=== PATIENT | female | born 1950 | race Caucasian/White ===

== ENCOUNTER 2020-02-23 18:15 | Inpatient (IN) | payer MEDICARE, OTHER, SELFPAY ==
[2020-02-23] VITALS (37 sets, daily range): BP systolic 139–166; BP diastolic 58–131; PULSE 84–111; RESP 14–22; TEMP 36.3–37; O2SAT 94–98
--- NOTE | 2020-02-23 18:10 | DI.RAD_ITS ---
EXAM: XR PORTABLE CHEST AP CLINICAL HISTORY: SOB, hx CHF TECHNIQUE: 2D digital imaging was performed. COMPARISON: No exams were available for comparison FINDINGS: The lung bases are not well penetrated. The heart size is within normal limits. The aorta is mildly tortuous. There are mild linear densities at the left lung base consistent with atelectasis or scar ring. No infiltrate, effusion or pulmonary edema is seen. IMPRESSION: No acute pulmonary findings. DATA REPOSITORY: RADIATION DOSE DELIVERED:
--- NOTE | 2020-02-23 18:15 | RT.EKG_ITS ---
APPROVED REPORT Exam: Resting ECG Patient Location: E HR:101 bpm ECG Measurements Heart Rate 101 AXIS OR 205 P 56 QRSd 115 QRS 42 QT 358 T 48 QTc 465 Conclusion Sinus tachycardia Incomplete right bundle branch block
--- NOTE | 2020-02-23 18:50 | W.ED.GENAD ---
Discharge Plan Disposition Patient Disposition: [facility] INPATIENT Condition: Stable Discharge Details Clinical Impression: Chest tightness Primary Care Provider: Fanny,Local ED Provider: Jarred Ramos Home Meds and New Rx's Prescriptions: No Action duloxetine [Cymbalta] 60 mg Capsule,Delayed Release(Dr/Ec) 60 mg PO DAILY RF: 0 furosemide 40 mg Tablet 40 mg PO DAILY RF: 0 oxybutynin chloride 15 mg Tablet Extended Release 24hr 15 mg PO DAILY RF: 0 trazodone 150 mg Tablet 150 mg PO DAILY RF: 0 buspirone 10 mg Tablet 10 mg PO DAILY RF: 0 Medical Decision Making <Christian Farrell MD - Last Filed: 02/23/20 19:48> 69-year-old female presents on referral from local urgent care. She recently moved from [place], has not established local primary care. States she has had approximately 1 week of intermittent episodes of shortness of breath with exertion, feeling weak, intermittent episodes of chest tightness. She states she is a recovering alcoholic who fell off the [facility] and has on a alcohol binge for 1 week. She states she has been drinking 6-7 hard liquor drinks per day with her last drink last night. She states she takes Lasix approximately every other day, when my legs swell. She states that distantly she had an episode of acute renal insufficiency. She had a sore throat 1 week ago that is now improved. States that she has been observing mask use and has no known sick contacts. She was initially seen at [facility] urgent care who reported a negative rapid Covid test at their facility. She is afebrile on arrival. Hypertensive, tachycardic, tremulous. She had some mild increased work of breathing but was not hypoxic. Differential diagnosis includes alcohol withdrawal, fluid overload, ACS, must exclude PE. Patient IV access established, EKG, screening laboratories obtained. She is given 1 mg of Ativan for anxiety and concern for the beginning of alcohol withdrawal. CXR: Mild left basilar airspace opacity, question atelectasis. No pulmonary vascular congestion noted. Labs: CBC with a white count of 10, hematocrit 40, platelets 208. MCV is 98. Remainder of labs pending at change of shift and patient to be signed out to Dr. Ramos. Please see his note regarding further impression and disposition. <Jarred Ramos MD - Last Filed: 02/23/20 21:59> pt remains mildly tachycardic in the 100's, initial troponin negative and d dimer is elevated unfortunately gfr is only 30. I spoke with pt and given exertional chest pain for a week feels more comfortable with observation. Spoke with Dr. Casillas who will assess pt in the ED. Lab Data Lab results reviewed: Yes I reviewed the patient's lab results. ECG Data Attestation: I personally reviewed and interpreted this ECG (s) as follows: Prior ECG tracings: available for review Interpretation: 2nd ekg sinus rhythm, rat eof 88, pr 175 qtc 457 HPI <Christian Farrell MD - Last Filed: 02/23/20 19:48> General Mode of arrival: ambulatory. Date/Time Provider Initiated Documentation: 02/23/20 18:17. Limitations to Documentation: no limitations. Information obtained by: patient. History of Present Illness 69 year old F presents to the emergency department with the chief complaint of Chest tightness, shortness of breath, recent alcohol binge, described as moderate, and is localized to the chest. Patient reports no radiation. Patient started experiencing this day(s) and it has been intermittent. Rest improves symptom(s), Other factors that worsen symptoms (Walking) . Patient notes shortness of breath, weakness and other (Had a sore throat that is improved. Denies significant cough. Feels tremulous. States last drink was yesterday). Patient did receive the following treatments prior to arrival, none Related Data Home Medications Medication Instructions Recorded Confirmed buspirone 10 mg PO DAILY 02/23/20 02/23/20 duloxetine [Cymbalta] 60 mg PO DAILY 02/23/20 02/23/20 furosemide 40 mg PO DAILY 02/23/20 02/23/20 oxybutynin chloride 15 mg PO DAILY 02/23/20 02/23/20 trazodone 150 mg PO DAILY 02/23/20 02/23/20 Allergies Allergy/AdvReac Type Severity Reaction Status Date / Time No Known Allergies Allergy Unverified 02/23/20 18:37 General Stated Complaint: Chest Pain IAN: 2 Review of Systems <Christian Farrell MD - Last Filed: 02/23/20 19:48> Narrative: States he takes Lasix approximately every other day. History of renal insufficiency. Recently moved from [place]. 8 systems reviewed and otherwise negative PFSH <Christian Farrell MD - Last Filed: 02/23/20 19:48> Social History Smoking/Tobacco Use Status: Current-Occasional Tobacco Type: e-cigarettes Smoking risk assessment performed?: Yes Alcohol Intake: current Alcohol Intake frequency: 3 or more drinks per day Alcohol type: hard liquor Substance use 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 Was drinking 5-6 drinks for the past week. PT now reports tremors Do you feel safe at home: Yes Do you feel safe in your relationship?: Yes Exam <Christian Farrell MD - Last Filed: 02/23/20 19:48> Narrative Exam Narrative: GEN: awake, alert, oriented 3. Pleasant, well groomed, interactive. HEAD: Normocephalic, atraumatic ENT: Mucous membranes moist, oropharynx unremarkable, External ear exam unremarkable EYES: PERRL, EOMI NECK: Full ROM, no DIANE, no menigismus CHEST/RESP: Nontender, clear to auscultation bilateral, no wheeze/rhonchi/rales CARDIOVASCULAR: Regular and tachycardic, no murmur, rub telly. 2+ Rad pulse bilateral ABDOMEN: Soft, nontender, no mass. +Bowel sounds EXT: Full ROM, trace bilateral pretibial edema, no rash Neuro: Grossly normal neurologic exam, conversant, interactive. Tremulous Psych: Speech fluent, thoughts congruent, affect normal Course <Christian Farrell MD - Last Filed: 02/23/20 19:48> Vital Signs Vital signs: Vital Signs Temperature 36.3 C L 02/23/20 18:25 Temperature 36.3 C L 02/23/20 18:25 Respiratory Effort 02/23/20 18:29 Pain Level 7 02/23/20 18:25 Sign Out <Christian Farrell MD - Last Filed: 02/23/20 19:48> Sign Out Data: Sign Out Comment: Followup labs, re-evaluate. Last updated by Christian Farrell MD at 02/23/20 19:47
[2020-02-23 19:01] LABS: Abs Immature Grans 0.05 10^3/uL (0.0-0.06); Absolute Basophil Count 0.03 10^3/uL (0.0-0.2); Absolute Eosinophil Count 0.02 10^3/uL (0.0-0.7); Absolute Lymphocyte Count 0.62 10^3/uL (1.2-3.4); Absolute Monocyte Count 0.79 10^3/uL (0.1-0.8); Absolute Neutrophil Count 9.24 10^3/uL (1.2-6.7); Basophils % 0.3; Eosinophils % 0.2; HCT 40.8 % (36.0-46.0); HGB 13.4 g/dL (11.2-15.7); Immature Grans % 0.5; Lymphocytes % 5.8; MCH 32.4 pg (27.0-33.0); MCHC 32.8 % (32.0-36.0); MCV 98.6 fL (80-95); MPV 9.2 fL (8.0-11.0); Monocytes % 7.3; Neutrophils % 85.9; Nucleated RBC 0 %; Platelet Count 208 10^3/uL (130-400); RBC 4.14 10^6/uL (3.93-5.22); RDW 16.6 % (11.7-14.6); RDW-SD 59.8 fL; WBC 10.75 10^3/uL (4.4-10.8)
[2020-02-23] MEDS: LORazepam 2 MG/ML VIAL 1 MG IVP (19:07)
[2020-02-23 19:18] LABS: PTT Activated 26.1 sec (21.0-27.5); Prothrombin Time 9.9 sec (9.3-11.0)
--- NOTE | 2020-02-23 19:19 | DI.VRAD_ITS ---
PROCEDURE INFORMATION: Exam: XR Chest, 1 View Exam date and time: 02/23/2020 7:08 PM Age: 69 years old Clinical indication: Shortness of breath TECHNIQUE: Imaging protocol: XR of the chest Views: 1 view. COMPARISON: No relevant prior studies available. FINDINGS: Lungs: There is mild left basilar airspace opacity in a configuration suggesting subsegmental atelectasis. Lungs otherwise clear. There is no pulmonary vascular congestion. Pleural space: No layering pleural effusions are identified. Heart/Mediastinum: Heart size is normal. Bones/joints: Unremarkable. IMPRESSION: Mild left basilar airspace opacity in a configuration suggesting atelectasis. Lungs otherwise clear. Dictated and Authenticated by: Nikhil Andrade MD. Ordering:HEIDI Gonzales MD
[2020-02-23 19:25] LABS: NT-proBNP 278 pg/mL (<300)
[2020-02-23 19:37] LABS: ETHANOL BLOOD < 3.0 mg/dL (<3)
[2020-02-23 19:43] LABS: ALT 40 U/L (14-59); AST 36 U/L (15-37); Albumin 3.7 g/dL (3.4-5.0); Alkaline Phosphatase 176 U/L (46-116); Anion Gap 16.6 mmol/L (3-11); BUN 25 mg/dL (7-18); Bilirubin, Total 0.6 mg/dL (0.2-1.0); CO2 22.4 mmol/L (21.0-32.0); CREATININE 1.63 mg/dL (0.55-1.02); Calcium 8.8 mg/dL (8.5-10.1); Chloride 102 mmol/L (98-107); Estimated GFR 31.28 (mL/min/1.73m2); Glucose 115 mg/dL (74-106); Magnesium 2.1 mg/dL (1.8-2.4); Potassium 3.9 mmol/L (3.5-5.1); Sodium 141 mmol/L (136-145); Total Protein 8.1 g/dL (6.4-8.2)
[2020-02-23 19:48] LABS: Troponin I < 0.05 ng/mL (<0.06)
[2020-02-23 20:06] LABS: D-Dimer 1997 ng/mlFEU (<500)
--- NOTE | 2020-02-23 21:05 | HPE_ITS ---
Date of service: 02/23/20 Time of Service: 21:05 Assessment and Plan Assessment and plan (1) SOB (shortness of breath): Status: Acute Assessment and plan: SHAH in setting of probable viral syndrome, with notable findings of wheezing. Covid a definite possibility, but may be more nonspecific. The elevated d-Dimer is likewise nonspecific, but PE possible , and higher a priori prob given LE findings. Agree with hold CTA, will give Lx until U/S available. Angina equivalent possible but I think doubtful. 1. SOB: trial updrafts, ? steroids, ? abx 2. d-Dimer: Lx, await U/S LEs 3. r/o Covid: await swab, add on ferritin, CRP and LDH. PUI 4. EtOH: CIWA 5. R/O: trend trops, consider ETT if dx not forthcoming History of Present Illness History of Present Illness Chief Complaint: SOB Narrative: 69 female former smoker here with 5 day illness beginning with sore throat and dry cough. Has since developed SHAH and diarrhea (latter past 2 days). Seen [facility], reports neg Covid, sent here for further eval. Also reports she has been drinking heavily past week (h/o alcoholism, but has been sober x 10 years). Denies CP (mentioned to ER but is adamant to me this is simply sense of SOB). Chronic LE swelling, no change, No orthopnea. In ER w/u of note for neg trop, normal EKG and CXR (save basilar atelectasis on left) and d-Dimer 1996. Due to renal insufficiency CTA not obtained. Admitted for further eval. Review of Systems All systems reviewed & are unremarkable except as noted in HPI and below PFSH Social History Smoking/Tobacco Use Status: Current-Occasional Tobacco Type: e-cigarettes Smoking risk assessment performed?: Yes Alcohol Intake: current Alcohol Intake frequency: 3 or more drinks per day Alcohol type: hard liquor Substance use 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 Was drinking 5-6 drinks for the past week. PT now reports tremors Do you feel safe at home: Yes Do you feel safe in your relationship?: Yes Meds Home Medications and Allergies Home Medications Medication Instructions Recorded Confirmed Type buspirone 10 mg PO DAILY 02/23/20 02/23/20 History duloxetine [Cymbalta] 60 mg PO DAILY 02/23/20 02/23/20 History furosemide 40 mg PO DAILY 02/23/20 02/23/20 History oxybutynin chloride 15 mg PO DAILY 02/23/20 02/23/20 History trazodone 150 mg PO DAILY 02/23/20 02/23/20 History Allergies Allergy/AdvReac Type Severity Reaction Status Date / Time No Known Allergies Allergy Unverified 02/23/20 18:37 Exam Narrative Exam Narrative: 152/677, 98, 36.3, 19, 94-98%. HEENT unremarkable; neck supple; lungs moderate wheeze; heart RRR w/o MRG; abdomen soft NT; extremities extensive chronic lymphedema, no calf tenderness, neg Argelia's; neuro Ox3 nonfocal Results Labs Result diagrams: 02/23/20 18:45 02/23/20 18:45 Labs: Laboratory Results - last 24 hr 02/23/20 02/23/20 02/23/20 18:45 18:45 18:45 WBC RBC Hgb Hct MCV MCH MCHC RDW Plt Count MPV Immature Gran % Neutrophils % Lymphocytes % Monocytes % Eosinophils % Basophils % Nucleated RBC % Absolute Neutrophils Absolute Lymphocytes Absolute Monocytes Absolute Eosinophils Absolute Basophils PT 9.9 INR 1.0 APTT 26.1 D-Dimer 1997 H Sodium 141 Potassium 3.9 Chloride 102 Carbon Dioxide 22.4 Anion Gap 16.6 H BUN 25 H Creatinine 1.63 H Estimated GFR/1.73 m2 31.28 Glucose 115 H Calcium 8.8 Magnesium 2.1 Total Bilirubin 0.6 AST 36 ALT 40 Alkaline Phosphatase 176 H Troponin I < 0.05 NT-Pro-B Natriuret Pep 278 Total Protein 8.1 Albumin 3.7 Ethyl Alcohol 02/23/20 02/23/20 18:45 18:45 WBC 10.75 RBC 4.14 Hgb 13.4 Hct 40.8 MCV 98.6 H MCH 32.4 MCHC 32.8 RDW 16.6 H Plt Count 208 MPV 9.2 Immature Gran % 0.5 Neutrophils % 85.9 Lymphocytes % 5.8 Monocytes % 7.3 Eosinophils % 0.2 Basophils % 0.3 Nucleated RBC % 0 Absolute Neutrophils 9.24 H Absolute Lymphocytes 0.62 L Absolute Monocytes 0.79 Absolute Eosinophils 0.02 Absolute Basophils 0.03 PT INR APTT D-Dimer Sodium Potassium Chloride Carbon Dioxide Anion Gap BUN Creatinine Estimated GFR/1.73 m2 Glucose Calcium Magnesium Total Bilirubin AST ALT Alkaline Phosphatase Troponin I NT-Pro-B Natriuret Pep Total Protein Albumin Ethyl Alcohol < 3.0 Last Vital Signs Temp 36.3 C L 02/23/20 18:25 Pulse 107 H 02/23/20 19:16 Resp 20 02/23/20 19:20 BP 141/96 H 02/23/20 19:16 Pulse Ox 97 02/23/20 19:20 COVID-19 Screening Have you, or household traveled for leisure in last 14 days?: No Had IN PERSON contact w/suspected or confirmed C-19 person: No
[2020-02-23 21:25] LABS: C-Reactive Protein 6.92 mg/dL (0.0-0.3); LDH 246 U/L (81-234)
[2020-02-23 21:40] LABS: Ferritin 86 ng/mL (8-252)
--- NOTE | 2020-02-23 21:45 | RT.EKG_ITS ---
APPROVED REPORT Exam: Resting ECG Patient Location: E HR:88 bpm ECG Measurements Heart Rate [address] 175 P 42 QRSd 106 QRS 8 QT 377 T 35 QTc 457 Conclusion Sinus rhythm...normal P axis, V-rate 60- 99
[2020-02-23 22:02] LABS: Procalcitonin 0.1 ng/mL
[2020-02-23 22:26] LABS: Troponin I < 0.05 ng/mL (<0.06)
[2020-02-23] MEDS: Enoxaparin 120 MG/0.8 ML SYR SC (23:31)
[2020-02-23] MEDS: Albuterol 2.5 MG/3 ML INH SOLN VIAL UPD (23:31)
[2020-02-23] MEDS: LORazepam 1 MG TAB PO/SL (23:32)
[2020-02-23] MEDS: traZODone 50 MG TAB 150 MG PO (23:32)
[2020-02-23] MEDS: chlordiazePOXIDE 25 MG CAP PO (23:44)
[2020-02-24] VITALS (10 sets, daily range): BP systolic 119–149; BP diastolic 54–77; PULSE 80–105; RESP 16–20; TEMP 35–36.7; O2SAT 94–97
--- NOTE | 2020-02-24 | DI.US_ITS ---
EXAM: US EXTREMITY VENOUS BI CLINICAL HISTORY: bilateral leg edema; elevated d-dimer; PUI. TECHNIQUE: Bilateral lower extremity venous ultrasound performed using grayscale, color-flow, and sp ectral Doppler analysis. COMPARISON: No exams were available for comparison FINDINGS: Right lower extremity: The bilateral common femoral, femoral and popliteal veins demonstrate normal c ompressibility, augmentation, and color Doppler. The posterior tibial veins are patent. Left lower extremity: Thrombus is visible in left posterior tibial vein. The popliteal and femoral v ein as well as saphenous veins appear free of thrombus. IMPRESSION: Right: Negative for DVT Left: Deep venous thrombosis in 1 of the posterior tibial veins. DATA REPOSITORY:
[2020-02-24 06:14] LABS: Troponin I < 0.05 ng/mL (<0.06)
[2020-02-24] MEDS: Albuterol/Ipratropium 3 ML UPD VIAL UPD (06:19)
[2020-02-24] MEDS: Furosemide 40 MG TAB PO (08:09)
[2020-02-24] MEDS: Oxybutynin-CR 5 MG TABCR 15 MG PO (08:09)
[2020-02-24] MEDS: DULoxetine 30 MG CAP 60 MG PO (08:09)
[2020-02-24] MEDS: chlordiazePOXIDE 25 MG CAP PO ×3 (08:09→20:30)
[2020-02-24] MEDS: Ipratropium/Albuterol 4 GM 120 PUFF INH IH ×4 (08:59→20:31)
--- NOTE | 2020-02-24 10:08 | INITIAL_ITS ---
- If Service Date Differs Date of service: 02/24/20 Time of Service: 10:08 Care Management Initial Assess REASON FOR HOSPITALIZATION:: SOB PAST MEDICAL HISTORY/PAST SURGICAL HISTORY:: Fracture of right leg. MRSA infection right leg. kidney failure PREVIOUS FUNCTIONAL STATUS/SOCIAL/FAMILY SUPPORTS:: Carine lives in [place] [facility] [place]. Her male counter molder Karel Gupta is listed as her contact lens edge buffer. Carine has recently relocated from [place] in December. 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 Carine has no children. She is independent at baseline with ADLs, driving etc but has issues with balance. CURRENT FUNCTIONAL STATUS:: Carine was sitting up in bed when CM met with her. She was open and engaged and agreeable to conversation. She shared a bit of the history of her relationship with her boyfriend and how she came to live in [place]. She wants and needs to establish care with a new PCP and CM will assist with that. She also expressed a desire to lose weight and become more active. ADVANCE DIRECTIVES:: Given 2 copies of the [facility] AD forms at her request Has patient been provided with info about the portal/API?: Yes Did the patient sign up for the portal?: No (is interested ) CODE STATUS:: Full Code INSURANCE COVERAGE / FINANCIAL ISSUES:: Medicare. [employer] CURRENT HOME/COMMUNITY SERVICES/EQUIPMENT:: walking sticks PRIMARY CARE PHYSICIAN:: none local. Katie Williamson T-doc day of admission POTENTIAL DISCHARGE NEEDS:: Establish with new PCP, follow up with discharge plan, begin a weight loss and exervise program PATIENT/FAMILY EDUCATION NEEDS:: Discharge and follow up plans, limitations, Ask Me Three TRANSPORTATION:: via private vehicle with Karel PLAN:: Carine will likely return to her home in [place]. She may need HH RN and PT for a while. She will follow up with the PCP assigned and with her plan of care. CM will continue to support Carine and assess for discharge planning needs.
[2020-02-24] MEDS: Enoxaparin 120 MG/0.8 ML SYR SC (10:26)
[2020-02-24] MEDS: Normal Saline 1,000 ML 85 ML IV ×2 (10:27→22:42)
[2020-02-24] MEDS: Normal Saline Flush 10 ML SYR IVP (10:27)
--- NOTE | 2020-02-24 12:20 | DI.VRAD_ITS ---
Addendum created by Chip Fermin MD on 02/24/2020 12:26:17 PM EST: THIS REPORT CONTAINS FINDINGS THAT MAY BE CRITICAL TO PATIENT CARE. The findings were verbally communicated via telephone conference with Murray Sanchez at 12:26 PM EST on 02/24/2020. The findings were acknowledged and understood. Initial report created on 02/24/2020 12:19:35 PM EST: PROCEDURE INFORMATION: Exam: US Duplex Lower Extremity Veins, Bilateral Exam date and time: 02/24/2020 12:06 PM Age: 69 years old Clinical indication: Other: Swelling TECHNIQUE: Imaging protocol: Real-time duplex ultrasound of the extremities with 2-D garland scale, color Doppler flow and spectral waveform analysis with image documentation. Complete exam focused on the bilateral lower extremity veins. COMPARISON: No relevant prior studies available. FINDINGS: Right deep veins: Unremarkable. The common femoral, femoral, proximal profunda femoral and popliteal veins are patent without thrombus. Normal Doppler waveforms. Normal compressibility and/or augmentation response. Right superficial veins: Saphenofemoral junction is patent without thrombus. Left deep veins: Deep venous thrombosis in 1 of the left posterior tibial veins.. Left superficial veins: Saphenofemoral junction is patent without thrombus. Soft tissues: Unremarkable. IMPRESSION: Deep venous thrombosis in 1 of the left posterior tibial veins.. Dictated and Authenticated by: Chip Fermin MD. Ordering:[facility] Laura Gao MD
--- NOTE | 2020-02-24 14:01 | W.PM.PROGNOT ---
Date of Service Date of service: 02/24/20 Time of Service: 14:01 Assessment and Plan Assessment and plan (1) Pulmonary embolism: Status: Suspected Assessment and plan: Patient has multiple risk factors for PE including morbid obesity sedentary lifestyle caused by chronic gait instability from multiple surgeries on her right leg and recent trips back and forth between [place] and [place]. There was some concern for possible COVID-19 however patient denies any contacts with people with COVID-19 although she did move from [place] which has had a high level cases of COVID-19. Nevertheless her COVID-19 swab came back negative by PCR testing. We will get an echocardiogram in the morning to evaluate for right heart strain and pulmonary hypertension. If her creatinine improves we may consider doing a CT of the chest although I do not feel that this is going to change her treatment in light of her chronic kidney disease it would probably be best not to give her the contrast load. She will remain on therapeutic Lovenox which I increased to 140 mg subcutaneously every 12 hours which more closely matches her actual weight. We will transition over to warfarin as she is not a candidate for DOAC due to her morbid obesity. If we definitively need to rule in or rule out a PE a ventilation/perfusion CAT scan could be performed now that we know that her Covid test is negative. Qualifiers: Pulmonary embolism type: unspecified Chronicity: acute Acute cor pulmonale presence: unspecified Qualified Code(s): I26.99 - Other pulmonary embolism without acute cor pulmonale (2) SOB (shortness of breath): Status: Acute Assessment and plan: As above (3) Chest tightness: Status: Acute Assessment and plan: As above (4) Left leg DVT: Status: Acute Assessment and plan: Therapeutic Lovenox at 140 mg subcutaneously every 12 hours. After spent on this for 24 hours I will start her on warfarin. Qualifiers: Affected thrombotic vein of extremity: tibial Chronicity: acute Qualified Code(s): I82.442 - Acute embolism and thrombosis of left tibial vein Subjective Subjective Interval history since last seen: 69-year-old female with morbid obesity (BMI 49.8 kg/m?), anxiety disorder, depression who moved to [place] from [facility] in December to be with her boyfriend. She presented emergency department after being seen at the urgent care center in [place] yesterday for complaints of shortness of breath. Said it started out with cold-like symptoms with nasal congestion and sore throat but no fever or rigors and no sputum production. Said just felt like she could not catch her breath. They did a nasal swab rapid antigen test for COVID-19 which was negative but because of her shortness of breath it was recommended that she be referred to the hospital in [facility] however because her boyfriend lives here in [place], [place], he drove her to [facility] emergency room. Work-up included routine labs including CBC CMP, proBNP and serial troponin levels. proBNP was within normal limits and troponin I levels were negative x3 sets. Nasal swab for COVID-19 PCR testing was performed and was pending as of this morning but has since come back negative. Portable chest x-ray taken in the emergency department showed the heart size within normal limits aorta was mildly tortuous and lung bases were not well penetrated but she has some mild linear densities at the level left lung base consistent with atelectasis or scarring. No infiltrates or effusions or pulmonary edema were seen. EKG demonstrated normal sinus rhythm with no acute ischemic changes. D-dimer came back elevated at 1996. Because the patient has bilateral leg edema on a chronic basis suspicion was raised for possible DVT and pulmonary embolus. Because the patient has some chronic kidney disease with an elevated creatinine 1.63 and a BUN of 25 she did not get a CTA of her chest but was placed on therapeutic Lovenox and 120 mg every 12 hours. She has since subsequently had a venous duplex scan of her legs and was found to have a left posterior tibial vein thrombosis. Working diagnosis is DVT with probable pulmonary embolus. An echocardiogram has been ordered for tomorrow. Her furosemide's been placed on hold and she had been given IV fluids to see if we can correct some of her azotemia. Exam Narrative Exam Narrative: Morbidly obese female in no acute distress not dyspneic and not having any chest pain. Oxygen saturation is 97% on 1 L/min per nasal cannula. 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 Left calf is edematous but less than the right calf with no visible bruising left calf is minimally tender compared to the right calf. Feet are warm dry with normal pedal pulses Objective Last Vital Signs Temp 36.1 C L 02/24/20 08:15 Pulse 96 H 02/24/20 08:15 Resp 20 02/24/20 09:01 BP 149/77 H 02/24/20 08:15 Pulse Ox 97 02/24/20 12:02 Laboratory Results - last 24 hr 02/23/20 02/23/20 02/23/20 18:15 18:15 18:45 WBC RBC Hgb Hct MCV MCH MCHC RDW Plt Count MPV Immature Gran % Neutrophils % Lymphocytes % Monocytes % Eosinophils % Basophils % Nucleated RBC % Absolute Neutrophils Absolute Lymphocytes Absolute Monocytes Absolute Eosinophils Absolute Basophils PT INR APTT D-Dimer Sodium Potassium Chloride Carbon Dioxide Anion Gap BUN Creatinine Estimated GFR/1.73 m2 Glucose Calcium Magnesium Ferritin 86 Total Bilirubin AST ALT Alkaline Phosphatase Lactate Dehydrogenase 246 H Troponin I C-Reactive Protein 6.92 H NT-Pro-B Natriuret Pep 278 Total Protein Albumin Procalcitonin 0.1 Ethyl Alcohol 02/23/20 02/23/20 02/23/20 18:45 18:45 18:45 WBC 10.75 RBC 4.14 Hgb 13.4 Hct 40.8 MCV 98.6 H MCH 32.4 MCHC 32.8 RDW 16.6 H Plt Count 208 MPV 9.2 Immature Gran % 0.5 Neutrophils % 85.9 Lymphocytes % 5.8 Monocytes % 7.3 Eosinophils % 0.2 Basophils % 0.3 Nucleated RBC % 0 Absolute Neutrophils 9.24 H Absolute Lymphocytes 0.62 L Absolute Monocytes 0.79 Absolute Eosinophils 0.02 Absolute Basophils 0.03 PT 9.9 INR 1.0 APTT 26.1 D-Dimer 1997 H Sodium 141 Potassium 3.9 Chloride 102 Carbon Dioxide 22.4 Anion Gap 16.6 H BUN 25 H Creatinine 1.63 H Estimated GFR/1.73 m2 31.28 Glucose 115 H Calcium 8.8 Magnesium 2.1 Ferritin Total Bilirubin 0.6 AST 36 ALT 40 Alkaline Phosphatase 176 H Lactate Dehydrogenase Troponin I < 0.05 C-Reactive Protein NT-Pro-B Natriuret Pep Total Protein 8.1 Albumin 3.7 Procalcitonin Ethyl Alcohol 02/23/20 02/23/20 02/24/20 18:45 21:57 05:40 WBC RBC Hgb Hct MCV MCH MCHC RDW Plt Count MPV Immature Gran % Neutrophils % Lymphocytes % Monocytes % Eosinophils % Basophils % Nucleated RBC % Absolute Neutrophils Absolute Lymphocytes Absolute Monocytes Absolute Eosinophils Absolute Basophils PT INR APTT D-Dimer Sodium Potassium Chloride Carbon Dioxide Anion Gap BUN Creatinine Estimated GFR/1.73 m2 Glucose Calcium Magnesium Ferritin Total Bilirubin AST ALT Alkaline Phosphatase Lactate Dehydrogenase Troponin I < 0.05 < 0.05 C-Reactive Protein NT-Pro-B Natriuret Pep Total Protein Albumin Procalcitonin Ethyl Alcohol < 3.0
[2020-02-24 15:13] LABS: COVID-19 RT-PCR UVMMC Result Negative (Negative)
[2020-02-24] MEDS: traZODone 50 MG TAB 150 MG PO (22:41)
[2020-02-24] MEDS: busPIRone 5 MG TAB 10 MG PO (22:41)
[2020-02-25] VITALS (7 sets, daily range): BP systolic 114–149; BP diastolic 64–81; PULSE 78–94; RESP 16–20; TEMP 36.1–37.4; O2SAT 92–95
[2020-02-25 07:22] LABS: BUN 22 mg/dL (7-18); Chloride 106 mmol/L (98-107); Estimated GFR 34.43 (mL/min/1.73m2); Glucose 93 mg/dL (74-106); Sodium 140 mmol/L (136-145)
[2020-02-25 07:44] LABS: Potassium 3.3 mmol/L (3.5-5.1)
[2020-02-25] MEDS: Ipratropium/Albuterol 4 GM 120 PUFF INH IH ×4 (07:51→20:04)
[2020-02-25] MEDS: Oxybutynin-CR 5 MG TABCR 15 MG PO (08:10)
[2020-02-25] MEDS: chlordiazePOXIDE 25 MG CAP PO ×3 (08:11→20:06)
[2020-02-25] MEDS: DULoxetine 30 MG CAP 60 MG PO (08:11)
--- NOTE | 2020-02-25 09:23 | DI.US_ITS ---
APPROVED REPORT EXAM: Comprehensive 2D, Doppler, and color-flow Echocardiogram Patient Location: In-Patient Room/Bed: [address] Maker: Mehreen Cunningham RDCS (AE) Indications: Dyspnea Other Information Technically limited study due to body habitus. Conclusion Normal left ventricular chamber size and systolic function. Estimated ejection fraction is 60%. The re are no segmental wall motion abnormalities Normal right ventricular size and systolic function Both atria are normal in size Mildly sclerotic trileaflet aortic valve with no stenosis or regurgitation Mild mitral annular calcification. Trace mitral regurgitation Structurally normal tricuspid valve with trace to mild regurgitation. Normal estimated right ventric ular systolic pressure The pulmonic valve is not well visualized Mildly dilated ascending aorta measuring 3.4 cm Wall motion Left Ventricle The left ventricle is normal size. The left ventricular systolic function is normal. The left ventric ular ejection fraction is within the normal range. There is normal left ventricular wall thickness. T here is normal LV segmental wall motion. There is no ventricular septal defect visualized. LVEF is 58 %. Right Ventricle The right ventricle is normal size. The right ventricular systolic function is normal. The RVSP is 21 .9 mmHg. Atria The left atrium size is normal. The right atrium size is normal. The interatrial septum is intact wit h no evidence for an atrial septal defect. Aortic Valve The Aortic valve is mildly sclerotic. Aortic valve is trileaflet. There is no aortic valvular stenosi s. No aortic regurgitation is present. Mitral Valve Mild mitral annular calcification. No evidence of mitral valve stenosis. Trace mitral regurgitation. Tricuspid Valve The tricuspid valve is normal in structure. There is no tricuspid valve stenosis. Trace to mild tricu spid regurgitation. Normal estimated right ventricular systolic pressure Pulmonic Valve Pulmonic valve is not well visualized. There is no pulmonic valvular stenosis. There is no pulmonic v alvular regurgitation. Great Vessels The aortic root is normal in size. The ascending aorta is mildly dilated. 3.4 cm Aortic arch is danielle l in caliber. IVC is normal in size and collapses >50% with inspiration. Pericardium There is no pericardial effusion. 2D Dimensions IVSD d PLAX 0.98 cm F: 0.6-1.0 LV Vol A2C d MOD 103.3 mL LVPW d PLAX 0.96 cm F: 0.6 - 1.0 LV Vol A4C d MOD 92.8 mL LVID d PLAX 5.18 cm F: 3.8 - 5.2 LA vol/ BSA A2C s A-L 17.5 mL/m2 LVDs 3.50 cm F: 2.2 - 3.5 LA vol/ BSA A4C s A-L 21.8 mL/m2 Ao Root d 2.66 cm F: 2.7 - 3.3 LA Vol/ BSA Biplane s A-L 20.3 mL/m2 RA Area A4C 12.80 cm2 LA Area A4C s MOD 19.10 cm2 RA Vol/ BSA A4C s A-L 12.2 mL/m2 LA Area A2C s MOD 16.45 cm2 Ao Asc Diam d 3.41 cm F: 2.3 - 3.1 LV EF A4C MOD 58.6 % LV EF Teichholz 59.6 % LV EF A2C MOD 58.9 % LVEF (Strauss's) 56.87 % F: 54 - 74 LV EF Biplane MOD 56.9 % LV Volume 69.90 mL F: 46 - 106 SV 56.92 mL LV Volume Index 27.73 mL/m2 F: 29 - 61 SV Index 22.60 mL/m2 LV Vol Biplane MOD 100.1 mL FS 31.85 % M-Mode TAPSE 2.33 cm (M/F) >1.7 LV Diastology MV E' medial 0.075 (>0.07 m/s) E/A Ratio 0.7 LV E/e MED 9.40 (<14) MV E Vmax 0.70 (0.4-1.3 m/s) MV E' lateral 0.064 (>0.1 m/s) MV A Vmax 1.00 (0.4-1.3 m/s) LV E/e LAT 11.05 (<14) MV E/A Ratio 0.70 MV E/E' medial 9.44 MV E/E' lateral 11.08 Aortic Valve LVOT Area 3.42 cm2 AoV Area Vmax 2.76 cm2 LVOT Vmax 1.22 m/s AoV Area/ BSA (Vmax) 1.10 cm2/m2 LVOT Mean Josh. 0.78 m/s KEVIN Mean Josh. 2.36 cm2 LVOT Peak Grad 6.0 mmHg KEVIN Mean Josh. Index 0.94 cm2/m2 LVOT Mean Grad 2.9 mmHg LVOT VTI 0.217 m LVOT Diam s 2.05 cm AoV Vmax 1.52 m/s Velocity Ratio 0.80 AoV Mean Josh. 1.14 m/s AoV Peak Grad 9.2 mmHg LVOT SV 74.12 mL AoV Mean Grad 5.7 mmHg AoV VTI 0.212 m AoV Area VTI 3.49 cm2 AoV Area/ BSA (VTI) 1.39 cm/m2 Mitral Valve MV DT 270 (160-240 msec) MV PHT 78 msec MV Area PHT 2.81 cm2 MV VTI 0.184 m MV VTI Annulus 0.190 m MV Area VTI 4.14 (4.0-6.0 cm2) Pulmonary Valve PV Vmax 1.28 (0.5-1.5 m/s) RVOT Peak Gr. 5.23 mmHg PV Peak Grad 6.6 mmHg RVOT Mean Gr. 2.40 mmHg PV Mean Grad 3.4 mmHg RVOT VTI 0.195 m PV VTI 0.189 m RVOT Vmax 1.14 m/s Tricuspid Valve TR Peak Grad 18.9 mmHg TR Vmax 2.18 m/s RA Pressure 3.00 mmHg RVSP (TR) 21.9 mmHg
--- NOTE | 2020-02-25 10:00 | DI.US_ITS ---
EXAM: US PELVIS TRANSVAGINAL CLINICAL HISTORY: vaginal bleeding TECHNIQUE: Transabdominal and transvaginal imaging was performed using standard protocol. COMPARISON: No exams were available for comparison FINDINGS: KIDNEYS: Kidneys are symmetric in size. No evidence of renal calculi. No evidence of hydronephrosis. No renal mass or cyst identified. A 2.7 centimeter gallstone is incidentally noted. UTERUS: Anteverted. Endometrium: Markedly thickened at 2.4 centimeters. Irregular, heterogeneous echotexture, hyperemia. Myometrium: Question 1.3 centimeter anterior myometrial fibroid. Cervix: Small nabothian cysts. OVARIES: Right not visualized. Obscured by bowel gas. Left ovary: Normal appearance. CUL-DE-SAC: Free fluid: None. IMPRESSION: 1. Markedly thickened, heterogeneous hyperemic endometrium. The findings are suspicious for endomet rial carcinoma. Biopsy is recommended. 2. Unremarkable left. Right ovary not visualized. DATA REPOSITORY:
--- NOTE | 2020-02-25 10:23 | PDOC.CMPRO ---
- If Service Date Differs Date of service: 02/25/20 Time of Service: 10:23 Care Management Progress Note S/O: Carine was sitting up in bed when CM met with her. She appeared to be in good spirits and was agreeable to conversation. Carine shared that she just really wants to know what is going on with her and what the plan is. She has shortness of breath which the provider has told her he believes may be due to a PE, but that has not been confirmed. She has been found to have a DVT and is being treated with Lovenox. She has had recent vaginal bleeding and she is 20 years post-menopause. A montessori preschool teacher consult this morning revealed thickened endometrium which will require surgical intervention and biopsy. Carine had an Echocardiogram this morning and expects to have additional testing to rule out a PE. She assured CM that she was not asking to be discharged imminently; she wants to stay until she understands her medical issues and what the plan of care is. She admitted to being a bit bored so CM provided her with a puzzle book and a couple of books from the [employer]. A: Carine is a 69 year old woman admitted on 02/23/20 with shortness of breath P:Carine will likely return to her home in [place]. She may need HH RN and PT for a while. She will follow up with the PCP assigned and with her plan of care. CM will continue to support Carine and assess for discharge planning needs.
--- NOTE | 2020-02-25 10:45 | W.NUTRFU ---
Date of service: 02/25/20 Time of Service: 10:45 Nutritional Follow up NOTE: 69 year old female admitted with pulmonary embolism and morbid obesity (BMI 50). Following regular meal plan with adequate intake. Not at nutritional risk at this time. Will continue to follow. Time Spent in Nutritional Counseling and Treatment: 0
[2020-02-25] MEDS: Potassium Chloride Liquid 20 MEQ PKT 40 MEQ PO (11:03)
--- NOTE | 2020-02-25 11:25 | PHA.REVIEW ---
Pharmacy Admission Review - Admission Clinical Review (Last Reviewed 02/23/20 @ 18:52 by Christian Farrell MD) Left leg DVT (Acute) SOB (shortness of breath) (Acute) Chest tightness (Acute) No Known Allergies Allergy (Unverified 02/23/20 18:37) Height 5 ft 8 in Weight 148.5 kg - Renal Dosing Renal Dosing: BUN 22 mg/dL (7-18) H 02/25/20 06:36 Creatinine 1.50 mg/dL (0.55-1.02) H 02/25/20 06:36 Medications needing adjustments: Reviewed (Crcl ~54.6 mL/min using adjusted body weight, current meds okay.) - Anticoagulation Anticoagulation: Hgb 13.4 g/dL (11.2-15.7) 02/23/20 18:45 Hct 40.8 % (36.0-46.0) 02/23/20 18:45 Plt Count 208 10^3/uL (130-400) 02/23/20 18:45 INR 1.0 (0.9-1.1) 02/23/20 18:45 Creatinine 1.50 mg/dL (0.55-1.02) H 02/25/20 06:36 DVT Prohphylaxis: N/A Therapeutic Anticoagulation: Reviewed Medications: Enoxaparin - Opiate Usage Evaluate Pain Scale/Pains Meds: N/A - Relevant Labs Sodium 140 mmol/L (136-145) 02/25/20 06:36 Potassium 3.3 mmol/L (3.5-5.1) L 02/25/20 06:36 Chloride 106 mmol/L (98-107) 02/25/20 06:36 Magnesium 2.1 mg/dL (1.8-2.4) 02/23/20 18:45 C-Reactive Protein 6.92 mg/dL (0.0-0.3) H 02/23/20 18:15 Electrolytes, C-Reactive P, ESR: Reviewed (po K+ replacement ordered) - DM Control DM Control: Glucose 93 mg/dL (74-106) 02/25/20 06:36 Insulin Dosing: N/A - Heart Failure/RI Heart Failure/RI: Troponin I < 0.05 ng/mL (<0.06) 02/24/20 05:40 NT-Pro-B Natriuret Pep 278 pg/mL (<300) 02/23/20 18:45 EF%, NICHELLE's, B-Blockers, Diuretics: Reviewed - BP Control BP Control: Blood Pressure 138/81 Blood Pressure 126/80 Blood Pressure 123/77 If elevated: N/A - Qtc Review If Elevated: N/A (QTc 457) - IV to PO Switch IV Medications: Reviewed - Home Meds Home Med List reviewed: Reviewed (oxybutynin and buspirone doses differ from the external med history, and no furosemide on external med history. Per pt's pharmacy no furosemide picked up in past 90+ days, oxybutynin ER now 10 mg daily and buspirone now 10 mg BID. Home med list updated.) Relevent Home Meds Not ordered & why?: All home meds ordered, watch for correction of doses to match updated home med list. - Current meds Current Medication Order Review: Reviewed - Comments Comments/Follow Ups: Watch VS, K, SCr, and for med changes.
--- NOTE | 2020-02-25 12:56 | GCONE_ITS ---
Date of service: 02/25/20 Time of Service: 12:57 Assessment and Plan Assessment and plan (1) Left leg DVT: Status: Acute Qualifiers: Affected thrombotic vein of extremity: tibial Chronicity: acute Qualified Code(s): I82.442 - Acute embolism and thrombosis of left tibial vein (2) SOB (shortness of breath): Status: Acute (3) Chest tightness: Status: Acute (4) Postmenopausal bleeding: Status: Acute Assessment and plan: Patient was admitted to the hospital for the above issues including shortness of breath, chest tightness, lower extremity DVT, suspicion for pulmonary embolism. She had been empirically fully anticoagulated. She has had episodes of postmenopausal bleeding in the past and again more recently in the past week or so. Pelvic ultrasound confirmed significantly thickened endometrium. This will need to be evaluated, however her current respiratory and cardiac status supersede need for endometrial sampling. She will need to be sampled in the relatively near future. As she will be fully anticoagulated, when her respiratory status stabilizes, we may consider transitioning her to Lovenox and bridging therapy around the time of hysteroscopy with dilation and curettage. She will be seen in our office in follow-up as an outpatient. She will have anesthesia evaluation to assess as to whether this patient is a candidate for surgical procedure here at [facility] or would need to be performed at a tertiary care facility. (5) Thickened endometrium: Status: Acute Assessment and plan: Will need endometrial sampling in the relatively near future. Risk benefits and alternatives of hysteroscopy with dilation and curettage were explained to patient. She does understand that there is a significant potential risk for polyp, endometrial hyperplasia, precancer or cancerous changes in the lining of the uterus due to its thick state. She will be seen in the office in follow-up in approximately 2 weeks once discharged and stable from a pulmonary and cardiac standpoint. History of Present Illness History of Present Illness Chief Complaint: postmenopausal bleeding, thickened endometrium Narrative: Kindly asked to see in consultation this very pleasant 69-year-old female who was admitted to [facility] with acute shortness of breath, lower extremity edema and deep venous thrombosis with a suspicion for pulmonary embolism. She has had little to no gynecologic care in a number of years. She is postmenopausal. She states that approximately 5 years ago she did have an episode of postmenopausal bleeding, and more recently in the past week has had some postmenopausal spotting. Her medical issues are significantly complex at this time including morbid obesity, deep venous thrombosis, limited mobility, and acute shortness of breath. Consults Consult date: 02/25/20 Requesting physician: Murray Sanchez Review of Systems All systems reviewed & are unremarkable except as noted in HPI and below Constitutional Constitutional: Denies fever(s), Reports lethargy and Denies weight loss Eyes Eyes: Reports system reviewed and no additional complaints, except as documented Cardiovascular Cardiovascular: Reports chest pain with activity, Reports rapid heart rate, Reports irregular heart rhythm, Reports dyspnea and Reports dyspnea on exertion Respiratory Respiratory: Reports as per HPI, Reports chest congestion, Reports cough, Reports dyspnea and Reports dyspnea on exertion Gastrointestinal Gastrointestinal: Denies abdominal pain, Denies constipation and Reports diarrhea Genitourinary Genitourinary: Reports abnormal vaginal bleeding, Denies hot flashes and Denies pelvic pain Musculoskeletal Musculoskeletal: Reports system reviewed and no additional complaints, except as documented and Reports joint swelling Neurologic Neurologic: Reports system reviewed and no additional complaints, except as documented Psychiatric Psychiatric: Reports system reviewed and no additional complaints, except as documented Hematologic/Lymphatic Hematologic/Lymphatic: Reports system reviewed and no additional complaints, except as documented PFSH Medical History (Updated 02/25/20 @ 13:02 by Randee Manning DO) Postmenopausal bleeding Thickened endometrium Social History Smoking/Tobacco Use Status: Current-Occasional Tobacco Type: e-cigarettes Smoking risk assessment performed?: Yes Alcohol Intake: current Alcohol Intake frequency: 3 or more drinks per day Alcohol type: hard liquor Substance use 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 Was drinking 5-6 drinks for the past week. PT now reports tremors Do you feel safe at home: Yes Do you feel safe in your relationship?: Yes Female Reproductive History Menstrual Menopause type: natural Date of menopause: 04/04/04 Exam Const General: cooperative, comfortable, no acute distress and well developed Nutritional Appearance: obese Orientation: alert HENMT Head: normal to inspection Eyes General: appearance normal, both eyes and all related structures Resp Effort & Inspection: normal respiratory effort, abnormal respiratory pattern and cough GI Inspection: normal to inspection, large pannus and obesity Other: Examination deferred today. Pelvic ultrasound had been performed showing markedly thickened endometrium. Skin General skin exam: no rashes or lesions noted Results Last Vital Signs Temp 97.7 F 02/25/20 11:32 Pulse 78 02/25/20 11:32 Resp 18 02/25/20 11:32 BP 118/64 02/25/20 11:32 Pulse Ox 94 02/25/20 11:32 Labs Result diagrams: 02/23/20 18:45 02/25/20 06:36 Labs: Laboratory Results - last 24 hr 02/23/20 02/25/20 19:25 06:36 Sodium 140 Potassium 3.3 L Chloride 106 Carbon Dioxide 25.0 Anion Gap 9.0 BUN 22 H Creatinine 1.50 H Estimated GFR/1.73 m2 34.43 Glucose 93 Calcium 8.0 L COVID-19 PCR Negative Nasopharyn COVID-19 PCR Not Applicable Ref Test Perform Site [facility]
--- NOTE | 2020-02-25 13:49 | PGE_ITS ---
Date of Service Date of service: 02/25/20 Time of Service: 13:49 Assessment and Plan Assessment and plan (1) Pulmonary embolism: Status: Suspected Assessment and plan: Presumptive diagnosis based on elevated d-dimer and postive venous duplex scan of her legs w/ L. post. tibial DVT. CTA not able to be done d/t CKD. Due to her morbid obesity I am not sure that a V/Q is going to be able to tell us much more and certainly will not change the management. She needs 3 to 6 months of anticoagulation. I told Dr. Randee Manning that the patient should remain on uninterrupted anticoagulation for the next 4 to 6 weeks at which time she could be bridged on enoxaparin and taken off her warfarin for the endometrial biopsy w/ hold of her enoxaparin for 12 to 18 hours before the biopsy. Even after completion of 3 to 6 months of anticoagulation, she may need ongoing perhaps lifetime anticoagulation particularly if she has a cancer that predisposes to thromboembolism. I would treat for 6 months then recheck d-dimer while off anticoagulation and if elevated I would continue anticoagulation. Qualifiers: Pulmonary embolism type: unspecified Chronicity: acute Acute cor pulmonale presence: unspecified Qualified Code(s): I26.99 - Other pulmonary embolism without acute cor pulmonale (2) SOB (shortness of breath): Status: Acute Assessment and plan: As above. patient still feels mildly dyspneic w/ activity but she is not hypoxemic. (3) Left leg DVT: Status: Acute Assessment and plan: Therapeutic Lovenox at 140 mg subcutaneously every 12 hours. Begin warfarin therapy tonight and begin lovenox teaching. I anticipate discharge home tomorrow. Qualifiers: Affected thrombotic vein of extremity: tibial Chronicity: acute Qualified Code(s): I82.442 - Acute embolism and thrombosis of left tibial vein (4) Postmenopausal bleeding: Status: Acute Assessment and plan: as above. I appreciate Dr. Manning's consultation on this patient (5) Thickened endometrium: Status: Acute Assessment and plan: r/o endometrial cancer. Dr. Manning indicated that jewel and her office staff will arrange follow up as outpatient and get the endoscopic biopsy done in 4 to 6 weeks. However, if anaesthesia feels that the patient is too high risk to be done at [facility] then she will arrange for the patient to see INTEGRATED MARKETING INTERN at [facility]. Subjective Subjective Interval history since last seen: Patient has had some vaginal bleeding; spotting, going on for a couple weeks (preceded anticoagulation). Patient is now on full dose enoxaparin for L. post. tib DVT. I requested a INTEGRATED MARKETING INTERN consult and Dr. Randee Manning saw the patient and reviewed her pelvic ultrasound. The patient has a markedly thickened heterogenous hyperemic endometrium which causes some suspicion for endometrial cancer. Dr. Manning feels that endoscopic biopsy of her endometrium can be delayed for 4 weeks until the patient is stabilized from what I believe was a pulmonary embolus given her presentation of dyspnea, hypo xemia and new L. post. tibial vein DVT. CTA was not performed d/t the patient's CKD. Despite iv fluid hydration, her creatinine only came down from 1.6 to 1.5 overnight. I am not going to risk further renal injury to perform a CTA. I think that the V/Q scan will not add any usefuly information with regard to prognosis or management. However, echocardiogram was performed today to evaluate for RV di latation/RV failure or pulmonary hypertension which would give some prognostic information. Her echo demonstrates normal LV and normal RV systolic function. She does not have any PHTN nor any atrial dilatation nor any significant TR. Based on this, I do not feel that she has evidence of large PE to cause any hemodynamic changes. At this point she should remain on lovenox at therapeutic doses of 1 mg/kg SC q12h and she should begin warfarin therapy. Exam Narrative Exam Narrative: Morbidly obese female who is a little anxious; alert and oriented x 3, no respiratory distress; able to talk in full paragraphs Lungs w/ some scattered bilateral expiratory wheezes Cor: RRR Abd: obese, soft, nontender extremities: bilateral leg edema R>>L; tender bilateral calfs Objective Last Vital Signs Temp 36.5 C 02/25/20 11:32 Pulse 78 02/25/20 11:32 Resp 18 02/25/20 11:32 BP 118/64 02/25/20 11:32 Pulse Ox 94 02/25/20 11:32 Laboratory Results - last 24 hr 02/23/20 02/25/20 19:25 06:36 Sodium 140 Potassium 3.3 L Chloride 106 Carbon Dioxide 25.0 Anion Gap 9.0 BUN 22 H Creatinine 1.50 H Estimated GFR/1.73 m2 34.43 Glucose 93 Calcium 8.0 L COVID-19 PCR Negative Nasopharyn COVID-19 PCR Not Applicable Ref Test Perform Site Uvc
--- NOTE | 2020-02-25 15:41 | CHAPLAIN ---
Carine was resting in bed when I visited. She told me about the tests she has had in trying to figure out a diagnosis for her. 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 Carine said most of her family is in [place]. She said she has received fine care and found staff to be very kind.
[2020-02-25] MEDS: Normal Saline Flush 10 ML SYR IVP (20:04)
[2020-02-25] MEDS: Potassium Chloride Liquid 20 MEQ PKT PO (20:05)
[2020-02-25] MEDS: Warfarin 5 MG TAB 10 MG PO (20:05)
[2020-02-25] MEDS: busPIRone 5 MG TAB 10 MG PO (20:06)
[2020-02-25] MEDS: traZODone 50 MG TAB 150 MG PO (22:55)
[2020-02-26 01:45] VITALS: BP 136/84; PULSE 84; RESP 18; TEMP 36.4; O2SAT 92
[2020-02-26 06:37] LABS: Platelet Count 158 10^3/uL (130-400)
[2020-02-26 06:48] LABS: Anion Gap 7.5 mmol/L (3-11); BUN 20 mg/dL (7-18); CO2 26.5 mmol/L (21.0-32.0); CREATININE 1.36 mg/dL (0.55-1.02); Calcium 8.2 mg/dL (8.5-10.1); Chloride 107 mmol/L (98-107); Estimated GFR 38.55 (mL/min/1.73m2); Glucose 95 mg/dL (74-106); Potassium 4.1 mmol/L (3.5-5.1); Sodium 141 mmol/L (136-145)
[2020-02-26 07:19] LABS: Prothrombin Time 10.2 sec (9.3-11.0)
[2020-02-26 07:28] VITALS: PULSE 87
[2020-02-26] MEDS: chlordiazePOXIDE 25 MG CAP PO ×3 (07:28→20:33)
[2020-02-26] MEDS: busPIRone 5 MG TAB 10 MG PO ×2 (07:28→20:33)
[2020-02-26] MEDS: DULoxetine 30 MG CAP 60 MG PO (07:28)
[2020-02-26] MEDS: Potassium Chloride Liquid 20 MEQ PKT PO ×2 (07:28→20:33)
[2020-02-26] MEDS: Oxybutynin-CR 5 MG TABCR 10 MG PO (07:37)
[2020-02-26] MEDS: Ipratropium/Albuterol 4 GM 120 PUFF INH IH ×4 (07:59→20:33)
[2020-02-26 08:04] VITALS: BP 129/85; PULSE 79; RESP 16; TEMP 36.6; O2SAT 94
--- NOTE | 2020-02-26 10:19 | CMDISCH_ITS ---
LACE Index Scoring Tool - Questions: Length of Stay (in days): 3 Acuity (Admit via E.D.?): Yes E.D. Visits: 1 - Answers: Total Score: 7 Risk of Readmission: Low Risk Care Management Discharge Reason for Hospitalization: SOB Discharge Plan: Carine will return home when ready per MD. She will have new orders for RN, PT (CM notified VNA: Shawn) and new prescription for Lovenox (RN education) sent to [facility] in [place]. CM determined co-pay amount of and notified Carine of cost; $141.58. [facility] reports being out of the medication which will be available tomorrow, 02/27/20 after 1400. Pharmacy will supply Carine with two doses until she is able to retrieve new medication from [facility]. Carine will follow up for an endoscopic biopsy to R/O endometrial cancer, per MD. CM scanned referral for PCP F/U to [facility] per PCP F/U protocol. XIN spoke with Lizzette who provided a follow up PCP appointment with [facility] on March 10@1000. CM notified CC: Jacy as well as Carine of the appointment. Carine will transport via private vehicle with her significant other. Patient/Family Education Needs: Review discharge instructions, PCP F/U protocol, prescription support, discuss Ask Me Three. Services Needed at Discharge: Home Health Care Services (RN/PT)
--- NOTE | 2020-02-26 14:14 | W.PM.DS.N ---
Date of service: 02/27/20 Time of Service: 11:52 DS: Diagnosis Discharge Diagnosis (1) Pulmonary embolism: Status: Suspected Asessment and Plan: While no definitive study was performed to prove a pulmonary embolus a chest x-ray showed no acute cardiopulmonary abnormalities however a venous duplex scan of her left leg showed a DVT in her left posterior tibial vein. Because the patient's chronic kidney disease a CT angiogram could not be performed and it was felt that a ventilation/perfusion scan would not add a new useful information or change her clinical management of her DVT. An echocardiogram was performed to evaluate for pulmonary hypertension or acute RV dysfunction which would have some prognostic information however no evidence for pulmonary hypertension or RV failure was seen. Patient should be treated as if she had a pulmonary embolus in addition to a DVT of her left leg. She should be maintained on Lovenox therapy at 1 mg/kg subcutaneously every 12 hours until she can achieve anticoagulation with warfarin with an INR of 2.5 or greater. There should at least be a 2-day overlap in which she has therapeutic INR levels before discontinuing her Lovenox therapy. If the patient continues to have exertional dyspnea in spite of therapeutic anticoagulation then it is my recommendation that she obtain some pulmonary function tests as well as a noncontrast CT scan of her chest. These can all be obtained as an outpatient. Her ambulatory pulse oximetry did not demonstrate exertional hypoxemia. (2) SOB (shortness of breath): Status: Acute Asessment and Plan: As above (3) Left leg DVT: Status: Acute Asessment and Plan: As above (4) Postmenopausal bleeding: Status: Acute Asessment and Plan: Patient reports that she had been having some postmenopausal bleeding with some spotting that preceded her hospitalization and therefore preceded any anticoagulation. This needs followed up with Dr. Randee Manning, plasterer stucco, as an outpatient for hysteroscopy and dilatation and curettage. Dr. Manning felt that it could be delayed for a few weeks while the patient's pulmonary status is stabilized with anticoagulation. Dr. Manning is willing to work with the patient's PCP to coordinate setting up the hysteroscopy and D&C with Lovenox bridge therapy while the patient is taken off of warfarin temporarily for the procedure. Dr. Manning did indicate that she would have the patient see anesthesia at [facility] to see if they felt she was an acceptable candidate for the procedure here at [facility]. If they deemed that she is too high risk then she will be referred by Dr. Manning to [facility]. (5) Thickened endometrium: Status: Acute Asessment and Plan: As above Discharge Plan Disposition Patient Disposition: HOME W/HOME HEALTH SERVICE Condition: Improving Discharge Details Reason For Visit: SOB Admit Date/Time: 02/23/20 21:23 Admit Provider: Js Casillas Attending Provider: Js Casillas Primary Care Provider: Fanny,Local Hospital Course Hospital Course: 69-year-old female with morbid obesity (BMI 49.8 kg/m?), anxiety disorder, depression who moved to [place] from [facility] in December to be with her boyfriend. She presented emergency department after being seen at the urgent care center in [place] yesterday for complaints of shortness of breath. Said it started out with cold-like symptoms with nasal congestion and sore throat but no fever or rigors and no sputum production. Said just felt like she could not catch her breath. They did a nasal swab rapid antigen test for COVID-19 which was negative but because of her shortness of breath it was recommended that she be referred to the hospital in [facility] however because her boyfriend lives here in [place], [place], he drove her to [facility] emergency room. Work-up included routine labs including CBC CMP, proBNP and serial troponin levels. proBNP was within normal limits and troponin I levels were negative x3 sets. Nasal swab for COVID-19 PCR testing was performed. This came back negative. Portable chest x-ray showed no acute pulmonary findings. She has some mild linear densities at the left lung base consistent with atelectasis or scarring. No infiltrates or effusion or pulmonary edema was seen. Laboratory work-up includes CBC, CMP, coagulation studies including D-dimer. CBC was unremarkable. Serial troponin I levels were within normal limits at less than 0.05. proBNP was normal at 278. Procalcitonin level is normal at 0.1. CMP demonstrated elevated BUN and creatinine at 25 and 1.63. Coagulation studies showed elevated D-dimer of 1997. Because of her chronic kidney disease CTA of the chest could not be performed to rule out a pulmonary embolus but a venous duplex scan was performed and demonstrated a left posterior tibial vein DVT. Patient was started on Lovenox therapy at 1 mg/kg subcutaneously every 12 hours. Which demonstrated normal left ventricular size and systolic function with an ejection fraction of 60% as well as normal right ventricular size and systolic function and normal right and left atrial size. She had no significant valvular heart disease. Patient developed some vaginal bleeding including spotting. Pelvic and transvaginal ultrasound was performed and consultation was obtained with Dr. Randee Manning, plasterer stucco. Transvaginal ultrasound demonstrated markedly thickened and heterogeneous hyperemic endometrium suspicious for endometrial carcinoma for which a biopsy is recommended. Left ovary was unremarkable and right ovary was not visualized. Dr. Manning saw the patient on February 25, 2020, please see her consult note for details. She recommended outpatient follow-up for hysteroscopy with dilatation and curettage. She felt this could be delayed for the next 4 weeks while the patient gets stabilized from what appears to be a pulmonary embolus. She suggested that the patient could be transitioned over to Lovenox therapy a few days prior to the hysteroscopy and D&C while stopping her warfarin a few days ahead of the procedure. This can be coordinated with her primary care provider and Dr. Manning as an outpatient. Dr. Manning also indicated that she would have the patient see anesthesia here at [facility] so they can assess whether or not she is an acceptable candidate for the procedure here at [facility] given her morbid obesity and presumptive pulmonary embolus. Patient did not have a CT angiogram because of her chronic kidney disease and also because a CTA of her chest would not change medical management of her DVT. If the patient continues to exhibit dyspnea symptoms that I think a noncontrast CT of the chest could be performed to assess for any other lung parenchymal abnormalities that could contribute to her symptoms. Furthermore because the patient's morbid obesity she should be evaluated for obstructive sleep apnea as an outpatient with a polysomnogram. The fact that her echocardiogram showed normal LV and RV size and function and no evidence for pulmonary hypertension is reassuring and that any pulmonary embolism is not contributing to any hemodynamic derangement. Patient was educated on how to self perform Lovenox injections and she was given a prescription for Lovenox 150 mg subcutaneously every 12 hours in addition to warfarin. She will need to have daily INRs monitored until her INR is between 2 and 3 on 2 consecutive days at which point the Lovenox can be discontinued. Of note the patient was supposed to be discharged on February 26, 2020 but because of some technical glitches in the discharge paperwork patient was actually discharged late in the evening but the patient had complained of some dyspnea with physical activity. Dr. Sanchez the night hospitalist ordered a stat chest x-ray which showed no changes from her admission chest x-ray. An ambulatory pulse oximetry was ordered and performed on the morning of February 27, 2020. Her ambulatory pulse oximetry showed a resting oxygen saturation 97% and a respiratory rate of 18 and a pulse of 108 bpm. She ambulated 500 feet over 3 minutes and did not require any rest stops. Her lowest oxygen saturation was 93% and her maximal heart rate was 118 bpm with a respiratory rate of 20 breaths/min. Within 1 minute her pulse oximetry came up to 97% and her heart rate came down to 110 bpm. Patient does not require any supplemental oxygen to return home. Patient is advised that she does not need to limit her activities and is encouraged to ambulate daily and to remain out of bed. Home Meds and New Rx's Prescriptions: New enoxaparin 150 mg/mL syringe 150 mg subcut Q12H Qty: 10 RF: 1 warfarin 5 mg tablet 10 mg PO QPM Qty: 60 RF: 0 albuterol sulfate [Ventolin HFA] 90 mcg/actuation Hfa Aerosol Inhaler 2 puff inhalation Q4H PRN PRNQty: 1 RF: 0 Continued duloxetine [Cymbalta] 60 mg Capsule,Delayed Release(Dr/Ec) 60 mg PO DAILY RF: 0 furosemide 40 mg Tablet 40 mg PO DAILY RF: 0 trazodone 150 mg Tablet 150 mg PO HS RF: 0 oxybutynin chloride 10 mg tablet extended release 24hr 10 mg PO DAILY RF: 0 buspirone 10 mg tablet 10 mg PO BID RF: 0 Discharge Instructions Instructions: Deep Vein Thrombosis (GEN), Postmenopausal Bleeding (GEN) Stand Alone Forms: Nursing Discharge Form Referrals: Stuart Tena [ NON-[facility] STAFF PHYSICIAN] - 03/10/20 10:00 am Randee Manning DO [OSTEOPATHIC DOCTOR] - (Please call Tuesday for appointment.) Activity:: Activity as Tolerated Equipment/Supplies:: Walker Diet:: Normal Diet Discharge Orders Discharge Orders: Discharge Order (Routine); Ordered 02/27/20 Ordered By: Murray Sanchez Other Ambulatory Orders: Prothrombin Time (Routine) Timeframe: 2 Days Facility: [facility] - Location: Laboratory Outpatient Ordered By: Murray Sanchez Prothrombin Time (Routine) Timeframe: 3 Days Facility: [facility] - Location: Laboratory Outpatient Ordered By: Murray Sanchez DS: Summary Status at Discharge Functional status at discharge: uses cane/walker Overall status at discharge: patient is progressing back to baseline Mental Status: mental status grossly normal Speech and Movement: speech and movement normal Mood: congruent mood Affect: normal affect Exam Psych Mental Status: mental status grossly normal Speech and Movement: speech and movement normal Mood: congruent mood Affect: normal affect DS: Data Vitals/I&O Vitals and I&O: Vital Signs Temperature 36.6 C 02/26/20 08:04 Temperature Source Tympanic 02/26/20 08:04 Pulse 79 02/26/20 08:04 Pulse Rhythm Regular 02/26/20 07:20 Pulse 89 02/23/20 22:10 Respiratory Rate 16 02/26/20 08:04 Respiratory Effort Non-Labored 02/26/20 07:20 Respiratory Depth Normal 02/26/20 07:20 Respiratory Pattern Normal 02/26/20 07:20 Blood Pressure 129/85 02/26/20 08:04 Blood Pressure Mean 89 02/23/20 22:02 Blood Pressure Position Sitting 02/23/20 18:25 Pulse Oximetry 94 02/26/20 08:04 Oxygen Delivery Method Room Air 02/26/20 08:04 Oxygen Flow Rate 0 02/26/20 08:04 Pain Level 0 02/26/20 08:04 Comment 02/25/20 15:15 Intake & Output 02/25/20 02/26/20 02/26/20 23:59 11:59 23:59 Intake Total 840 / 840 Output Total 300 / 300 Balance 540 / 540 Intake: IV Oral 840 / 840 Output: Urine 300 / 300 Other: Urine Color Pale Yellow Urine Appearance Clear Clear Urine Odor Normal Normal Comment inc. in bed while sleeping; unable to visualize Stool Size Smear Stool Characteristics Soft Liquid Voiding Methods Toilet Toilet Data Completed and Pending Labs on day of discharge: Labs from last 24 hours 02/26/20 02/26/20 02/26/20 06:20 06:20 06:20 Plt Count 158 PT 10.2 INR 1.0 Sodium 141 Potassium 4.1 D Chloride 107 Carbon Dioxide 26.5 Anion Gap 7.5 BUN 20 H Creatinine 1.36 H Estimated GFR/1.73 m2 38.55 Glucose 95 Calcium 8.2 L PFSH Medical History (Updated 02/26/20 @ 11:11 by Murray Sanchez) Postmenopausal bleeding Thickened endometrium Social History Smoking/Tobacco Use Status: Current-Occasional Tobacco Type: e-cigarettes Smoking risk assessment performed?: Yes Alcohol Intake: current Alcohol Intake frequency: 3 or more drinks per day Alcohol type: hard liquor Substance use 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 Was drinking 5-6 drinks for the past week. PT now reports tremors Do you feel safe at home: Yes Do you feel safe in your relationship?: Yes Female Reproductive History Menstrual Menopause type: natural Date of menopause: 04/04/04
--- NOTE | 2020-02-26 14:15 | PDOC.HHF2F_ITS ---
Home Health Certification Home Health Certification: 1. Encounter Date and Reason I certify that MARY ANNE CRUZ was seen by Murray Sanchez on 02/26/20 and that I had a [id number] encounter with this patient that meets the physician face to face encounter requirements. 2. Clinical Findings Supporting Skilled Need and Homebound Status I certify that home health services are medically necessary, include either intermittent nursing home and/or physical/speech therapy, and that this patie nt is homebound in that absences from the home require considerable and taxing effort and are infrequent or of short duration, or are attributable to the need to receive medical care. [X] (a) Attached documentation from encounter provides clinical findings supporting skilled need and homebound status (including what assistance patient requires to leave the home). The encounter with the patient was in whole, or in part, for the following medical condition, which is the primary reason for home health care: SOB Residential: Nursing to draw labs including prothrombin time with INR on schedule as recommended by patient's PCP initial pro time to be drawn within 2 to 3 days of discharge from the hospital. Nursing to educate the patient on warfarin therapy and Lovenox therapy including continued education regarding self injection of Lovenox. Nursing to coordinate with patient's PCP regarding patient's medications including when to discontinue Lovenox therapy once patient is at therapeutic INR levels of 2.5 or greater. Nursing to monitor cardiopulmonary status including blood pressure and pulse and pulse oximetry as well as physical examination for signs of any respiratory or hemodynamic decompensation. Physical Therapy: Physical therapy to work with the patient regarding gait balance and strength. Patient has become debilitated due to DVT in her left lower leg and has chronic generalized weakness due to previous trauma to her right leg requiring multiple surgeries. Patient is also debilitated due to her morbid obesity. Please prescribe appropriate exercise to improve her gait and balance and strength and transition her to an outpatient physical therapy when it is deemed appropriate. Speech Therapy: Homebound: Patient is homebound secondary to recent DVT in her left leg causing gait instability and generalized weakness and dyspnea. 3. Certification and Authentication I certify that I composed the above information based on my clinical judgement relating to this patient's medical condition and, if applicable, clinical findings communicated to me by the NPP or inpatient physician who performed the Home Health Referral. All further orders will be obtained through _Stuart Tena (Community Based Physician - PCP)
[2020-02-26 18:50] VITALS: BP 143/106; PULSE 93; RESP 24; O2SAT 93
[2020-02-26] MEDS: Warfarin 5 MG TAB 10 MG PO (20:33)
--- NOTE | 2020-02-26 20:56 | DI.RAD_ITS ---
EXAM: XR PORTABLE CHEST AP CLINICAL HISTORY: worsening shortness of breath, suspected PE TECHNIQUE: COMPARISON: CR,XR XR PORTABLE CHEST AP from 02/23/2020 FINDINGS: The heart is at the upper limits of normal in size to mildly enlarged. There is minimal linear incre ased radiodensity at left lung base consistent with atelectasis or scarring, unchanged from February 22 examination. Otherwise lungs are clear. IMPRESSION: No evidence of acute change. RADIATION DOSE DELIVERED: Total DLP
[2020-02-26] MEDS: Albuterol 2.5 MG/3 ML INH SOLN VIAL UPD (21:03)
--- NOTE | 2020-02-26 21:06 | DI.VRAD_ITS ---
PROCEDURE INFORMATION: Exam: XR Chest, 1 View Exam date and time: 02/26/2020 7:01 PM Age: 69 years old Clinical indication: Shortness of breath; Patient HX: Worsening SOB, suspected pe TECHNIQUE: Imaging protocol: XR of the chest Views: 1 view. COMPARISON: CR XR PORTABLE CHEST AP 02/23/2020 6:55 PM FINDINGS: Lungs: Small linear opacity of atelectasis and/or fibrosis at the left lung base. No infiltrates. Pleural space: Unremarkable. No pleural effusion. No pneumothorax. Heart/Mediastinum: Unremarkable. No cardiomegaly. Bones/joints: Unremarkable. IMPRESSION: No infiltrates or effusions. Dictated and Authenticated by: Emile Jacobson MD. Ordering:BARBARA Corbett MD
[2020-02-26] MEDS: traZODone 50 MG TAB 150 MG PO (21:31)
[2020-02-26 21:33] VITALS: RESP 8
[2020-02-26 23:15] VITALS: PULSE 93
[2020-02-27 03:05] VITALS: BP 141/82; PULSE 90; RESP 19; TEMP 36.4; O2SAT 92
[2020-02-27 07:24] VITALS: PULSE 86
[2020-02-27 07:43] VITALS: BP 142/82; PULSE 88; RESP 19; TEMP 37.1; O2SAT 93
[2020-02-27] MEDS: Ipratropium/Albuterol 4 GM 120 PUFF INH IH (08:20)
[2020-02-27] MEDS: chlordiazePOXIDE 25 MG CAP PO (08:49)
[2020-02-27] MEDS: Oxybutynin-CR 5 MG TABCR 10 MG PO (08:49)
[2020-02-27] MEDS: DULoxetine 30 MG CAP 60 MG PO (08:49)
[2020-02-27] MEDS: busPIRone 5 MG TAB 10 MG PO (08:50)
[2020-02-27] MEDS: Potassium Chloride Liquid 20 MEQ PKT PO (08:50)
[2020-02-27 10:28] LABS: INR 1.1 (0.9-1.1); Prothrombin Time 11.3 sec (9.3-11.0)
[2020-02-27 10:29] VITALS: PULSE 108; PULSE 110; PULSE 118; RESP 18; RESP 20; O2SAT 93; O2SAT 97
[2020-02-27 11:27] VITALS: BP 115/75; PULSE 74; RESP 18; TEMP 36.8; O2SAT 91
--- NOTE | 2020-02-27 12:00 | PGE_ITS ---
Date of Service Date of service: 02/26/20 Time of Service: 14:00 Assessment and Plan Assessment and plan (1) Pulmonary embolism: Status: Suspected Assessment and plan: Presumptive diagnosis based on elevated d-dimer and postive venous duplex scan of her legs w/ L. post. tibial DVT. CTA not able to be done d/t CKD. Due to her morbid obesity I am not sure that a V/Q is going to be able to tell us much more and certainly will not change the management. She needs 3 to 6 months of anticoagulation. I told Dr. Randee Manning that the patient should remain on uninterrupted anticoagulation for the next 4 to 6 weeks at which time she could be bridged on enoxaparin and taken off her warfarin for the endometrial biopsy w/ hold of her enoxaparin for 12 to 18 hours before the biopsy. Even after completion of 3 to 6 months of anticoagulation, she may need ongoing perhaps lifetime anticoagulation particularly if she has a cancer that predisposes to thromboembolism. I would treat for 6 months then recheck d-dimer while off anticoagulation and if elevated I would continue anticoagulation. Qualifiers: Pulmonary embolism type: unspecified Chronicity: acute Acute cor pulmonale presence: unspecified Qualified Code(s): I26.99 - Other pulmonary embolism without acute cor pulmonale (2) SOB (shortness of breath): Status: Acute Assessment and plan: As above. patient still feels mildly dyspneic w/ activity but she is not hypoxemic. If patient continues experiencing exertional dyspnea in spite of full anticoagulation I would recommend a follow-up noncontrast CT scan of the chest as well as pulmonary function tests looking for asthma. (3) Left leg DVT: Status: Acute Assessment and plan: Therapeutic Lovenox at 140 mg subcutaneously every 12 hours until adequately anticoagulated with warfarin achieving an INR greater than 2 for 2 consecutive days. Optimal INR would be 2.5 or higher. Qualifiers: Affected thrombotic vein of extremity: tibial Chronicity: acute Qualified Code(s): I82.442 - Acute embolism and thrombosis of left tibial vein (4) Postmenopausal bleeding: Status: Acute Assessment and plan: as above. I appreciate Dr. Manning's consultation on this patient (5) Thickened endometrium: Status: Acute Assessment and plan: r/o endometrial cancer. Dr. Manning indicated that she and her office staff will arrange follow up as outpatient and get the endoscopic biopsy done in 4 to 6 weeks. However, if anaesthesia feels that the patient is too high risk to be done at [facility] then she will arrange for the patient to see PROCUREMENT COORDINATOR at [facility]. Subjective Subjective Interval history since last seen: Patient is doing well. She still gets some mild dyspnea with activity but no chest tightness or pain or pressure. Still has some calf tenderness. I discussed the results of her echocardiogram with her as well as her pelvic ultrasound. Patient was seen in conjunction with Dr. Randee Manning was explained to the patient what follow-up the patient needs regarding her postmenopausal endometrial bleeding. Her pelvic ultrasound showed endometrial thickening suspicious for an endometrial carcinoma and this will need follow-up hysteroscopy and dilatation and curettage for biopsy. Dr. Manning feels that the patient's acute pulmonary problems which is presumably due to a pulmonary embolus needs attention first and that the hysteroscopy and biopsy can be delayed for a few weeks and done as an outpatient. I reviewed her echocardiogram results with the patient and explained to her that it shows normal left ventricular and normal right ventricular size and function and that there is no evidence for pulmonary hypertension. Based on this I feel that whenever pulmonary emboli she has it is not causing any hemodynamic compromise. I feel that the patient can be discharged home once nursing has given her adequate training on self injection of Lovenox. I explained to the patient that she needs to be on Lovenox therapy twice a day until her prothrombin time indicates that her warfarin has achieved adequate anticoagulation levels. I told her that her INR needs to be between 2 and 3 preferably 2.5 or greater. Case management has found her primary care provider which will be RUBA Vines. Exam Narrative Exam Narrative: Morbidly obese female sitting up in her bed not requiring any oxygen. She is alert and oriented person place time circumstance. Lungs with a few end expiratory wheezes no rhonchi or rales. Heart is regular to slightly tachycardic Lower legs with bilateral edema right greater than the left. She has some bruising underneath the right calf which is tender to touch. Left calf is also tender to palpation Objective Last Vital Signs Temp 36.8 C 02/27/20 11:27 Pulse 74 02/27/20 11:27 Resp 18 02/27/20 11:27 BP 115/75 02/27/20 11:27 Pulse Ox 91 L 02/27/20 11:27 Laboratory Results - last 24 hr 02/27/20 10:02 PT 11.3 H INR 1.1
[2020-02-27 13:05] VITALS: PULSE 86
--- NOTE | 2020-02-27 15:40 | PDOC.CMDIS ---
- If Service Date Differs Date of service: 02/27/20 Time of Service: 15:40 LACE Index Scoring Tool - Questions: Length of Stay (in days): 4 - 6 Acuity (Admit via E.D.?): Yes E.D. Visits: 1 - Answers: Total Score: 8 Risk of Readmission: Low Risk Care Management Discharge Reason for Hospitalization: SOB Discharge Plan: Carine will be discharged home with new home health orders for RN and PT. She will have bloodwork done for monitoring her anticoagulation and it is anticipated that Stuart Tena will follow her for that. She has her first appointment with him on 03/10/20. Carine will transport with her boyfriend Karel and follow up with her new PCP. Patient/Family Education Needs: Discharge plan, coumadin education, limitations, follow up plan, Ask Me Three
== END 2020-02-27 14:11 | disposition home health service (06) | DRG 176 ==
LOC: ER 21:32 → MS 22:34
PROVIDERS: Emergency Medicine; Internal Medicine; Admitting Provider General Practice; Emergency Provider Emergency Medicine; Visit Provider General Practice
DX: I26.99 Other pulmonary embolism without acute cor pulmonale (principal); I82.442 Acute embolism and thrombosis of left tibial vein; Z68.42 Body mass index [BMI] 45.0-49.9, adult; N95.0 Postmenopausal bleeding; R93.89 Abnormal findings on diagnostic imaging of other specified body structures; F41.9 Anxiety disorder, unspecified; F32.9 Major depressive disorder, single episode, unspecified; E66.01 Morbid (severe) obesity due to excess calories; N18.9 Chronic kidney disease, unspecified; Z87.891 Personal history of nicotine dependence; F10.20 Alcohol dependence, uncomplicated
CPT/HCPCS: 36415; 80048; 80053; 84145; 93005; 93306; 94618; 94640; 96374; 99222; 99232; 99233; 99239; 99252; 99285; U0003; 71045; 76830; 76856; 80320; 82728; 83615; 83735; 83880; 84484; 85025; 85049; 85379; 85610; 85730; 86140; 93010; 93970; 99238; J1650; J2060; J3490; J7613; J7620

== ENCOUNTER 2020-02-28 17:28 | Inpatient (IN) | payer MEDICARE, OTHER, SELFPAY ==
[2020-02-28] VITALS (22 sets, daily range): BP systolic 99–121; BP diastolic 48–88; PULSE 83–92; RESP 20–22; TEMP 36–36.8; O2SAT 87–99
--- NOTE | 2020-02-28 17:45 | DI.RAD_ITS ---
EXAM: XR TIB/FIB RT CLINICAL HISTORY: pain, swelling TECHNIQUE: COMPARISON: No exams were available for comparison FINDINGS: Four views were obtained. There is a total knee joint prosthesis in position. The components appear well seated as visualized. There is no evidence of acute fracture. An old healed proximal tibial fracture is noted. There is s oft tissue swelling of the lower extremity. IMPRESSION: No evidence of acute fracture. No gross erosive or destructive process. If there is a clinical suspicion of osteomyelitis additional evaluation with MRI may be considered. RADIATION DOSE DELIVERED: Total DLP
--- NOTE | 2020-02-28 18:33 | ED.GENADUL_ITS ---
Discharge Plan Disposition Patient Disposition: [facility] Condition: Serious Discharge Details Clinical Impression: Acute kidney injury, Back pain, Pain and swelling of right lower extremity Admit Date/Time: 02/28/20 19:49 Admit Provider: Elliot Morton Attending Provider: Elliot Morton Primary Care Provider: Fanny,Local ED Provider: Christian Farrell Discharge Data Discharge Date/Time-TO BE ENTERED AT DEPARTURE: 02/28/20 21:01 Medical Decision Making <Artis Latham MD - Last Filed: 03/16/20 12:10> 69-year-old female recently diagnosed with left lower extremity DVT, discharged from the hospital yesterday on Lovenox and Coumadin, returns today with now right lower extremity pain and swelling as well as increased fatigue and back pain. Patient was found to have thickened endometrium and there is plan for endometrial biopsy. Patient does have a remote prior history of right tibial infection. No recent trauma. No inflammatory changes. I will obtain x-ray of the right tibia. Concern for potential new DVT despite anticoagulation. 19:40 --labs reviewed and INR subtherapeutic. Patient having severe pain. I will give Dilaudid 0.5 mg IV. 19:55 --I spoke with the hospitalist on-call, Dr. Morton, discussed ED presentation and course, he will admit the patient. CT of the chest and thoracic spine as well as radiologic interpretation of tib-fib pending at time of admission. <Christian Farrell MD - Last Filed: 02/28/20 21:24> Received signout from Dr. Latham. Please see his note regarding details of the initial presentation, exam, plan of care. CT reveals patchy and confluent groundglass densities in bilateral lungs. Hepatic steatosis. Small hiatal hernia. CT thoracic spine shows no acute fracture or subluxation. Findings discussed with Dr Morton. HPI <Artis Latham MD - Last Filed: 03/16/20 12:10> General Mode of arrival: EMS . Date/Time Provider Initiated Documentation: 02/28/20 17:40 . Limitations to Documentation: no limitations . Information obtained by: patient and EMS . HPI Narrative: 69-year-old female with history of recently diagnosed left lower extremity DVT, currently on Lovenox and bridging to Coumadin, discharged from the hospital yesterday, returns for evaluation for new onset right leg pain as well as increased fatigue. Right leg pain is moderate to severe. She describes it as feeling tight. Worse on palpation of posterior lower leg. Denies recent trauma. She has associated swelling. No associated rash. No fevers. Patient does note remote history of leg ulcer and tibial infection. Related Data Home Medications Medication Instructions Recorded Confirmed duloxetine [Cymbalta] 60 mg PO DAILY 02/23/20 02/28/20 furosemide 40 mg PO DAILY 02/23/20 02/28/20 trazodone 150 mg PO HS 02/23/20 02/28/20 buspirone 10 mg PO BID 02/25/20 02/28/20 oxybutynin chloride 10 mg PO DAILY 02/25/20 02/28/20 enoxaparin 150 mg SUBCUT Q12H #10 ml 02/26/20 02/28/20 warfarin 10 mg PO QPM #60 tab 02/26/20 02/28/20 albuterol sulfate [Ventolin HFA] 2 puff INHALATION Q4H PRN PRN #1 g 02/27/20 02/28/20 Previous Rx's Medication Instructions Recorded enoxaparin 150 mg SUBCUT Q12H #10 ml 02/26/20 warfarin 10 mg PO QPM #60 tab 02/26/20 albuterol sulfate [Ventolin HFA] 2 puff INHALATION Q4H PRN PRN #1 g 02/27/20 Allergies Allergy/AdvReac Type Severity Reaction Status Date / Time No Known Allergies Allergy Unverified 02/28/20 18:29 General Stated Complaint: GenMedical IAN: 3 Review of Systems <Artis Latham MD - Last Filed: 03/16/20 12:10> All systems reviewed & are unremarkable except as noted in HPI and below Constitutional Constitutional: Reports fatigue and Denies fever(s) Cardiovascular Cardiovascular: Denies chest pain and Reports dyspnea Respiratory Respiratory: Reports dyspnea Musculoskeletal Musculoskeletal: Reports back pain (Mid) Endocrine Endocrine: Reports fatigue PFSH <Artis Latham MD - Last Filed: 03/16/20 12:10> Medical History Left leg DVT Postmenopausal bleeding Thickened endometrium Social History Smoking/Tobacco Use Status: Former Tobacco Use Smoking risk assessment performed?: Yes Alcohol Intake: current Alcohol Intake frequency: 3 or more drinks per day Alcohol type: hard liquor Substance use 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 Was drinking 5-6 drinks for the past week. PT now reports tremors Do you feel safe at home: Yes Do you feel safe in your relationship?: Yes Female Reproductive History Menstrual Menopause type: natural Date of menopause: 04/04/04 Exam <Artis Latham MD - Last Filed: 03/16/20 12:10> Const General: cooperative HENCA Mouth: moist mucous membranes Eyes Conjunctivae: normal conjunctivae Sclera: normal sclerae Neck Neck: trachea midline and supple Resp Auscultation: clear to auscultation bilaterally, no rales, no rhonchi and no wheezes Cardio Jugular venous pressure: no JVD Rate: regular rate and not tachycardic Rhythm: regular rhythm Pulses: dorsalis pedis present on the right 1+ GI Palpation: soft, not firm, no guarding, no masses, not rigid and nontender Skin General skin exam: no rashes or lesions noted Neuro General: patient alert, patient awake, patient oriented x3 and tone normal Extrem General: calf tenderness bilaterally and edema Laterality: bilateral Psych Appearance: grossly normal Mental Status: mental status grossly normal Speech and Movement: speech and movement normal Course <Artis Latham MD - Last Filed: 03/16/20 12:10> Vital Signs Vital signs: Vital Signs Temperature 36.0 C L 02/28/20 17:41 Pulse 92 H 02/28/20 17:41 Respiratory Rate 22 02/28/20 17:41 Blood Pressure 102/56 L 02/28/20 17:41 Pulse Oximetry 97 02/28/20 17:41 Temperature 36.0 C L 02/28/20 17:41 Temperature Source Temporal Artery Scan 02/28/20 17:41 Pulse 92 H 02/28/20 17:41 Respiratory Rate 22 02/28/20 17:41 Respiratory Effort Non-Labored 02/28/20 17:53 Blood Pressure 102/56 L 02/28/20 17:41 Blood Pressure Position Supine 02/28/20 17:41 Pulse Oximetry 97 02/28/20 17:41 Oxygen Delivery Method Room Air 11/26/20 17:41 Oxygen Flow Rate 0 02/28/20 17:41 Pain Level 8 02/28/20 17:41 Sign Out <Artis Latham MD - Last Filed: 03/16/20 12:10> Sign Out Data: Sign Out Comment: Follow-up CT chest, CT thoracic spine, discussed any concerning findings with admitting provider Dr. Morton. Last updated by Artis Latham MD at 02/28/20 20:03
[2020-02-28 18:41] LABS: Abs Immature Grans 0.07 10^3/uL (0.0-0.06); Absolute Basophil Count 0.02 10^3/uL (0.0-0.2); Absolute Monocyte Count 0.68 10^3/uL (0.1-0.8); Absolute Neutrophil Count 9.81 10^3/uL (1.2-6.7); Basophils % 0.2; Eosinophils % 1.1; HCT 36.1 % (36.0-46.0); HGB 11.5 g/dL (11.2-15.7); Immature Grans % 0.6; Lymphocytes % 5.6; MCH 32.9 pg (27.0-33.0); MCHC 31.9 % (32.0-36.0); MCV 103.1 fL (80-95); MPV 9.4 fL (8.0-11.0); Neutrophils % 86.5; Nucleated RBC 0 %; Platelet Count 180 10^3/uL (130-400); RDW 16.6 % (11.7-14.6); RDW-SD 63.7 fL; WBC 11.34 10^3/uL (4.4-10.8)
[2020-02-28 18:43] LABS: Absolute Eosinophil Count 0.12 10^3/uL (0.0-0.7); Absolute Lymphocyte Count 0.64 10^3/uL (1.2-3.4)
--- NOTE | 2020-02-28 18:46 | NUR.NOTE ---
Nursing Note:Unable to obtain IV access at this time. Discussed with Dr. Latham. Will have lab draw then re evaluate IV if needed.
[2020-02-28 18:52] LABS: INR 1.8 (0.9-1.1); Prothrombin Time 18.2 sec (9.3-11.0)
--- NOTE | 2020-02-28 19:02 | DI.VRAD_ITS ---
PROCEDURE INFORMATION: Exam: XR Right Tibia and Fibula Exam date and time: 02/28/2020 6:54 PM Age: 69 years old Clinical indication: Lower leg; Prior surgery; Surgery date: 6+ months; Surgery type: Knee replacement years ago. ; Patient HX: Pain in right leg since today, patient sts was discharged from med surg unit this morning, patient was admitted for dvt in left leg. TECHNIQUE: Imaging protocol: XR Right tibia and fibula. Views: 2 views. COMPARISON: No relevant prior studies available. FINDINGS: Bones/joints: There is no acute fracture or dislocation. There is total knee arthroplasty with the stem in the intramedullary tibia. There is a chronic healed fracture in the proximal diaphysis of tibia. There is cortical thickening and sclerosis on the anterior aspect of the tibia which could be due to chronic healed trauma. There is a chronic healed fracture of the proximal fibula . There is plantar spur. Soft tissues: There is mild soft tissue swelling throughout the calf and ankle. IMPRESSION: 1. No acute fracture or dislocation. 2. Total knee arthroplasty. 3. Chronic healed fractures of proximal tibia and fibula. 4. Diffuse soft tissue swelling the calf and ankle. Dictated and Authenticated by: Tevin Johnson MD. Ordering:JUSTO Wisdom MD
[2020-02-28 19:04] LABS: ALT 63 U/L (14-59); AST 44 U/L (15-37); Alkaline Phosphatase 136 U/L (46-116); BUN 29 mg/dL (7-18); Bilirubin, Total 0.4 mg/dL (0.2-1.0); CREATININE 2.22 mg/dL (0.55-1.02); Calcium 8.2 mg/dL (8.5-10.1); Glucose 113 mg/dL (74-106); NT-proBNP 83 pg/mL (<300); Total Protein 6.9 g/dL (6.4-8.2); Troponin I < 0.05 ng/mL (<0.06)
[2020-02-28 19:10] LABS: Anion Gap 6.6 mmol/L (3-11); CO2 24.4 mmol/L (21.0-32.0); Chloride 104 mmol/L (98-107); Potassium 4.9 mmol/L (3.5-5.1); Sodium 135 mmol/L (136-145)
[2020-02-28] MEDS: HYDROmorphone 2 MG/ML VIAL 0.5 MG IVP ×2 (19:45→23:35)
--- NOTE | 2020-02-28 20:10 | DI.CT_ITS ---
EXAM: CT CHEST WO CLINICAL HISTORY: pain in back, shortness of breath TECHNIQUE: COMPARISON: CT CT THORACIC SPINE RECONS from 02/28/2020 FINDINGS: Noncontrast chest CT and additional CT reconstructions of the thoracic spine are interpreted in conju nction. There is reportedly history of back pain. No IV contrast material was utilized secondary to impaired renal function. Images obtained through the upper abdomen show hepatic steatosis and hepatomegaly. Spleen is grossly unremarkable by noncontrast criteria as is the pancreas. Visualized portions of adrenals and kidney s appear intact. There is no cardiomegaly. There is no mediastinal hematoma. Thoracic vasculature is of normal calib er. No mediastinal or hilar adenopathy. There are predominantly linear radiodensities in dependent portions of lungs which may represent atel ectasis and/or scarring. Slight ground-glass opacities in the lung bases may be acute or chronic. N o focal consolidation seen. Mild bronchiectasis noted bilaterally in the lung bases. No thoracic spine fracture seen. No erosive or destructive process. IMPRESSION: Essentially negative CT examination of the chest with additional reconstructions of thoracic spine. Likely chronic interstitial changes in the lung bases. RADIATION DOSE DELIVERED: Total DLP
[2020-02-28 20:20] LABS: ETHANOL BLOOD < 3.0 mg/dL (<3)
--- NOTE | 2020-02-28 20:34 | DI.VRAD_ITS ---
PROCEDURE INFORMATION: Exam: CT Chest Without Contrast; Diagnostic Exam date and time: 02/28/2020 7:40 PM Age: 69 years old Clinical indication: Other: Back pain, SOB; Patient HX: Back pain, and SOB. TECHNIQUE: Imaging protocol: Diagnostic computed tomography of the chest without contrast. Radiation optimization: All CT scans at this facility use at least one of these dose optimization techniques: automated exposure control; mA and/or kV adjustment per patient size (includes targeted exams where dose is matched to clinical indication); or iterative reconstruction. COMPARISON: CR XR PORTABLE CHEST AP 02/26/2020 8:41 PM FINDINGS: Lungs: There are bilateral patchy and confluent ground-glass densities, predominantly in peripheral distribution. This is more pronounced in the mid to lower lungs bilaterally. There is mild chronic interstitial lung disease with reticular interstitial thickening and peripheral reticulation. There is no pleural effusion. Pleural space: See Lungs finding. Heart: There is prominence of pericardial and epicardial fat. Mediastinal space: There is a small hiatal hernia. Aorta: Unremarkable. No aortic aneurysm. Lymph nodes: Unremarkable. No enlarged lymph nodes. Kidneys and ureters: Right kidney mildly atrophic. Bones/joints: Unremarkable. No acute fracture. Soft tissues: Unremarkable. Other findings: There is diffuse hepatic steatosis. IMPRESSION: 1. Patchy and confluent ground-glass densities in the bilateral lungs, mostly in peripheral distribution. The findings might be a sequela of Covid 19 pneumonia or other infectious or inflammatory process versus organizing pneumonia. 2. Diffuse hepatic steatosis. 3. Small hiatal hernia. Dictated and Authenticated by: Tevin Johnson MD. Ordering:JUSTO Wisdom MD
--- NOTE | 2020-02-28 20:38 | DI.VRAD_ITS ---
PROCEDURE INFORMATION: Exam: CT Thoracic Spine Without Contrast Exam date and time: 02/28/2020 7:42 PM Age: 69 years old Clinical indication: Pain in thoracic spine; Other: Unknown TECHNIQUE: Imaging protocol: Computed tomography images of the thoracic spine without contrast. Radiation optimization: All CT scans at this facility use at least one of these dose optimization techniques: automated exposure control; mA and/or kV adjustment per patient size (includes targeted exams where dose is matched to clinical indication); or iterative reconstruction. COMPARISON: No relevant prior studies available. FINDINGS: Vertebrae: There is no acute fracture or subluxation. There is normal alignment. Vertebral body heights are maintained. There are mild multilevel degenerative changes with scattered spondylosis and mild discogenic disease, most pronounced in the midthoracic spine. Facets are normally located. Discs/Spinal canal/Neural foramina: No significant disc protrusion. No severe spinal canal stenosis. No significant neural foraminal narrowing. Other bones/joints: Posterior elements are intact. Soft tissues: Unremarkable. Lungs: Visualized lungs demonstrate patchy ground-glass densities with peripheral distribution and could be infectious or inflammatory. IMPRESSION: 1. No acute fracture or subluxation. 2. Mild mild multilevel degenerative changes in thoracic spine with spondylosis and discogenic disease, most pronounced in the mid thoracic spine. Dictated and Authenticated by: Tevin Johnson MD. Ordering:JUSTO Wisdom MD
[2020-02-28] MEDS: Acetaminophen 325 MG TAB 650 MG PO (22:02)
[2020-02-28 22:03] LABS: Procalcitonin 0.3 ng/mL
[2020-02-28] MEDS: Warfarin 5 MG TAB 10 MG PO (22:03)
[2020-02-28] MEDS: HYDROmorphone 2 MG TAB PO (22:03)
[2020-02-28] MEDS: busPIRone 5 MG TAB 10 MG PO (22:21)
[2020-02-28] MEDS: Normal Saline Flush 10 ML SYR IVP (22:25)
[2020-02-28] MEDS: Normal Saline 1,000 ML 75 ML IV (22:25)
[2020-02-28] MEDS: traZODone 50 MG TAB 150 MG PO (22:33)
[2020-02-28] MEDS: Baclofen 10 MG TAB PO (23:34)
[2020-02-28] MEDS: PIPERACILLIN/TAZO 3.375 GM in Normal Saline 50 ML IVPB (23:35)
[2020-02-29] MEDS: HYDROmorphone 2 MG/ML VIAL 0.5 MG IVP (03:38)
[2020-02-29 03:47] VITALS: BP 103/65; PULSE 91; RESP 18; TEMP 36.3; O2SAT 93
[2020-02-29 04:20] VITALS: O2SAT 94
--- NOTE | 2020-02-29 05:13 | W.PM.HP.N ---
Date of service: 02/29/20 Time of Service: 05:13 Assessment and Plan Assessment and plan (1) Acute kidney injury: Status: Acute Assessment and plan: Creatinine of 2.22. Previously 1.36 on 02/26/2020. IV NS at 75ml hour. Encourage po intake. Monitor (2) Left leg DVT: Status: Acute Assessment and plan: On coumadin with Lovenox bridge. Lovenox adjusted to current renal function. Goal of INR: 2.5 - 3.0. Possible has a pulmonary embolism but no CTA chest performed d/t acute on chronic kidney disease. Echocardiogram showed no evidence of R heart strain. Qualifiers: Affected thrombotic vein of extremity: tibial Chronicity: acute Qualified Code(s): I82.442 - Acute embolism and thrombosis of left tibial vein (3) Pain and swelling of right lower extremity: Status: Acute Assessment and plan: No DVT noted in RLE with previous BLE venous US. Ecchymoses present; no known trauma since being placed on anticoagulation. If DVT did develop, is on proper treatment. (4) Pneumonia: Status: Acute Assessment and plan: CT chest showes patchy and confluent ground-glass densities in bilateral lungs. Covid-19 results pending. Previously negative. Initiated Zosyn. Monitor CBC. Not requiring suppelemtal O2. Qualifiers: Pneumonia type: due to unspecified organism (5) Hepatic steatosis: Status: Acute Assessment and plan: Noted on CT. LFTs mildly elevated; normal on 02/23/2020. Weight loss would be prudent. History of Present Illness History of Present Illness Chief Complaint: R leg pain Narrative: This is a 69 yo female with a PMH of recent dx of LLE DVT and thickened endometrium, obesity. She was admitted to [facility] on 02/23/2020 for SOA and found to have a LLE DVT. Likely pulmonary embolism present but d/t her CKD a CTA chest could not be safely performed. She was initiated on coumadin and bridging with Lovenox. She presented on this occasion with c/o RLE calf pain described as a tightness. She denies any injury to the RLE other than what may have occurred with a fall one week ago prior to starting anticoagulation. She now also describes fatigue. No Fever/chills. She did c/o generalized low back pain that she feels is muscular and d/t her gait being disturbed by her R calf pain. Has had chest congestion for over one week. CXR at time of last admission showed a minimal linear increased radiodensity at left lung base consistent with atelectasis or scarring, unchanged from February 22 examination. Otherwise lungs are clear. Her WBC count is elevated mildly at 11.34. INR 1.8. AST 44, ALT 63, Bili 0.4, BNP 83, Procalcitonin 0.3. 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 Was drinking 5-6 drinks for the past week. PT now reports tremors Do you feel safe at home: Yes Do you feel safe in your relationship?: Yes Female Reproductive History Menstrual Menopause type: natural Date of menopause: 04/04/04 Meds Home Medications and Allergies Home Medications Medication Instructions Recorded Confirmed Type duloxetine [Cymbalta] 60 mg PO DAILY 02/23/20 02/28/20 History furosemide 40 mg PO DAILY 02/23/20 02/28/20 History trazodone 150 mg PO HS 02/23/20 02/28/20 History buspirone 10 mg PO BID 02/25/20 02/28/20 History oxybutynin chloride 10 mg PO DAILY 02/25/20 02/28/20 History enoxaparin 150 mg SUBCUT Q12H #10 ml 02/26/20 02/28/20 Rx warfarin 10 mg PO QPM #60 tab 02/26/20 02/28/20 Rx albuterol sulfate [Ventolin HFA] 2 puff INHALATION Q4H PRN PRN #1 g 02/27/20 02/28/20 Rx Allergies Allergy/AdvReac Type Severity Reaction Status Date / Time No Known Allergies Allergy Unverified 02/28/20 18:29 Exam Const General: cooperative and no acute distress Nutritional Appearance: obese Orientation: alert and oriented x3 HENMT Head: normocephalic and atraumatic Neck Neck: full ROM and no JVD Resp Effort & Inspection: normal respiratory effort Auscultation: clear to auscultation bilaterally Cardio Rate: regular rate Rhythm: regular rhythm Heart Sounds: S1 normal and S2 normal GI Inspection: obesity Palpation: soft and nontender Auscultation: normal bowel sounds Skin General skin exam: ecchymosis (RLE / calf) Extrem General: calf tenderness bilaterally and edema Psych Appearance: grossly normal Mental Status: mental status grossly normal Speech and Movement: speech and movement normal Results Labs Result diagrams: 02/28/20 18:35 02/28/20 18:35 Labs: Laboratory Results - last 24 hr 02/28/20 02/28/20 02/28/20 18:35 18:35 18:35 WBC 11.34 H RBC 3.50 L Hgb 11.5 Hct 36.1 MCV 103.1 H MCH 32.9 MCHC 31.9 L RDW 16.6 H Plt Count 180 MPV 9.4 Immature Gran % 0.6 Neutrophils % 86.5 Lymphocytes % 5.6 Monocytes % 6.0 Eosinophils % 1.1 Basophils % 0.2 Nucleated RBC % 0 Absolute Neutrophils 9.81 H Absolute Lymphocytes 0.64 L Absolute Monocytes 0.68 Absolute Eosinophils 0.12 Absolute Basophils 0.02 PT 18.2 H D INR 1.8 H D Sodium 135 L Potassium 4.9 Chloride 104 Carbon Dioxide 24.4 Anion Gap 6.6 BUN 29 H D Creatinine 2.22 H D Estimated GFR/1.73 m2 21.90 Glucose 113 H Calcium 8.2 L Total Bilirubin 0.4 AST 44 H ALT 63 H Alkaline Phosphatase 136 H Troponin I < 0.05 NT-Pro-B Natriuret Pep 83 Total Protein 6.9 Albumin 3.0 L Procalcitonin Ethyl Alcohol 02/28/20 02/28/20 18:35 18:35 WBC RBC Hgb Hct MCV MCH MCHC RDW Plt Count MPV Immature Gran % Neutrophils % Lymphocytes % Monocytes % Eosinophils % Basophils % Nucleated RBC % Absolute Neutrophils Absolute Lymphocytes Absolute Monocytes Absolute Eosinophils Absolute Basophils PT INR Sodium Potassium Chloride Carbon Dioxide Anion Gap BUN Creatinine Estimated GFR/1.73 m2 Glucose Calcium Total Bilirubin AST ALT Alkaline Phosphatase Troponin I NT-Pro-B Natriuret Pep Total Protein Albumin Procalcitonin 0.3 Ethyl Alcohol < 3.0 Last Vital Signs Temp 36.3 C L 02/29/20 03:47 Pulse 91 H 02/29/20 03:47 Resp 18 02/29/20 03:47 BP 103/65 02/29/20 03:47 Pulse Ox 93 02/29/20 03:47 COVID-19 Screening Have you, or household traveled for leisure in last 14 days?: No Had IN PERSON contact w/suspected or confirmed C-19 person: No
[2020-02-29] MEDS: HYDROmorphone 2 MG TAB PO (06:45)
[2020-02-29] MEDS: PIPERACILLIN/TAZO 3.375 GM in Normal Saline 50 ML IVPB ×3 (06:46→22:04)
[2020-02-29 07:16] LABS: Abs Immature Grans 0.09 10^3/uL (0.0-0.06); Absolute Lymphocyte Count 1.38 10^3/uL (1.2-3.4); Absolute Monocyte Count 1.19 10^3/uL (0.1-0.8); Absolute Neutrophil Count 9.76 10^3/uL (1.2-6.7); Basophils % 0.2; Eosinophils % 1.6; HCT 28.7 % (36.0-46.0); HGB 9.1 g/dL (11.2-15.7); Immature Grans % 0.7; Lymphocytes % 10.9; MCH 32.9 pg (27.0-33.0); MCHC 31.7 % (32.0-36.0); MCV 103.6 fL (80-95); MPV 10.1 fL (8.0-11.0); Monocytes % 9.4; Neutrophils % 77.2; Nucleated RBC 0 %; Platelet Count 186 10^3/uL (130-400); RBC 2.77 10^6/uL (3.93-5.22); RDW 16.5 % (11.7-14.6); RDW-SD 63.2 fL; WBC 12.64 10^3/uL (4.4-10.8)
[2020-02-29 07:21] LABS: Absolute Basophil Count 0.03 10^3/uL (0.0-0.2)
[2020-02-29 07:25] LABS: INR 2.5 (0.9-1.1); Prothrombin Time 24.6 sec (9.3-11.0)
[2020-02-29 07:29] LABS: ALT 69 U/L (14-59); AST 60 U/L (15-37); Albumin 2.6 g/dL (3.4-5.0); Alkaline Phosphatase 114 U/L (46-116); Anion Gap 6.8 mmol/L (3-11); BUN 33 mg/dL (7-18); Bilirubin, Total 0.4 mg/dL (0.2-1.0); CO2 23.2 mmol/L (21.0-32.0); CREATININE 2.52 mg/dL (0.55-1.02); Calcium 7.5 mg/dL (8.5-10.1); Chloride 105 mmol/L (98-107); Estimated GFR 18.92 (mL/min/1.73m2); Glucose 101 mg/dL (74-106); Potassium 4.7 mmol/L (3.5-5.1); Sodium 135 mmol/L (136-145); Total Protein 5.8 g/dL (6.4-8.2)
[2020-02-29] MEDS: Oxybutynin-CR 5 MG TABCR 10 MG PO (08:28)
[2020-02-29] MEDS: DULoxetine 30 MG CAP 60 MG PO (08:28)
[2020-02-29] MEDS: busPIRone 5 MG TAB 10 MG PO ×2 (08:28→20:04)
[2020-02-29 08:29] VITALS: BP 102/58; PULSE 90; RESP 19; TEMP 36.2; O2SAT 94
--- NOTE | 2020-02-29 09:37 | PDOC.CMIN ---
- If Service Date Differs Date of service: 02/29/20 Time of Service: 09:37 Care Management Initial Assess REASON FOR HOSPITALIZATION:: ALLEY PAST MEDICAL HISTORY/PAST SURGICAL HISTORY:: Medical History . Left leg DVT. Postmenopausal bleeding. Thickened endometrium PREVIOUS FUNCTIONAL STATUS/SOCIAL/FAMILY SUPPORTS:: Carine lives in [facility]. Her male drum sander setter Karel Gupta is listed as her printed circuit boards contact printer. Carine has recently relocated from [place] in December. 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 Carine has no children. She is independent at baseline with ADLs, driving etc but has issues with balance. CURRENT FUNCTIONAL STATUS:: JAKY (Carine) was sitting up in bed when CM met with her. She appeared fatigued and stated that she has been sleeping a lot. She was taking Dilaudid for pain at home and feels that contributed to her somnolence. CM spoke to her boyfriend Karel who stated that when he went to visit JAKY at home yesterday to bring her dinner, she was hard to arouse and her oxygen saturation was at 70%. It was at that point that he felt she needed to go to the hopsital. JAKY is being closely monitored for pneumonia and severe right leg pain. She is afebrile but has evidence of pneumonia on CT scan with ground glass opacities. Her Covid test by PCR was again negatie. JAKY's WBC is slightly elevated at 12.6 and her blood pressures are consistently in the 90's, systolic. She is curreently on IV antibiotics and the Dialudid has been discontinued. ADVANCE DIRECTIVES:: provided with forms last admission but has not had the opportunity to complete them Has patient been provided with info about the portal/API?: Yes Did the patient sign up for the portal?: No CODE STATUS:: Full Code INSURANCE COVERAGE / FINANCIAL ISSUES:: Medicare. [employer] Insurance CURRENT HOME/COMMUNITY SERVICES/EQUIPMENT:: Home health RN,PT PRIMARY CARE PHYSICIAN:: Stuart Tena POTENTIAL DISCHARGE NEEDS:: Follow up with new PCP and discharge plan of care PATIENT/FAMILY EDUCATION NEEDS:: Discharge plan, coumadin education, limitations, follow up plan, Ask Me Three TRANSPORTATION:: via private vehicle with [place]fri[place] PLAN:: JAKY will likely be discharged home with a resumption of home health services for RN and PT. She whitney meet with her new PCP (Stuart Tena) on 03/10/20 and follow up with her discharge plan of care. She will discharge home with Karel in a private vehicle. CM will continue to support patient, family and discharge planning needs. Readmission - Within the Past 30 Days Yes or No: Y - Date of First Admission Date of 1st Admission: 02/23/20 - Date of this Admission Date of Admission: 02/28/20 - Office Visit Since 1st Admission Have you seen your PCP in the office since discharge?: No Had an appointment Been Scheduled?: Yes Date of Scheduled Appointment: 03/10/20 Describe barriers for scheduling or getting an appointment: new to area and did not have a PCP - Speicalist Appointments Have you seen any other specialist since your 1st Admission?: No - I. Interview patient and/or Family Difficulty reaching your doctor or getting an office appt?: No Have you had trouble purchasing/ or taking medication?: No Have you had trouble with getting meals at home?: No Did you feel ready for discharge when you left the last time: Yes Were services received that you thought were set up on disch: Yes What services were received?: Home health called to come for a visit yeaterday but JAKY declined because she was not feeling well Did you call your physician beore you came to the ED?: No - If the patient had a VNA ordered Did the patient have a VNA order?: Yes Did you call the VNA before you came?: No Did the VNA tell you to come to the hospital?: No - If the patient had home care service Call them to discuss the patient's admission: JAKY had not been seen yet; she had only been home about 24 hours - ED visits How many ED visits in the past 12 months: 2 (just moved to [place] in Dec[place] - Assessment for Readmission Summary of readmission circumstances, based upon interviews: JAKY was readmitted with new RLE pain, severe, and a new pneumonia. She had been taking narcotics (Dilaudid) for pain at home and became somnolent.
[2020-02-29 09:52] VITALS: BP 90/54; BP 94/56; O2SAT 93
--- NOTE | 2020-02-29 10:24 | W.PM.PROGNOT ---
Date of Service Date of service: 02/29/20 Time of Service: 10:25 Assessment and Plan Assessment and plan (1) Acute kidney injury: Status: Acute Assessment and plan: Creatinine up from 2.22 to 2.52. Previously 1.36 on 02/26/2020. continue IV NS at 75ml hour. Encourage po intake. Monitor (2) Left leg DVT: Status: Acute Assessment and plan: On coumadin with Lovenox bridge which we can dc today as INR is 2.5, lower dose to 5 mg Goal of INR: 2.5 - 3.0. Possible has a pulmonary embolism but no CTA chest performed d/t acute on chronic kidney disease. Echocardiogram showed no evidence of R heart strain. Qualifiers: Affected thrombotic vein of extremity: tibial Chronicity: acute Qualified Code(s): I82.442 - Acute embolism and thrombosis of left tibial vein (3) Pain and swelling of right lower extremity: Status: Acute Assessment and plan: No DVT noted in RLE with previous BLE venous US. Ecchymoses present; no known trauma since being placed on anticoagulation. If DVT did develop, is on proper treatment. (4) Pneumonia: Status: Acute Assessment and plan: CT chest showes patchy and confluent ground-glass densities in bilateral lungs. Covid-19 results pending. Previously negative. continue Zosyn day 2. Monitor CBC. Not requiring suppelemtal O2. Qualifiers: Pneumonia type: due to unspecified organism (5) Hepatic steatosis: Status: Acute Assessment and plan: Noted on CT. LFTs mildly elevated; normal on 02/23/2020. Weight loss would be prudent. (6) Discharge planning issues: Status: Acute Assessment and plan: case management following, anticipate discharge to home when medically stable. Exam Const General: cooperative and no acute distress Nutritional Appearance: obese Orientation: alert and oriented x3 HENMT Head: normocephalic and atraumatic Neck Neck: full ROM and no JVD Resp Effort & Inspection: normal respiratory effort Auscultation: clear to auscultation bilaterally Cardio Rate: regular rate Rhythm: regular rhythm Heart Sounds: S1 normal and S2 normal GI Inspection: obesity Palpation: soft and nontender Auscultation: normal bowel sounds Skin General skin exam: ecchymosis (RLE / calf) Extrem General: calf tenderness bilaterally and edema Psych Appearance: grossly normal Mental Status: mental status grossly normal Speech and Movement: speech and movement normal Objective Last Vital Signs Temp 36.2 C L 02/29/20 08:29 Pulse 90 02/29/20 08:29 Resp 19 02/29/20 08:29 BP 94/56 L 02/29/20 09:52 Pulse Ox 93 02/29/20 09:52 Laboratory Results - last 24 hr 02/28/20 02/28/20 02/28/20 18:35 18:35 18:35 WBC 11.34 H RBC 3.50 L Hgb 11.5 Hct 36.1 MCV 103.1 H MCH 32.9 MCHC 31.9 L RDW 16.6 H Plt Count 180 MPV 9.4 Immature Gran % 0.6 Neutrophils % 86.5 Lymphocytes % 5.6 Monocytes % 6.0 Eosinophils % 1.1 Basophils % 0.2 Nucleated RBC % 0 Absolute Neutrophils 9.81 H Absolute Lymphocytes 0.64 L Absolute Monocytes 0.68 Absolute Eosinophils 0.12 Absolute Basophils 0.02 PT 18.2 H D INR 1.8 H D Sodium 135 L Potassium 4.9 Chloride 104 Carbon Dioxide 24.4 Anion Gap 6.6 BUN 29 H D Creatinine 2.22 H D Estimated GFR/1.73 m2 21.90 Glucose 113 H Calcium 8.2 L Total Bilirubin 0.4 AST 44 H ALT 63 H Alkaline Phosphatase 136 H Troponin I < 0.05 NT-Pro-B Natriuret Pep 83 Total Protein 6.9 Albumin 3.0 L Procalcitonin Ethyl Alcohol 02/28/20 02/28/20 02/29/20 18:35 18:35 06:45 WBC RBC Hgb Hct MCV MCH MCHC RDW Plt Count MPV Immature Gran % Neutrophils % Lymphocytes % Monocytes % Eosinophils % Basophils % Nucleated RBC % Absolute Neutrophils Absolute Lymphocytes Absolute Monocytes Absolute Eosinophils Absolute Basophils PT 24.6 H D INR 2.5 H D Sodium Potassium Chloride Carbon Dioxide Anion Gap BUN Creatinine Estimated GFR/1.73 m2 Glucose Calcium Total Bilirubin AST ALT Alkaline Phosphatase Troponin I NT-Pro-B Natriuret Pep Total Protein Albumin Procalcitonin 0.3 Ethyl Alcohol < 3.0 02/29/20 02/29/20 06:45 06:45 WBC 12.64 H RBC 2.77 L Hgb 9.1 L D Hct 28.7 L D MCV 103.6 H MCH 32.9 MCHC 31.7 L RDW 16.5 H Plt Count 186 MPV 10.1 Immature Gran % 0.7 Neutrophils % 77.2 Lymphocytes % 10.9 Monocytes % 9.4 Eosinophils % 1.6 Basophils % 0.2 Nucleated RBC % 0 Absolute Neutrophils 9.76 H Absolute Lymphocytes 1.38 Absolute Monocytes 1.19 H Absolute Eosinophils 0.20 Absolute Basophils 0.03 PT INR Sodium 135 L Potassium 4.7 Chloride 105 Carbon Dioxide 23.2 Anion Gap 6.8 BUN 33 H Creatinine 2.52 H Estimated GFR/1.73 m2 18.92 Glucose 101 Calcium 7.5 L Total Bilirubin 0.4 AST 60 H ALT 69 H Alkaline Phosphatase 114 Troponin I NT-Pro-B Natriuret Pep Total Protein 5.8 L Albumin 2.6 L Procalcitonin Ethyl Alcohol
[2020-02-29] MEDS: Acetaminophen 325 MG TAB 650 MG PO ×3 (11:44→22:02)
[2020-02-29] MEDS: Normal Saline 1,000 ML 75 ML IV (11:46)
[2020-02-29 11:47] VITALS: BP 97/53; PULSE 84; RESP 16; TEMP 36.9; O2SAT 94
[2020-02-29 12:12] LABS: COVID-19 RT-PCR UVMMC Result Negative (Negative)
[2020-02-29] MEDS: Normal Saline 500 ML 1000 ML IV (14:30)
[2020-02-29] MEDS: traMADol 50 MG TAB PO ×2 (14:41→20:04)
[2020-02-29 16:11] VITALS: BP 92/48; PULSE 86; RESP 21; TEMP 37; O2SAT 95
--- NOTE | 2020-02-29 16:29 | PGE_ITS ---
Date of Service Date of service: 02/29/20 Time of Service: 16:30 Assessment and Plan Assessment and plan (1) Pain and swelling of right lower extremity: Status: Acute Assessment and plan: hematoma within markings but H&H dropped, will repeat, hold coumadin for now, INR in am ice pack, elevate consider vit K Subjective Subjective Patient reports: still having pain (pain to right lower extremity) Exam Cardio Rate: regular rate Rhythm: regular rhythm (pedal pulse present right) Skin General skin exam: ecchymosis (within skin markings tender to touch firm good pulses and sensation distall) Lesions: no lesions Rashes: no rashes Extrem General: normal to inspection (generalized edema to bilateral LE, old scars right ) Objective Last Vital Signs Temp 37.0 C 02/29/20 16:11 Pulse 86 02/29/20 16:11 Resp 21 02/29/20 16:11 BP 92/48 L 02/29/20 16:11 Pulse Ox 95 02/29/20 16:11 Laboratory Results - last 24 hr 02/28/20 02/28/20 02/28/20 18:35 18:35 18:35 WBC 11.34 H RBC 3.50 L Hgb 11.5 Hct 36.1 MCV 103.1 H MCH 32.9 MCHC 31.9 L RDW 16.6 H Plt Count 180 MPV 9.4 Immature Gran % 0.6 Neutrophils % 86.5 Lymphocytes % 5.6 Monocytes % 6.0 Eosinophils % 1.1 Basophils % 0.2 Nucleated RBC % 0 Absolute Neutrophils 9.81 H Absolute Lymphocytes 0.64 L Absolute Monocytes 0.68 Absolute Eosinophils 0.12 Absolute Basophils 0.02 PT 18.2 H D INR 1.8 H D Sodium 135 L Potassium 4.9 Chloride 104 Carbon Dioxide 24.4 Anion Gap 6.6 BUN 29 H D Creatinine 2.22 H D Estimated GFR/1.73 m2 21.90 Glucose 113 H Calcium 8.2 L Total Bilirubin 0.4 AST 44 H ALT 63 H Alkaline Phosphatase 136 H Troponin I < 0.05 NT-Pro-B Natriuret Pep 83 Total Protein 6.9 Albumin 3.0 L Procalcitonin Ethyl Alcohol COVID-19 PCR Nasopharyn COVID-19 PCR Ref Test Perform Site 02/28/20 02/28/20 02/28/20 18:35 18:35 20:35 WBC RBC Hgb Hct MCV MCH MCHC RDW Plt Count MPV Immature Gran % Neutrophils % Lymphocytes % Monocytes % Eosinophils % Basophils % Nucleated RBC % Absolute Neutrophils Absolute Lymphocytes Absolute Monocytes Absolute Eosinophils Absolute Basophils PT INR Sodium Potassium Chloride Carbon Dioxide Anion Gap BUN Creatinine Estimated GFR/1.73 m2 Glucose Calcium Total Bilirubin AST ALT Alkaline Phosphatase Troponin I NT-Pro-B Natriuret Pep Total Protein Albumin Procalcitonin 0.3 Ethyl Alcohol < 3.0 COVID-19 PCR Negative Nasopharyn COVID-19 PCR Not Applicable [facility] 02/29/20 02/29/20 06:45 06:45 06:45 WBC 12.64 H RBC 2.77 L Hgb 9.1 L D Hct 28.7 L D MCV 103.6 H MCH 32.9 MCHC 31.7 L RDW 16.5 H Plt Count 186 MPV 10.1 Immature Gran % 0.7 Neutrophils % 77.2 Lymphocytes % 10.9 Monocytes % 9.4 Eosinophils % 1.6 Basophils % 0.2 Nucleated RBC % 0 Absolute Neutrophils 9.76 H Absolute Lymphocytes 1.38 Absolute Monocytes 1.19 H Absolute Eosinophils 0.20 Absolute Basophils 0.03 PT 24.6 H D INR 2.5 H D Sodium 135 L Potassium 4.7 Chloride 105 Carbon Dioxide 23.2 Anion Gap 6.8 BUN 33 H Creatinine 2.52 H Estimated GFR/1.73 m2 18.92 Glucose 101 Calcium 7.5 L Total Bilirubin 0.4 AST 60 H ALT 69 H Alkaline Phosphatase 114 Troponin I NT-Pro-B Natriuret Pep Total Protein 5.8 L Albumin 2.6 L Procalcitonin Ethyl Alcohol COVID-19 PCR Nasopharyn COVID-19 PCR Ref Test Perform Site
[2020-02-29 16:59] LABS: HGB 8.2 g/dL (11.2-15.7)
[2020-02-29] MEDS: oxyCODONE 5 MG TAB PO (18:22)
--- NOTE | 2020-02-29 18:42 | NUR.NOTE ---
asked by peer nurse to look at patients posterior right leg.. Noted on observation that there was some blood and sheared skin on the bedding. Closer observation of the leg, showed the sheared area ,plus a large dark purple area, possibly a hematoma . Area is very painful to the patient , and was still oozing blood. concern that the purple area was growing, was expressed by the peer nurse. Spoke to ccc, and expressed my concern about the condition of the leg. Telfa secured by leif was applied for protection. Asked the CCC to notify hospitalist, to assess, over growing concern a surgical consult will be needed to address the areas. awaiting orders. Nursing Note:
[2020-02-29] MEDS: traZODone 50 MG TAB 150 MG PO (22:03)
[2020-03-01 00:03] VITALS: BP 98/65; PULSE 87; RESP 16; TEMP 36.6; O2SAT 93
[2020-03-01] MEDS: oxyCODONE 5 MG TAB PO ×3 (00:06→16:57)
[2020-03-01] MEDS: Normal Saline 1,000 ML 75 ML IV ×2 (01:39→14:49)
[2020-03-01] MEDS: PIPERACILLIN/TAZO 3.375 GM in Normal Saline 50 ML IVPB ×2 (05:56→13:24)
[2020-03-01 07:05] LABS: Abs Immature Grans 0.08 10^3/uL (0.0-0.06); Absolute Basophil Count 0.01 10^3/uL (0.0-0.2); Absolute Eosinophil Count 0.21 10^3/uL (0.0-0.7); Absolute Lymphocyte Count 0.93 10^3/uL (1.2-3.4); Absolute Monocyte Count 1.18 10^3/uL (0.1-0.8); Absolute Neutrophil Count 7.71 10^3/uL (1.2-6.7); Basophils % 0.1; Eosinophils % 2.1; HCT 23.1 % (36.0-46.0); HGB 7.3 g/dL (11.2-15.7); Immature Grans % 0.8; Lymphocytes % 9.2; MCH 32.4 pg (27.0-33.0); MCHC 31.6 % (32.0-36.0); MCV 102.7 fL (80-95); MPV 10.5 fL (8.0-11.0); Monocytes % 11.7; Neutrophils % 76.1; Nucleated RBC 0 %; RBC 2.25 10^6/uL (3.93-5.22); RDW 16.5 % (11.7-14.6); RDW-SD 62.4 fL; WBC 10.12 10^3/uL (4.4-10.8)
[2020-03-01 07:12] LABS: Anion Gap 5.8 mmol/L (3-11); BUN 29 mg/dL (7-18); CO2 24.2 mmol/L (21.0-32.0); CREATININE 1.95 mg/dL (0.55-1.02); Calcium 7.4 mg/dL (8.5-10.1); Chloride 107 mmol/L (98-107); Estimated GFR 25.44 (mL/min/1.73m2); Glucose 109 mg/dL (74-106); Potassium 4.4 mmol/L (3.5-5.1); Sodium 137 mmol/L (136-145)
[2020-03-01 07:13] LABS: INR 2.6 (0.9-1.1); Prothrombin Time 25.2 sec (9.3-11.0)
[2020-03-01 07:31] LABS: Platelet Count 186 10^3/uL (130-400)
[2020-03-01 07:32] LABS: Basophilic Stippling Present; Diff Comment Diff Reviewed; Hypochromasia 2+; Polychromasia Present
[2020-03-01] MEDS: Oxybutynin-CR 5 MG TABCR 10 MG PO (07:32)
[2020-03-01] MEDS: busPIRone 5 MG TAB 10 MG PO (07:32)
[2020-03-01] MEDS: DULoxetine 30 MG CAP 60 MG PO (07:32)
[2020-03-01 07:33] LABS: Poikilocytes 2+
[2020-03-01] MEDS: Furosemide 40 MG TAB PO (07:33)
[2020-03-01 07:37] VITALS: BP 135/74; PULSE 90; RESP 14; TEMP 37.6; O2SAT 93
[2020-03-01 09:30] VITALS: O2SAT 97
[2020-03-01 09:40] VITALS: O2SAT 93
[2020-03-01] MEDS: Acetaminophen 325 MG TAB 650 MG PO (09:55)
--- NOTE | 2020-03-01 10:20 | PHACLINREV_ITS ---
Pharmacy Admission Review - Admission Clinical Review (Last Reviewed 02/29/20 @ 05:23 by Elliot Morton MD) Hepatic steatosis (Acute) Pneumonia (Acute) Acute kidney injury (Acute) Back pain (Acute) Pain and swelling of right lower extremity (Acute) Left leg DVT (Acute) No Known Allergies Allergy (Unverified 02/28/20 18:29) Height 5 ft 8 in Weight 149 kg Right leg pain-recent diagonosis of Left leg DVT being treated - Comments Comments/Follow Ups: Recent diagnosis of Left leg DVT being bridged with Lovenox/Warfarin (was discharged 02/27/20) Now being readmitted for RIGHT leg pain. Pain 01/11-using occasional Tramadol/OxyIR, AFebrile, CT of spine due to history of back pain-mild degenerative changes, CT of chest showed bilateral possible Pneumonia treating with Zosyn. Skin tear/shear on right leg - Renal Dosing Renal Dosing: BUN 29 mg/dL (7-18) H 03/01/20 06:14 Creatinine 1.95 mg/dL (0.55-1.02) H 03/01/20 06:14 Medications needing adjustments: Reviewed (CrCl~27.4ml/min) List of meds needing interventions: Need to watch renal function for Zosyn dosing-it's okay right now since it is being administered as extended infusion over 4 hours, SCr has improved - Anticoagulation Anticoagulation: Hgb 7.3 g/dL (11.2-15.7) L 03/01/20 06:14 Hct 23.1 % (36.0-46.0) L 03/01/20 06:14 Plt Count 186 10^3/uL (130-400) 03/01/20 06:14 INR 2.6 (0.9-1.1) H 03/01/20 06:14 Creatinine 1.95 mg/dL (0.55-1.02) H 03/01/20 06:14 DVT Prohphylaxis: Reviewed (Warfarin held at this time for elevated INR=2.6) - Opiate Usage Evaluate Pain Scale/Pains Meds: Reviewed (OxyIR, Tramadol) Scheduled Bowel Reg ordered if on Opiates?: No (Pt has Miralax as needed) - Relevant Labs Sodium 137 mmol/L (136-145) 03/01/20 06:14 Potassium 4.4 mmol/L (3.5-5.1) 03/01/20 06:14 Chloride 107 mmol/L (98-107) 03/01/20 06:14 Electrolytes, C-Reactive P, ESR: Reviewed (H/H dropped to 7.3/23.1 today-MD aware, WBC down 10.12, Procalcitonin 0.3, Most recent COVID test was negative 02/28/20) - DM Control DM Control: Glucose 109 mg/dL (74-106) H 03/01/20 06:14 Insulin Dosing: N/A - Heart Failure/NJ Heart Failure/NJ: Troponin I < 0.05 ng/mL (<0.06) 02/28/20 18:35 NT-Pro-B Natriuret Pep 83 pg/mL (<300) 02/28/20 18:35 EF%, NICHELLE's, B-Blockers, Diuretics: Reviewed (Lasix 40mg po daily) - BP Control BP Control: Blood Pressure 135/74 Blood Pressure 98/65 If elevated: N/A - Qtc Review If Elevated: N/A - Home Meds Home Med List reviewed: Reviewed (all ordered with the exception of Lovenox/Warfarin-both held at this time) - Comments Comments/Follow Ups: Surgical consult ordered Antibiotic Activity - Pharmacy Antibiotic Review Pharmacy Antibiotic Activity: Reviewed, no change (Zosyn extended infusion for P neumonia) - Antibiotic Information Antibiotic Review Info: Zosyn extended infusion for Pneumonia
[2020-03-01 11:20] VITALS: O2SAT 93
[2020-03-01] MEDS: Nystatin POWDER 60 GM JAR TP (13:24)
[2020-03-01] MEDS: traMADol 50 MG TAB PO (14:41)
--- NOTE | 2020-03-01 15:33 | W.PM.DS.N ---
Date of service: 03/01/20 Time of Service: 15:34 DS: Diagnosis Discharge Diagnosis (1) Pain and swelling of right lower extremity: Start date: 03/01/20 Start time: 15:34 Status: Acute Asessment and Plan: Recently started on coumadin on last admission for LLE DVT, possible PE, unable to obtain imaging due to renal functions. Hematoma has grown to 22x18 cm with circumfrential slothing of skin, layers continue to become cracked, coumadin on hold, though wound is becoming worse, concern for coumadin induced necrosis/compartment syndrome, therefore she is requiring a hospital to hospital transfer. Hemoglobin 7.5 down from 9.2 yesterday. She is febrile with a soft bp [place] [facility] [place]. Coombs (2) Acute kidney injury: Start date: 03/01/20 Start time: 16:27 Status: Acute Asessment and Plan: Continues to be above baseline. Hold nephrotoxic medication, will continue IVF above case discussed with Dr. Morton who is in agreement Discharge Plan Disposition Patient Disposition: [facility] Condition: Serious Discharge Details Reason For Visit: RIGHT LEG PAIN Admit Date/Time: 02/28/20 19:49 Admit Provider: Elliot Morton Attending Provider: Elliot Morton Primary Care Provider: Fanny,Local Home Meds and New Rx's Prescriptions: No Action duloxetine [Cymbalta] 60 mg Capsule,Delayed Release(Dr/Ec) 60 mg PO DAILY RF: 0 furosemide 40 mg Tablet 40 mg PO DAILY RF: 0 trazodone 150 mg Tablet 150 mg PO HS RF: 0 oxybutynin chloride 10 mg tablet extended release 24hr 10 mg PO DAILY RF: 0 buspirone 10 mg tablet 10 mg PO BID RF: 0 enoxaparin 150 mg/mL syringe 150 mg subcut Q12H Qty: 10 RF: 1 warfarin 5 mg tablet 10 mg PO QPM Qty: 60 RF: 0 albuterol sulfate [Ventolin HFA] 90 mcg/actuation Hfa Aerosol Inhaler 2 puff inhalation Q4H PRN PRNQty: 1 RF: 0 Discharge Instructions Additional Instructions: [place] [facility] [place] Activity:: Activity as Tolerated Diet:: NPO Discharge Orders Discharge Orders: Discharge Order (Routine); Ordered 03/01/20 Ordered By: Carlita Bowman DS: Summary Status at Discharge Functional status at discharge: bed bound Overall status at discharge: patient is not back to baseline Mental Status: mental status grossly normal Speech and Movement: speech and movement normal Mood: congruent mood Affect: normal affect Exam Const General: cooperative Nutritional Appearance: obese Orientation: alert, awake and oriented x3 Resp Effort & Inspection: normal respiratory effort and able to speak in complete sentences Auscultation: diminished lung sounds Cardio Rate: regular rate Rhythm: regular rhythm (pedal pulse present right) GI Inspection: normal to inspection Auscultation: normal bowel sounds Skin General skin exam: ecchymosis (within skin markings tender to touch firm good pulses and sensation distall) Lesions: no lesions Rashes: no rashes Wounds: wounds noted (wound to hematoma with measurements 18 cm by 22 cm) Extrem General: abnormal to inspection (generalized edema to bilateral LE, old scars right ) Other: open hematoma with scant bloody drainage Psych Mental Status: mental status grossly normal Speech and Movement: speech and movement normal Mood: congruent mood Affect: normal affect DS: Data Vitals/I&O Vitals and I&O: Vital Signs Temperature 37.6 C H 03/01/20 07:37 Temperature Source Tympanic 03/01/20 07:37 Pulse 90 03/01/20 07:37 Pulse Rhythm Regular 03/01/20 09:35 Respiratory Rate 14 03/01/20 07:37 Respiratory Effort 03/01/20 09:35 Respiratory Depth Normal 03/01/20 09:35 Respiratory Pattern Normal 03/01/20 09:35 Blood Pressure 135/74 03/01/20 07:37 Blood Pressure Mean 68 02/28/20 19:16 Blood Pressure Position Supine 02/28/20 17:41 Pulse Oximetry 93 03/01/20 11:20 Oxygen Delivery Method Room Air 03/01/20 11:20 Oxygen Flow Rate 0 03/01/20 11:20 Pain Level 10 03/01/20 09:55 Comment 02/29/20 16:11 Intake & Output 02/29/20 03/01/20 03/01/20 23:59 11:59 23:59 Intake Total 400 / 1740 1340 / 2977.5 1637.5 / 2977.5 Output Total 2750 / 4050 1300 / 4050 Balance 400 / 1315 -1410 / -1072.5 337.5 / -1072.5 Intake: IV 50 / 1150 1100 / 2087.5 987.5 / 2087.5 Oral 350 / 590 240 / 890 650 / 890 Output: Urine 2750 / 4050 1300 / 4050 Other: Urine Color Straw Straw Yellow Urine Appearance Clear Clear Clear Data Completed and Pending Completed studies during hospitalization [Text1]: Exam(s) a CT:CT thoracic spine recons EXAM: CT CHEST WO CLINICAL HISTORY: pain in back, shortness of breath TECHNIQUE: COMPARISON: CT CT THORACIC SPINE RECONS from 02/28/2020 FINDINGS: Noncontrast chest CT and additional CT reconstructions of the thoracic spine are interpreted in conjunction. There is reportedly history of back pain. No IV contrast material was utilized secondary to impaired renal function. Images obtained through the upper abdomen show hepatic steatosis and hepatomegaly. Spleen is grossly unremarkable by noncontrast criteria as is the pancreas. Visualized portions of adrenals and kidneys appear intact. There is no cardiomegaly. There is no mediastinal hematoma. Thoracic vasculature is of normal caliber. No mediastinal or hilar adenopathy. There are predominantly linear radiodensities in dependent portions of lungs which may represent atelectasis and/or scarring. Slight ground-glass opacities in the lung bases may be acute or chronic. No focal consolidation seen. Mild bronchiectasis noted bilaterally in the lung bases. No thoracic spine fracture seen. No erosive or destructive process. IMPRESSION: Essentially negative CT examination of the chest with additional reconstructions of thoracic spine. Likely chronic interstitial changes in the lung bases. Exam(s) a CT:CT chest wo EXAM: CT CHEST WO CLINICAL HISTORY: pain in back, shortness of breath TECHNIQUE: COMPARISON: CT CT THORACIC SPINE RECONS from 02/28/2020 FINDINGS: Noncontrast chest CT and additional CT reconstructions of the thoracic spine are interpreted in conjunction. There is reportedly history of back pain. No IV contrast material was utilized secondary to impaired renal function. Images obtained through the upper abdomen show hepatic steatosis and hepatomegaly. Spleen is grossly unremarkable by noncontrast criteria as is the pancreas. Visualized portions of adrenals and kidneys appear intact. There is no cardiomegaly. There is no mediastinal hematoma. Thoracic vasculature is of normal caliber. No mediastinal or hilar adenopathy. There are predominantly linear radiodensities in dependent portions of lungs which may represent atelectasis and/or scarring. Slight ground-glass opacities in the lung bases may be acute or chronic. No focal consolidation seen. Mild bronchiectasis noted bilaterally in the lung bases. No thoracic spine fracture seen. No erosive or destructive process. IMPRESSION: Essentially negative CT examination of the chest with additional reconstructions of thoracic spine. Likely chronic interstitial changes in the lung bases. Labs on day of discharge: Labs from last 24 hours 03/01/20 03/01/20 03/01/20 Unknown 06:14 06:14 WBC 10.12 RBC 2.25 L Hgb Pending 7.3 L Hct Pending 23.1 L MCV 102.7 H MCH 32.4 MCHC 31.6 L RDW 16.5 H Plt Count 186 MPV 10.5 Immature Gran % 0.8 Neutrophils % 76.1 Lymphocytes % 9.2 Monocytes % 11.7 Eosinophils % 2.1 Basophils % 0.1 Nucleated RBC % 0 Absolute Neutrophils 7.71 H Absolute Lymphocytes 0.93 L Absolute Monocytes 1.18 H Absolute Eosinophils 0.21 Absolute Basophils 0.01 RBC Morphology See below Polychromasia Present Hypochromasia 2+ Poikilocytosis 2+ Basophilic Stippling Present PT INR Sodium 137 Potassium 4.4 Chloride 107 Carbon Dioxide 24.2 Anion Gap 5.8 BUN 29 H Creatinine 1.95 H Estimated GFR/1.73 m2 25.44 Glucose 109 H Calcium 7.4 L 03/01/20 02/29/20 06:14 16:51 WBC RBC Hgb 8.2 L Hct 26.0 L MCV MCH MCHC RDW Plt Count MPV Immature Gran % Neutrophils % Lymphocytes % Monocytes % Eosinophils % Basophils % Nucleated RBC % Absolute Neutrophils Absolute Lymphocytes Absolute Monocytes Absolute Eosinophils Absolute Basophils RBC Morphology Polychromasia Hypochromasia Poikilocytosis Basophilic Stippling PT 25.2 H INR 2.6 H Sodium Potassium Chloride Carbon Dioxide Anion Gap BUN Creatinine Estimated GFR/1.73 m2 Glucose Calcium PFSH Medical History Left leg DVT Postmenopausal bleeding Thickened endometrium Social History Smoking/Tobacco Use Status: Former Tobacco Use Smoking risk assessment performed?: Yes Alcohol Intake: current Alcohol Intake frequency: 3 or more drinks per day Alcohol type: hard liquor Substance use 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 Was drinking 5-6 drinks for the past week. PT now reports tremors Do you feel safe at home: Yes Do you feel safe in your relationship?: Yes Female Reproductive History Menstrual Menopause type: natural Date of menopause: 04/04/04
[2020-03-01 15:36] VITALS: BP 92/61; PULSE 88; RESP 17; TEMP 38; O2SAT 93
[2020-03-01 15:37] LABS: HGB 7.5 g/dL (11.2-15.7)
[2020-03-01 16:57] LABS: Lactate 1.3 mmol/L (0.6-1.4)
--- NOTE | 2020-03-01 17:41 | CMPROGNOTE_ITS ---
- If Service Date Differs Date of service: 03/01/20 Time of Service: 17:41 Care Management Progress Note S/O: Per report, Carine's H&H continues to decrease today, and she is still complaining of pain in her leg. Her hematoma has also grown, and she is febrile today. Due to her worsening condition, transfer to a tertiary facility was indicated. She [place] [facility] [place] and transport was arranged by RN Nurse Charge Rn, as a hospital to hospital transport. CM will continue to support discharge planning considerations. A: Carine is a 69 year old female admitted to [facility] on 02/28/20 with right leg pain. P: Carine will transfer [place] [facility] [place] as a [place] becomes available. She has been accepted, and transport has been arranged via ambulance. CM will continue to follow and support discharge planning considerations.
[2020-03-01] MEDS: MORPHine 2 MG/ML SYR IVP (18:01)
== END 2020-03-01 18:15 | disposition short-term general hospital (02) | DRG 922 ==
LOC: ER 20:16 → MS 21:04
PROVIDERS: Nurse Practitioner Acute Care; Nurse Practitioner Family; Student in an Organized Health Care Education/Training Program; Admitting Provider Family Medicine; Emergency Provider Emergency Medicine; Visit Provider Family Medicine
DX: T79.A21A Traumatic compartment syndrome of right lower extremity, initial encounter (principal); J18.9 Pneumonia, unspecified organism; I26.99 Other pulmonary embolism without acute cor pulmonale; N17.9 Acute kidney failure, unspecified; I82.442 Acute embolism and thrombosis of left tibial vein; Z68.42 Body mass index [BMI] 45.0-49.9, adult; T45.515A Adverse effect of anticoagulants, initial encounter; N18.9 Chronic kidney disease, unspecified; K76.0 Fatty (change of) liver, not elsewhere classified; E66.9 Obesity, unspecified; N95.0 Postmenopausal bleeding; R93.89 Abnormal findings on diagnostic imaging of other specified body structures; S80.11XA Contusion of right lower leg, initial encounter; W19.XXXA Unspecified fall, initial encounter
CPT/HCPCS: 36410; 36415; 71250; 80048; 80053; 84145; 96374; 99222; 99232; 99239; 99285; U0003; 73590; 80320; 83605; 83880; 84484; 85014; 85018; 85025; 85610; J1650; J2270; J2543; J3430

== ENCOUNTER 2020-03-22 16:41 | Inpatient (IN) | payer MEDICARE, OTHER, SELFPAY ==
[2020-03-22 16:48] VITALS: BP 131/79; PULSE 128; RESP 22; TEMP 36.5; O2SAT 99
--- NOTE | 2020-03-22 17:00 | W.ED.GENAD ---
Discharge Plan Disposition Patient Disposition: [facility] Condition: Stable Discharge Details Clinical Impression: Visit for wound check, Wound infection Admit Date/Time: 03/22/20 17:59 Admit Provider: Murray Sanchez Attending Provider: Murray Sanchez Primary Care Provider: Stuart Tena ED Provider: Rachel Castillo Medical Decision Making Patient in for wound check. Has had no symptoms, wound VAC is functioning as expected. Physical exam is unremarkable.. We will check basic labs CBC basic metabolic panel. She will be evaluated here by our wound care nurse for wound VAC dressing change. wound bed with good granulation tissues, some purulent drainage to distal border, some mild erythema to wound edges. see wound care notes for measurement and full description. in setting of mrsa history, elevated white count, drainage, mild erythema and hardware in that leg, will request observation stay for IV antibiotics. will give 2 gm vancomycin IV, case discussed with DR Sanchez who accepts patient. added procalcitonin, blood cultures, wound culture ED stay is extended d/t difficulty obtaining IV access and labs. Line placed by Dr Kinsey. Medical Records Medical records reviewed: Yes I reviewed the patient's medical records. Lab Data Lab results reviewed: Yes I reviewed the patient's lab results. HPI General Date/Time Provider Initiated Documentation: 03/22/20 16:45. Limitations to Documentation: no limitations. Information obtained by: patient. HPI Narrative: Patient presents for evaluation of right lower extremity reported erythema by home health nursing. She is chronically anticoagulated and had a large hematoma in her posterior calf that required transfer to [facility] [place] for surgical management. She was discharged to home with a wound VAC and the nurse today, who had not previously change the dressing there was an area of erythema concerning for infection. The patient has had no increase pain chills fevers or new complaints. She states she has been feeling in her usual state of health. Related Data Home Medications Medication Instructions Recorded Confirmed duloxetine [Cymbalta] 60 mg PO DAILY 02/23/20 03/22/20 furosemide 40 mg PO DAILY 02/23/20 03/22/20 trazodone 150 mg PO HS 02/23/20 03/22/20 buspirone 10 mg PO BID 02/25/20 03/22/20 oxybutynin chloride 10 mg PO DAILY 02/25/20 03/22/20 albuterol sulfate [Ventolin HFA] 2 puff INHALATION Q4H PRN PRN #1 g 02/27/20 03/22/20 apixaban [Eliquis] 2.5 mg PO BID 03/22/20 03/22/20 hydromorphone 4 mg PO Q4H PRN PRN 03/22/20 03/22/20 megestrol 80 mg PO BID 03/22/20 03/22/20 Previous Rx's Medication Instructions Recorded albuterol sulfate [Ventolin HFA] 2 puff INHALATION Q4H PRN PRN #1 g 02/27/20 Allergies Allergy/AdvReac Type Severity Reaction Status Date / Time No Known Allergies Allergy Unverified 03/22/20 16:50 General Stated Complaint: GenMedical IAN: 3 Review of Systems Narrative: Patient has no complaints. All systems reviewed & are unremarkable except as noted in HPI and below Constitutional Constitutional: Denies body ache(s), Denies chills, Denies fatigue and Denies fever(s) Integumentary/Breasts Skin/Breast: Reports lesions (wound vac intact, no increase pain or swelling at the site) Endocrine Endocrine: Denies fatigue PFSH Medical History Left leg DVT Postmenopausal bleeding Thickened endometrium Social History Smoking/Tobacco Use Status: Former Tobacco Use Smoking risk assessment performed?: Yes Alcohol Intake: former Substance use type: former substance user Do you feel safe at home: Yes Do you feel safe in your relationship?: Yes Female Reproductive History Menstrual Menopause type: natural Date of menopause: 04/04/04 Exam Const General: cooperative, comfortable and no acute distress Nutritional Appearance: obese Orientation: alert, awake and oriented x3 Chest Chest: normal inspection of the chest Resp Effort & Inspection: normal respiratory effort Auscultation: clear to auscultation bilaterally Cardio Rate: regular rate Rhythm: regular rhythm GI Inspection: normal to inspection Palpation: soft Skin Lesions: lesion noted (Wound VAC to posterior right lower extremity) Rashes: no rashes Extrem General: edema Course Vital Signs Vital signs: Vital Signs Temperature 36.5 C 03/22/20 16:48 Pulse 128 H 03/22/20 16:48 Respiratory Rate 22 03/22/20 16:48 Blood Pressure 131/79 03/22/20 16:48 Pulse Oximetry 99 03/22/20 16:48 Temperature 36.5 C 03/22/20 16:48 Temperature Source Skin 03/22/20 16:48 Pulse 128 H 03/22/20 16:48 Respiratory Rate 22 03/22/20 16:48 Respiratory Effort 03/22/20 16:51 Blood Pressure 131/79 03/22/20 16:48 Blood Pressure Position Sitting 03/22/20 16:48 Pulse Oximetry 99 03/22/20 16:48 Oxygen Delivery Method Room Air 03/22/20 16:48 Oxygen Flow Rate 0 03/22/20 16:48 Pain Level 7 03/22/20 16:48
[2020-03-22 17:21] LABS: Abs Immature Grans 0.08 10^3/uL (0.0-0.06); Absolute Basophil Count 0.03 10^3/uL (0.0-0.2); Absolute Lymphocyte Count 1.05 10^3/uL (1.2-3.4); Absolute Monocyte Count 0.59 10^3/uL (0.1-0.8); Basophils % 0.2; Eosinophils % 1.8; HCT 28.5 % (36.0-46.0); HGB 8.8 g/dL (11.2-15.7); Immature Grans % 0.6; MCH 30.3 pg (27.0-33.0); MCHC 30.9 % (32.0-36.0); MCV 98.3 fL (80-95); MPV 8.6 fL (8.0-11.0); Monocytes % 4.5; Neutrophils % 84.9; Nucleated RBC 0 %; Platelet Count 323 10^3/uL (130-400); RDW 16.5 % (11.7-14.6); WBC 13.08 10^3/uL (4.4-10.8)
[2020-03-22 17:32] LABS: Absolute Eosinophil Count 0.24 10^3/uL (0.0-0.7)
[2020-03-22 17:49] VITALS: PULSE 83; O2SAT 99
[2020-03-22 18:09] LABS: Anion Gap 11.9 mmol/L (3-11); BUN 19 mg/dL (7-18); CO2 24.1 mmol/L (21.0-32.0); CREATININE 1.94 mg/dL (0.55-1.02); Calcium 8.6 mg/dL (8.5-10.1); Chloride 105 mmol/L (98-107); Estimated GFR 25.59 (mL/min/1.73m2); Glucose 69 mg/dL (74-106); Potassium 3.6 mmol/L (3.5-5.1); Sodium 141 mmol/L (136-145)
--- NOTE | 2020-03-22 18:41 | WOUNDCON1 ---
- If Service Date Differs Date of service: 03/22/20 Time of Service: 18:41 Wound Initial Evaluation Narrative: Called to patient room to change wound vac in place behind right knee. Rachel Castillo [employer] SE[employer] in room for wound evaluation. Pt has [employer] Activac wound vac from home in place and holding 125 continuous suction. Vac stopped and dressing removed to reveal wound 8.3 cm x 12 cm x 2.2 cm with a wound bed that is approx 85 % red granulation tissue with approx 15 % slough. Edges of wound appear pink, slight increase in temperature and pruluent drainage on wound vac sponge. There is undermining present from 1 o'clock to 2 o'clock of 3.3 cm. Pt expresses pain with dressing change. Positive pedal pulse on right leg. Anterior to the wound is an area that is 12.5 cm x 0.5 cm x 0.1 cm that appears to be skin loss from tape adhesion. Wound cleansed with normal saline and wound vac dressing applied. One piece of white foam used in undermining and one piece of black foam used for rest of wound bed. Skin prep and heriberto wound drape used to protect periwound skin and area of skin loss anterior to original wound site. - Wound Right Posterior Knee Wound Type: Full Thickness Wound General Appearance: Draining, Bleeding, Unapproximated Wound Bed Greatest Portion: Red (Granulation) Wound Bed Lesser Portion: Yellow (Slough) Wound Surrounding Tissue Appearance: [place] Percent of Wound Bed Granulated/Red: 85 Percent of Wound Bed Slough/Yellow: 15 Wound Drainage Amount: Moderate Wound Drainage Description: Purulent, Sero Sanguineous - Circulation, Sensation, Motion Sensation Description: Pain Skin Temperature: Warm Skin Color: [place] - Pain Pain Scale Used: Adult Pain Description: Acute Pain Duration/Frequency: Intermittent - Recomendation Recomendation:: Right posterior knee: Follow wound vac orders from [facility] [place], follow up with nutrition consult. Physcian/Nurse Practioner Notified: Yes (Rachel Castillo NP) Treatment Time - Patient Will be Seen Weekly Treatment: 3x/wk
--- NOTE | 2020-03-22 18:56 | WOUNDCON1 ---
- If Service Date Differs Date of service: 03/22/20 Time of Service: 18:00 Wound Initial Evaluation Narrative: CAlled to ED to change a wound vac on this patient on posterior right knee. Rachel Castillo WEBSITE PROJECT MANAGER in to evaluate wound. Patient had on a [employer] Activac which was holding suction at 125 mmHg. Wound measures 8.3 cm x 12 cm x 2.2 cm with undermining from 1 o'clock to 2 o'clock which is 3.3 cm. There is an area anterior to original wound which appears to be a possible tape abrasion measuring 12.5 cm x 0.5 cm. Wound cleansed with normal saline. New wound vac dressing applied with one piece of white foam in undermining and one piece of black foam to wound base. Periwound protected with skin prep and drape. Edges and periphery of wound pink with a slight increase of warmth in comparison with rest of leg. - Wound Right Posterior Knee Wound Type: Full Thickness Wound General Appearance: Draining, Unapproximated Wound Bed Greatest Portion: Red (Granulation) Wound Bed Lesser Portion: Yellow (Slough) Wound Surrounding Tissue Appearance: [place] Percent of Wound Bed Granulated/Red: 85 Percent of Wound Bed Slough/Yellow: 15 Wound Length: 8.3 cm Wound Width: 12 cm Wound Depth: 2.2 cm Wound Drainage Amount: Minimal Wound Drainage Description: Sero Sanguineous - Pain Pain Level: 8 Pain Description: Acute Pain Duration/Frequency: Intermittent - Treatment/Dressing Change Cleanse With: Saline - Recomendation Recomendation:: Follow wound care orders from [facility] [place]. Follow up with nutrition consult for wound healing. Physcian/Nurse Practioner Notified: Yes (Rachel Castillo NP)
[2020-03-22] MEDS: HYDROmorphone 4 MG TAB PO ×2 (20:28→23:16)
[2020-03-22] MEDS: Acetaminophen 325 MG TAB 650 MG PO (20:28)
--- NOTE | 2020-03-22 20:29 | HPE_ITS ---
Date of service: 03/22/20 Time of Service: 20:29 Assessment and Plan Assessment and plan (1) Cellulitis of right lower leg: Status: Acute Assessment and plan: Patient is some increased warmth and redness of the right tibia and calf. She had a complicated hematoma the right posterior tibia that required multiple debridements and clot evacuation. Per wound care nurse the wound measures 8.3 cm x 12 cm x 2.2 cm with some evidence of undermining from 1:00 to 2:00 measuring 3.3 cm. Patient also has an additional tape abrasion over the anterior tibia measuring 12.5 cm by 0.5 cm. Blood and wound cultures have been obtained. Patient has been started on vancomycin with adjustment for her renal dysfunction. Depending on the results of her blood culture and wound culture she may require some prolonged IV antibiotics given her prior history of MRSA. Daptomycin may be an acceptable alternative to vancomycin. For now we will continue with vancomycin pending the results of her cultures. If she needs prolonged antibiotic she will require a PICC line given her poor peripheral IV access. (2) Hematoma of right lower extremity: Status: Acute Assessment and plan: Continue wound vacuum and IV antibiotics. Patient has a scheduled follow-up visit with plastic surgery on April 08, [address] Nikhil Guerrero at [facility] Qualifiers: Encounter type: subsequent encounter Qualified Code(s): S80.11XD - Contusion of right lower leg, subsequent encounter (3) Chronic anticoagulation: Status: Acute Assessment and plan: continue Apixaban 2.5 mg bid for DVT prophylaxis as long as she is not having acute bleeding. Hb today is 8.8 gm (stable compared to her discharge level of 8.0 gm on 03/18). She has a follow up w/ hematology, Dr. Jessenia Forrest on 03/24 which she may or may not be able to keep depending on her blood and wound cultures and disposition of her antibiotic treatments. (4) Acute blood loss anemia: Status: Acute Assessment and plan: stable. consider iron supplementation (5) Chronic kidney disease: Status: Chronic Assessment and plan: Her creatinine is up today to 1.94 from her baseline of 1.5 to 1.6 and up from her discharge level of 1.36 when discharged from [facility] on 03/18. avoid nephrotoxins, NSAIDs; consider switching vancomycin to daptomycin if she has MRSA infection. I would also consider consulting w/ I.D. for their recommendations. I am going to hold her lasix for today. Qualifiers: Chronic kidney disease stage: stage 4 (severe) Qualified Code(s): N18.4 - Chronic kidney disease, stage 4 (severe) (6) Adenocarcinoma of endometrium, stage 1: Status: Acute Assessment and plan: continue megace as prescribed by [facility]ics engineer oncology. Patient has follow up with them in June 2019 to determine whether or not to proceed w/ surgery versus continued monitoring and megace treatment. History of Present Illness History of Present Illness Chief Complaint: Cellulitis right calf Narrative: 69-year-old female with past medical history of chronic kidney disease (baseline creatinine 1.3-1.5), chronic depression anxiety disorder, former alcoholism now in remission, alleged history of PAF, and hx of multiple surgeries on her right leg d/t trauma that was complicated by MRSA infections in the right leg. She was hospitalized at [facility] from February 23, 2020 through February 27, 2020 due to acute dyspnea and was found to have a left lower leg posterior tibial vein DVT and was started on Lovenox and warfarin and subsequently developed postmenopausal bleeding and work-up demonstrated endometrial thickening suspicious for endometrial cancer. Dypnea and cough was presumed d/t PE although this was never proven d/t inability to undergo CTA d/t CKD. She was discharged home only to return on February 28, 2020 with increased pain and swelling in the right calf and was noted to have a significant hematoma. Concern was raised for possible warfarin-induced necrosis and compartment syndrome and the patient was transferred to [facility] emergency department where she was evaluated by surgery and orthopedic surgery and plastic surgery as well as hospitalist service. She was hospitalized from 03/01/2020 through 03/18/2020 and treated for complicated hematoma of RLE complicated by acute blood loss anemia, undergoing multiple debridements and sub sequent wound vaccuum placed. Today she was sent into the ER by her visiting nurse d/t concern over increased warmth and swelling of her RLE and possible infection. Patient denies any fever, rigors but has pain in the right leg. Wound care nurse was consulted by the ER this evening, see her note for details. Patient had blood and wound cultures obtained and has been started on vancomycin. During her stay at [facility] she underwent multiple debridements of the right calf hematoma. CT angiogram of her right leg failed to demonstrate any extravasation of blood into the hematoma site from the vessels of her right leg. Patient had a large loculated hematoma in the tissues posterior to the right knee but no hematoma within the muscular compartments. She underwent multiple debridements of the hematoma and had a wound VAC placement. Initial surgery was March 04 for hematoma evacuation and debridement and then additional debridements on March 05, March 07, March 10, March 12, and finally March 14 due to a necrotic skin surrounding the wound. She was treated with cefazolin beginning March 10 because of some cellulitic skin changes noted along with a worsening leukocytosis those antibiotics were continued through March 16, 2020. She was treated for community-acquired pneumonia with ceftriaxone and azithromycin from admission through March 05, 2020. She was treated for acute blood loss anemia with a transfusion of 2 units of packed red cells for hemoglobin level t hat dropped to as low as 6.4 however the time of discharge on March 18, 2020 her hemoglobin was up to 8 g. Gynecology service was consulted and patient underwent endometrial biopsy on March 10. Which demonstrated grade 1 endometrial adenocarcinoma. Gynecologic oncology service was consulted because of her multiple comorbidities including right lower extremity wound along with chronic kidney disease and a BMI over 50 she was not felt to be a surgical candidate at present time but was recommended that she be started on Megace 80 mg twice daily and outpatient follow-up was arranged with [facility] in June 2019 for consideration of surgery. Workup during her stay at [facility] included a CTA of her chest that did not show any PE and repeat US of her lower extremities which failed to demonstrate any DVT. Per hematology service it was recommended that the patient be placed on prophylactic doses of Apixaban 2.5 mg bid for 3 months given her recent DVT. Patient was discharged home on March 18, 2020 with a wound vacuum over the lower right posterior leg. Today visiting nurse saw the patient was concerned that she had some increased redness and increased warmth over the right calf and sent the patient to the emergency room. Review of Systems Constitutional Constitutional: Denies chills and Denies fever(s) Cardiovascular Cardiovascular: Denies chest pain at rest, Denies chest pain with activity, Reports leg edema and Reports dyspnea on exertion Respiratory Respiratory: Denies chest congestion, Denies cough, Denies pain on inspiration and Reports dyspnea on exertion Gastrointestinal Gastrointestinal: Reports system reviewed and no additional complaints, except as documented Genitourinary Genitourinary: Denies dysuria and Denies urinary urgency Musculoskeletal Musculoskeletal: Reports as per HPI Neurologic Neurologic: Reports system reviewed and no additional complaints, except as documented Psychiatric Psychiatric: Reports system reviewed and no additional complaints, except as documented Endocrine Endocrine: Reports system reviewed and no additional complaints, except as doc umented Hematologic/Lymphatic Hematologic/Lymphatic: Reports system reviewed and no additional complaints, except as documented Allergic/Immunologic Allergic/Immunologic: Reports system reviewed and no additional complaints, except as documented [facility] Medical History (Updated 03/22/20 @ 22:52 by Murray Sanchez) Acute blood loss anemia Adenocarcinoma of endometrium, stage 1 (~02/2020) endometrial biopsy done and positive per [facility] 03/10/2020 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 superintendent in [place], [place] ([facility] Depression Hematoma of right lower extremity (~02/28/20) Left leg DVT (02/24/20) per [facility] repeat US LLE 03/04/2020 failed to demonstrated DVT MRSA infection (methicillin-resistant Staphylococcus aureus) (~01/2014) Postmenopausal bleeding Thickened endometrium Surgical History (Updated 03/22/20 @ 22:26 by Murray Sanchez) History of total right hip arthroplasty Status post closed fracture of right tibia (~12/2014) total of 9 surgeries from 2013 through 2014; had initial ORIF done at [place], [place] but subsequent surgeries were done to treat complications of MRSA infections in right leg Status post total bilateral knee replacement Family History (Updated 03/22/20 @ 22:29 by Murray Sanchez) Father , age 86 d/t stroke Stroke Mother , age 85 Heart disease congestive heart failure Sister Sepsis in 2014 d/t sepsis from lymphedema legs Social History (Updated 03/22/20 @ 22:30 by Murray Sanchez) Smoking/Tobacco Use Status: Former Tobacco Use Quit Date: 04/04/16 Tobacco: How many years used: 15 Smoking risk assessment performed?: Yes Alcohol Intake: former Substance use type: former substance user Do you feel safe at home: Yes Do you feel safe in your relationship?: Yes Female Reproductive History Menstrual Menopause type: natural Date of menopause: 04/04/04 Meds Home Medications and Allergies Home Medications Medication Instructions Recorded Confirmed Type duloxetine [Cymbalta] 60 mg PO DAILY 02/23/20 03/22/20 History furosemide 40 mg PO DAILY 02/23/20 03/22/20 History trazodone 150 mg PO HS 02/23/20 03/22/20 History buspirone 10 mg PO BID 02/25/20 03/22/20 History oxybutynin chloride 10 mg PO DAILY 02/25/20 03/22/20 History albuterol sulfate [Ventolin HFA] 2 puff INHALATION Q4H PRN PRN #1 g 02/27/20 03/22/20 Rx apixaban [Eliquis] 2.5 mg PO BID 03/22/20 03/22/20 History hydromorphone 4 mg PO Q4H PRN PRN 03/22/20 03/22/20 History megestrol 80 mg PO BID 03/22/20 03/22/20 History Allergies Allergy/AdvReac Type Severity Reaction Status Date / Time No Known Allergies Allergy Unverified 03/22/20 16:50 Exam Narrative Exam Narrative: Pleasant cooperative obese female who is alert and oriented person place time circumstance. She is sitting up in bed in semifowler position. She is in no distress. HEENT is unremarkable. Neck is supple nontender no JVD normal carotid pulses no bruits Lungs are clear to auscultation Heart regular rate and rhythm Abdomen is obese soft and nontender Right leg has multiple scars from previous operations involving the anterolateral right thigh right knee and right tibia. Patient has a wound vacuum intact over the right popliteal space. There is increased warmth and redness of the right calf and right anterior tibial surface. Left leg is cool and without erythema. Pedal pulses are intact in both feet but diminished to palpation Results Labs Result diagrams: 03/23/20 06:08 03/23/20 06:08 Labs: Laboratory Results - last 24 hr 03/22/20 03/22/20 17:15 17:15 WBC 13.08 H RBC 2.90 L Hgb 8.8 L Hct 28.5 L MCV 98.3 H MCH 30.3 MCHC 30.9 L RDW 16.5 H Plt Count 323 D MPV 8.6 Immature Gran % 0.6 Neutrophils % 84.9 Lymphocytes % 8.0 Monocytes % 4.5 Eosinophils % 1.8 Basophils % 0.2 Nucleated RBC % 0 Absolute Neutrophils 11.10 H Absolute Lymphocytes 1.05 L Absolute Monocytes 0.59 Absolute Eosinophils 0.24 Absolute Basophils 0.03 Sodium 141 Potassium 3.6 Chloride 105 Carbon Dioxide 24.1 Anion Gap 11.9 H BUN 19 H Creatinine 1.94 H Estimated GFR/1.73 m2 25.59 Glucose 69 L Calcium 8.6 Last Vital Signs Temp 36.5 C 03/22/20 16:48 Pulse 83 03/22/20 17:49 Resp 22 03/22/20 16:48 BP 131/79 03/22/20 16:48 Pulse Ox 99 03/22/20 17:49 COVID-19 Screening Have you, or household traveled for leisure in last 14 days?: No Had IN PERSON contact w/suspected or confirmed C-19 person: No
--- NOTE | 2020-03-22 20:44 | NUR.NOTE ---
this note copied from Lorena's wound note in the er. CAlled to ED to change a wound vac on this patient on posterior right knee. Rachel Castillo [employer] in to evaluate wound. Patient had on a [employer] Activac which was holding suction at 125 mmHg. Wound measures 8.3 cm x 12 cm x 2.2 cm with undermining from 1 o'clock to 2 o'clock which is 3.3 cm. There is an area anterior to original wound which appears to be a possible tape abrasion measuring 12.5 cm x 0.5 cm. Wound cleansed with normal saline. New wound vac dressing applied with one piece of white foam in undermining and one piece of black foam to wound base. Periwound protected with skin prep and drape. Edges and periphery of wound pink with a slight increase of warmth in comparison with rest of
[2020-03-22 20:48] VITALS: BP 151/69; PULSE 72; RESP 17; TEMP 37.1; O2SAT 98
[2020-03-22 21:22] LABS: Procalcitonin 0.1 ng/mL
[2020-03-22] MEDS: Apixaban 2.5 MG TAB PO (22:13)
[2020-03-22] MEDS: traZODone 50 MG TAB 150 MG PO (22:13)
[2020-03-22] MEDS: busPIRone 5 MG TAB 10 MG PO (22:13)
[2020-03-22] MEDS: VANCOMYCIN 2,000 MG in Normal Saline 500 ML 250 MG IV (22:14)
[2020-03-22] MEDS: Normal Saline 1,000 ML 100 ML IV (22:15)
[2020-03-22] MEDS: Hyaluronidase 150 UNITS VIAL IJ (23:56)
[2020-03-23] MEDS: VANCOMYCIN 2,000 MG in Normal Saline 500 ML 150 MG IV (00:26)
[2020-03-23] MEDS: Normal Saline Flush 10 ML SYR IVP ×3 (00:37→22:09)
--- NOTE | 2020-03-23 01:10 | NUR.NOTE ---
Nursing Note: Pt's left forearm IV infiltrated at 22:25 after starting her vancomycin infusion. There was 15mL of vancomycin infused at this point. The IV was removed. Dr. Sanchez attempted to locate a new IV site through ultrasound on the right arm without success. Anesthesiology was called to place a new IV. Markings were made around the infiltration in order to administer Hyaluronidase. Anesthesia placed a new IV directly above the infiltrated area on the left arm, covering some of the markings for the hyaluronidase. The hyaluronidase was administered around the infiltration. The new IV flushed appropriately with a 10mL syringe of NS. The vancomycin was then restarted at 150mL/hr to reduce irritation.
[2020-03-23] MEDS: Acetaminophen 325 MG TAB 650 MG PO ×4 (02:24→19:58)
[2020-03-23] MEDS: HYDROmorphone 4 MG TAB PO ×4 (04:31→19:58)
[2020-03-23 05:15] VITALS: BP 102/58; PULSE 70; RESP 14; TEMP 36.8; O2SAT 95
[2020-03-23 06:36] LABS: Abs Immature Grans 0.02 10^3/uL (0.0-0.06); Absolute Basophil Count 0.02 10^3/uL (0.0-0.2); Absolute Eosinophil Count 0.53 10^3/uL (0.0-0.7); Absolute Lymphocyte Count 1.27 10^3/uL (1.2-3.4); Absolute Monocyte Count 0.67 10^3/uL (0.1-0.8); Absolute Neutrophil Count 6.46 10^3/uL (1.2-6.7); Basophils % 0.2; Eosinophils % 5.9; HCT 25.2 % (36.0-46.0); HGB 7.7 g/dL (11.2-15.7); Immature Grans % 0.2; Lymphocytes % 14.2; MCH 30.6 pg (27.0-33.0); MCHC 30.6 % (32.0-36.0); MPV 9.1 fL (8.0-11.0); Monocytes % 7.5; Nucleated RBC 0 %; Platelet Count 301 10^3/uL (130-400); RBC 2.52 10^6/uL (3.93-5.22); RDW 16.6 % (11.7-14.6); RDW-SD 61.4 fL; WBC 8.97 10^3/uL (4.4-10.8)
[2020-03-23 06:49] LABS: ALT 10 U/L (14-59); AST 11 U/L (15-37); Albumin 2.5 g/dL (3.4-5.0); Alkaline Phosphatase 85 U/L (46-116); Anion Gap 9.8 mmol/L (3-11); BUN 18 mg/dL (7-18); Bilirubin, Total 0.2 mg/dL (0.2-1.0); CO2 24.2 mmol/L (21.0-32.0); CREATININE 1.82 mg/dL (0.55-1.02); Chloride 108 mmol/L (98-107); Estimated GFR 27.54 (mL/min/1.73m2); Glucose 103 mg/dL (74-106); Potassium 3.1 mmol/L (3.5-5.1); Sodium 142 mmol/L (136-145); Total Protein 6.2 g/dL (6.4-8.2)
[2020-03-23 07:21] VITALS: BP 109/69; PULSE 77; RESP 16; TEMP 36.7; O2SAT 95
[2020-03-23 08:04] LABS: C-Reactive Protein 6.21 mg/dL (0.0-0.3)
[2020-03-23] MEDS: Apixaban 2.5 MG TAB PO ×2 (08:33→19:36)
[2020-03-23] MEDS: Oxybutynin-CR 5 MG TABCR 10 MG PO (08:33)
[2020-03-23] MEDS: Docusate Sodium 100 MG CAP PO ×2 (08:33→19:36)
[2020-03-23] MEDS: busPIRone 5 MG TAB 10 MG PO ×3 (08:34→19:36)
[2020-03-23] MEDS: DULoxetine 30 MG CAP 60 MG PO (08:34)
[2020-03-23] MEDS: Potassium Chloride 20 MEQ TABCR 40 MEQ PO ×2 (08:35→13:45)
--- NOTE | 2020-03-23 09:52 | W.PM.PROGNOT ---
Date of Service Date of service: 03/23/20 Time of Service: 09:53 Assessment and Plan Assessment and plan (1) Cellulitis of right lower leg: Start date: 03/23/20 Start time: 10:21 Status: Acute Assessment and plan: Wound vac in place. Several debridements at [facility] recently discharged from there are presents here with erythema and warmth, per nursing, does not need debridement at this time. Will have surgery look at pictures and get opinion. Will not consult at this time, if patient does require debridement she will need to go back to [facility]. Wound vac to be changed tomorrow. Leukocytosis, normalized, CRP elevated at 6 and procal will trend monitor CBC (2) Hematoma of right lower extremity: Start date: 03/23/20 Start time: 10:24 Status: Acute Assessment and plan: Continue wound vacuum and IV antibiotics. Patient has a scheduled follow-up visit with plastic surgery on April 08, [address] Nikhil Guerrero at [facility] Qualifiers: Encounter type: subsequent encounter Qualified Code(s): S80.11XD - Contusion of right lower leg, subsequent encounter (3) Chronic anticoagulation: Start date: 03/23/20 Start time: 10:24 Status: Acute Assessment and plan: continue Apixaban 2.5 mg bid for DVT prophylaxis as long as she is not having acute bleeding. H/H is 7.7 and 25.2 which is baseline compared to last visit and likely dilutional after 1 liter yesterday continue to monitor h/h, does not appear to be having acute blood loss (4) Acute blood loss anemia: Start date: 03/23/20 Start time: 10:25 Status: Acute Assessment and plan: stable. consider iron supplementation likely due to CKD (5) Chronic kidney disease: Start date: 03/23/20 Start time: 10:25 Status: Chronic Assessment and plan: Baseline Creatinine 1.5, improved today to 1.82, continue to hold lasix Qualifiers: Chronic kidney disease stage: stage 4 (severe) Qualified Code(s): N18.4 - Chronic kidney disease, stage 4 (severe) (6) Adenocarcinoma of endometrium, stage 1: Start date: 03/23/20 Start time: 10:26 Status: Acute Assessment and plan: continue megace as prescribed by [facility] pharmacy ancillary oncology. Patient has follow up with them in June 2019 to determine whether or not to proceed w/ surgery versus continued monitoring and megace treatment. above case discussed with Dr. Sanchez who is in agreement. Subjective Subjective Patient reports: no new complaints and feels better Interval history since last seen: She is feeling better. WBC normalized, afebrile overnight. Initiated on vanco. One set blood culture pending. Wound vac on at this time. She appears in good spirits. Will wait blood culture results and sensitivity hopeful to send home by if blood cultures negative. Exam Const General: cooperative, comfortable and no acute distress Nutritional Appearance: obese Orientation: alert, awake and oriented x3 Chest Chest: normal inspection of the chest Resp Effort & Inspection: normal respiratory effort Auscultation: clear to auscultation bilaterally Cardio Rate: regular rate Rhythm: regular rhythm GI Inspection: normal to inspection Palpation: soft Skin Lesions: lesion noted (Wound VAC to posterior right lower extremity) Rashes: no rashes Extrem General: edema Objective Last Vital Signs Temp 36.7 C 03/23/20 07:21 Pulse 77 03/23/20 07:21 Resp 16 03/23/20 07:21 BP 109/69 03/23/20 07:21 Pulse Ox 95 03/23/20 07:21 Laboratory Results - last 24 hr 03/22/20 03/22/20 03/22/20 17:15 17:15 20:27 WBC 13.08 H RBC 2.90 L Hgb 8.8 L Hct 28.5 L MCV 98.3 H MCH 30.3 MCHC 30.9 L RDW 16.5 H Plt Count 323 D MPV 8.6 Immature Gran % 0.6 Neutrophils % 84.9 Lymphocytes % 8.0 Monocytes % 4.5 Eosinophils % 1.8 Basophils % 0.2 Nucleated RBC % 0 Absolute Neutrophils 11.10 H Absolute Lymphocytes 1.05 L Absolute Monocytes 0.59 Absolute Eosinophils 0.24 Absolute Basophils 0.03 Sodium 141 Potassium 3.6 Chloride 105 Carbon Dioxide 24.1 Anion Gap 11.9 H BUN 19 H Creatinine 1.94 H Estimated GFR/1.73 m2 25.59 Glucose 69 L Calcium 8.6 Total Bilirubin AST ALT Alkaline Phosphatase C-Reactive Protein Total Protein Albumin Procalcitonin 0.1 03/23/20 03/23/20 06:08 06:08 WBC 8.97 D RBC 2.52 L Hgb 7.7 L Hct 25.2 L MCV 100.0 H MCH 30.6 MCHC 30.6 L RDW 16.6 H Plt Count 301 MPV 9.1 Immature Gran % 0.2 Neutrophils % 72.0 Lymphocytes % 14.2 Monocytes % 7.5 Eosinophils % 5.9 Basophils % 0.2 Nucleated RBC % 0 Absolute Neutrophils 6.46 Absolute Lymphocytes 1.27 Absolute Monocytes 0.67 Absolute Eosinophils 0.53 Absolute Basophils 0.02 Sodium 142 Potassium 3.1 L Chloride 108 H Carbon Dioxide 24.2 Anion Gap 9.8 BUN 18 Creatinine 1.82 H Estimated GFR/1.73 m2 27.54 Glucose 103 Calcium 8.0 L Total Bilirubin 0.2 AST 11 L ALT 10 L Alkaline Phosphatase 85 C-Reactive Protein 6.21 H Total Protein 6.2 L Albumin 2.5 L Procalcitonin
[2020-03-23 10:18] VITALS: PULSE 84; RESP 18; RESP 4; RESP 8; O2SAT 95
[2020-03-23] MEDS: Albuterol 2.5 MG/3 ML INH SOLN VIAL UPD (10:18)
--- NOTE | 2020-03-23 10:26 | PDOC.CMIN ---
- If Service Date Differs Date of service: 03/23/20 Time of Service: 13:20 Care Management Initial Assess REASON FOR HOSPITALIZATION:: Wound infection PAST MEDICAL HISTORY/PAST SURGICAL HISTORY:: Acute blood loss anemia, adenocarcinoma of endometrium, stage 1, alcoholism, chronic kidney disease, depression, hematoma of right lower extremity, left leg DVT, MRSA infection, postmenopausal bleeding, thickened endometrium, total right hip arthroplasty, closed fracture of right tibia, bilateral knee replacements. PREVIOUS FUNCTIONAL STATUS/SOCIAL/FAMILY SUPPORTS:: Carine resides in [facility]. Her male prescription benefit specialist, Karel Gupta is listed as her car salesperson. Carine has recently relocated from [place] in December. 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 Carine has no children. She is independent at baseline with ADLs, driving etc but has issues with balance. ADVANCE DIRECTIVES:: None on file, forms provided to Carine on previous admissions. Has patient been provided with info about the portal/API?: Yes Did the patient sign up for the portal?: No CODE STATUS:: Full Code INSURANCE COVERAGE / FINANCIAL ISSUES:: Medicare. [employer] CURRENT HOME/COMMUNITY SERVICES/EQUIPMENT:: Home health RN, PT. Scheduled follow-up visit with plastic surgery on April 08, [address] Nikhil Guerrero at [facility]. June 2019 f/u scheduled with [facility] relocation commissioner oncology. PRIMARY CARE PHYSICIAN:: Stuart Tena POTENTIAL DISCHARGE NEEDS:: Follow up with new PCP and discharge plan of care, resume VNA supports, wound vac, nutrition consult. PATIENT/FAMILY EDUCATION NEEDS:: Review discharge instructions, discuss Ask Me Three. ANTICIPATED BARRIERS TO DISCHARGE:: None identified. TRANSPORTATION:: Private vehicle with ADAMARIS Vinson. PLAN:: Awaiting blood and wound cultures for recommendations on ABX course. Returning home will require a resumption of home health services for RN and PT, wound vac placed. She will follow up with her PCP, outpatient [facility] providers and discharge plan of care as prescribed. She will transport home with Karel in a private vehicle. CM will continue to support patient, family and discharge planning needs. Readmission - Within the Past 30 Days Yes or No: Y - Date of First Admission Date of 1st Admission: 02/28/20 - Date of this Admission Date of Admission: 03/23/20 This admission was: Through ED - ED visits How many ED visits in the past 12 months: 3 (From 02/23/20) - Assessment for Readmission Summary of readmission circumstances, based upon interviews: Carine was transferred to [facility] on her second admission to [facility]. She returns after being discharge home from [facility] due to wound infection. From [place] 69-year-old female with past medical history of chronic kidney disease (baseline creatinine 1.3-1.5), chronic depression anxiety disorder, former alcoholism now in remission, alleged history of PAF, and hx of multiple surgeries on her right leg d/t trauma that was complicated by MRSA infections in the right leg. She was hospitalized at [facility] from February 23, 2020 through February 27, 2020 due to acute dyspnea and was found to have a left lower leg posterior tibial vein DVT and was started on Lovenox and warfarin and subsequently developed postmenopausal bleeding and work-up demonstrated endometrial thickening suspicious for endometrial cancer. Dypnea and cough was presumed d/t PE although this was never proven d/t inability to undergo CTA d/t CKD. She was discharged home only to return on February 28, 2020 with increased pain and swelling in the right calf and was noted to have a significant hematoma. Concern was raised for possible warfarin-induced necrosis and compartment syndrome and the patient was transferred to [facility] emergency department where she was evaluated by surgery and orthopedic surgery and plastic surgery as well as hospitalist service. She was hospitalized from 03/01/2020 through 03/18/2020 and treated for complicated hematoma of RLE complicated by acute blood loss anemia, undergoing multiple debridements and subsequent wound vaccuum placed. Today she was sent into the ER by her visiting nurse d/t concern over increased warmth and swelling of her RLE and possible infection. Patient denies any fever, rigors but has pain in the right leg. Wound care nurse was consulted by the ER this evening, see her note for details. Patient had blood and wound cultures obtained and has been started on vancomycin. During her stay at [facility] she underwent multiple debridements of the right calf hematoma. CT angiogram of her right leg failed to demonstrate any extravasation of blood into the hematoma site from the vessels of her right leg. Patient had a large loculated hematoma in the tissues posterior to the right knee but no hematoma within the muscular compartments. She underwent multiple debridements of the hematoma and had a wound VAC placement. Initial surgery was March 04 for hematoma evacuation and debridement and then additional debridements on March 05, March 07, March 10, March 12, and finally March 14 due to a necrotic skin surrounding the wound. She was treated with cefazolin beginning March 10 because of some cellulitic skin changes noted along with a worsening leukocytosis those antibiotics were continued through March 16, 2020. She was treated for community-acquired pneumonia with ceftriaxone and azithromycin from admission through March 05, 2020. She was treated for acute blood loss anemia with a transfusion of 2 units of packed red cells for hemoglobin level that dropped to as low as 6.4 however the time of discharge on March 18, 2020 her hemoglobin was up to 8 g. Gynecology service was consulted and patient underwent endometrial biopsy on March 10. Which demonstrated grade 1 endometrial adenocarcinoma. Gynecologic oncology service was consulted because of her multiple comorbidities including right lower extremity wound along with chronic kidney disease and a BMI over 50 she was not felt to be a surgical candidate at present time but was recommended that she be started on Megace 80 mg twice daily and outpatient follow-up was arranged with [facility] in June 2019 for consideration of surgery. Workup during her stay at [facility] included a CTA of her chest that did not show any PE and repeat US of her lower extremities which failed to demonstrate any DVT. Per hematology service it was recommended that the patient be placed on prophylactic doses of Apixaban 2.5 mg bid for 3 months given her recent DVT. Patient was discharged home on March 18, 2020 with a wound vacuum over the lower right posterior leg. Today visiting nurse saw the patient was concerned that she had some increased redness and increased warmth over the right calf and sent the patient to the emergency room.
--- NOTE | 2020-03-23 10:52 | PHACLINREV_ITS ---
Pharmacy Admission Review - Admission Clinical Review (Last Updated 03/22/20 @ 22:27 by Murray Sanchez) Cellulitis of right lower leg (Acute) Hematoma of right lower extremity (Acute ~02/28/20) Acute blood loss anemia (Acute) Adenocarcinoma of endometrium, stage 1 (Acute ~02/2020) Visit for wound check (Acute) Wound infection (Acute) Chronic anticoagulation (Acute) No Known Allergies Allergy (Unverified 03/22/20 16:50) Height 5 ft 8 in Weight 143.199 kg - Renal Dosing Renal Dosing: BUN 18 mg/dL (7-18) 03/23/20 06:08 Creatinine 1.82 mg/dL (0.55-1.02) H 03/23/20 06:08 Medications needing adjustments: Reviewed (CRCL ~44ML using [facility])) - Anticoagulation Anticoagulation: Hgb 7.7 g/dL (11.2-15.7) L 03/23/20 06:08 Hct 25.2 % (36.0-46.0) L 03/23/20 06:08 Plt Count 301 10^3/uL (130-400) 03/23/20 06:08 Creatinine 1.82 mg/dL (0.55-1.02) H 03/23/20 06:08 DVT Prohphylaxis: Reviewed Medications: Apixaban Therapeutic Anticoagulation: Reviewed Medications: Apixaban - Relevant Labs Sodium 142 mmol/L (136-145) 03/23/20 06:08 Potassium 3.1 mmol/L (3.5-5.1) L 03/23/20 06:08 Chloride 108 mmol/L (98-107) H 03/23/20 06:08 C-Reactive Protein 6.21 mg/dL (0.0-0.3) H 03/23/20 06:08 Electrolytes, C-Reactive P, ESR: Reviewed (KCL dose ordered) - DM Control DM Control: Glucose 103 mg/dL (74-106) 03/23/20 06:08 Insulin Dosing: N/A - BP Control BP Control: Blood Pressure 109/69 Blood Pressure 102/58 - Qtc Review If Elevated: N/A - IV to PO Switch IV Medications: Reviewed - Home Meds Home Med List reviewed: Reviewed Relevent Home Meds Not ordered & why?: sent provider teams message buspirone dose most recently filled 10mg TID - Current meds Current Medication Order Review: Reviewed - Comments Comments/Follow Ups: pt has wound vac. BC and wound culture pending Antibiotic Activity - Pharmacy Antibiotic Review Pharmacy Antibiotic Activity: Renal function adjustment (using [employer] program adjusted dose)
--- NOTE | 2020-03-23 11:12 | WOUNDCONS ---
- If Service Date Differs Date of service: 03/22/20 Time of Service: 18:56 (photos added 03/23/20, taken during initial consult) Wound Initial Evaluation Narrative: Photos taken by Lorena Davenport RN, [facility] during her wound consult of Pt in Emergency Department on 03/22/20 at 1856. There was a technical difficulty adding photos to chart which has now been resolved, and why this scribe is adding photos to chart now.
[2020-03-23 15:00] VITALS: BP 116/72; PULSE 84; RESP 17; TEMP 37.1; O2SAT 95
[2020-03-23 19:15] VITALS: BP 126/72; PULSE 80; RESP 18; TEMP 37.4; O2SAT 96
[2020-03-23] MEDS: Nystatin POWDER 15 GM JAR TP (20:00)
[2020-03-23] MEDS: VANCOMYCIN/WATER (PEG) 1.25 GM/250 ML BAG IV (22:06)
[2020-03-23] MEDS: traZODone 50 MG TAB 150 MG PO (22:06)
[2020-03-23 22:38] LABS: COVID-19 RT-PCR UVMMC Result Negative (Negative)
[2020-03-23 23:30] VITALS: BP 112/70; PULSE 89; RESP 18; TEMP 36.5; O2SAT 95
[2020-03-24] MEDS: Acetaminophen 325 MG TAB 650 MG PO ×4 (01:20→23:17)
[2020-03-24] MEDS: HYDROmorphone 4 MG TAB PO ×5 (01:20→23:56)
[2020-03-24 06:46] LABS: Abs Immature Grans 0.05 10^3/uL (0.0-0.06); Absolute Basophil Count 0.01 10^3/uL (0.0-0.2); Absolute Eosinophil Count 0.57 10^3/uL (0.0-0.7); Absolute Lymphocyte Count 1.35 10^3/uL (1.2-3.4); Absolute Monocyte Count 0.55 10^3/uL (0.1-0.8); Basophils % 0.1; Eosinophils % 5.4; HCT 26.1 % (36.0-46.0); Immature Grans % 0.5; Lymphocytes % 12.8; MCH 30.4 pg (27.0-33.0); MCHC 30.7 % (32.0-36.0); MCV 99.2 fL (80-95); MPV 8.6 fL (8.0-11.0); Monocytes % 5.2; Nucleated RBC 0 %; Platelet Count 287 10^3/uL (130-400); RBC 2.63 10^6/uL (3.93-5.22); RDW 16.6 % (11.7-14.6); WBC 10.53 10^3/uL (4.4-10.8)
[2020-03-24 06:55] LABS: Hypochromasia 2+
[2020-03-24 06:57] LABS: BUN 19 mg/dL (7-18); CREATININE 1.66 mg/dL (0.55-1.02); Calcium 8.1 mg/dL (8.5-10.1); Chloride 110 mmol/L (98-107); Estimated GFR 30.63 (mL/min/1.73m2); Glucose 96 mg/dL (74-106); Magnesium 2.1 mg/dL (1.8-2.4); Potassium 3.9 mmol/L (3.5-5.1); Sodium 141 mmol/L (136-145)
[2020-03-24 07:13] VITALS: BP 109/67; PULSE 82; RESP 18; TEMP 36.7; O2SAT 95
--- NOTE | 2020-03-24 08:05 | SCONE_ITS ---
Date of service: 03/24/20 Time of Service: 08:05 Assessment and Plan Assessment and plan (1) Hematoma of right lower extremity: Status: Acute Qualifiers: Encounter type: subsequent encounter Qualified Code(s): S80.11XD - Contusion of right lower leg, subsequent encounter (2) Wound infection: Status: Acute Assessment and plan: A// Patient is currently receiving IV Vancomyocin treating potential wound infection. Blood cultures are pending. Wound Vac in place, so unable to evaluate wound at this time. Reviewed the images taken by the wound care team. The wound appears to be red and beefy with great granulation tissue. Minimal slough and no nectroctic tissue or remaining clot noted in the images. The wound appears healthy and is healing, it does not appear to require any debridement at this time. P// Recommend continuing with the Wound Vac dressings. Will sign off at this time, however if anything changes please contact the general surgery group. History of Present Illness History of Present Illness Chief Complaint: Right Upper Calf Wound Narrative: 69 y/o female with a posterior, right upper calf wound following a hematoma which has under gone multiple debridements and clot evacuation. She was assessed by the wound care nurses on 03/22 and 03/23. A wound vac was reapplied to the wound. Patient is currently admitted to the med/surg unit for IV antibiotics due to concern for potential wound infection. Review of Systems Constitutional Constitutional: Denies chills, Denies fever(s) and Denies night sweats [facility] Medical History (Updated 03/22/20 @ 22:52 by Murray Sanchez) Acute blood loss anemia Adenocarcinoma of endometrium, stage 1 (~02/2020) endometrial biopsy done and positive per [facility] [place]/10[place]2020 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 Sarah Cid, acid retort operator in [place], [place] ([facility] Depression Hematoma of right lower extremity (~02/28/20) Left leg DVT (02/24/20) per [facility] repeat US LLE 03/04/2020 failed to demonstrated DVT MRSA infection (methicillin-resistant Staphylococcus aureus) (~01/2014) Postmenopausal bleeding Thickened endometrium Surgical History (Updated 03/22/20 @ 22:26 by Murray Sanchez) History of total right hip arthroplasty Status post closed fracture of right tibia (~12/2014) total of 9 surgeries from 2013 through 2014; had initial ORIF done at [place], [place] but subsequent surgeries were done to treat complications of MRSA infections in right leg Status post total bilateral knee replacement Family History (Updated 03/22/20 @ 22:29 by Murray Sanchez) Father , age 86 d/t stroke Stroke Mother , age 85 Heart disease congestive heart failure Sister Sepsis in 2014 d/t sepsis from lymphedema legs Social History (Updated 03/22/20 @ 22:30 by Murray Sanchez) Smoking/Tobacco Use Status: Former Tobacco Use Quit Date: 04/04/16 Tobacco: How many years used: 15 Smoking risk assessment performed?: Yes Alcohol Intake: former Substance use type: former substance user Do you feel safe at home: Yes Do you feel safe in your relationship?: Yes Female Reproductive History Menstrual Menopause type: natural Date of menopause: 04/04/04 Exam Const General: cooperative, healthy appearing and comfortable Orientation: alert and oriented x3 Resp Effort & Inspection: normal respiratory effort, no audible wheezes and no cough Skin Other: Unable to evaluate wound at this time, given Wound Vac is in place. Results Last Vital Signs Temp 36.7 C 03/24/20 07:13 Pulse 82 03/24/20 07:13 Resp 18 03/24/20 07:13 BP 109/67 03/24/20 07:13 Pulse Ox 95 03/24/20 07:13 Labs Result diagrams: 03/24/20 06:35 03/24/20 06:35 Labs: Laboratory Results - last 24 hr 03/22/20 03/23/20 03/24/20 19:12 06:08 06:35 WBC RBC Hgb Hct MCV MCH MCHC RDW Plt Count MPV Immature Gran % Neutrophils % Lymphocytes % Monocytes % Eosinophils % Basophils % Nucleated RBC % Absolute Neutrophils Absolute Lymphocytes Absolute Monocytes Absolute Eosinophils Absolute Basophils Hypochromasia Sodium 142 141 Potassium 3.1 L 3.9 D Chloride 108 H 110 H Carbon Dioxide 24.2 22.0 Anion Gap 9.8 9.0 BUN 18 19 H Creatinine 1.82 H 1.66 H Estimated GFR/1.73 m2 27.54 30.63 Glucose 103 96 Calcium 8.0 L 8.1 L Magnesium 2.1 Total Bilirubin 0.2 AST 11 L ALT 10 L Alkaline Phosphatase 85 C-Reactive Protein 6.21 H Total Protein 6.2 L Albumin 2.5 L SARS-CoV-2 (PCR) Negative Nasopharyn COVID-19 PCR Not Applicable Ref Test Perform Site [facility] 03/24/20 06:35 WBC 10.53 RBC 2.63 L Hgb 8.0 L Hct 26.1 L MCV 99.2 H MCH 30.4 MCHC 30.7 L RDW 16.6 H Plt Count 287 MPV 8.6 Immature Gran % 0.5 Neutrophils % 76.0 Lymphocytes % 12.8 Monocytes % 5.2 Eosinophils % 5.4 Basophils % 0.1 Nucleated RBC % 0 Absolute Neutrophils 8.00 H Absolute Lymphocytes 1.35 Absolute Monocytes 0.55 Absolute Eosinophils 0.57 Absolute Basophils 0.01 Hypochromasia 2+ Sodium Potassium Chloride Carbon Dioxide Anion Gap BUN Creatinine Estimated GFR/1.73 m2 Glucose Calcium Magnesium Total Bilirubin AST ALT Alkaline Phosphatase C-Reactive Protein Total Protein Albumin SARS-CoV-2 (PCR) Nasopharyn COVID-19 PCR Ref Test Perform Site
--- NOTE | 2020-03-24 08:40 | PDOC.CMPRO ---
Care Management Progress Note S/O: Carine was pleasant in interaction. She shared struggles around being in the hospital and not being able to see her significant other, and reported he does not currently have virtual capability, but the two are keeping in close contact over the phone. She reported being diagnosed with uterine cancer and being motivated to heal so that she is stable for surgery to remove her uterus. She asked this promotion writer to cancel her upcoming appointments at [facility] Hematology and with her PCP Stuart Tena at [facility], which was completed. CM continues to follow. A: 69 year old female admitted to [facility] 03/22/20 for wound infection P: Awaiting blood and wound cultures for recommendations on ABX course. Returning home will require a resumption of home health services for RN and PT, wound vac placed. She will follow up with her PCP (new appointment will need to be coordinated), outpatient [facility] providers and discharge plan of care as prescribed. She will transport home with Karel in a private vehicle. CM will continue to support patient, family and discharge planning needs.
[2020-03-24] MEDS: Oxybutynin-CR 5 MG TABCR 10 MG PO (08:56)
[2020-03-24] MEDS: DULoxetine 30 MG CAP 60 MG PO (08:56)
[2020-03-24] MEDS: Docusate Sodium 100 MG CAP PO ×2 (08:57→19:27)
[2020-03-24] MEDS: busPIRone 5 MG TAB 10 MG PO ×3 (08:57→19:28)
[2020-03-24] MEDS: Apixaban 2.5 MG TAB PO ×2 (08:57→19:28)
[2020-03-24] MEDS: Nystatin POWDER 15 GM JAR TP ×2 (08:58→19:30)
--- NOTE | 2020-03-24 10:13 | NS.NUTBLAN_ITS ---
Date of service: 03/24/20 Time of Service: 10:13 Nutritional Consult ASSESSMENT: 69 year old female admitted after discharge from [facility] [place] weeks ago for cellulitis/debridement of left lower leg ( 8 cm. 12 cm. 2 cm). Received nutrition consult for wound healing. PMH: morbid obesity (BMI 48), stage 1 adenocarcinoma of endometrium, CKD. Labs indicate low albumin (2.5 mg/dl), elevated BUN/Cre. Met with Carine today who is agreeable to start liquid protein supplements and added vitamins and minerals to support optimal healing. Does not want to increase protein intake via food sources at this time. Estimated needs (based on adjusted body weight of 83 kg): 5553-9754 kcal, 110- 124 g protein, 3000 ml fluid. Following regular meal plan which provides 1800 kcal, 60-70 g protein. Recommend supplementing diet with 1 oz liquid protein TID ( provides additional 45 g protein, 240 kcal), MVI, 500 mg Vit C and 220 mg zinc sulfate. NUTRITIONAL DIAGNOSIS: Increased nutrient needs to support optimal healing INTERVENTION: continue regular meal plan lquid protein 1 oz TID MVI 500 mg Vit D qd 220 mg Zinc Sulfate QD Educated Carine on importance of following a well balanced diet and meet nutrient needs for optimal healing. MONITORING AND EVALUATION: wound healing parameters, po intake, labs Time Spent in Nutritional Counseling and Treatment: 10 min
[2020-03-24] MEDS: Albuterol 2.5 MG/3 ML INH SOLN VIAL UPD (10:36)
[2020-03-24 10:37] VITALS: PULSE 88; RESP 18; RESP 4; RESP 8; O2SAT 99
--- NOTE | 2020-03-24 11:58 | PGE_ITS ---
Date of Service Date of service: 03/24/20 Time of Service: 11:58 Assessment and Plan Assessment and plan (1) Cellulitis of right lower leg: Start date: 03/24/20 Start time: 12:04 Status: Acute Assessment and plan: Wound vac in place. Several debridements at [facility] recently discharged from there are presents here with erythema and warmth, per nursing, does not need debridement at this time. Wound pictures were taken on admission. Reviewing images the tissue looks healthy with granulation. Surgery was consulted regarding wound. Dilaudid IVP prn prior to wound change Leukocytosis, normalized, continue to trend CRP elevated at 6 and procal will trend monitor CBC 1st blood culture NGTD, second pending. Wound with scant growth gram negative jennifer (2) Hematoma of right lower extremity: Start date: 03/24/20 Start time: 12:18 Status: Acute Assessment and plan: Continue wound vacuum and IV antibiotics. Patient has a scheduled follow-up visit with plastic surgery on April 08, [address] Nikhil Guerrero at [facility] Qualifiers: Encounter type: subsequent encounter Qualified Code(s): S80.11XD - Contusion of right lower leg, subsequent encounter (3) Chronic anticoagulation: Start date: 03/24/20 Start time: 12:19 Status: Acute Assessment and plan: continue Apixaban 2.5 mg bid for DVT prophylaxis as long as she is not having acute bleeding. This dose is recommended by hematology at [facility] for prophylaxis, she will need to follow up with them for duration of medication use continue to monitor h/h, does not appear to be having acute blood loss, stable at this time above baseline (4) Acute blood loss anemia: Start date: 03/24/20 Start time: 12:20 Status: Acute Assessment and plan: stable. consider iron supplementation likely due to CKD (5) Chronic kidney disease: Start date: 03/24/20 Start time: 12:20 Status: Chronic Assessment and plan: Baseline Creatinine 1.5, improved today to 1.66, continue to hold lasix Qualifiers: Chronic kidney disease stage: stage 4 (severe) Qualified Code(s): N18.4 - Chronic kidney disease, stage 4 (severe) (6) Adenocarcinoma of endometrium, stage 1: Start date: 03/24/20 Start time: 12:21 Status: Acute Assessment and plan: continue megace as prescribed by [facility] room service food service attendant oncology. Patient has follow up with them in June 2019 to determine whether or not to proceed w/ surgery versus continued monitoring and megace treatment. above case discussed with Dr. Sanchez who is in agreement. Subjective Subjective Patient reports: feels better Interval history since last seen: Carine is doing well, she is good spirits. She did say she didn't sleep much last night due to having issues with her wound vac requiring her to have to have it changed causing her pain and keeping her awake. She otherwise felt good and felt it went well. She did state alot of pain with dressing changes therefore we will offer prn IVP doses of dilaudid for dressing changes only patient is agreeable. She denies CP, SOB, n/v/d. Exam Const General: cooperative, comfortable and no acute distress Nutritional Appearance: obese Orientation: alert, awake and oriented x3 Chest Chest: normal inspection of the chest Resp Effort & Inspection: normal respiratory effort Auscultation: clear to auscultation bilaterally Cardio Rate: regular rate Rhythm: regular rhythm GI Inspection: normal to inspection and obesity Palpation: soft Skin Lesions: lesion noted (Wound VAC to posterior right lower extremity) Rashes: no rashes Extrem General: edema Objective Last Vital Signs Temp 36.7 C 03/24/20 07:13 Pulse 88 03/24/20 10:37 Resp 18 03/24/20 10:37 BP 109/67 03/24/20 07:13 Pulse Ox 99 03/24/20 10:37 Laboratory Results - last 24 hr 03/22/20 03/24/20 03/24/20 19:12 06:35 06:35 WBC 10.53 RBC 2.63 L Hgb 8.0 L Hct 26.1 L MCV 99.2 H MCH 30.4 MCHC 30.7 L RDW 16.6 H Plt Count 287 MPV 8.6 Immature Gran % 0.5 Neutrophils % 76.0 Lymphocytes % 12.8 Monocytes % 5.2 Eosinophils % 5.4 Basophils % 0.1 Nucleated RBC % 0 Absolute Neutrophils 8.00 H Absolute Lymphocytes 1.35 Absolute Monocytes 0.55 Absolute Eosinophils 0.57 Absolute Basophils 0.01 Hypochromasia 2+ Sodium 141 Potassium 3.9 D Chloride 110 H Carbon Dioxide 22.0 Anion Gap 9.0 BUN 19 H Creatinine 1.66 H Estimated GFR/1.73 m2 30.63 Glucose 96 Calcium 8.1 L Magnesium 2.1 SARS-CoV-2 (PCR) Negative Nasopharyn COVID-19 PCR Not Applicable Ref Test Perform Site [facility] lab
--- NOTE | 2020-03-24 13:58 | CHAPLAIN ---
Carine was sitting up in bed when I visited. We remembered meeting at her last admission. Carine moved to [place] in the fall to be closer to a friend she reconnected with. Along with dealing with blood clots and a would on her right calf that requires a wound vac, Carine was recently diagnosed with uterine cancer. She said she is in fighting mode and ready to take this on. She expects to have a hysterectomy in the spring. She was told that the cancer in contained. Carine believes that everything happens for a reason, and she said she trusts God and where God is leading her. She sometimes attends the [employer] in [facility] with her friend, but said her robert in God is more firm than is acknowledged by some people. I will continue to visit Carine.
[2020-03-24 15:57] VITALS: BP 115/68; PULSE 86; RESP 17; TEMP 37.4; O2SAT 97
[2020-03-24] MEDS: Normal Saline Flush 10 ML SYR IVP ×2 (17:43→23:56)
[2020-03-24] MEDS: Ascorbic Acid 500 MG TAB PO (19:27)
[2020-03-24] MEDS: Normal Saline Flush 10 ML SYR 20 ML IVP (19:28)
[2020-03-24] MEDS: VANCOMYCIN/WATER (PEG) 1.25 GM/250 ML BAG IV (21:57)
[2020-03-24] MEDS: traZODone 50 MG TAB 150 MG PO (21:57)
[2020-03-24 23:35] VITALS: BP 123/68; PULSE 86; RESP 20; TEMP 36.8; O2SAT 98
[2020-03-25] MEDS: HYDROmorphone 4 MG TAB PO ×3 (05:07→14:28)
[2020-03-25 07:35] LABS: Abs Immature Grans 0.02 10^3/uL (0.0-0.06); Absolute Basophil Count 0.01 10^3/uL (0.0-0.2); Absolute Eosinophil Count 0.58 10^3/uL (0.0-0.7); Absolute Lymphocyte Count 1.27 10^3/uL (1.2-3.4); Absolute Neutrophil Count 7.23 10^3/uL (1.2-6.7); Basophils % 0.1; HCT 26.7 % (36.0-46.0); Immature Grans % 0.2; Lymphocytes % 13.1; MCH 29.5 pg (27.0-33.0); MCV 98.5 fL (80-95); MPV 8.8 fL (8.0-11.0); Monocytes % 6.2; Neutrophils % 74.4; Nucleated RBC 0 %; Platelet Count 304 10^3/uL (130-400); RBC 2.71 10^6/uL (3.93-5.22); RDW 16.7 % (11.7-14.6); RDW-SD 60.5 fL; WBC 9.71 10^3/uL (4.4-10.8)
[2020-03-25 07:45] VITALS: BP 127/75; PULSE 81; RESP 21; TEMP 36.7; O2SAT 94
[2020-03-25 07:45] LABS: C-Reactive Protein 3.74 mg/dL (0.0-0.3)
[2020-03-25 08:19] LABS: Anion Gap 12.4 mmol/L (3-11); BUN 23 mg/dL (7-18); CO2 18.6 mmol/L (21.0-32.0); CREATININE 1.43 mg/dL (0.55-1.02); Calcium 8.3 mg/dL (8.5-10.1); Chloride 110 mmol/L (98-107); Estimated GFR 36.38 (mL/min/1.73m2); Glucose 101 mg/dL (74-106); Potassium 4.4 mmol/L (3.5-5.1); Sodium 141 mmol/L (136-145)
[2020-03-25] MEDS: DULoxetine 30 MG CAP 60 MG PO (08:34)
[2020-03-25] MEDS: Ascorbic Acid 500 MG TAB PO (08:35)
[2020-03-25] MEDS: Normal Saline Flush 10 ML SYR 20 ML IVP (08:35)
[2020-03-25] MEDS: Multivitamin TAB 1 TAB PO (08:35)
[2020-03-25] MEDS: Acetaminophen 325 MG TAB 650 MG PO (08:35)
[2020-03-25] MEDS: busPIRone 5 MG TAB 10 MG PO ×2 (08:35→14:28)
[2020-03-25] MEDS: Oxybutynin-CR 5 MG TABCR 10 MG PO (08:35)
[2020-03-25] MEDS: Apixaban 2.5 MG TAB PO (08:35)
[2020-03-25] MEDS: Zinc Sulfate 220 MG TAB PO (08:35)
[2020-03-25] MEDS: Nystatin POWDER 15 GM JAR TP (08:35)
[2020-03-25] MEDS: Docusate Sodium 100 MG CAP PO (08:35)
--- NOTE | 2020-03-25 10:05 | PDOC.CMPRO ---
- If Service Date Differs Date of service: 03/25/20 Time of Service: 10:05 Care Management Progress Note S/O: Carine was sitting up in bed when XIN met with her. She was open and engaged readily with XIN. Carine shared that she has been under a great deal of stress with all of the hospitalizations and surgeries she has had in the past couple of months. It has put a strain on her relationship with her boyfriend and she shared that she feels she could benefit from counseling. Carine has recently moved to the area and has no connections. XIN was able to coordinate an appointment for her with Cynthiagerman Fry through her PCPs office practice for April 09 at 11 am. A: 69 year old female admitted to [facility] 03/22/20 for wound infection P: Carine will be discharged home with a resumption o0f home health nursing later today. She will follow up with her new PCP and counselor at [facility] and discharge plan of care as prescribed. She will transport home with Karel in a private vehicle.
--- NOTE | 2020-03-25 11:45 | RT.EKG_ITS ---
APPROVED REPORT Exam: Resting ECG Patient Location: I HR:80 bpm ECG Measurements Heart Rate 80 AXIS NM 193 P 62 QRSd 88 QRS 48 QT 364 T 57 QTc 421 Conclusion Sinus rhythm...normal P axis, V-rate 60- 99 Low voltage, precordial leads...precordial leads <1.0mV
--- NOTE | 2020-03-25 11:56 | W.PM.DS.N ---
Date of service: 03/25/20 Time of Service: 11:56 DS: Diagnosis Discharge Diagnosis (1) Cellulitis of right lower leg: Status: Acute (2) Hematoma of right lower extremity: Status: Acute (3) Chronic anticoagulation: Status: Acute (4) Acute blood loss anemia: Status: Acute (5) Chronic kidney disease: Status: Chronic (6) Adenocarcinoma of endometrium, stage 1: Status: Acute Discharge Plan Disposition Patient Disposition: HOME W/HOME HEALTH SERVICE Condition: Stable Discharge Details Reason For Visit: WOUND INFECTION Admit Date/Time: 03/23/20 08:32 Admit Provider: Murray Sanchez Attending Provider: Murray Sanchez Primary Care Provider: Stuart Tena Hospital Course Hospital Course: Patient with recent complicated course of a significant hematoma 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 referred to ED by home health for concern of increased erythema with suspected infection. She was evaluated by wound care in the ED, routine labs drawn and WBC elevated but otherwise, unremarkable labs and vitals. She was given vancomycin, wound and blood cultures obtained and she was admitted to hospitialist services. She was seen by surgery here who does not feel she needs debridement. wound vac was maintained. blood cultures remained negative, she remained hemodynamically stable, afebrile with normalized white count. wound culture grew pseudomonas, sensitive to fluroquinolones, she will be discharged on Levaquin 750 mg daily for 7 days and continue wound care per [facility], with wound vac on tuesday and tuesday home health changes. further outpatient management per pcp and [facility] wound care. discharged to home with resumption of home health services. discharge discussed with DR Sanchez [facility] Meds and New Rx's Prescriptions: New levofloxacin 750 mg Tablet 750 mg PO QAM Qty: 6 RF: 0 Lactobacillus acidophilus Capsule 1,000 mmu cells PO DAILY Qty: 30 RF: 0 Ensure High Protein Liquid 240 ml PO TID Qty: 5688 RF: 0 Continued duloxetine [Cymbalta] 60 mg Capsule,Delayed Release(Dr/Ec) 60 mg PO DAILY RF: 0 furosemide 40 mg Tablet 40 mg PO DAILY RF: 0 trazodone 150 mg Tablet 150 mg PO HS RF: 0 oxybutynin chloride 10 mg tablet extended release 24hr 10 mg PO DAILY RF: 0 buspirone 10 mg tablet 10 mg PO TID RF: 0 albuterol sulfate [Ventolin HFA] 90 mcg/actuation Hfa Aerosol Inhaler 2 puff inhalation Q4H PRN PRNQty: 1 RF: 0 megestrol 40 mg tablet 80 mg PO BID RF: 0 hydromorphone 4 mg tablet 4 mg PO Q4H PRN PRNRF: 0 Eliquis 2.5 mg tablet 2.5 mg PO BID RF: 0 Discharge Instructions Instructions: Wound Infection (ED) Additional Instructions: Continue wound VAC as instructed Take all your medications as prescribed. You will be started on an oral antibiotic that you will complete course unless directed otherwise by your provider Return sooner for new or worsening symptoms Stand Alone Forms: Nursing Discharge Form Referrals: Stuart Tena [Primary Care Provider] - 03/26/20 9:00 am (2-3 days for wound check. Please show up a few minutes early) Activity:: Activity as Tolerated Equipment/Supplies:: No Equipment Needed Diet:: As Tolerated Discharge Orders Discharge Orders: Discharge Order (Routine); Ordered 03/25/20 Ordered By: Rachel Castillo DS: Summary Status at Discharge Functional status at discharge: independent ambulation Overall status at discharge: patient is progressing back to baseline Mental Status: mental status grossly normal Speech and Movement: speech and movement normal Mood: congruent mood Affect: normal affect Exam Const General: cooperative, comfortable and no acute distress Nutritional Appearance: obese Orientation: alert, awake and oriented x3 Chest Chest: normal inspection of the chest Resp Effort & Inspection: normal respiratory effort Auscultation: clear to auscultation bilaterally Cardio Rate: regular rate Rhythm: regular rhythm GI Inspection: normal to inspection Palpation: soft Skin Lesions: lesion noted (Wound VAC to posterior right lower extremity) Rashes: no rashes Extrem General: edema Psych Mental Status: mental status grossly normal Speech and Movement: speech and movement normal Mood: congruent mood Affect: normal affect DS: Data Vitals/I&O Vitals and I&O: Vital Signs Temperature 36.7 C 03/25/20 07:45 Temperature Source Temporal Artery Scan 03/25/20 07:45 Pulse 81 03/25/20 07:45 Pulse Rhythm Regular 03/25/20 00:00 Respiratory Rate 21 03/25/20 07:45 Respiratory Effort Non-Labored 03/25/20 00:00 Respiratory Depth Normal 03/25/20 00:00 Respiratory Pattern Normal 03/25/20 00:00 Blood Pressure 127/75 03/25/20 07:45 Blood Pressure Position Sitting 03/22/20 16:48 Pulse Oximetry 94 03/25/20 07:45 Oxygen Delivery Method Room Air 03/25/20 07:45 Oxygen Flow Rate 0 03/25/20 07:45 Pain Level 8 03/25/20 09:21 Comment 03/23/20 05:15 Intake & Output 03/24/20 03/24/20 03/25/20 11:59 23:59 11:59 Intake Total 490 / 1490 1000 / 1490 540 / 540 Output Total 350 / 350 Balance 140 / 1140 1000 / 1140 540 / 540 Intake: IV 250 / 280 30 / 280 Oral 240 / 1210 970 / 1210 540 / 540 Output: Urine 350 / 350 Other: Urine Color Yellow Yellow Yellow Urine Appearance Clear Clear Clear Urine Odor Normal Normal Normal Comment unknown amount of urine. Stool Size Moderate Stool Characteristics Soft Brown Voiding Methods Toilet Toilet Toilet Data Completed and Pending Labs on day of discharge: Labs from last 24 hours 03/25/20 03/25/20 03/25/20 16:00 07:23 07:23 WBC 9.71 RBC 2.71 L Hgb 8.0 L Hct 26.7 L MCV 98.5 H MCH 29.5 MCHC 30.0 L RDW 16.7 H Plt Count 304 MPV 8.8 Immature Gran % 0.2 Neutrophils % 74.4 Lymphocytes % 13.1 Monocytes % 6.2 Eosinophils % 6.0 Basophils % 0.1 Nucleated RBC % 0 Absolute Neutrophils 7.23 H Absolute Lymphocytes 1.27 Absolute Monocytes 0.60 Absolute Eosinophils 0.58 Absolute Basophils 0.01 Sodium 141 Potassium 4.4 Chloride 110 H Carbon Dioxide 18.6 L Anion Gap 12.4 H BUN 23 H Creatinine 1.43 H Estimated GFR/1.73 m2 36.38 Glucose 101 Calcium 8.3 L C-Reactive Protein Vancomycin Trough Pending 03/25/20 07:23 WBC RBC Hgb Hct MCV MCH MCHC RDW Plt Count MPV Immature Gran % Neutrophils % Lymphocytes % Monocytes % Eosinophils % Basophils % Nucleated RBC % Absolute Neutrophils Absolute Lymphocytes Absolute Monocytes Absolute Eosinophils Absolute Basophils Sodium Potassium Chloride Carbon Dioxide Anion Gap BUN Creatinine Estimated GFR/1.73 m2 Glucose Calcium C-Reactive Protein 3.74 H Vancomycin Trough Preliminary micro results at discharge 03/22/20 20:27 Blood Culture - Preliminary Blood NO GROWTH 48 HOURS 03/23/20 14:30 Blood Culture - Preliminary Blood NO GROWTH 24 HOURS [facility] Medical History (Updated 03/22/20 @ 22:52 by Murray Sanchez) Acute blood loss anemia Adenocarcinoma of endometrium, stage 1 (~02/2020) endometrial biopsy done and positive per [facility] 03/10/2020 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 Sarah Cid, director of admissions in [place], [place] ([facility] Depression Hematoma of right lower extremity (~02/28/20) Left leg DVT (02/24/20) per [facility] repeat US LLE 03/04/2020 failed to demonstrated DVT MRSA infection (methicillin-resistant Staphylococcus aureus) (~01/2014) Postmenopausal bleeding Thickened endometrium Surgical History (Updated 03/22/20 @ 22:26 by Murray Sanchez) History of total right hip arthroplasty Status post closed fracture of right tibia (~12/2014) total of 9 surgeries from 2013 through 2014; had initial ORIF done at [place], [place] but subsequent surgeries were done to treat complications of MRSA infections in right leg Status post total bilateral knee replacement Family History (Updated 03/22/20 @ 22:29 by Murray Sanchez) Father , age 86 d/t stroke Stroke Mother , age 85 Heart disease congestive heart failure Sister Sepsis in 2014 d/t sepsis from lymphedema legs Social History (Updated 03/22/20 @ 22:30 by Murray Sanchez) Smoking/Tobacco Use Status: Former Tobacco Use Quit Date: 04/04/16 Tobacco: How many years used: 15 Smoking risk assessment performed?: Yes Alcohol Intake: former Substance use type: former substance user Do you feel safe at home: Yes Do you feel safe in your relationship?: Yes Female Reproductive History Menstrual Menopause type: natural Date of menopause: 04/04/04
[2020-03-25] MEDS: Albuterol 2.5 MG/3 ML INH SOLN VIAL UPD (13:02)
[2020-03-25] MEDS: levoFLOXacin 500 MG, levoFLOXacin 250 MG 750 MG PO (14:28)
[2020-03-25 15:53] VITALS: BP 122/66; RESP 21; TEMP 37.2; O2SAT 97
[2020-03-25] MEDS: Bacitracin 1 PACKET (17:57)
== END 2020-03-25 17:10 | disposition home health service (06) | DRG 863 ==
LOC: ER 18:25 → MS 20:22
PROVIDERS: Nurse Practitioner Family; Admitting Provider Internal Medicine; Emergency Provider Nurse Practitioner Acute Care; PCP Physician Assistant; Visit Provider Internal Medicine
DX: T81.49XA Infection following a procedure, other surgical site, initial encounter (principal); L03.115 Cellulitis of right lower limb; D62 Acute posthemorrhagic anemia; N18.4 Chronic kidney disease, stage 4 (severe); Z68.42 Body mass index [BMI] 45.0-49.9, adult; S80.11XS Contusion of right lower leg, sequela; Z79.01 Long term (current) use of anticoagulants; C54.1 Malignant neoplasm of endometrium; F41.8 Other specified anxiety disorders; F10.21 Alcohol dependence, in remission; I48.0 Paroxysmal atrial fibrillation; Z86.718 Personal history of other venous thrombosis and embolism; Z87.891 Personal history of nicotine dependence; B96.5 Pseudomonas (aeruginosa) (mallei) (pseudomallei) as the cause of diseases classified elsewhere; E66.9 Obesity, unspecified
CPT/HCPCS: 36410; 36415; 80048; 80053; 84145; 87040; 87077; 99220; 99221; 99233; 99239; 99252; 99285; U0003; 80202; 83735; 85025; 86140; 87070; 87186; 87205; 93005; 93010; 94640; 94667; 99284; G0378; J3470; J7613

== ENCOUNTER 2021-04-22 14:47 | Outpatient (REF) | payer MEDICARE, OTHER, SELFPAY ==
[2021-04-22 16:15] LABS: Anion Gap 8.2 mmol/L (3-11); BUN 35 mg/dL (7-18); CO2 27.8 mmol/L (21.0-32.0); CREATININE 1.6 mg/dL (0.55-1.02); Calcium 8.9 mg/dL (8.5-10.1); Calculated LDL 169 mg/dL (<100); Chloride 104 mmol/L (98-107); Cholesterol 238 mg/dL (<200); Estimated GFR 31.87 (mL/min/1.73m2); Glucose 112 mg/dL (74-106); HDL Cholesterol 48 mg/dL (40-60); Potassium 3.9 mmol/L (3.5-5.1); Sodium 140 mmol/L (136-145); Triglyceride 107 mg/dL (<150)
== END 2021-04-22 14:48 | disposition home or self-care (01) ==
LOC: NCHCN 14:47
PROVIDERS: PCP Physician Assistant; Visit Provider Physician Assistant
DX: N18.9 Chronic kidney disease, unspecified (principal); Z13.220 Encounter for screening for lipoid disorders
CPT/HCPCS: 80048; 80061

== ENCOUNTER 2021-06-10 00:54 | Outpatient (CLI) | payer MEDICARE, OTHER, SELFPAY ==
--- NOTE | 2021-06-10 12:16 | DI.MAMMO_ITS ---
Exam(s) MAMMO SCREENING EXAM: MAMMO SCREENING CLINICAL HISTORY: SCREENING, Z12.39 TECHNIQUE: Mammograms were interpreted according to the usual protocol including computer analysis w [employer] CAD system, tomosynthesis and C-view imaging. COMPARISON: FINDINGS: The breasts are of moderate density with fairly symmetrical distribution of fibroglandular tissue. N o dominant mass or clumped microcalcification is identified in either breast. Current examination co mpared with previous examination of March 2016 and allowing for differences in technique there is a question of new 7 millimeter lobulated mass projected inferiorly in the central portion of the righ t breast, seen on MLO view. Additional mammographic views are requested to include MLO spot compress ion view of the right breast. Breast ultrasound should probably be obtained as well. No other significant change seen. IMPRESSION: Additional mammographic views of the right breast and right breast ultrasound requested as described above. BI-RADS Category 0 - Assessment Incomplete: Need additional imaging evaluation Density
== END 2021-06-10 01:14 ==
PROVIDERS: PCP Physician Assistant; Visit Provider Physician Assistant
DX: Z12.31 Encounter for screening mammogram for malignant neoplasm of breast (principal); R92.8 Other abnormal and inconclusive findings on diagnostic imaging of breast
CPT/HCPCS: 77063; 77067

== ENCOUNTER 2021-06-23 00:45 | Outpatient (CLI) | payer MEDICARE, OTHER, SELFPAY ==
--- NOTE | 2021-06-23 17:00 | DI.DEXA_ITS ---
Exam(s) XR DEXA BONE DENSITY W/WO DINA EXAM: XR DEXA BONE DENSITY W/WO DINA CLINICAL HISTORY: OTHER SPECIFIED DISORDERS OF BONE DENSITY STRUCTURE, OTHER SITE, M85.88 TECHNIQUE: Routine DEXA evaluation of the lumbar spine, hip, or forearm. COMPARISON: No exams were available for comparison FINDINGS: Performed on a Hologic unit. Lateral image: No compression fracture evident. Lumbar Spine total T-score: -0.5. Hip total T-score:Not done Independent reading at the level of the femoral neck yields at T-score of . Forearm total T-score: -1.6 IMPRESSION: Bone mineral density measures in the osteopenia range. Fracture risk is moderate. Note: Any spine fracture indicates 5x risk for subsequent spine fracture and 2x risk for subsequent h ip fracture. World Health Organization criteria for BMD interpretation classify patients: Normal...... T- Score at or above -1.0 Osteopenic... T- Score between -1.0 and -2.5 Osteoporosis... T-Score at or below -2.5
== END 2021-06-23 01:05 ==
PROVIDERS: PCP Physician Assistant; Visit Provider Physician Assistant
DX: M85.88 Other specified disorders of bone density and structure, other site (principal); Z13.820 Encounter for screening for osteoporosis
CPT/HCPCS: 77080

== ENCOUNTER 2021-06-26 01:31 | Outpatient (CLI) | payer MEDICARE, OTHER, SELFPAY ==
--- NOTE | 2021-06-26 10:10 | DI.MAMMO_ITS ---
Exam(s) MG MAMMO SCREEN CALL BACK UNI US BREAST RT LIMITED EXAM: MG MAMMO SCREEN CALL BACK UNI and U/S breast RT limited CLINICAL HISTORY: F/U ABNL MAMMO, 7 MM LOBULATED MASS INFERIORLY CENTRAL PORTION OF RT BREAST. TECHNIQUE: Craniocaudal and mediolateral oblique Full Field Digital Mammography views of the right b reast with Computer Aided Diagnosis followed by Tomosynthesis and right breast ultrasound. COMPARISON: Comparison with prior examinations. FINDINGS: Mammography/Tomosynthesis: Masses/Architectural Distortion: The asymmetric density in the inferior right breast is less prominen t on the current examination. It does appear to been present on prior examinations specifically 03/05. Microcalcifictions: No suspicious pleomorphic-type are seen. Skin Thickening/Nipple Retraction: None. Limited right breast US: Echotexture: Normal appearance of the glandular tissue. Shadowing: No suspicious foci. Cyst: None. Solid lesions: There is a sonographically benign-appearing lymph node at the 9 o'clock position of th e right breast 8 cm from the nipple. Ductal dilation: None. IMPRESSION: 1. No evidence of malignancy is noted. 2. A six-month follow-up right mammogram is recommended for re-evaluation. 3. The findings were discussed with the patient on the date of the examination. BI-RADS Category 3 - 6 month - Probably Benign Finding: Recommend follow-up imaging in 6 months Breast Density - Category B - Scattered areas of fibroglandular density Breast density Category C or D implies that the patient has dense breast tissue. Dense breast tissue can make it harder to find cancer on a mammogram. Dense breast tissue is also associated with an incr eased risk of breast cancer. This information about the result of the mammogram report was provided to the patient to raise their awareness. Use this report when you speak with the patient about their risks for breast cancer, which includes their family history. At that time, you may recommend additional screening tests (Ultrasoun d or MRI) as these tests may add significant information. A negative radiographic report should not delay biopsy if a dominant or clinically suspicious mass is present. Up to ten percent of cancers are not identified on mammography. A negative report may reinforce clinical impression. Adenosis and dense breasts may obscure an underlying neoplasm. False positive reports average 6 to 10%. Patient will receive a letter notifying them of these results.
== END 2021-06-26 01:51 ==
PROVIDERS: PCP Physician Assistant; Visit Provider Physician Assistant
DX: Z12.31 Encounter for screening mammogram for malignant neoplasm of breast (principal); R92.8 Other abnormal and inconclusive findings on diagnostic imaging of breast; N60.81 Other benign mammary dysplasias of right breast
CPT/HCPCS: 76642; 77063; 77067

== ENCOUNTER 2021-08-28 10:20 | Emergency (ER) | payer MEDICARE, OTHER, SELFPAY ==
--- NOTE | 2021-08-28 10:21 | ED.GENADUL_ITS ---
Discharge Plan Disposition Patient Disposition: HOME Condition: Stable Discharge Details Clinical Impression: Contusion of right knee Primary Care Provider: Stuart Tena ED Provider: Marcy Kaye Home Meds and New Rx's Prescriptions: Continued duloxetine [Cymbalta] 60 mg Capsule,Delayed Release(Dr/Ec) 60 mg PO DAILY furosemide 40 mg Tablet 40 mg PO DAILY PRN trazodone 150 mg Tablet 150 mg PO HS oxybutynin chloride 10 mg tablet extended release 24hr 10 mg PO DAILY Label Comments: TAKE 1 TABLET BY MOUTH ONCE DAILY buspirone 10 mg tablet 10 mg PO TID Label Comments: TAKE 1 TABLET BY MOUTH BID albuterol sulfate [Ventolin HFA] 90 mcg/actuation Hfa Aerosol Inhaler 2 puff inhalation Q4H PRN PRNQty: 1 0RF megestrol 40 mg tablet 80 mg PO BID Label Comments: TAKE 2 TABLETS BY MOUTH TWICE DAILY Lactobacillus acidophilus Capsule 1,000 mmu cells PO DAILY Qty: 30 0RF Rx Instructions: administer with a meal Ensure High Protein Liquid 240 ml PO TID Qty: 5688 0RF atorvastatin 20 mg tablet 1 tab PO DAILY Discharge Instructions Instructions: Contusion in Adults (ED) Additional Instructions: Your x-ray today is reassuring and shows that your knee hardware is stable with no evidence of acute fracture. Rest, ice, and elevate the affected area as much as possible. Take Tylenol as needed and directed for pain. Take the tramadol you were given as needed and directed for pain not relieved with Tylenol. Follow-up with your primary care doctor for reevaluation and for referral to orthopedics if your symptoms do not improve or worsen. Return immediately to the emergency department if you develop any worsening or new concerning symptoms. Referrals: Yaw Hernandez MD [ [facility] STAFF PHYSICIAN] - Discharge Data Discharge Physician: Marcy Kaye Medical Decision Making 71-year-old female with a history of bilateral knee replacements, obesity, chronic kidney disease, endometrial cancer who presents with right knee pain after slip and fall directly onto her right knee yesterday. Right anterior knee appears normal to inspection with well-healed previous surgical scars. Pain with valgus stress. No obvious ligamentous laxity. No obvious evidence of trauma or deformity. No evidence of cellulitis. Patient given a dose of Tylenol and referred for x-rays which were unremarkable. She was given 2 tabs of tramadol to take as needed for pain. Jose Maria wrap placed. Advised to follow-up with orthopedics as needed. Usual and customary return precautions given prior to discharge. Medical Records Medical records reviewed: Yes I reviewed the patient's medical records. Imaging Data Radiologic Study: Radiologist's impression: XR KNEE RT 3V AP,LAT,KAY CLINICAL HISTORY: ? fall onto Right knee, r/o acute fracture.? TECHNIQUE:? 2D digital imaging was performed.? Three views. COMPARISON:? CR,XR XR TIB/FIB RT from 02/28/2020 FINDINGS: BONES: There has been no change in the knee prosthesis.? An old proximal tibial fracture and old proximal fibular fracture again noted.? No acute fracture is present. No bony destructive lesion is seen. SOFT TISSUE: Multiple vascular clips.? Soft tissue calcifications. IMPRESSION: Stable appearance of right knee hardware.? No acute fracture. HPI General Mode of arrival: ambulatory . Date/Time Provider Initiated Documentation: 08/28/21 10:20 . Limitations to Documentation: no limitations . Information obtained by: patient . HPI Narrative: Patient is a 71-year-old female with a history of right hip replacement and bilateral knee replacements, depression, chronic kidney disease, h/o left leg dvt on eliquis, endometrial cancer presents for left leg pain after a fall yesterday. Patient states she was walking outside when she tripped on a rock and hit her right knee on dirt or grass. She states she is mostly having pain in her medial knee upon standing and sitting. She took aspirin earlier with some relief. She denies any other injuries. Related Data Home Medications Medication Instructions Recorded Confirmed duloxetine 60 mg capsule,delayed 60 mg PO DAILY 02/23/20 08/28/21 release (Cymbalta) furosemide 40 mg tablet 40 mg PO DAILY PRN 02/23/20 08/28/21 trazodone 150 mg tablet 150 mg PO HS 02/23/20 08/28/21 buspirone 10 mg tablet 10 mg PO TID 02/25/20 08/28/21 oxybutynin chloride 10 mg 10 mg PO DAILY 02/25/20 08/28/21 tablet,extended release 24 hr albuterol sulfate 90 mcg/actuation 2 puff inhalation Q4H PRN PRN #1 g 02/27/20 08/28/21 aerosol inhaler (Ventolin HFA) megestrol 40 mg tablet 80 mg PO BID 03/22/20 08/28/21 Lactobacillus acidophilus 1,000 mmu cells PO DAILY #30 caps 03/25/20 08/28/21 food supplemt, lactose-reduced 240 ml PO TID #5,688 mL 03/25/20 (Ensure High Protein oral liquid) atorvastatin 20 mg tablet 1 tab PO DAILY 08/28/21 08/28/21 Previous Rx's Medication Instructions Recorded albuterol sulfate 90 mcg/actuation 2 puff inhalation Q4H PRN PRN #1 g 02/27/20 aerosol inhaler (Ventolin HFA) Lactobacillus acidophilus 1,000 mmu cells PO DAILY #30 caps 03/25/20 food supplemt, lactose-reduced 240 ml PO TID #5,688 mL 03/25/20 (Ensure High Protein oral liquid) Allergies Allergy/AdvReac Type Severity Reaction Status Date / Time No Known Allergies Allergy Unverified 08/28/21 10:31 General Stated Complaint: Orthopedic IAN: 3 Review of Systems All systems reviewed & are unremarkable except as noted in HPI and below Constitutional Constitutional: Reports as per HPI, Denies chills and Denies fever(s) Eyes Eyes: Denies blurry vision ENT Ears, Nose, Mouth, and Throat: Denies dizziness, Denies sore throat and Denies throat swelling Cardiovascular Cardiovascular: Denies chest pain and Denies dyspnea Respiratory Respiratory: Denies cough and Denies dyspnea Gastrointestinal Gastrointestinal: Denies abdominal pain, Denies diarrhea and Denies vomiting Genitourinary Genitourinary: Denies hematuria and Denies dysuria Musculoskeletal Musculoskeletal: Denies back pain and Denies numbness Comments: R knee pain Integumentary/Breasts Skin/Breast: Denies lesions and Denies rash Neurologic Neurologic: Denies dizziness, Denies localized weakness and Denies numbness Allergic/Immunologic Allergic/Immunologic: Denies throat swelling PFSH All Active Problems (Updated 08/28/21 @ 11:38 by Marcy Kaye DO) Contusion of right knee (Acute) Cellulitis of right lower leg (Acute) Chronic kidney disease (Chronic ~08/2017) initially attributed to acute dehydration/heat stroke in August 2017 but probably had some CKD secondary to her MRSA infections and chronic antibiotics; followed by Dr. Sarah Cid, bridge mechanic in [place], [place] ([facility] Hematoma of right lower extremity (Acute ~02/28/20) Acute blood loss anemia (Acute) Depression (Chronic) Adenocarcinoma of endometrium, stage 1 (Acute ~02/2020) [place] [facility] [place] Visit for wound check (Acute) Wound infection (Acute) Hepatic steatosis (Chronic) Acute kidney injury (Acute) Back pain (Acute) Chronic anticoagulation (Acute) Thickened endometrium (Acute) Postmenopausal bleeding (Acute) Medical History (Updated 08/28/21 @ 11:38 by Marcy Kaye DO) 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 MRSA infection (methicillin-resistant Staphylococcus aureus) (~01/2014) Surgical History (Updated 03/22/20 @ 22:26 by Murray Sanchez) History of total right hip arthroplasty Status post closed fracture of right tibia (~12/2014) total of 9 surgeries from 2013 through 2014; had initial ORIF done at [place], [place] but subsequent surgeries were done to treat complications of MRSA infections in right leg Status post total bilateral knee replacement Family History (Updated 03/22/20 @ 22:29 by Murray Sanchez) Father , age 86 d/t stroke Stroke Mother , age 85 Heart disease congestive heart failure Sister Sepsis in 2014 d/t sepsis from lymphedema legs Social History (Updated 03/22/20 @ 22:30 by Murray Sanchez) Smoking/Tobacco Use Status: Former Tobacco Use tobacco type: cigarettes Quit Date: 04/04/16 Tobacco: How many years used: 15 Smoking risk assessment performed?: Yes Alcohol Intake: former Drug use: Never Substance use type: former substance user Do you feel safe at home: Yes Do you feel safe in your relationship?: Yes Female Reproductive History Menstrual Menopause type: natural Date of menopause: 04/04/04 Exam Const General: cooperative, healthy appearing and no acute distress Orientation: alert, awake and oriented x3 HENMT Head: normal to inspection Mouth: oral mucosae normal Eyes General: appearance normal, both eyes and all related structures Neck Neck: normal visual inspection Resp Effort & Inspection: normal respiratory effort and able to speak in complete sentences Cardio Rate: regular rate Skin General skin exam: no rashes or lesions noted Neuro General: patient alert, patient awake and patient oriented x3 Motor: muscle tone normal throughout Extrem Other: Well-healed vertical scars noted to right anterior knee. There is no tenderness to palpation to right anterior knee or proximal lower leg. Pain in medial knee with valgus stress. No pain with varus stress. Negative anterior and posterior drawer test. Limited ability to perform Gisela's test due to pain and body habitus. Psych Appearance: grossly normal Affect: normal affect
[2021-08-28 10:25] VITALS: BP 161/80; PULSE 84; RESP 18; TEMP 36.6; O2SAT 97
--- NOTE | 2021-08-28 10:30 | DI.RAD_ITS ---
Exam(s) XR KNEE RT 3V AP,LAT,KAY EXAM: XR KNEE RT 3V AP,LAT,KAY CLINICAL HISTORY: fall onto Right knee, r/o acute fracture. TECHNIQUE: 2D digital imaging was performed. Three views. COMPARISON: CR,XR XR TIB/FIB RT from 02/28/2020 FINDINGS: BONES: There has been no change in the knee prosthesis. An old proximal tibial fracture and old prox imal fibular fracture again noted. No acute fracture is present. No bony destructive lesion is seen. SOFT TISSUE: Multiple vascular clips. Soft tissue calcifications. IMPRESSION: Stable appearance of right knee hardware. No acute fracture. DATA REPOSITORY: RADIATION DOSE DELIVERED:
[2021-08-28] MEDS: Acetaminophen 500 MG TAB 1000 MG PO (10:47)
== END 2021-08-28 11:49 | disposition home or self-care (01) ==
PROVIDERS: Emergency Provider Physician Assistant; PCP Physician Assistant
DX: S80.01XA Contusion of right knee, initial encounter (principal); W01.0XXA Fall on same level from slipping, tripping and stumbling without subsequent striking against object, initial encounter
CPT/HCPCS: 73562; 99283

== ENCOUNTER 2021-12-04 11:29 | Emergency (ER) | payer MEDICARE, OTHER, SELFPAY ==
[2021-12-04 11:48] VITALS: BP 123/66; PULSE 83; TEMP 36.6; O2SAT 96
--- NOTE | 2021-12-04 12:30 | DI.RAD_ITS ---
Exam(s) XR ANKLE LT COMPLETE EXAM: XR ANKLE LT COMPLETE CLINICAL HISTORY: fall lateral pain TECHNIQUE: COMPARISON: No exams were available for comparison FINDINGS: Three views were obtained. There is widening of the ankle mortise. There are fractures of the dista l fibula and the medial malleolus of the tibia. Possible minimal deformity of the posterior malleolu s of the tibia may also be present and this could represent a nondisplaced posterior malleolar fractu re. There appears to be a flatfoot deformity. No other fracture seen. IMPRESSION: RADIATION DOSE DELIVERED: Total DLP
--- NOTE | 2021-12-04 12:43 | DI.RAD_ITS ---
Exam(s) XR TIB/FIB LT EXAM: XR TIB/FIB LT CLINICAL HISTORY: fall TECHNIQUE: COMPARISON: CR,XR XR TIB/FIB RT from 02/28/2020 FINDINGS: Two views were obtained. Previously described bimalleolar fracture again noted. There is a total kn ee joint replacement in position. No additional fracture seen. IMPRESSION: RADIATION DOSE DELIVERED: Total DLP
[2021-12-04] MEDS: Acetaminophen 325 MG TAB 650 MG PO (13:01)
--- NOTE | 2021-12-04 14:00 | W.ED.GENAD ---
Discharge Plan Disposition Patient Disposition: HOME Condition: Stable Discharge Details Clinical Impression: Bimalleolar ankle fracture Primary Care Provider: Stuart Tena ED Provider: Carlos Mccall Home Meds and New Rx's Prescriptions: New aspirin 81 mg capsule 81 mg PO DAILY Qty: 7 0RF Continued duloxetine [Cymbalta] 60 mg Capsule,Delayed Release(Dr/Ec) 60 mg PO DAILY furosemide 40 mg Tablet 40 mg PO DAILY PRN trazodone 150 mg Tablet 150 mg PO HS oxybutynin chloride 10 mg tablet extended release 24hr 10 mg PO DAILY Label Comments: TAKE 1 TABLET BY MOUTH ONCE DAILY buspirone 10 mg tablet 10 mg PO TID Label Comments: TAKE 1 TABLET BY MOUTH BID albuterol sulfate [Ventolin HFA] 90 mcg/actuation Hfa Aerosol Inhaler 2 puff inhalation Q4H PRN PRNQty: 1 0RF Ensure High Protein Liquid 240 ml PO TID Qty: 5688 0RF atorvastatin 20 mg tablet 20 mg PO DAILY Discharge Instructions Instructions: Leg Fracture (ED) Additional Instructions: Please take a baby aspirin daily until you follow-up with orthopedist. Please keep splint in place and remain nonweightbearing until you are seen by an orthopedist. As discussed you may call our local orthopedist or [facility] [place] for follow-up. If you develop any new or worsening symptoms return immediately to the emergency department. Referrals: [facility] [Provider Group] - 12/08/21 (Call the office Tuesday if you would like to follow-up locally) Discharge Data Discharge Date/Time-TO BE ENTERED AT DEPARTURE: 12/04/21 16:30 Medical Decision Making Patient presenting to the emergency department for chief complaint of left ankle injury. She states Tuesday night she was walking to her garden and had a mechanical fall. Since then it has been difficulty to bear any weight on left ankle. Patient denies any other injury or trauma. Patient does have significant history of multiple fractures and joint replacements. Physical exam shows diffuse tenderness to the bilateral distal tibia and fibula with some lateral swelling noted to the left ankle. Exam is otherwise unremarkable. We will plan on performing radiological imaging for concern of fracture Reviewed imaging and radiologist interpretation and it does appear that there is a bimalleolar fracture of the left ankle. Due to patient's obesity along with age I do not feel that patient is safe to utilize crutches. She does state that she has a walker. Will place patient in a long walking boot and touch base with orthopedist to further discuss case. Spoke with [facility] orthopedics and stated that patient absolutely needs to be splinted and nonweightbearing due to unstable ankle fracture which will need surgical repair next week. They requested post splinting imaging with gentle manipulation into better placement pending reassessment next week. Also spoke with medical orthopedics Dr. Bhakta who stated that patient will be able to follow-up with him in the office if she desires. Will give patient the option of where she would like to follow-up. Patient states that she thinks she will follow-up locally so we will discharge her with limited supply of narcotics for severe pain and patient states clear understanding to take baby aspirin for DVT prophylaxis and to call orthopedic office on Tuesday. Imaging Data Radiologic Study: Attestation: I personally reviewed and interpreted this imaging study as follows: Imaging: X-Ray Radiologist's impression: FINDINGS: Two views were obtained. Previously described bimalleolar fracture again noted. There is a total knee joint replacement in position. No additional fracture seen. IMPRESSION: Radiologic Study #2: Radiologist's impression: FINDINGS: Three views were obtained. There is widening of the ankle mortise. There are fractures of the distal fibula and the medial malleolus of the tibia. Possible minimal deformity of the posterior malleolus of the tibia may also be present and this could represent a nondisplaced posterior malleolar fracture. There appears to be a flatfoot deformity. No other fracture seen. IMPRESSION: HPI General Mode of arrival: wheelchair. Date/Time Provider Initiated Documentation: 12/04/21 12:34. Limitations to Documentation: no limitations. Information obtained by: patient and RN notes reviewed. History of Present Illness 71 year old F presents to the emergency department with the chief complaint of fall with left ankle injury, described as moderate and severe, with intensity rated at 8. Quality is described as aching and sharp, and is localized to the left and lower extremity. Patient reports no radiation. Patient started experiencing this day(s) (5) and it has been constant. Immobilization improves symptom(s), Movement worsens symptoms . Patient notes no other symptoms.. Patient did receive the following treatments prior to arrival, NSAID Related Data Home Medications Medication Instructions Recorded Confirmed duloxetine 60 mg capsule,delayed 60 mg PO DAILY 02/23/20 12/04/21 release (Cymbalta) furosemide 40 mg tablet 40 mg PO DAILY PRN 02/23/20 12/04/21 trazodone 150 mg tablet 150 mg PO HS 02/23/20 12/04/21 buspirone 10 mg tablet 10 mg PO TID 02/25/20 12/04/21 oxybutynin chloride 10 mg 10 mg PO DAILY 02/25/20 12/04/21 tablet,extended release 24 hr albuterol sulfate 90 mcg/actuation 2 puff inhalation Q4H PRN PRN #1 g 02/27/20 12/04/21 aerosol inhaler (Ventolin HFA) food supplemt, lactose-reduced 240 ml PO TID #5,688 mL 03/25/20 12/04/21 (Ensure High Protein oral liquid) atorvastatin 20 mg tablet 20 mg PO DAILY 08/28/21 12/04/21 aspirin 81 mg capsule 81 mg PO DAILY #7 caps 12/04/21 Previous Rx's Medication Instructions Recorded albuterol sulfate 90 mcg/actuation 2 puff inhalation Q4H PRN PRN #1 g 02/27/20 aerosol inhaler (Ventolin HFA) food supplemt, lactose-reduced 240 ml PO TID #5,688 mL 03/25/20 (Ensure High Protein oral liquid) aspirin 81 mg capsule 81 mg PO DAILY #7 caps 12/04/21 Allergies Allergy/AdvReac Type Severity Reaction Status Date / Time No Known Allergies Allergy Unverified 12/04/21 11:53 General Stated Complaint: Orthopedic IAN: 4 Review of Systems Constitutional Constitutional: Reports system reviewed and no additional complaints, except as documented ENT Ears, Nose, Mouth, and Throat: Denies dizziness Cardiovascular Cardiovascular: Reports system reviewed and no additional complaints, except as documented and Denies syncope Respiratory Respiratory: Reports system reviewed and no additional complaints, except as documented Musculoskeletal Musculoskeletal: Reports as per HPI Integumentary/Breasts Skin/Breast: Reports system reviewed and no additional complaints, except as documented, Reports unusual bruising and Denies wounds Neurologic Neurologic: Denies dizziness, Denies syncope and Denies sensory deficit PFSH All Active Problems (Updated 12/06/21 @ 09:43 by Carlos Mccall NP) Bimalleolar ankle fracture (Acute) Cellulitis of right lower leg (Acute) Chronic kidney disease (Chronic ~08/2017) initially attributed to acute dehydration/heat stroke in August 2017 but probably had some CKD secondary to her MRSA infections and chronic antibiotics; followed by Dr. Sarah Cid, account resolution specialist in [place], [place] ([facility] Hematoma of right lower extremity (Acute ~02/28/20) Acute blood loss anemia (Acute) Depression (Chronic) Adenocarcinoma of endometrium, stage 1 (Acute ~02/2020) endometrial biopsy done and positive per [facility] [place]/10/2020 Visit for wound check (Acute) Wound infection (Acute) Hepatic steatosis (Chronic) Acute kidney injury (Acute) Back pain (Acute) Chronic anticoagulation (Acute) Thickened endometrium (Acute) Postmenopausal bleeding (Acute) Medical History (Updated 12/06/21 @ 09:43 by Carlos Mccall NP) 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 MRSA infection (methicillin-resistant Staphylococcus aureus) (~01/2014) Surgical History History of total right hip arthroplasty Status post closed fracture of right tibia (~12/2014) total of 9 surgeries from 2013 through 2014; had initial ORIF done at [place], [place] but subsequent surgeries were done to treat complications of MRSA infections in right leg Status post total bilateral knee replacement Family History Father , age 86 d/t stroke Stroke Mother , age 85 Heart disease congestive heart failure Sister Sepsis in 2014 d/t sepsis from lymphedema legs Social History Smoking/Tobacco Use Status: Former Tobacco Use tobacco type: cigarettes Quit Date: 04/04/16 Tobacco: How many years used: 15 Smoking risk assessment performed?: Yes Alcohol Intake: former Drug use: Never Substance use type: former substance user Do you feel safe at home: Yes Do you feel safe in your relationship?: Yes Female Reproductive History Menstrual Menopause type: natural Date of menopause: 04/04/04 Exam Const General: cooperative, no acute distress and not ill appearing Nutritional Appearance: obese Orientation: alert, awake and oriented x3 Resp Effort & Inspection: normal respiratory effort, able to speak in complete sentences and no respiratory distress Cardio Rate: regular rate Rhythm: regular rhythm Pulses: normal peripheral pulses Skin General skin exam: no rashes or lesions noted Neuro General: patient alert, patient awake, patient oriented x3, moves all extremities and no focal motor deficits Sensory Exam: no sensory deficits noted Extrem Left lower extremity: ankle Details: tenderness Location: of the lateral malleolus, of the medial malleolus and anteriorly, swelling Details: diffusely, abnormal ROM Details: pain with active ROM and ecchymosis; no abrasions Course Vital Signs Vital signs: Vital Signs Temperature 36.6 C 12/04/21 11:48 Pulse 83 12/04/21 11:48 Blood Pressure 123/66 12/04/21 11:48 Pulse Oximetry 96 12/04/21 11:48 Temperature 36.6 C 12/04/21 11:48 Temperature Source Temporal Artery Scan 12/04/21 11:48 Pulse 83 12/04/21 11:48 Blood Pressure 123/66 12/04/21 11:48 Blood Pressure Position Sitting 12/04/21 11:48 Pulse Oximetry 96 12/04/21 11:48 Oxygen Delivery Method Room Air 12/04/21 11:48 Oxygen Flow Rate 0 12/04/21 11:48 Pain Level 9 12/04/21 11:50
--- NOTE | 2021-12-04 16:00 | DI.RAD_ITS ---
Exam(s) XR ANKLE LT COMPLETE EXAM: XR ANKLE LT COMPLETE CLINICAL HISTORY: Post splinting TECHNIQUE: COMPARISON: CR XR ANKLE LT COMPLETE from 12/04/2021 FINDINGS: Three views were obtained and again show tibiofibular fracture, the ankle has been placed in a splint . There is moderate persistent displacement of the fracture fragments and widening of the ankle mort ise. IMPRESSION: RADIATION DOSE DELIVERED: Total DLP
[2021-12-04] MEDS: oxyCODONE 5 MG TAB PO (16:20)
== END 2021-12-04 16:30 | disposition home or self-care (01) ==
PROVIDERS: Emergency Provider Nurse Practitioner Family; PCP Physician Assistant
DX: S82.842A Displaced bimalleolar fracture of left lower leg, initial encounter for closed fracture (principal); E66.9 Obesity, unspecified; Z87.891 Personal history of nicotine dependence; W19.XXXA Unspecified fall, initial encounter; Y93.01 Activity, walking, marching and hiking; Y92.89 Other specified places as the place of occurrence of the external cause
CPT/HCPCS: 99284; 73590; 73610

== ENCOUNTER 2021-12-08 11:44 | Outpatient (CLI) | payer MEDICARE, OTHER, SELFPAY ==
--- NOTE | 2021-12-08 11:30 | DI.RAD_ITS ---
Exam(s) XR ANKLE LT COMPLETE EXAM: XR ANKLE LT COMPLETE CLINICAL HISTORY: ANKLE FX F/U TECHNIQUE: 2D digital imaging was performed of the left ankle. Two images were obtained. AP and la teral views were obtained. COMPARISON: CR XR ANKLE LT COMPLETE from 12/04/2021 FINDINGS: BONES: No acute fracture is present. No bony destructive lesion is seen. The medial malleolus is disp laced laterally and is comminuted. The comminuted distal fibular fracture is now angulated laterally and displaced 1 shaft's with laterally. There also appears to be a fracture now involving the later al aspect of the distal tibia. This fracture is impacted and displaced laterally and posteriorly. JOINTS:The tibia is now anterior and medial the dislocated relative to the talus. SOFT TISSUE: Diffuse soft tissue swelling of the ankle. The patient's ankle is in a cast. IMPRESSION: 1. Interval tibial talar dislocation with lateral and posterior displacement of the talus relative to the tibia. 2. Increased displacement of the comminuted medial and lateral malleolar fractures. 3. Comminuted displaced fracture involving the posterior lateral aspect of the distal tibia. 4. Marked diffuse soft tissue swelling about the ankle. DATA REPOSITORY: RADIATION DOSE DELIVERED:
== END 2021-12-08 11:45 | disposition home or self-care (01) ==
LOC: DIORS 11:44
PROVIDERS: PCP Physician Assistant; Visit Provider Student in an Organized Health Care Education/Training Program
DX: S82.842A Displaced bimalleolar fracture of left lower leg, initial encounter for closed fracture (principal); S93.05XA Dislocation of left ankle joint, initial encounter; W19.XXXA Unspecified fall, initial encounter
CPT/HCPCS: 99215; 73610

== ENCOUNTER 2021-12-08 12:11 | Outpatient (CLI) | payer MEDICARE, OTHER, SELFPAY ==
[2021-12-08 12:32] LABS: Source Nasal/Nares
[2021-12-08 13:25] LABS: COVID-19 PCR Negative (Negative)
== END 2021-12-08 12:12 | disposition home or self-care (01) ==
LOC: LBO 12:11
PROVIDERS: PCP Physician Assistant; Visit Provider Student in an Organized Health Care Education/Training Program
DX: Z20.822 Contact with and (suspected) exposure to COVID-19 (principal)
CPT/HCPCS: 87635; 99215; 73610

== ENCOUNTER 2021-12-08 12:47 | Inpatient (IN) | payer MEDICARE, OTHER, SELFPAY ==
[2021-12-08] VITALS (14 sets, daily range): BP systolic 90–131; BP diastolic 33–78; PULSE 59–83; RESP 13–20; TEMP 35–36.8; O2SAT 95–99; BMI 44.2
[2021-12-08] MEDS: Lactated Ringers 1,000 ML 80 ML IV (13:50)
--- NOTE | 2021-12-08 13:57 | ANES.PREOP_ITS ---
General Info Date of Service Date Performed: 12/08/21 Height: 5 ft 8 in Weight: 131.995 kg Body Mass Index (BMI): 44.2 Surgical Procedure: Operation Date: 12/08/21 16:10 Proposed Procedure Side Surgeon p Closed Reduction Ankle Left Yaw Hernandez MD Meds Allergies and Home Medications Allergies Allergy/AdvReac Type Severity Reaction Status Date / Time No Known Allergies Allergy Unverified 12/08/21 11:30 Home Medication Medication Instructions Recorded duloxetine 60 mg capsule,delayed 60 mg PO DAILY 02/23/20 release (Cymbalta) furosemide 40 mg tablet 40 mg PO DAILY PRN 02/23/20 trazodone 150 mg tablet 150 mg PO HS 02/23/20 oxybutynin chloride 10 mg 10 mg PO DAILY 02/25/20 tablet,extended release 24 hr albuterol sulfate 90 mcg/actuation 2 puff inhalation Q4H PRN PRN #1 g 02/27/20 aerosol inhaler (Ventolin HFA) food supplemt, lactose-reduced 240 ml PO TID #5,688 mL 03/25/20 (Ensure High Protein oral liquid) atorvastatin 20 mg tablet 20 mg PO DAILY 08/28/21 aspirin 81 mg capsule 81 mg PO DAILY #7 caps 12/04/21 acetaminophen 500 mg oral powder 500 mg PO Q6H PRN 12/08/21 packet (Tylenol Extra Strength) buspirone 10 mg tablet 10 mg PO BID 12/08/21 calcium carbonate 600 mg-vitamin 1 cap PO DAILY 12/08/21 D3 12.5 mcg (500 unit) capsule (Calcium 600 with Vitamin D3) ibuprofen 200 mg tablet 200 mg PO Q6H PRN 12/08/21 multivit with 1 tab PO DAILY 12/08/21 dnmjwhln-kejb-MB-lutein 8 mg iron-400 mcg-300 mcg tablet (Centrum Silver Women) oxycodone 5 mg tablet 5 mg PO BID PRN 12/08/21 sennosides 8.6 mg-docusate sodium 1 tab-cap PO QHS 12/08/21 50 mg tablet (Senna-S) vit C 250 mg-vit E 200 unit-zinc 1 cap PO DAILY 12/08/21 ox 12.5 tc-ibchop-wjbwkw-zeax capsule (ICaps AREDS2) Current Visit Medications: Current Medications Generic Name Dose Route Start Last Admin Trade Name Freq PRN Reason Stop Dose Admin Acetaminophen 1,000 mg 12/08/21 12:53 Acetaminophen 500 Mg Tab PO Q6H PRN PRN Cholecalciferol 1,000 units 12/08/21 08:30 Cholecalciferol (Vitamin D3) 1,000 Unit Tab PO DAILY BREEZY Diphenhydramine HCl 25 mg 12/08/21 12:53 Diphenhydramine 25 Mg Cap PO Q6H PRN PRN Docusate Sodium 100 mg 12/08/21 12:51 Docusate Sodium 100 Mg Cap PO BID PRN PRN Ondansetron HCl 4 mg/ Sodium 52 mls @ 200 mls/hr 12/08/21 12:51 Chloride IVPB Q6H PRN PRN Lactobacillus Acidophilus/Casei 1 cap 12/09/21 08:30 L. Acidophilus, Casei, Rhamnosus Cap PO DAILY BREEZY Morphine Sulfate 2 - 4 mg 12/08/21 12:51 Morphine 10 Mg/Ml Vial IVP Q2H PRN PRN Naproxen 250 - 500 mg 12/08/21 12:53 Naproxen 500 Mg Tab PO BID PRN PRN Oxycodone HCl 5 - 10 mg 12/08/21 12:53 Oxycodone 5 Mg Tab PO Q4H PRN PRN PFSH Active Problems Active Problems: Problem Status Onset Code Dislocation of ankle, left, closed S93.05XA Bimalleolar ankle fracture 11/30/21 S82.843A Cellulitis of right lower leg L03.115 Chronic kidney disease ~08/2017 N18.9 Hematoma of right lower extremity ~02/28/20 S80.11XA Acute blood loss anemia D62 Depression F32.9 Adenocarcinoma of endometrium, stage 1 ~02/2020 C54.1 Visit for wound check Z51.89 Wound infection T14.8XXA, L08.9 Hepatic steatosis K76.0 Acute kidney injury N17.9 Back pain M54.9 Left leg DVT 02/24/20 I82.402 Chronic anticoagulation Z79.01 Thickened endometrium R93.89 Postmenopausal bleeding N95.0 Medical History Medical History 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 MRSA infection (methicillin-resistant Staphylococcus aureus) (~01/2014) Medical History Comments:: Leann 2x week Surgical History Surgical History History of total right hip arthroplasty Status post closed fracture of right tibia (~12/2014) total of 9 surgeries from 2013 through 2014; had initial ORIF done at [place], [place] but subsequent surgeries were done to treat complications of MRSA infections in right leg Status post total bilateral knee replacement Tobacco Smoking/Tobacco Use Status: Current-Occasional Tobacco Type: e-cigarettes Alcohol Alcohol Intake: former Substance Use Substance use: Occasionally Substance use type: former substance user and marijuana Vital Signs and Lab Results Vital Signs Most Recent Vital Signs in EMR: Most Recent Vital Signs Temp Pulse Resp BP Pulse Ox 36.5 C 83 15 131/78 96 12/08/21 13:43 12/08/21 13:43 12/08/21 13:43 12/08/21 13:43 12/08/21 13:43 Lab Results Blood Type / Crossmatch: No Data to Display Complete Blood Count: No Data to Display Complete Metabolic Panel: No Data to Display Liver Function Panel: No Data to Display Coagulation Panel: No Data to Display Cardiac Panel: No Data to Display Arterial Blood Gas: No Data to Display Venous Blood Gas: No Data to Display Pancreas Panel: No Data to Display Thyroid Panel: No Data to Display Infectious Disease: Coronavirus (COVID-19)(PCR) Negative (Negative) 12/08/21 12:18 Coronavirus 2019 Source Nasal/Nares 12/08/21 12:18 Blood Cultures: No Data to Display Toxicology Panel: No Data to Display Imaging and Studies Imaging and Studies Study information below may be from another EMR and interpreted by another provider. Please see original notes in EMR for more complete details. EKG Summary: 03/25/2020 Conclusion Sinus rhythm...normal P axis, V-rate 60- 99 Low voltage, precordial leads...precordial leads <1.0mV Echocardiogram Summary: 02/25/20: Conclusion Normal left ventricular chamber size and systolic function. Estimated ejection fraction is 60%. There are no segmental wall motion abnormalities Normal right ventricular size and systolic function Both atria are normal in size Mildly sclerotic trileaflet aortic valve with no stenosis or regurgitation Mild mitral annular calcification. Trace mitral regurgitation Structurally normal tricuspid valve with trace to mild regurgitation. Normal estimated right ventricular systolic pressure The pulmonic valve is not well visualized Mildly dilated ascending aorta measuring 3.4 cm Anesthesia Assessment and Plan Anesthesia History Personal History: No History of Anesthesia Complications Family History: No Family History of Anesthesia Complications Exercise Tolerance Exercise Tolerance: Metabolic Equivalents>4 Pertinent Negatives Pertinent Negatives: No Symptoms of GERD and No Major Cardiovascular Symptoms or Complaints Cardiac & Pulmonary Exam Cardiac Exam: Normal S1/S2 Heart Sounds Pulmonary Exam: Clear Bilateral Breath Sounds Implantable Cardiac Device Does patient have a Pacemaker or an ICD?: No Airway Exam Known Difficult Airway: No Mallampati Class: 1 Mouth Opening: Normal (> 3cm) Thyromental Distance: Greater than 3 cm Neck Range of Motion: Full ROM Neck Circumference: Normal Teeth Condition: Normal Dentition ASA Classification ASA Score: ASA 3 Emergency Case?: No NPO Status NPO Status: NPO Clears >2 hours, Solids >8 hours Anesthesia Plan Resuscitation Status: Full Code Anesthesia Technique: General Anesthesia Airway Planned: Natural Airway Pain Management: Surgeon and patient request nerve block Monitors Used: Standard Monitors
--- NOTE | 2021-12-08 14:45 | DI.RAD_ITS ---
Exam(s) XR ANKLE LT COMPLETE EXAM: XR ANKLE LT COMPLETE CLINICAL HISTORY: left ankle closed reduction TECHNIQUE: 2D and realtime digital imaging was performed. CONTRAST MATERIAL: Refer to procedure report. COMPARISON: CR XR ANKLE LT COMPLETE from 12/08/2021 FINDINGS: Fluoroscopy was provided for Dr. Bhakta during the performance of a reduction of the left ankle fract ure dislocation. Please refer to the procedure report for complete details. Ka,r=2.0 mGy IMPRESSION: RADIATION DOSE DELIVERED:
--- NOTE | 2021-12-08 16:30 | W.ANESNERVE ---
Nerve Block Single Injection Procedure Date and Time Date Performed: 12/08/21 Procedure Start: 14:50 Location Where Procedure Performed Procedure Location: Day Surgery Unit Reason Performed: Postoperative Analgesia Requesting Provider: Yaw Hernandez Timeout Performed Timeout Performed: Yes Monitoring Used ECG, Blood Pressure and SpO2 Sterility Sterility: Hand Hygiene, Surgical Cap, Surgical Mask, Sterile Gloves and Chlorhexidine Sedation Given During Procedure Sedation Given (Indicate Dose Given): Versed IV Dose:: 2 mg Patient Mental Status Patient Mental Status: Sedate with meaningful communication Nerve Block 1st Nerve Block: Laterality: Left Block Type: Adductor Canal Needle / Catheter Used: 120mm SonoPlex II Local Anesthetic Bolus (Indicate Dose Given): Lidocaine used for local infiltration of skin, Injected in 3-5ml increments after negative blood aspiration and Bupivacaine 0.375% Dose:: 10 mL Additives (Indicate Dose Given): Precedex Dose:: 40 mcg Ultrasound: Sterile probe cover and gel used Ultrasound Image Saved?: Yes Nerve Stimulator: Not Used Paresthesia: None Procedure Tolerated: No Complications Procedure Outcome: Successful Performed By: Tae Cardona 2nd Nerve Block: Laterality: Left Block Type: Popliteal Sciatic Needle / Catheter Used: 120mm SonoPlex II Local Anesthetic Bolus (Indicate Dose Given): Lidocaine used for local infiltration of skin, Injected in 3-5ml increments after negative blood aspiration and Bupivacaine 0.375% Dose:: 30 mL Additives (Indicate Dose Given): Precedex Dose:: 60 mcg Ultrasound: Sterile probe cover and gel used Ultrasound Image Saved?: Yes Nerve Stimulator: Not Used Paresthesia: None Procedure Tolerated: No Complications Procedure Outcome: Successful Performed By: Tae Cardona
--- NOTE | 2021-12-08 16:34 | W.ANESPOSTOP ---
Postoperative Evaluation Date, Time and Location Date Performed: 12/08/21 Time Performed: 16:34 Patient Location: PACU Vital Signs Most Recent Imported Vital Signs: Most Recent Vital Signs Temp Pulse Resp BP Pulse Ox 36.2 C L 67 14 101/53 L 97 12/08/21 14:34 12/08/21 14:34 12/08/21 14:34 12/08/21 14:34 12/08/21 14:34 Pain Score Most Recent Pain Score: Most Recent Pain Score Pain Level 6 12/08/21 14:34 Assessment Mental Status: Awake (Alert & Oriented to Patient Baseline) Airway and Respiratory Function: Patent airway with normal (patient baseline) respiratory exam Cardiovascular Function: Hemodynamically Stable Hydration Status: Adequately Hydrated Nausea & Vomiting: No Nausea or Vomiting Pain: Pain is tolerable per patient Peripheral Nerve Block: Regional nerve block not resolved at time of post operative discharge
[2021-12-08] MEDS: Normal Saline Flush 10 ML SYR IV ×2 (17:51→23:01)
--- NOTE | 2021-12-08 17:59 | W.PM.OP ---
Date of service: 12/08/21 Time of Service: 16:00 Operative Note Operative Note DATE OF PROCEDURE: 12/08/21 PRE-OP DIAGNOSIS: Left Ankle Fracture Dislocation POST-OP DIAGNOSIS: same PROCEDURE: Closed Reduction and Casting of Left Ankle Fracture-Dislocation SURGEON: Yaw Hernandez ANESTHESIA TYPE: General LMA/ETT Refer to Anesthesia Record ESTIMATED BLOOD LOSS: 0 TOURNIQUET TIME: 0 Patient was transported to: PACU Patient's condition: stable Indications: JAKY is a 71-year-old who was diagnosed with a nondisplaced bimalleolar ankle fracture in the emergency department after a fall. She was discharged home from Findings: There is a grossly unstable fracture about the left ankle. Require complete relaxation in order to maintain reduction. Once reduction was obtained it was casted and confirmed to be in appropriate position. Procedure Description: JAKY is a 71-year-old who was greeted in the preoperative holding area. Her identity was confirmed the correct size identified and marked. The consent was reviewed the patient signed. History and physical was performed earlier. A peripheral nerve block was administered by anesthesia. She was then taken back to the operating room where a timeout is performed for safe procedure. Initial reduction attempt was performed on the stretcher. However, it was grossly unstable and unable to be fully reduced and maintained. Therefore, she was transition to the operating room table for better imaging capabilities as well as full relaxation. Once this was on board the reduction was able to be improved. She was then placed into finger traps on the toes to help hold the reduction and the foot and once again x-ray was utilized to confirm appropriate positioning. With reduction held a well-padded cast was then applied. The cast was allowed to set fully and final x-rays were obtained and show maintained reduction of the ankle fracture. The cast was bivalved and taped closed. She was transferred back to the PACU in stable condition.
[2021-12-08] MEDS: oxyCODONE 5 MG TAB PO (20:11)
[2021-12-08] MEDS: Nystatin POWDER 60 GM JAR TP (20:20)
[2021-12-08] MEDS: MORPHine 10 MG/ML VIAL IVP (23:01)
--- NOTE | 2021-12-09 | DI.CT_ITS ---
Exam(s) CT LOWER EXTREMITY LT WO EXAM: CT LOWER EXTREMITY LT WO CLINICAL HISTORY: Complex ankle fx. TECHNIQUE: Imaging Protocol: Axial computed tomography images with coronal and sagittal reformatted images were created and reviewed. COMPARISON: XA XR ANKLE LT COMPLETE from 12/08/2021 CR XR ANKLE LT COMPLETE from 12/08/2021 FINDINGS: The patient's ankle is in a cast. Bones: There is a comminuted fracture at the distal metaphyseal region of the fibula. The distal fr acture is displaced laterally and posteriorly 1/2 shaft's with. The fracture line lies above the lev el of the ankle mortise. There is a comminuted mildly displaced fracture of the posterior malleolus. There is a comminuted fracture of the medial malleolus. The major fracture fragment is displaced 1 shaft's with medially. There is mild posterior subluxation of the talus relative to the distal tibi a. No cellulitic or osteomyelitic changes are identified. There is no evidence of joint space narro wing or cystic degeneration seen. No lytic or sclerotic lesions are identified. Soft Tissues: There is diffuse soft tissue swelling of the foot and ankle. IMPRESSION: 1. Trimalleolar fracture as described above. 2. Persistent mild posterior subluxation of the talus relative to the distal tibia. 3. Associated diffuse soft tissue swelling. RADIATION DOSE DELIVERED: 253.66mGy.cm Total DLP 253.66mGy.cm Total DLP DATA REPOSITORY: All CT scans at this facility are submitted to the National Radiology Data Registry (NRDR) Dose Index Registry (DIR) with the [employer] (ACR). RADIATION OPTIMIZATION: All CT scans at this facility use at least one of these dose optimization te chniques: automated exposure control; mA and/or kV adjustment per patient size (includes targeted exa ms where dose is matched to clinical indication); or iterative reconstruction.
[2021-12-09] MEDS: diphenhydrAMINE 25 MG CAP PO (01:34)
[2021-12-09 06:03] LABS: HCT 36.3 % (36.0-46.0); HGB 11.6 g/dL (11.2-15.7); MCH 30.9 pg (27.0-33.0); MCV 97 fL (80-95); MPV 9.5 fL (8.0-11.0); Platelet Count 226 10^3/uL (130-400); RBC 3.75 10^6/uL (3.93-5.22); RDW 13.6 % (11.7-14.6); RDW-SD 48.7 fL; WBC 12.59 10^3/uL (4.4-10.8)
[2021-12-09 06:22] LABS: Hemoglobin A1C 5.5 % (<5.7)
[2021-12-09 06:24] LABS: ALT 20 U/L (14-59); AST 15 U/L (15-37); Albumin 2.9 g/dL (3.4-5.0); Alkaline Phosphatase 88 U/L (46-116); Anion Gap 10.8 mmol/L (3-11); BUN 29 mg/dL (7-18); Bilirubin, Total 0.3 mg/dL (0.2-1.0); CO2 19.2 mmol/L (21.0-32.0); CREATININE 1.4 mg/dL (0.55-1.02); Calcium 8.7 mg/dL (8.5-10.1); Chloride 110 mmol/L (98-107); Estimated GFR 40.22 (mL/min/1.73m2); Glucose 138 mg/dL (74-106); Potassium 4.7 mmol/L (3.5-5.1); Sodium 140 mmol/L (136-145); Total Protein 6.8 g/dL (6.4-8.2)
[2021-12-09 07:35] VITALS: BP 122/66; PULSE 58; RESP 18; TEMP 36.5; O2SAT 95
[2021-12-09] MEDS: Cholecalciferol (Vitamin D3) 1,000 UNIT TAB 1000 UNITS PO (08:09)
[2021-12-09] MEDS: Calcium 600mg/Vit D 200U TAB 1 TAB PO (08:09)
[2021-12-09] MEDS: busPIRone 5 MG TAB 10 MG PO ×2 (08:09→19:43)
[2021-12-09] MEDS: Enoxaparin 40 MG/0.4 ML SYR SC (08:10)
--- NOTE | 2021-12-09 09:46 | PT.INIE ---
Date of service: 12/09/21 Time of Service: 09:46 PT Notes Physical Therapy Inpatient Initial Evaluation Date: 12/09/2021 Referring Doctor: Yaw Hernandez MD PT Orders: PT CONSULT: S/p Ortho surgery. NWBridget MCGHEE d/t ankle frx. Likely upcoming ORIF. Precautions: Fall. Standard. NWB Lula MCGHEE with AD. Patient Profile/Admitting Diagnosis: Carine is a 71-year-old female with diagnoses of left ankle dislocation and left bimalleolar fracture sustained from a fall at home a week ago. She is status post closed reduction and casting on postoperative day 1 with likely upcoming ORIF this week. PMHX: All Active Problems?(Updated 12/08/21 @ 12:43 by Simone Bhakta MD) Dislocation of ankle, left, closed (Acute) Bimalleolar ankle fracture (Acute 11/30/21) Cellulitis of right lower leg (Acute) Chronic kidney disease (Chronic ~08/2017) initially attributed to acute dehydration/heat stroke in August 2017 but probably had some CKD secondary to her MRSA infections and chronic antibiotics; followed by Dr. Sarah Cid, inspector [employer] in [place], [place] ([facility] Hematoma of right lower extremity (Acute ~02/28/20) Acute blood loss anemia (Acute) Depression (Chronic) Adenocarcinoma of endometrium, stage 1 (Acute ~02/2020) endometrial biopsy done and positive per [facility] 03/10/2020 Visit for wound check (Acute) Wound infection (Acute) Hepatic steatosis (Chronic) Acute kidney injury (Acute) Back pain (Acute) Chronic anticoagulation (Acute) Thickened endometrium (Acute) Postmenopausal bleeding (Acute) Medical History?(Updated 12/08/21 @ 12:43 by Simone Bhakta MD) 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 History of total right hip arthroplasty Status post closed fracture of right tibia (~12/2014) total of 9 surgeries from 2013 through 2014; had initial ORIF done at [place], [place] but subsequent surgeries were done to treat complications of MRSA infections in right leg Status post total bilateral knee replacement Social History/Home Situation: Lives alone in a private home with 3 steep steps to enter with rails on both sides. She has somebody who lives close by and can help as needed. 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 Equipment Owned/DME: [employer], Subjective: Agreeable to PT consult. States that she was putting weight on her L foot for about three days after the fall as she thought that she may have just sprained her ankle. She reports not being able to sleep well last night and is fatigued however is willing to work with this PT to assess mobility level. She asks if she can stay here after a surgery (that she may likely have this Tuesday) before she goes home as she does not feel that it will be safe to go home after that. Complains of headache that may have resulted from not being able to sleep well last night. Nurse Nicolas is aware and gave her Tylenol for pain relief. Denies pain in L leg and foot as she states that she had a nerve block yesterday. Objective: General Observation: Supine in bed with L LE elevated on a pillow. Bivalved cast on L leg and foot. Mental Status: Alert and oriented as to person, place, time, and purpose. Able to pay attention, focus, and respond appropriately. Pain: Headache at 4-5/10 Vital Signs: WNL as closely monitored by nursing staff ROM: Right Lower Extremity: Hip flexion WFL. Hip abduction WFL. Knee flexion WFL. Ankle dorsiflexion WFL. Ankle plantarflexion WFL. Left Lower Extremity: Hip flexion WFL. Hip abduction WFL. Knee flexion WFL. Ankle dorsiflexion NT. Ankle plantarflexion NT. Strength: Right Lower Extremity: Hip flexors 4/5. Hip abductors 4/5. Knee flexors 4/5. Knee extensors 4/5. Ankle dorsiflexors 4/5. Ankle plantarflexors 4/5. Left Lower Extremity: Hip flexors 4-/5. Hip abductors 4-/5. Knee flexors NT. Knee extensors NT. Ankle dorsiflexors NT. Ankle plantarflexors NT. Sensation: Feels a numb in L leg from nerve block Bed Mobility/Transfers: Supine to sit minimal assist to L LE Sit to supine minimal assist to L LE Sit to stand contact guard assist using bariatric FWW Stand to sit contact guard assist using bariatric FWW Bed to reclining chair contact guard assist using bariatric FWW Reclining chair to bed contact guard assist using bariatric FWW Gait: Instructed patient with level surface ambulation of 5 feet requiring contcat guard assist. NWB on L LE, toes mildly touching ground but no weight bearing. No report of increased pain. Denies dizziness. No shortness of breath. Balance: Static Sitting: Normal Dynamic Sitting: Normal Static Standing: Fair Dynamic Standing: Fair Special Tests: Mobility Limitations Standardized Measure [facility] AM-PAC 6 clicks Basic Mobility Inpatient Short Form: Raw Score: 19 CMS Score: 42% deficit Informed Consent/Education: Patient was instructed in purpose of PT consult and plan of care. Agreeable to proceed with established PT POC to achieve personal goals. Assessment: Good UE strength allows for consistent compliance with weight bearing precautions. PT plan of care to mainly focus on transfer training and short distance ambulation as well as bed level and seated range of motion exercises to reduce postoperative complications while minimizing mobility decline. Will progress transfer and ambulation level as ordered by orthopod after potential ORIF of L leg/ankle/foot later this week. Patient presents with clinical signs and symptoms consistent with current/admitting diagnoses that have resulted to mobility limitations, gait instability, generalized weakness, and overall ADL decline as demonstrated by the following impairment level findings: 1. Decreased strength to L LE major muscle groups 2. Impaired sitting/standing balance 3. Impaired activity tolerance 4. Limitation of joint range of motion in L ankle Impairments are contributing to the following functional limitations: 1. Decline in bed mobility skills 2. Decline in transfer skills 3. Difficulty with ambulation without assistive device and physical assistance 4. Increased completion time for mobility ADL performance 5. Increased risk for falls 6. Difficulty with managing steps alone safely Patient is assessed as a 93996 moderate complexity based on the following: History: 71-year-old female with past medical history as indicated above Examination: Demonstrable impairment in strength, balance, and mobility level with underlying impairments and functional limitations as exhibited above as well as deficit score of 42% utilizing the [facility] Mobility Inpatient Short Form Presentation: Evolving Decision Makin moderate complexity Goals: Goals X1 week 1. Supine-Sit independent 2. Sit-Supine independent 3. Sit-Stand independent 4. Stand-Sit independent with FWW 5. Bed-Chair independent with FWW 6. Chair-Bed independent with FWW 7. Independent gait on level surface with use of FWW for at least 300 feet (after likely ORIF) without report of pain nor dyspnea 8. Independent stair negotiation while holding onto B rails for at least 3 steps without report of pain nor dyspnea 9. Independent with home exercise program 10. Good static and dynamic standing balance/tolerance Plan of Care/Treatment Plan: 1-2x/day, 7 days/week x 1 week. Plan of care has been reviewed with the [employer]AM MEMBER providing the service under Physical Therapy direction. Initiate Physical Therapy intervention for pain management as needed, strengthening, bed mobility, transfers, gait, stairs, balance training, and use of assistive device. DISCHARGE RECOMMENDATIONS: [] Home with no services [] [] Home with services [specify] [] Home with outpatient PT [] [] SNF for continued rehabilitation [] [] [facility] [] [] SNF versus LTC based on ability to participate and progress [] [X] SNF vs PT depending on progress towards goals after likely ORIF later this week TREATMENT CODE/TIME: 24507 x 20 minutes, 48476 x 12 minutes beginning at 9:46 PM. Thank you for the opportunity to participate in the care of this patient. Cristel Barroso PT, DPT, CLT [facility] [place], [place]
[2021-12-09] MEDS: Acetaminophen 500 MG TAB 1000 MG PO ×2 (10:04→16:19)
[2021-12-09 15:21] VITALS: BP 137/67; PULSE 71; RESP 18; TEMP 37.5; O2SAT 94
--- NOTE | 2021-12-09 16:51 | PT.INTREAT ---
Date of service: 12/09/21 Time of Service: 16:51 PT Notes Physical Therapy Inpatient Treatment Note Date: 12/09/2021 Precautions: Fall. Standard. NWB L LE with AD. Subjective: Really has had too much from all the events of the past week. Her lack of sleep, her headache, and frequent use of bedside commode have really wiped her out. Still agreeable to doing bed level exercises. Politely refused getting out of bed for supper due to fatigue. Hopeful about being able to do more tomorrow. Objective: General Observation: Supine in bed with L LE elevated on a pillow.? Bivalved cast on L leg and foot. TEDS on R leg Mental Status: Alert and oriented as to person, place, time, and purpose. Able to pay attention, focus, and respond appropriately. Pain: Headache at 4-5/10 Vital Signs: WNL as closely monitored by nursing staff THERA EX: Diaphragmmatic breathing x 5 Gluteal sets x 5 Quadriceps sets x 5 L ankle DF/PF x 10 Toe flexion and extesion on B sides x 10 Supine hip abduction x 10 Diaphragmmatic breathing x 5 Assessment: Fatigue, lack of sleep, and frequent bed<>bedside commode trips really got a lot out of patient today. Focused on training with bed level exercises that she can do on her own for this session. Readjusted TEDS on R leg to maximize compression and avoid too much pressure on the proximal R leg. DISCHARGE RECOMMENDATIONS: [] ? Home with no services [] [] ? Home with services [specify] [] ? Home with outpatient PT [] [] ? SNF for continued rehabilitation [] [] ? [facility] [] [] ? SNF versus LTC based on ability to participate and progress [] [X]? SNF vs HH PT depending on progress towards goals after likely ORIF later this week TREATMENT CODE/TIME: 72649 x 29 minutes beginning at 16:51 PM.
--- NOTE | 2021-12-09 17:02 | INITIAL_ITS ---
- If Service Date Differs Date of service: 12/09/21 Time of Service: 17:04 Care Management Initial Assess REASON FOR HOSPITALIZATION:: Left Ankle Fracture Dislocation PAST MEDICAL HISTORY/PAST SURGICAL HISTORY:: Medical History (Updated 03/22/20 @ 22:52 by Murray Sanchez). Acute blood loss anemia. Adenocarcinoma of endometrium, stage 1 (~02/2020). endometrial biopsy done and positive per [facility] 03/10/2020. Alcoholism. in remission for past 10 years. Chronic kidney disease (~08/2017). initially attributed to acute dehydration/heat stroke in August 2017 but probably had some CKD secondary to her MRSA infections and chronic antibiotics; followed by Dr. Sarah Cid, traffic monitor specialist in [place], [place] ([facility] Depression. Hematoma of right lower extremity (~02/28/20). Left leg DVT (02/24/20). per [facility] repeat US LLE 03/04/2020 failed to demonstrated DVT. MRSA infection (methicillin-resistant Staphylococcus aureus) (~01/2014). Postmenopausal bleeding. Thickened endometrium. Surgical History (Updated 03/22/20 @ 22:26 by Murray Sanchez). History of total right hip arthroplasty. Status post closed fracture of right tibia (~12/2014). total of 9 surgeries from 2013 through 2014 ; had initial ORIF done at [place], [place] but subsequent surgeries were done to treat complications of MRSA infections in right leg. Status post total bilateral knee replacement PREVIOUS FUNCTIONAL STATUS/SOCIAL/FAMILY SUPPORTS:: Carine resides in [facility]. Her male cigarette making machine catcher, Karel Gupta is listed as her manager contact. Carine relocated from [place] in December 2019. 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 Carine has no children. She is independent at baseline with ADLs, driving etc but has issues with balance, and has spent the last year trying to recover from her last fall. CURRENT FUNCTIONAL STATUS:: Chelita is lying in bed, animated in interaction. ADVANCE DIRECTIVES:: None on file. Has patient been provided with info about the portal/API?: Yes Did the patient sign up for the portal?: Yes CODE STATUS:: Full Code INSURANCE COVERAGE / FINANCIAL ISSUES:: Medicare. [facility] PRIMARY CARE PHYSICIAN:: Stuart Tena POTENTIAL DISCHARGE NEEDS:: Surgical intervention. Possible SWB1, further evaluation of discharge considerations post surgically. ANTICIPATED BARRIERS TO DISCHARGE:: Patient ability to self manage care needs prior to surgery. PLAN:: Per Dr. Hernandez, anticipate extended stay for patient stabilization prior to surgery. BJ may require short SWB1 stay if medically stable prior to surgery. CM continues to follow.
--- NOTE | 2021-12-09 21:30 | W.PM.PROGNOT ---
Date of Service Date of service: 12/09/21 Time of Service: 16:05 Assessment and Plan Assessment and plan (1) Fracture dislocation of left ankle joint: Status: Acute Assessment and plan: JAKY is a 71yo female s/p closed reduction of a left ankle fracture dislocation. She is doing well. She has no pain. The CT scan was performed today and does show significant complexity of the fracture. The medial malleolus is notably displaced and rotated. The fibula is shortened and displaced. The posterolateral tibia has a small posterior fragment with significant comminution of the articular surface. I reviewed this iwth BJ. This will require surgery and the surgery will be technically challenging. I discussed some options but still recommend proceeding with ORIF of the ankle. This will likely be performed by Dr. Bhakta on Tuesday i monet to give the skin of the ankle a chance to recover. Subjective Subjective Interval history since last seen: JAKY reports to be doing very well. She has minimal pain. She has been able to mobilize with some difficulty. No other acute issues. She has been keeping the leg elevated. Exam Narrative Exam Narrative: Comfortably in the bed. AAOx3. LLE exam shows cast in good position. Toes with cap refill of 3 seconds. Able to flex and extend toes and slight dysthesias throughout. No pain with passive toe flexion/extension. Objective Last Vital Signs Temp 37.5 C 12/09/21 15:21 Pulse 71 12/09/21 15:21 Resp 18 12/09/21 15:21 BP 137/67 12/09/21 15:21 Pulse Ox 94 12/09/21 15:21 Laboratory Results - last 24 hr 12/09/21 12/09/21 12/09/21 05:32 05:32 05:32 WBC 12.59 H RBC 3.75 L Hgb 11.6 Hct 36.3 MCV 97 H MCH 30.9 MCHC 32.0 RDW 13.6 Plt Count 226 MPV 9.5 Sodium 140 Potassium 4.7 Chloride 110 H Carbon Dioxide 19.2 L Anion Gap 10.8 BUN 29 H Creatinine 1.4 H Est GFR (CKD-EPI 2020) 40.22 Glucose 138 H Hemoglobin A1c 5.5 Calcium 8.7 Total Bilirubin 0.3 AST 15 ALT 20 Alkaline Phosphatase 88 Total Protein 6.8 Albumin 2.9 L
[2021-12-09 22:28] VITALS: BP 135/79; PULSE 71; RESP 20; TEMP 37.3; O2SAT 95
[2021-12-09] MEDS: Atorvastatin 20 MG TAB PO (22:32)
[2021-12-09] MEDS: traZODone 50 MG TAB 150 MG PO (22:32)
[2021-12-09] MEDS: Oxybutynin-CR 5 MG TABCR 15 MG PO (22:32)
[2021-12-09] MEDS: DULoxetine 30 MG CAP 60 MG PO (22:32)
[2021-12-09] MEDS: Sennosides/Docusate Sodium TAB 1 TAB PO (22:32)
[2021-12-10] MEDS: oxyCODONE 5 MG TAB PO ×5 (00:25→19:36)
[2021-12-10 06:29] LABS: Platelet Count 209 10^3/uL (130-400)
[2021-12-10 07:50] VITALS: BP 126/78; PULSE 69; RESP 20; TEMP 36.3; O2SAT 96
[2021-12-10] MEDS: Normal Saline Flush 10 ML SYR IV ×4 (08:14→22:42)
[2021-12-10] MEDS: Enoxaparin 40 MG/0.4 ML SYR SC (08:14)
[2021-12-10] MEDS: Cholecalciferol (Vitamin D3) 1,000 UNIT TAB 1000 UNITS PO (08:16)
[2021-12-10] MEDS: busPIRone 5 MG TAB 10 MG PO ×2 (08:16→19:35)
[2021-12-10] MEDS: Calcium 600mg/Vit D 200U TAB 1 TAB PO (08:16)
[2021-12-10] MEDS: Ketorolac 15 MG/ML VIAL IVP ×2 (08:35→21:59)
--- NOTE | 2021-12-10 09:44 | W.PM.PROGNOT ---
Date of Service Date of service: 12/10/21 Time of Service: 09:15 Assessment and Plan Assessment and plan (1) Fracture dislocation of left ankle joint: Status: Acute Assessment and plan: 71-year-old female with complex left ankle fracture dislocation Comfortable, feeling okay, no signs or symptoms of blood clot or infection. Wilder cast opened to inspect skin. No breakdown, wrinkles nearly present. Painless range of motion toes. CT confirms complex unstable trimalleolar ankle fracture Continue strict elevation today. N.p.o. and IV fluid after midnight for surgery tomorrow: Left ankle and syndesmosis ORIF The risks, benefits, and alternatives were thoroughly discussed. Plan to use vancomycin and cefazolin perioperative antibiotic given history of severe MRSA infection. Patient was counseled regarding pain management, expected postoperative course, and recovery timeline. All questions were answered. Informed consent will be completed in the perioperative holding area Patient agrees and understands treatment plan. Breathing comfortably on room air. No coughs or wheezes. 2+ left radial pulse. Regular rate and rhythm. Discharge home will be challenging given that she lives alone and will have to remain nonweightbearing on her left ankle for typically 6-8 weeks Objective Last Vital Signs Temp 97.3 F L 12/10/21 07:50 Pulse 69 12/10/21 07:50 Resp 20 12/10/21 07:50 BP 126/78 12/10/21 07:50 Pulse Ox 96 12/10/21 07:50 Laboratory Results - last 24 hr 12/10/21 05:40 Plt Count 209
--- NOTE | 2021-12-10 10:51 | PDOC.CMPRO ---
- If Service Date Differs Date of service: 12/10/21 Time of Service: 10:51 Care Management Progress Note S/O: BJ remains inpatient at this time. [facility] resources provided, as well as referral to [facility] to determine community based supports and resources for ramp attainment. Griselda of [facility] called and stated BJ was seeking a small metal ramp from [facility], which was affordable. Dr. Bhakta called CM and reported BJ will be brought to the OR tomorrow, and will be closely monitored and treated post surgically. No change to overall plan. A: 71 year old female admitted to [facility] 12/08/21 for left ankle fracture dislocation P: Anticipate extended stay for patient stabilization prior to surgery. BJ may require short SWB1 stay if medically stable prior to surgery. She will be closely monitored, treated and evaluated for discharge considerations post surgically as well. CM continues to follow.
[2021-12-10 15:26] VITALS: BP 122/70; PULSE 71; RESP 16; TEMP 36.3; O2SAT 96
--- NOTE | 2021-12-10 16:37 | PT.INTREAT ---
Date of service: 12/10/21 Time of Service: 10:23 PT Notes Visit Reasons: Left ankle fracture dislocation Inpatient Physical Therapy Treatment Note [facility] Date: 12/10/2021 PRECAUTIONS: Fall, WBAT L SUBJECTIVE: BJ is pleasant and agreeable to participating in PT. She reports that Dr. Bhakta was in to see her and cut her cast open. He instructed her to keep her L LE elevated today in preparation for her schedule ORIF tomorrow. OBJECTIVE:?Clinical coordinator reached out to orthopedic surgeon, per my request, for activity-level recommendations. Per orthopedic surgeon, patient to complete bed-level exercises today. PAIN: No c/o pain ? BED MOBILITY/TRANSFERS/GAIT: Held per orthopedic surgeon recommendations. ? THEREX: Patient was instructed in a LE strengthening and stabilization and UE strengthening program, completed in a supine position, to include: ankle pumps, quad sets, glute sets, heel slides R, hip abduction R, bicep curls, shoulder flexion, rowing, triceps, horizontal abduction. Patient utilizes yellow Theraband with all B UE and R LE exercises.? ASSESSMENT: Patient tolerated session without complaint. She was limited to bed-level exercises, however, was able to tolerate the addition of Theraband resistance. PLAN: Continue with global strengthening and general mobilization, as recommended by orthopedic surgeon. TREATMENT CODE/TIME: 15 minutes; 18514 (10:23)
[2021-12-10 19:35] VITALS: BP 125/65; PULSE 72; RESP 16; TEMP 36.4; O2SAT 96
[2021-12-10] MEDS: Acetaminophen 500 MG TAB 1000 MG PO (19:36)
[2021-12-10] MEDS: Oxybutynin-CR 5 MG TABCR 15 MG PO (21:59)
[2021-12-10] MEDS: Sennosides/Docusate Sodium TAB 1 TAB PO (22:00)
[2021-12-10] MEDS: Atorvastatin 20 MG TAB PO (22:00)
[2021-12-10] MEDS: traZODone 50 MG TAB 150 MG PO (22:00)
[2021-12-10] MEDS: DULoxetine 30 MG CAP 60 MG PO (22:00)
[2021-12-10 23:25] VITALS: BP 124/65; PULSE 71; RESP 16; TEMP 36.4; O2SAT 96
[2021-12-11] VITALS (14 sets, daily range): BP systolic 92–131; BP diastolic 43–80; PULSE 57–72; RESP 12–20; TEMP 35.9–37.2; O2SAT 94–98; BMI 44.2
[2021-12-11] MEDS: Lactated Ringers 1,000 ML 75 ML IV (00:11)
[2021-12-11] MEDS: MORPHine 4 MG/ML SYR IVP ×2 (00:23→07:57)
[2021-12-11] MEDS: Normal Saline Flush 10 ML SYR IV ×5 (00:24→21:19)
[2021-12-11] MEDS: Ketorolac 15 MG/ML VIAL IVP (03:48)
--- NOTE | 2021-12-11 07:57 | ANES.PREOP_ITS ---
General Info Date of Service Date Performed: 12/11/21 Height: 5 ft 8 in Weight: 131.995 kg Body Mass Index (BMI): 44.2 Surgical Procedure: Operation Date: 12/08/21 16:10 Proposed Procedure Side Surgeon p Closed Reduction Ankle Left Yaw Hernandez MD Actual Procedure Side Surgeon p Closed Reduction Ankle Left Yaw Hernandez MD Pre-Op Diagnosis Post-Op Diagnosis left ankle fx/dx left ankle fx/dx Operation Date: 12/11/21 12:40 Proposed Procedure Side Surgeon p Ankle ORIF Left Simone Bhakta MD Meds Allergies and Home Medications Allergies Allergy/AdvReac Type Severity Reaction Status Date / Time No Known Allergies Allergy Unverified 12/08/21 11:30 Home Medication Medication Instructions Recorded duloxetine 60 mg capsule,delayed 60 mg PO HS 02/23/20 release (Cymbalta) furosemide 40 mg tablet 40 mg PO DAILY PRN 02/23/20 trazodone 150 mg tablet 150 mg PO HS 02/23/20 oxybutynin chloride 10 mg 15 mg PO HS 02/25/20 tablet,extended release 24 hr albuterol sulfate 90 mcg/actuation 2 puff inhalation Q4H PRN PRN #1 g 02/27/20 aerosol inhaler (Ventolin HFA) food supplemt, lactose-reduced 240 ml PO TID #5,688 mL 03/25/20 (Ensure High Protein oral liquid) atorvastatin 20 mg tablet 20 mg PO HS 08/28/21 aspirin 81 mg capsule 81 mg PO DAILY #7 caps 12/04/21 acetaminophen 500 mg oral powder 500 mg PO Q6H PRN 12/08/21 packet (Tylenol Extra Strength) buspirone 10 mg tablet 10 mg PO BID 12/08/21 calcium carbonate 600 mg-vitamin 1 cap PO DAILY 12/08/21 D3 12.5 mcg (500 unit) capsule (Calcium 600 with Vitamin D3) ibuprofen 200 mg tablet 200 mg PO Q6H PRN 12/08/21 multivit with 1 tab PO DAILY 12/08/21 ughbtfys-lmwc-FS-lutein 8 mg iron-400 mcg-300 mcg tablet (Centrum Silver Women) oxycodone 5 mg tablet 5 mg PO BID PRN 12/08/21 sennosides 8.6 mg-docusate sodium 1 tab-cap PO QHS 12/08/21 50 mg tablet (Senna-S) vit C 250 mg-vit E 200 unit-zinc 1 cap PO DAILY 12/08/21 ox 12.5 mo-amygvt-tggeqo-zeax capsule (ICaps AREDS2) Current Visit Medications: Current Medications Generic Name Dose Route Start Last Admin Trade Name Freq PRN Reason Stop Dose Admin Acetaminophen 1,000 mg 12/08/21 12:53 12/10/21 19:36 Acetaminophen 500 Mg Tab PO 1,000 mg Q6H PRN PRN Administration Albuterol Sulfate 2 puff 12/08/21 23:48 Albuterol Hfa 8 Gm 60 Puff Inh IH Q4H PRN PRN Atorvastatin Calcium 20 mg 12/09/21 22:00 12/10/21 22:00 Atorvastatin 20 Mg Tab PO 20 mg HS BREEZY Administration Buspirone HCl 10 mg 12/09/21 08:30 12/10/21 19:35 Buspirone 5 Mg Tab PO 10 mg BID BREEZY Administration Calcium/Vitamin D 1 tab 12/09/21 08:30 12/10/21 08:16 Calcium 600mg/Vit D 200u Tab PO 1 tab DAILY BREEZY Administration Cholecalciferol 1,000 units 12/08/21 08:30 12/10/21 08:16 Cholecalciferol (Vitamin D3) 1,000 Unit Tab PO 1,000 units DAILY BREEZY Administration Clotrimazole 60 gm/ Zinc Oxide 0 gm 12/09/21 14:00 12/10/21 19:37 60 gm/ Vitamin A/Vitamin D 60 TP 1 applicatio gm TID BREEZY Administration Device 1 each 12/08/21 23:45 Inhaler, Assist Device DIRECTED BREEZY Diphenhydramine HCl 25 mg 12/08/21 12:53 12/09/21 01:34 Diphenhydramine 25 Mg Cap PO 25 mg Q6H PRN PRN Administration Docusate Sodium 100 mg 12/08/21 12:51 Docusate Sodium 100 Mg Cap PO BID PRN PRN Duloxetine HCl 60 mg 12/09/21 22:00 12/10/21 22:00 Duloxetine 30 Mg Cap PO 60 mg HS BREEZY Administration Furosemide 40 mg 12/08/21 23:48 Furosemide 40 Mg Tab PO DAILY PRN PRN Ondansetron HCl 4 mg/ Sodium 52 mls @ 200 mls/hr 12/08/21 12:51 Chloride IVPB Q6H PRN PRN Ringer's Solution 1,000 mls @ 75 mls/hr 12/10/21 23:59 12/11/21 00:11 IV 75 mls/hr INFUSION BREEZY Administration IV Miscellaneous Supplies 1 each 12/08/21 06:00 Iv Access IV 01/07/22 23:59 DIRECTED BREEZY Ketorolac Tromethamine 15 mg 12/08/21 23:50 12/11/21 03:48 Ketorolac 15 Mg/Ml Vial IVP 12/13/21 23:49 15 mg Q6H PRN PRN Administration Lactobacillus Acidophilus/Casei 1 cap 12/09/21 08:30 12/10/21 08:16 L. Acidophilus, Casei, Rhamnosus Cap PO 1 cap DAILY BREEZY Administration Morphine Sulfate 2 - 4 mg 12/09/21 15:14 12/11/21 00:23 Morphine 4 Mg/Ml Syr IVP 2 mg Q2H PRN PRN Administration Oxybutynin Chloride 15 mg 12/09/21 22:00 12/10/21 21:59 Oxybutynin-Cr 5 Mg Tabcr PO 15 mg HS BREEZY Administration Oxycodone HCl 5 - 10 mg 12/08/21 12:53 12/10/21 19:36 Oxycodone 5 Mg Tab PO 5 mg Q4H PRN PRN Administration Senna/Docusate Sodium 1 tab 12/09/21 22:00 12/10/21 22:00 Sennosides/Docusate Sodium Tab PO 1 tab HS BREEZY Administration Sodium Chloride 0 ml 12/08/21 06:00 12/11/21 03:49 Normal Saline Flush 10 Ml Syr IV 01/07/22 23:59 10 ml PRN PRN Administration Sodium Chloride 0 ml 12/08/21 06:00 Normal Saline 10 Ml Vial IJ 01/07/22 23:59 DIRECTED PRN Sterile Water 0 ml 12/08/21 06:00 Water,Injection,Sterile 10 Ml Vial IJ 01/07/22 23:59 DIRECTED PRN Trazodone HCl 150 mg 12/09/21 22:00 12/10/21 22:00 Trazodone 50 Mg Tab PO 150 mg HS BREEZY Administration PFSH Active Problems Active Problems: Problem Status Onset Code Fracture dislocation of left ankle joint S82.892A Cellulitis of right lower leg L03.115 Chronic kidney disease ~08/2017 N18.9 Hematoma of right lower extremity ~02/28/20 S80.11XA Acute blood loss anemia D62 Depression F32.9 Adenocarcinoma of endometrium, stage 1 ~02/2020 C54.1 Visit for wound check Z51.89 Wound infection T14.8XXA, L08.9 Hepatic steatosis K76.0 Acute kidney injury N17.9 Back pain M54.9 Left leg DVT 02/24/20 I82.402 Chronic anticoagulation Z79.01 Thickened endometrium R93.89 Postmenopausal bleeding N95.0 Medical History Medical History (Updated 12/10/21 @ 09:44 by Simone Bhakta MD) 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 MRSA infection (methicillin-resistant Staphylococcus aureus) (~01/2014) Medical History Comments:: Leann 2x week Surgical History Surgical History History of total right hip arthroplasty Status post closed fracture of right tibia (~12/2014) total of 9 surgeries from 2013 through 2014; had initial ORIF done at [place], [place] but subsequent surgeries were done to treat complications of MRSA infections in right leg Status post total bilateral knee replacement Tobacco Smoking/Tobacco Use Status: Current-Occasional Tobacco Type: e-cigarettes Alcohol Alcohol Intake: former Substance Use Substance use: Occasionally Substance use type: former substance user and marijuana Vital Signs and Lab Results Vital Signs Most Recent Vital Signs in EMR: Most Recent Vital Signs Temp Pulse Resp BP Pulse Ox 35.9 C L 61 19 131/80 96 12/11/21 07:36 12/11/21 07:36 12/11/21 07:36 12/11/21 07:36 12/11/21 07:36 Lab Results Result Diagrams: 12/10/21 05:40 12/09/21 05:32 Blood Type / Crossmatch: No Data to Display Complete Blood Count: White Blood Count 12.59 10^3/uL (4.4-10.8) H 12/09/21 05:32 Red Blood Count 3.75 10^6/uL (3.93-5.22) L 12/09/21 05:32 Hemoglobin 11.6 g/dL (11.2-15.7) 12/09/21 05:32 Hematocrit 36.3 % (36.0-46.0) 12/09/21 05:32 Platelet Count 209 10^3/uL (130-400) 12/10/21 05:40 Complete Metabolic Panel: Sodium Level 140 mmol/L (136-145) 12/09/21 05:32 Potassium Level 4.7 mmol/L (3.5-5.1) 12/09/21 05:32 Chloride Level 110 mmol/L (98-107) H 12/09/21 05:32 Carbon Dioxide Level 19.2 mmol/L (21.0-32.0) L 12/09/21 05:32 Blood Urea Nitrogen 29 mg/dL (7-18) H 12/09/21 05:32 Creatinine 1.4 mg/dL (0.55-1.02) H 12/09/21 05:32 Calcium Level 8.7 mg/dL (8.5-10.1) 12/09/21 05:32 Albumin 2.9 g/dL (3.4-5.0) L 12/09/21 05:32 Glucose Level 138 mg/dL (74-106) H 12/09/21 05:32 Hemoglobin A1c 5.5 % (<5.7) 12/09/21 05:32 Liver Function Panel: Alanine Aminotransferase (ALT/SGPT) 20 U/L (14-59) 12/09/21 05: 32 Aspartate Amino Transf (AST/SGOT) 15 U/L (15-37) 12/09/21 05:32 Coagulation Panel: No Data to Display Cardiac Panel: No Data to Display Arterial Blood Gas: No Data to Display Venous Blood Gas: 2 No Data to Display Pancreas Panel: No Data to Display Thyroid Panel: No Data to Display Infectious Disease: Coronavirus (COVID-19)(PCR) Negative (Negative) 12/08/21 12:18 Coronavirus 2019 Source Nasal/Nares 12/08/21 12:18 Blood Cultures: No Data to Display Toxicology Panel: No Data to Display Imaging and Studies Imaging and Studies Study information below may be from another EMR and interpreted by another provider. Please see original notes in EMR for more complete details. EKG Summary: 03/25/2020 Conclusion Sinus rhythm...normal P axis, V-rate 60- 99 Low voltage, precordial leads...precordial leads <1.0mV Echocardiogram Summary: 02/25/20: Conclusion Normal left ventricular chamber size and systolic function. Estimated ejection fraction is 60%. There are no segmental wall motion abnormalities Normal right ventricular size and systolic function Both atria are normal in size Mildly sclerotic trileaflet aortic valve with no stenosis or regurgitation Mild mitral annular calcification. Trace mitral regurgitation Structurally normal tricuspid valve with trace to mild regurgitation. Normal estimated right ventricular systolic pressure The pulmonic valve is not well visualized Mildly dilated ascending aorta measuring 3.4 cm Anesthesia Assessment and Plan Anesthesia History Personal History: No History of Anesthesia Complications Family History: No Family History of Anesthesia Complications Exercise Tolerance Exercise Tolerance: Metabolic Equivalents>4 Cardiac & Pulmonary Exam Cardiac Exam: Normal S1/S2 Heart Sounds Pulmonary Exam: Clear Bilateral Breath Sounds Implantable Cardiac Device Does patient have a Pacemaker or an ICD?: No Airway Exam Known Difficult Airway: No Mallampati Class: 1 Mouth Opening: Normal (> 3cm) Thyromental Distance: Greater than 3 cm Neck Range of Motion: Full ROM Neck Circumference: Normal Teeth Condition: Normal Dentition ASA Classification ASA Score: ASA 3 Emergency Case?: No NPO Status NPO Status: NPO Clears >2 hours, Solids >8 hours Anesthesia Plan Resuscitation Status: Full Code Anesthesia Technique: General Anesthesia Airway Planned: Endotracheal Tube Pain Management: Surgeon and patient request nerve block Monitors Used: Standard Monitors Preoperative Comments:: 71 yo female for ORIF left ankle. Sig PMHx: GFR 40/CKDIII, depression, BMI 44, former EtOH abuse. Denies health changes since last with us. Block lasted for ~30 hrs. Previous Anes: easy mask, mac 3 grade 1, had pop/sci and adductor with good effect.
[2021-12-11] MEDS: busPIRone 5 MG TAB 10 MG PO ×2 (07:58→19:38)
[2021-12-11] MEDS: Cholecalciferol (Vitamin D3) 1,000 UNIT TAB 1000 UNITS PO (07:58)
[2021-12-11] MEDS: Calcium 600mg/Vit D 200U TAB 1 TAB PO (07:58)
--- NOTE | 2021-12-11 10:34 | PDOC.CMPRO ---
- If Service Date Differs Date of service: 12/11/21 Time of Service: 10:34 Care Management Progress Note S/O: BJ went to the OR today to have her ankle fracture repaired. CM was not able to meet with her as she was off the unit most of the day. It is anticipated that she will remain acute through the weekend and change to SB-1 status early next week for rehab. CM continues to follow. A: 71 year old female admitted to [facility] 12/08/21 for left ankle fracture dislocation P: Anticipate BJ will discharge home after a short SWB1 for rehabilitation. She will also need new home health services and some medical equipment as her mobility will likely be impaired for a time. CM will continue to support BJ and assess for ongoing discharge needs.
[2021-12-11] MEDS: Lactated Ringers 1,000 ML 30 ML IV (12:24)
--- NOTE | 2021-12-11 12:27 | NT_ITS ---
Date of service: 12/11/21 Time of Service: 12:27 PT Notes Visit Reasons: Left ankle fracture dislocation 12/11/2021 Hold PT today due to ORIF procedure scheduled for today. Will resume PT services as directed by orthopedic surgeon. Tracy Gann, MARKETING SUPPORT COORDINATOR
[2021-12-11] MEDS: VANCOMYCIN/WATER (PEG) 2 GM/400 ML BAG IVPB (12:33)
[2021-12-11] MEDS: ceFAZolin 3,000 MG in Normal Saline 100 ML 200 MG IVPB (12:33)
--- NOTE | 2021-12-11 12:48 | W.ANESNERVE ---
Nerve Block Single Injection Procedure Date and Time Date Performed: 12/11/21 Procedure Start: 12:06 Location Where Procedure Performed Procedure Location: PACU Reason Performed: Postoperative Analgesia Requesting Provider: Simone Bhakta Timeout Performed Timeout Performed: Yes Monitoring Used ECG, Blood Pressure and SpO2 Sterility Sterility: Hand Hygiene, Surgical Cap, Surgical Mask, Sterile Gloves and Chlorhexidine Sedation Given During Procedure Sedation Given (Indicate Dose Given): Versed IV Dose:: 2 mg Patient Mental Status Patient Mental Status: Awake Nerve Block 1st Nerve Block: Laterality: Left Block Type: Adductor Canal Needle / Catheter Used: 120mm SonoPlex II Local Anesthetic Bolus (Indicate Dose Given): Lidocaine used for local infiltration of skin, Injected in 3-5ml increments after negative blood aspiration and Bupivacaine 0.375% Dose:: 10 mL Additives (Indicate Dose Given): Precedex Dose:: 26.6 mcg Ultrasound: Sterile probe cover and gel used Ultrasound Image Saved?: Yes Nerve Stimulator: Supplement to Ultrasound use and Other Paresthesia: Left (felt in ankle breifly as needle was coming out. ) Paresthesia Duration: Transient Procedure Tolerated: No Complications Procedure Outcome: Successful Performed By: Tae Cardona 2nd Nerve Block: Laterality: Left Block Type: Popliteal Sciatic Needle / Catheter Used: 120mm SonoPlex II Local Anesthetic Bolus (Indicate Dose Given): Lidocaine used for local infiltration of skin, Injected in 3-5ml increments after negative blood aspiration and Bupivacaine 0.375% Dose:: 20 mL Additives (Indicate Dose Given): Precedex Dose:: 53.3 mcg Ultrasound: Sterile probe cover and gel used Ultrasound Image Saved?: Yes Nerve Stimulator: Supplement to Ultrasound use and No twitch or parasthesia noted < 0.5 mA Paresthesia: None Procedure Tolerated: No Complications Procedure Outcome: Successful Performed By: Tae Cardona
[2021-12-11] MEDS: Bupivacaine 0.5% Pres-Free W/EPI 30 ML VIAL (12:55)
--- NOTE | 2021-12-11 14:53 | DI.RAD_ITS ---
Exam(s) XR ANKLE LT 2V EXAM: XR ANKLE LT 2V CLINICAL HISTORY: Fracture dislocation of left ankle joint TECHNIQUE: 2D and realtime digital imaging was performed. CONTRAST MATERIAL: Refer to procedure report. COMPARISON: XA XR ANKLE LT COMPLETE from 12/08/2021 CR XR ANKLE LT COMPLETE from 12/08/2021 FINDINGS: Fluoroscopy was provided for Dr. Bhakta during the performance of a open reduction and internal fixat ion of the left ankle fracture dislocation. Please refer to the procedure report for complete detail julienne Clement=2.02 mGy IMPRESSION: RADIATION DOSE DELIVERED:
[2021-12-11] MEDS: HYDROmorphone 2 MG/ML SYR IVP (15:45)
--- NOTE | 2021-12-11 16:10 | W.PM.PROGNOT ---
Date of Service Date of service: 12/11/21 Time of Service: 16:21 Assessment and Plan Assessment and plan (1) Fracture dislocation of left ankle joint: Status: Acute Assessment and plan: 71-year-old female postop day #0 status post left ankle and syndesmosis ORIF Comfortable, splint clean dry intact, demonstrates good motor and sensation distal foot and toes Complete 24 hours of prophylactic antibiotics: Cefazolin and vancomycin due to MRSA history Multimodal pain control Strict elevation left ankle while in bed or chair Encourage toe motion to prevent stiffness and improve circulation Right leg Brandon manriquez and/or ALYX Physical therapy and Occupational Therapy ordered Toe-touch weightbearing left ankle. May rest splint/foot on ground for stance and balance. Lovenox resuming tomorrow to complete 30 days of DVT prophylaxis Planning for discharge home versus swing bed status with case management assistance as soon as tomorrow afternoon Objective Last Vital Signs Temp 97.5 F L 12/11/21 15:50 Pulse 58 L 12/11/21 15:50 Resp 12 12/11/21 15:50 BP 100/73 12/11/21 15:50 Pulse Ox 98 12/11/21 15:50
--- NOTE | 2021-12-11 16:10 | W.PM.OP ---
Operative Note Operative Note DATE OF PROCEDURE: 12/08/21 PRE-OP DIAGNOSIS: Left trimalleolar ankle fracture dislocation POST-OP DIAGNOSIS: same PROCEDURE: 1. Left trimalleolar ankle fracture, ORIF medial and lateral malleoli, CPT #43803 2. Open treatment syndesmosis disruption, CPT #57892 SURGEON: Simone Bhakta VICE PRESIDENT OF HUMAN RESOURCES: Tracy Abebe ANESTHESIA TYPE: Local By Surgeon, General LMA/ETT and Primary Nerve Block Refer to Anesthesia Record ESTIMATED BLOOD LOSS: 15 TOURNIQUET TIME: 0 COMPLICATIONS: None Patient was transported to: PACU Patient's condition: stable Implants: Synthes 2.7 mm locking distal fibula plate with 6 distal locking screws, one cortex metaphyseal, and 3 proximal locking screws Single 4.0 partially-threaded cancellous medial malleolus screw 2x 4.0mm cortex syndesmosis screw Indications: Please see complete medical record for details. Findings: Significantly displaced shortened and comminuted trimalleolar ankle fracture dislocation with unstable syndesmosis Procedure Description: In the operating room, general anesthesia was induced. The patient was positioned supine on the operating room table. All bony prominences were well-padded. Preoperative antibiotics were administered. The left ankle was prepped and draped in the usual sterile fashion. The correct patient, procedure, and side of the procedure were all verified prior to incision. The longitudinal posterior lateral approach to the fibula was used centered over the fracture site extended proximally distally as necessary through significant subcutaneous tissue taking care to protect the superficial peroneal nerve with was identified at the most proximal aspect of the incision and exposing the significantly shortened fibula fracture. Significant fibrinous and early healing tissue was removed for exposure and reduction. Bone clamps as well as direct ankle manipulation was used to obtain majority of the reduction. The medial malleolus remained significantly displaced and obviously rotated. A medial curvilinear incision was made with direct approach down to the completely flipped largest of the medial malleolus bone pieces. There were many smaller pieces. In the ankle joint exposed and loose bodies cartilaginous and from fracture irrigated out from the ankle joint. The only real medial malleolus piece that had enough size or bone quality to be used was manipulated back into position as best possible accounting for bone loss and provisionally clamped. Attention was turned back laterally and bone clamps were used to obtain the remaining amount of fibular fracture length for complete reduction. The ankle mortise appeared very reasonable. Lateral fluoroscopy was used to now visualize the posterior malleolus fracture fragments that were known to be complex and posterior lateral. A [place] was passed behind the fibula and a bump placed behind the heel. Under fluoroscopic guidance direct posterior pressure and exaggerated dorsiflexion reduce the posterior fragments fairly well. An attempted lag screw across the distal fibula fracture was not used due to poor bone quality. An appropriately length distal fibular locking plate was selected and centered over the distal fibula flare and clamped to the proximal fibula while maintaining reduction. A cortex screw was placed proximally and distally to compress plate to bone. Remaining proximal and distal locking screw holes were drilled and filled. The initial distal cortex screw removed due to poor purchase. The oblong holes were then used for syndesmotic screws. The heel was floated and lateral ankle fluoroscopy used to show excellent tibial talus relationship. With the ankle in neutral dorsiflexion and fluoroscopic guidance the distal and then more proximal syndesmosis screws were drilled and placed in quad cortical fashion. Lastly, attention was turned back to the medial malleolus and owing to the bone loss and limited good bone available, a single central screw placed here. Final fluoroscopic images showed good distal fibula fracture reduction and fibular length. The syndesmosis was appropriate. External rotation stress views confirm stable ankle mortise. The posterior malleolus fracture fragments were reasonably reduced. The medial malleolus was in acceptable position accounting for bone loss. The wounds were copiously irrigated with Betadine and normal saline. Subcutaneous tissue closed using 2-0 Monocryl. Skin closed using 3-0 nylon. The extremity cleansed with diluted hydrogen peroxide, dried, and Xeroform applied over the incisions followed by 4 x 4's, ABD pads, and sterile soft roll. An appropriately padded and molded short leg AO splint was applied. The patient awoke from anesthesia without complication and was transferred to the recovery room in a stable condition.
--- NOTE | 2021-12-11 16:39 | W.ANESPOSTOP ---
Postoperative Evaluation Date, Time and Location Date Performed: 12/11/21 Time Performed: 16:39 Patient Location: Day Surgery Unit Vital Signs Most Recent Imported Vital Signs: Most Recent Vital Signs Temp Pulse Resp BP Pulse Ox 36.3 C L 57 L 15 98/55 L 94 12/11/21 16:24 12/11/21 16:24 12/11/21 16:24 12/11/21 16:24 12/11/21 16:24 Most Recent Vital Signs Temp Pulse Resp BP Pulse Ox 36.2 C L 67 14 101/53 L 97 12/08/21 14:34 12/08/21 14:34 12/08/21 14:34 12/08/21 14:34 12/08/21 14:34 Pain Score Most Recent Pain Score: Most Recent Pain Score Pain Level 6 12/11/21 16:24 Assessment Mental Status: Awake (Alert & Oriented to Patient Baseline) Airway and Respiratory Function: Patent airway with normal (patient baseline) respiratory exam Cardiovascular Function: Hemodynamically Stable Hydration Status: Adequately Hydrated Nausea & Vomiting: No Nausea or Vomiting Pain: Pain is tolerable per patient Peripheral Nerve Block: Regional nerve block not resolved at time of post operative discharge
[2021-12-11] MEDS: oxyCODONE 5 MG TAB PO (18:16)
[2021-12-11] MEDS: Naproxen 500 MG TAB PO (18:16)
[2021-12-11] MEDS: ceFAZolin 1 GM/50 ML BAG IVPB (19:38)
[2021-12-11] MEDS: Oxybutynin-CR 5 MG TABCR 15 MG PO (21:20)
[2021-12-11] MEDS: Sennosides/Docusate Sodium TAB 1 TAB PO (21:20)
[2021-12-11] MEDS: traZODone 50 MG TAB 150 MG PO (21:20)
[2021-12-11] MEDS: DULoxetine 30 MG CAP 60 MG PO (21:21)
[2021-12-11] MEDS: Atorvastatin 20 MG TAB PO (21:21)
[2021-12-11] MEDS: Acetaminophen 500 MG TAB 1000 MG PO (21:30)
[2021-12-12] MEDS: Normal Saline Flush 10 ML SYR IV ×4 (00:04→17:42)
[2021-12-12] MEDS: oxyCODONE 5 MG TAB PO ×4 (00:04→17:43)
[2021-12-12] MEDS: VANCOMYCIN/WATER (PEG) 2 GM/400 ML BAG IV ×2 (00:05→15:27)
[2021-12-12] MEDS: diphenhydrAMINE 25 MG CAP PO (02:12)
[2021-12-12] MEDS: Acetaminophen 500 MG TAB 1000 MG PO ×2 (03:14→17:43)
[2021-12-12] MEDS: traMADol 50 MG TAB PO (03:14)
[2021-12-12] MEDS: ceFAZolin 1 GM/50 ML BAG IVPB ×2 (03:15→17:43)
[2021-12-12 06:56] LABS: Absolute Eosinophil Count 0.17 10^3/uL (0.0-0.7); Absolute Lymphocyte Count 0.84 10^3/uL (1.2-3.4); Basophils % 0.2; HCT 32.6 % (36.0-46.0); HGB 10.7 g/dL (11.2-15.7); Immature Grans % 0.6; MCHC 32.8 % (32.0-36.0); MCV 95 fL (80-95); MPV 9.1 fL (8.0-11.0); Monocytes % 6.5; Neutrophils % 86.7; Platelet Count 244 10^3/uL (130-400); RBC 3.45 10^6/uL (3.93-5.22); RDW 13.2 % (11.7-14.6); RDW-SD 45.7 fL; WBC 16.86 10^3/uL (4.4-10.8)
[2021-12-12 06:57] LABS: Absolute Basophil Count 0.03 10^3/uL (0.0-0.2); Absolute Neutrophil Count 14.62 10^3/uL (1.2-6.7)
[2021-12-12 07:11] LABS: Anion Gap 10.1 mmol/L (3-11); BUN 35 mg/dL (7-18); CO2 21.9 mmol/L (21.0-32.0); CREATININE 1.5 mg/dL (0.55-1.02); Calcium 8.4 mg/dL (8.5-10.1); Chloride 108 mmol/L (98-107); Estimated GFR 37.03 (mL/min/1.73m2); Glucose 142 mg/dL (74-106); Potassium 4.5 mmol/L (3.5-5.1); Sodium 140 mmol/L (136-145)
[2021-12-12 08:00] VITALS: BP 121/78; PULSE 69; RESP 16; TEMP 36.8; O2SAT 94
[2021-12-12] MEDS: Enoxaparin 40 MG/0.4 ML SYR SC (09:01)
[2021-12-12] MEDS: Calcium 600mg/Vit D 200U TAB 1 TAB PO (09:01)
[2021-12-12] MEDS: busPIRone 5 MG TAB 10 MG PO (09:02)
--- NOTE | 2021-12-12 09:17 | IN_ITS ---
Date of service: 12/12/21 Time of Service: 09:00 PT Notes Visit Reasons: Left ankle fracture dislocation Referring Doctor: Simone Bhakta MD PT Orders: PT CONSULT: S/P L ankle ORIF, TTWB LLE Precautions: Fall. Standard. TTWB L LE with AD. Patient Profile/Admitting Diagnosis:? Carine is a 71-year-old female who sustained a trimalleolar fracture from a fall at home a week ago.? She is status ORIF 12/11/21. PMHX: All Active Problems?(Updated 12/08/21 @ 12:43 by Simone Bhakta MD) Dislocation of ankle, left, closed (Acute) Bimalleolar ankle fracture (Acute 11/30/21) Cellulitis of right lower leg (Acute) Chronic kidney disease (Chronic ~08/2017) initially attributed to acute dehydration/heat stroke in August 2017 but probably had some CKD secondary to her MRSA infections and chronic? antibiotics; followed by Dr. Sarah Cid, cloth measurer machine in [place], [place] ([facility] Hematoma of right lower extremity (Acute ~02/28/20) Acute blood loss anemia (Acute) Depression (Chronic) Adenocarcinoma of endometrium, stage 1 (Acute ~02/2020) endometrial biopsy done and positive per [facility] 03/10/2020 Visit for wound check (Acute) Wound infection (Acute) Hepatic steatosis (Chronic) Acute kidney injury (Acute) Back pain (Acute) Chronic anticoagulation (Acute) Thickened endometrium (Acute) Postmenopausal bleeding (Acute) Medical History?(Updated 12/08/21 @ 12:43 by Simone Bhakta MD) 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 History of total right hip arthroplasty Status post closed fracture of right tibia (~12/2014) total of 9 surgeries from 2013 through 2014; had initial ORIF done at [place], [place] but subsequent? surgeries were done to treat complications of MRSA infections in right leg Status post total bilateral knee replacement Social History/Home Situation: Lives alone in a private home with 3 steep steps to enter with rails on both sides.? She has somebody who lives close by and can help as needed.? 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 Equipment Owned/DME: FWW, SPC, 4-wheeled scooter Subjective: Agreeable to PT consult.? C/o pain diffusely about the left ankle. She has not had the opportunity to sleep much, and is hoping to be able to do that today. She has a scooter, loaned to her from a friend, that she intends to use for mobility when able. Objective: General Observation: Supine in bed with L LE elevated on a pillow.? Splint on L ankle and lower leg, Dr. Bhakta and RN presents, changing banadages due to bleeding. Mental Status: Alert and oriented as to person, place, time, and purpose. Able to pay attention, focus, and respond appropriately. Pain: 10/11 L ankle Vital Signs: WNL as closely monitored by nursing staff ROM: Right Lower Extremity: Hip flexion WFL. Hip abduction WFL. Knee flexion WFL. Ankle dorsiflexion WFL. Ankle plantarflexion WFL. Left Lower Extremity: Hip flexion WFL. Hip abduction WFL. Knee flexion WFL. Ankle splinted. Strength: Right Lower Extremity: Hip flexors 4/5. Hip abductors 4/5. Knee flexors 5/5. Knee extensors 5/5. Ankle dorsiflexors 5/5. Ankle plantarflexors 5/5. Left Lower Extremity: Not assessed today due to L LE pain. Bed Mobility/Transfers: Supine to sit close supervision Sit to supine close supervision Sit to stand contact guard assist using bariatric FWW Stand to sit contact guard assist using bariatric FWW Bed to reclining chair contact guard assist using bariatric FWW, LLE TTWB Independent with use of chair recline Gait: TTWB L LE with bariatric FWW, 4 steps. Balance: Static Sitting: Normal Dynamic Sitting: Normal Static Standing: Fair Dynamic Standing: Fair Special Tests: Mobility Limitations Standardized Measure [facility] AM-PAC 6 clicks Basic Mobility Inpatient Short Form: 46% disability ? ? Informed Consent/Education:? Patient was instructed in purpose of PT consult and plan of care. Agreeable to proceed with established PT POC to achieve personal goals. Assessment: 71 y.o. female S/P L ankle ORIF 12/12/21, after dislocation and tri-malleolar fracture. Good UE strength allows for consistent compliance with weight bearing precautions.? PT plan of care to mainly focus on transfer training and short distance ambulation as well as bed level and seated range of motion exercises to reduce postoperative complications while minimizing mobility decline.? Will progress transfer and ambulation level as tolerated, with training in use of scooter.? Patient presents with clinical signs and symptoms consistent with current/admitting diagnoses that have resulted to mobility limitations, gait instability, and overall ADL decline as demonstrated by the following impairment level findings: 1.? Decreased strength to L LE major muscle groups 2.? Impaired sitting/standing balance - patient must keep legs elevated due to current bleeding in L ankle. 3.? Impaired activity tolerance 4.? TTWB of motion in L ankle Impairments are contributing to the following functional limitations: 1.? Decline in bed mobility skills 2.? Assist in transfer skills 3.? Difficulty with ambulation without assistive device and physical assistance 4.? Increased completion time for mobility ADL performance 5.? Increased risk for falls 6.? Difficulty with managing steps alone safely Patient is assessed as a 60569 moderate complexity based on the following: History: 71-year-old female with past medical history as indicated above Examination: Demonstrable impairment in strength, balance, and mobility level with underlying impairments and functional limitations as exhibited above as well as deficit score of 46% utilizing the [facility] Mobility Inpatient Short Form Presentation: Evolving Decision Making: Easy Goals: Goals X1 week 1. Supine-Sit independent 2. Sit-Supine independent 3. Sit-Stand independent 4. Stand-Sit independent with FWW 5. Bed-Chair independent with FWW 6. Chair-Bed independent with FWW 7. Independent gait on level surface with use of FWW for at least 30 feet, for household distance and independent use of scooter. 8. CG stair negotiation while holding onto B rails for at least 3 steps 9. Independent with home exercise program 10. Good static and dynamic standing balance/tolerance with use of FWW Plan of Care/Treatment Plan: 1-2x/day, 7 days/week x 1 week. Plan of care has been reviewed with the CODER OPERATOR providing the service under Physical Therapy direction. Initiate Physical Therapy intervention for pain management as needed, strengthening, bed mobility, transfers, gait, stairs, balance training, and use of assistive device. DISCHARGE RECOMMENDATIONS: [] ? Home with no services [] [] ? Home with services [specify] [] ? Home with outpatient PT [] [] ? SNF for continued rehabilitation [] [] ? [facility] [] [] ? SNF versus LTC based on ability to participate and progress [] [X]? SNF vs HH PT depending on progress towards goals TREATMENT CODE/TIME: 38362 x 20 minutes, beginning at 9:00 a.m..? Thank you for the opportunity to participate in the care of this patient. Corrine Smallwood, MPT
--- NOTE | 2021-12-12 09:46 | W.PM.DSUDISC ---
Discharge Plan Disposition Patient Disposition: [facility] SWING BED LEVEL 1 Condition: Stable Discharge Details Reason For Visit: Left ankle fracture dislocation Admit Date/Time: 12/08/21 12:47 Admit Provider: Simone Bhakta Attending Provider: Simone Bhakta Primary Care Provider: Stuart Tena Hospital Course Hospital Course: Admitted 12/08/2021 for Left ankle fracture dislocation suffered the week prior and dislocated while home in splint. Close reduction 12/08/2021 Dr. Hernandez. ORIF 12/11/2021 Dr. Bhakta. Postoperative course uncomplicated. Transferred to hospitalist service for swing bed rehabilitation. Home Meds and New Rx's Prescriptions: Continued sennosides-docusate sodium [Senna-S] 8.6-50 mg tablet 1 tab-cap PO QHS calcium carbonate-vitamin D3 [Calcium 600 with Vitamin D3] 600 mg-12.5 mcg (500 unit) capsule 1 cap PO DAILY duloxetine [Cymbalta] 60 mg Capsule,Delayed Release(Dr/Ec) 60 mg PO HS furosemide 40 mg Tablet 40 mg PO DAILY PRN trazodone 150 mg Tablet 150 mg PO HS oxybutynin chloride 10 mg tablet extended release 24hr 15 mg PO HS Label Comments: TAKE 1 TABLET BY MOUTH ONCE DAILY albuterol sulfate [Ventolin HFA] 90 mcg/actuation Hfa Aerosol Inhaler 2 puff inhalation Q4H PRN PRNQty: 1 0RF buspirone 10 mg tablet 10 mg PO BID Label Comments: TAKE 1 TABLET BY MOUTH BID atorvastatin 20 mg tablet 20 mg PO HS Discontinued Tylenol Extra Strength 500 mg powder in packet 500 mg PO Q6H PRN Centrum Silver Women 8 mg iron-400 mcg-300 mcg tablet 1 tab PO DAILY ICaps AREDS2 250 mg-200 unit -12.5 mg-1 mg capsule 1 cap PO DAILY ibuprofen 200 mg Tablet 200 mg PO Q6H PRN oxycodone 5 mg Tablet 5 mg PO BID PRN Ensure High Protein Liquid 240 ml PO TID Qty: 5688 0RF aspirin 81 mg capsule 81 mg PO DAILY Qty: 7 0RF Discharge Instructions Referrals: Simone Bhakta MD [ [facility] STAFF PHYSICIAN] - Activity:: TTWB LLE Equipment/Supplies:: Walker Diet:: As Tolerated DS: Diagnosis Discharge Diagnosis (1) Fracture dislocation of left ankle joint: Status: Acute
--- NOTE | 2021-12-12 09:54 | W.PM.DS.N ---
DS: Diagnosis Discharge Diagnosis (1) Fracture dislocation of left ankle joint: Status: Acute Discharge Plan Disposition Patient Disposition: [facility] SWING BED LEVEL 1 Condition: Stable Discharge Details Reason For Visit: Left ankle fracture dislocation Admit Date/Time: 12/08/21 12:47 Admit Provider: Simone Bhakta Attending Provider: Simone Bhakta Primary Care Provider: Stuart Tena Hospital Course Hospital Course: Admitted 12/08/2021 for Left ankle fracture dislocation suffered the week prior and dislocated while home in splint. Close reduction 12/08/2021 Dr. Hernandez. ORIF 12/11/2021 Dr. Bhakta. Postoperative course uncomplicated. Transferred to hospitalist service for swing bed rehabilitation. Home Meds and New Rx's Prescriptions: Continued sennosides-docusate sodium [Senna-S] 8.6-50 mg tablet 1 tab-cap PO QHS calcium carbonate-vitamin D3 [Calcium 600 with Vitamin D3] 600 mg-12.5 mcg (500 unit) capsule 1 cap PO DAILY duloxetine [Cymbalta] 60 mg Capsule,Delayed Release(Dr/Ec) 60 mg PO HS furosemide 40 mg Tablet 40 mg PO DAILY PRN trazodone 150 mg Tablet 150 mg PO HS oxybutynin chloride 10 mg tablet extended release 24hr 15 mg PO HS Label Comments: TAKE 1 TABLET BY MOUTH ONCE DAILY albuterol sulfate [Ventolin HFA] 90 mcg/actuation Hfa Aerosol Inhaler 2 puff inhalation Q4H PRN PRNQty: 1 0RF buspirone 10 mg tablet 10 mg PO BID Label Comments: TAKE 1 TABLET BY MOUTH BID atorvastatin 20 mg tablet 20 mg PO HS Discontinued Tylenol Extra Strength 500 mg powder in packet 500 mg PO Q6H PRN Centrum Silver Women 8 mg iron-400 mcg-300 mcg tablet 1 tab PO DAILY ICaps AREDS2 250 mg-200 unit -12.5 mg-1 mg capsule 1 cap PO DAILY ibuprofen 200 mg Tablet 200 mg PO Q6H PRN oxycodone 5 mg Tablet 5 mg PO BID PRN Ensure High Protein Liquid 240 ml PO TID Qty: 5688 0RF aspirin 81 mg capsule 81 mg PO DAILY Qty: 7 0RF Discharge Instructions Additional Instructions: Surgery: Left ankle and syndesmosis ORIF Activity: Toe-touch weightbearing left ankle. May rest splint/foot on ground for stance and balance. Strict elevation left ankle. Wiggle toes to prevent stiffness and encourage increase circulation. Prescriptions: To be determined on hospital discharge Dressings: Leave splint and dressing in place until follow-up. Keep clean and dry at all times. Follow-up: 10-[address] Bhakta Let us know right away if you develop any redness, drainage, fevers, chest pain, or trouble breathing. Do not drink alcohol or drive for at least 24 hours after anesthesia. Please call the office during business hours with any questions or concerns. Referrals: Simone Bhakta MD [ [facility] STAFF PHYSICIAN] - Activity:: TTWB LLE Equipment/Supplies:: Walker Diet:: As Tolerated Discharge Orders Discharge Orders: Discharge Order (Routine); Ordered 12/12/21 Ordered By: Simone Bhakta DS: Summary Time Spent with Patient providing and/or coordinating discharge services: Less than 30 minutes Status at Discharge Functional status at discharge: uses cane/walker Overall status at discharge: patient is progressing back to baseline Mental Status: mental status grossly normal Speech and Movement: speech and movement normal Mood: congruent mood Affect: normal affect Exam Narrative Exam Narrative: Resting comfortably in hospital bed. Breathing nonlabored room air. Left lower extremity able to demonstrate good straight leg raise. Nerve block worn off with full sensation and good motor about exposed foot and toes. Brisk cap refill. Posterior lateral serosanguineous splint drainage. [place] bandages unwrapped, soft roll and OR gauze and ABDs removed, and replaced with generous new ABDs and wrapped with fresh [place] bandages. Psych Mental Status: mental status grossly normal Speech and Movement: speech and movement normal Mood: congruent mood Affect: normal affect DS: Data Vitals/I&O Vitals and I&O: Vital Signs Temperature 98.2 F 12/12/21 08:00 Temperature Source Tympanic 12/12/21 08:00 Pulse 69 12/12/21 08:00 Pulse Rhythm Regular 12/12/21 09:17 Respiratory Rate 16 12/12/21 08:00 Respiratory Effort 12/12/21 09:17 Respiratory Depth Normal 12/12/21 09:17 Respiratory Pattern Normal 12/12/21 09:17 Blood Pressure 121/78 12/12/21 08:00 Blood Pressure Mean 69 12/08/21 14:34 Blood Pressure Position Supine 12/08/21 14:34 Pulse Oximetry 94 12/12/21 08:00 Respiratory End-tidal CO2 390 12/11/21 15:50 Oxygen Delivery Method Room Air 12/12/21 08:00 Oxygen Flow Rate 0 12/12/21 08:00 Pain Level 7 12/12/21 09:02 Comment 12/09/21 15:21 Intake & Output 12/11/21 12/11/21 12/12/21 11:59 23:59 11:59 Intake Total 2049 1360 / 1360 Output Total 1000 / 1000 775 / 775 Balance 1050 / 1050 585 / 585 Weight 291 lb Intake: IV 2049 510 / 510 Oral 850 / 850 Output: Urine 1000 / 1000 775 / 775 Other: Urine Color Yellow Yellow Yellow Urine Appearance Clear Clear Clear Urine Odor Strong Normal Normal Comment pT used bedpan but most of urine went onto pad that was under her. Emesis Description None Voiding Methods Bedpan Bedside Commode Bedside Commode Data Completed and Pending Labs on day of discharge: Labs from last 24 hours 12/12/21 12/12/21 06:26 06:06 WBC 16.86 H RBC 3.45 L Hgb 10.7 L Hct 32.6 L MCV 95 MCH 31.0 MCHC 32.8 RDW 13.2 Plt Count 244 MPV 9.1 Immature Gran % 0.6 Neutrophils % 86.7 Lymphocytes % 5.0 Monocytes % 6.5 Eosinophils % 1.0 Basophils % 0.2 Nucleated RBC % 0.0 Absolute Neutrophils 14.62 H Absolute Lymphocytes 0.84 L Absolute Monocytes 1.10 H Absolute Eosinophils 0.17 Absolute Basophils 0.03 Sodium 140 Potassium 4.5 Chloride 108 H Carbon Dioxide 21.9 Anion Gap 10.1 BUN 35 H Creatinine 1.5 H Est GFR (CKD-EPI 2020) 37.03 Glucose 142 H Calcium 8.4 L PFSH All Active Problems Fracture dislocation of left ankle joint (Acute) Cellulitis of right lower leg (Acute) Chronic kidney disease (Chronic ~08/2017) initially attributed to acute dehydration/heat stroke in August 2017 but probably had some CKD secondary to her MRSA infections and chronic antibiotics; followed by Dr. Sarah [place], regulatory manager in [place], [place] ([facility] Hematoma of right lower extremity (Acute ~02/28/20) Acute blood loss anemia (Acute) Depression (Chronic) Adenocarcinoma of endometrium, stage 1 (Acute ~02/2020) endometrial biopsy done and positive per [facility] 03/10/2020 Visit for wound check (Acute) Wound infection (Acute) Hepatic steatosis (Chronic) Acute kidney injury (Acute) Back pain (Acute) Chronic anticoagulation (Acute) Thickened endometrium (Acute) Postmenopausal bleeding (Acute) Medical History 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 MRSA infection (methicillin-resistant Staphylococcus aureus) (~01/2014) Surgical History History of total right hip arthroplasty Status post closed fracture of right tibia (~12/2014) total of 9 surgeries from 2013 through 2014; had initial ORIF done at [place], [place] but subsequent surgeries were done to treat complications of MRSA infections in right leg Status post total bilateral knee replacement Family History Father , age 86 d/t stroke Stroke Mother , age 85 Heart disease congestive heart failure Sister Sepsis in 2014 d/t sepsis from lymphedema legs Social History Smoking/Tobacco Use Status: Current-Occasional Tobacco Type: e-cigarettes Tobacco: How many years used: 15 Smoking risk assessment performed?: Yes Alcohol Intake: former Drug use: Occasionally Substance use type: former substance user and marijuana Current gender identity: female Do you feel safe at home: Yes Do you feel safe in your relationship?: Yes Female Reproductive History Menstrual Menopause type: natural Date of menopause: 04/04/04
--- NOTE | 2021-12-12 10:00 | W.PM.PROGNOT ---
Date of Service Date of service: 12/12/21 Time of Service: 10:03 Assessment and Plan Assessment and plan (1) Fracture dislocation of left ankle joint: Status: Acute Assessment and plan: 71-year-old female postop day #1 status post left ankle and syndesmosis ORIF Patient comfortable, pleasant, and feeling well. Demonstrates intact motor and sensation distal exposed foot and toes. Strong straight leg raise. Posterior splint serosanguineous drainage: Jose Maria bandages unwrapped, surgical gauze and ABDs removed, and replaced with generous ABD pads, and fresh 4 inch and 6 inch Jose Maria bandaged reapplied. Order placed for dressing changes as needed for drainage. Complete 24 hours of prophylactic antibiotics: Cefazolin and vancomycin due to MRSA history Multimodal pain control Strict elevation left ankle while in bed or chair Encourage toe motion to prevent stiffness and improve circulation Right leg Brandon manriquez and/or SCD Physical therapy and Occupational Therapy ordered Toe-touch weightbearing left ankle. May rest splint/foot on ground for stance and balance. Lovenox resuming today to complete 30 days of DVT prophylaxis. Could consider transition to aspirin 325 mg twice daily on discharge home pending on level of mobility. Discharge from inpatient status later today with transfer to medical hospitalist team for swing bed rehabilitation. Objective Last Vital Signs Temp 98.2 F 12/12/21 08:00 Pulse 69 12/12/21 08:00 Resp 16 12/12/21 08:00 BP 121/78 12/12/21 08:00 Pulse Ox 94 12/12/21 08:00 Laboratory Results - last 24 hr 12/12/21 12/12/21 06:06 06:26 WBC 16.86 H RBC 3.45 L Hgb 10.7 L Hct 32.6 L MCV 95 MCH 31.0 MCHC 32.8 RDW 13.2 Plt Count 244 MPV 9.1 Immature Gran % 0.6 Neutrophils % 86.7 Lymphocytes % 5.0 Monocytes % 6.5 Eosinophils % 1.0 Basophils % 0.2 Nucleated RBC % 0.0 Absolute Neutrophils 14.62 H Absolute Lymphocytes 0.84 L Absolute Monocytes 1.10 H Absolute Eosinophils 0.17 Absolute Basophils 0.03 Sodium 140 Potassium 4.5 Chloride 108 H Carbon Dioxide 21.9 Anion Gap 10.1 BUN 35 H Creatinine 1.5 H Est GFR (CKD-EPI 2020) 37.03 Glucose 142 H Calcium 8.4 L
[2021-12-12] MEDS: Ketorolac 15 MG/ML VIAL IVP (16:20)
[2021-12-12] MEDS: Docusate Sodium 100 MG CAP PO (16:21)
--- NOTE | 2021-12-12 18:10 | NUR.NOTE ---
Nursing Note:transferred to swing bed status at this time.
== END 2021-12-12 14:13 | disposition swing bed (61) | DRG 494 ==
LOC: PDS 12:58 → MS 17:14
PROVIDERS: Student in an Organized Health Care Education/Training Program; Admitting Provider Student in an Organized Health Care Education/Training Program; PCP Physician Assistant; Visit Provider Student in an Organized Health Care Education/Training Program
PROC: 0QSKXZZ Reposition Left Fibula, External Approach (ICD-10-PCS; CPT 27810; principal; 2021-12-08 16:00)
PROC: 0QSH04Z Reposition Left Tibia with Internal Fixation Device, Open Approach (ICD-10-PCS; CPT 27822; principal; 2021-12-11 12:30)
DX: S82.842A Displaced bimalleolar fracture of left lower leg, initial encounter for closed fracture (principal); W19.XXXA Unspecified fall, initial encounter; Z96.653 Presence of artificial knee joint, bilateral; Z96.641 Presence of right artificial hip joint; Z79.01 Long term (current) use of anticoagulants; Z86.718 Personal history of other venous thrombosis and embolism; F32.A Depression, unspecified; N18.9 Chronic kidney disease, unspecified; F10.21 Alcohol dependence, in remission; F17.290 Nicotine dependence, other tobacco product, uncomplicated
CPT/HCPCS: 27810; 27822; 27829; 36415; 76000; 76942; 80048; 80053; 85027; 97110; 97162; 97530; 99205; 99215; J1650; 73600; 73610; 73700; 83036; 85025; 85049; J0690; J1100; J1170; J1885; J2250; J2270; J2405; J2704

== ENCOUNTER 2021-12-12 14:13 | Inpatient (IN) | payer MEDICARE, OTHER, SELFPAY ==
--- NOTE | 2021-12-12 14:16 | HPE_ITS ---
Date of service: 12/12/21 Time of Service: 14:16 Assessment and Plan Assessment and plan (1) Fracture dislocation of left ankle joint: Status: Acute Assessment and plan: postop day #2 status post left ankle and syndesmosis ORIF continue routine post operative care per orthopedics recommendations: Order placed for dressing changes as needed for drainage per orthopedics. Will complete 24 hours of prophylactic antibiotics: Cefazolin and vancomycin due to MRSA history Multimodal pain control Strict elevation left ankle while in bed or chair Encourage toe motion to prevent stiffness and improve circulation Right leg Brandon manriquez and/or ALYX Physical therapy and Occupational Therapy ordered Toe-touch weightbearing left ankle. May rest splint/foot on ground for stance and balance. Lovenox resuming today to complete 30 days of DVT prophylaxis. Could consider transition to aspirin 325 mg twice daily on discharge home pending on level of mobility. (2) Depression: Status: Chronic Assessment and plan: stable, continue home medication (3) Chronic kidney disease: Status: Chronic Assessment and plan: creatinine stable and at baseline will continue to avoid nephrotoxic drugs and monitor Qualifiers: Chronic kidney disease stage: stage 4 (severe) Qualified Code(s): N18.4 - Chronic kidney disease, stage 4 (severe) (4) Discharge planning issues: Status: Acute Assessment and plan: anticipate discharge to home when full inpatient rehab potential met case management following discussed with Dr Morton. History of Present Illness History of Present Illness Chief Complaint: left ankle pain Narrative: This is a 71 year old female with past medical history of chronic kidney disease, DVT, adenocarcimonia of endometrium, depression who was admitted 12/08/2021 for left ankle fracture dislocation suffered the week prior and dislocated while home in splint.? Close reduction 12/08/2021 Dr. Hernandez.? ORIF 12/11/2021 Dr. Bhakta.? Postoperative course uncomplicated.? Transferred to hospitalist service for swing bed rehabilitation. [facility] All Active Problems (Updated 12/12/21 @ 17:02 by Rachel Castillo NP) Discharge planning issues (Acute) Fracture dislocation of left ankle joint (Acute) Cellulitis of right lower leg (Acute) Chronic kidney disease (Chronic ~08/2017) initially attributed to acute dehydration/heat stroke in August 2017 but probably had some CKD secondary to her MRSA infections and chronic antibiotics; followed by Dr. 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 MRSA infection (methicillin-resistant Staphylococcus aureus) (~01/2014) Surgical History History of total right hip arthroplasty Status post closed fracture of right tibia (~12/2014) total of 9 surgeries from 2013 through 2014; had initial ORIF done at [place], [place] but subsequent surgeries were done to treat complications of MRSA infections in right leg Status post total bilateral knee replacement Family History Father , age 86 d/t stroke Stroke Mother , age 85 Heart disease congestive heart failure Sister Sepsis in 2014 d/t sepsis from lymphedema legs Social History Smoking/Tobacco Use Status: Current-Occasional Tobacco Type: e-cigarettes Tobacco: How many years used: 15 Smoking risk assessment performed?: Yes Alcohol Intake: former Drug use: Occasionally Substance use type: former substance user and marijuana Current gender identity: female Do you feel safe at home: Yes Do you feel safe in your relationship?: Yes Female Reproductive History Menstrual Menopause type: natural Date of menopause: 04/04/04 Meds Allergies and Home Medications Allergies Allergy/AdvReac Type Severity Reaction Status Date / Time No Known Allergies Allergy Unverified 12/08/21 11:30 Home Medications Medication Instructions Recorded Confirmed Type duloxetine 60 mg capsule,delayed 60 mg PO HS 02/23/20 12/08/21 History release (Cymbalta) furosemide 40 mg tablet 40 mg PO DAILY PRN 02/23/20 12/08/21 History trazodone 150 mg tablet 150 mg PO HS 02/23/20 12/08/21 History oxybutynin chloride 10 mg 15 mg PO HS 02/25/20 12/08/21 History tablet,extended release 24 hr albuterol sulfate 90 mcg/actuation 2 puff inhalation Q4H PRN PRN #1 g 02/27/20 12/08/21 Rx aerosol inhaler (Ventolin HFA) atorvastatin 20 mg tablet 20 mg PO HS 08/28/21 12/08/21 History buspirone 10 mg tablet 10 mg PO BID 12/08/21 12/08/21 History calcium carbonate 600 mg-vitamin 1 cap PO DAILY 12/08/21 12/08/21 History D3 12.5 mcg (500 unit) capsule (Calcium 600 with Vitamin D3) sennosides 8.6 mg-docusate sodium 1 tab-cap PO QHS 12/08/21 12/08/21 History 50 mg tablet (Senna-S) Exam Const General: cooperative Nutritional Appearance: obese Orientation: alert, awake and oriented x3 HENMT Head: normal to inspection, normocephalic and atraumatic Mouth: oral mucosae normal Resp Effort & Inspection: normal respiratory effort Cardio Rate: regular rate Rhythm: regular rhythm Extrem General: other (splint and dressing intact and dry)
[2021-12-12 15:30] VITALS: BP 106/68; PULSE 68; RESP 18; TEMP 36.8; O2SAT 96
[2021-12-12 18:26] VITALS: BP 121/78; PULSE 69; RESP 16; TEMP 36.8; O2SAT 94
[2021-12-12 19:41] VITALS: BP 129/63; PULSE 71; RESP 16; TEMP 37.2; O2SAT 97
[2021-12-12] MEDS: busPIRone 5 MG TAB 10 MG PO (20:55)
[2021-12-12] MEDS: Enoxaparin 40 MG/0.4 ML SYR SC (20:55)
[2021-12-12] MEDS: traZODone 50 MG TAB 150 MG PO (21:02)
[2021-12-12] MEDS: Atorvastatin 20 MG TAB PO (21:02)
[2021-12-12] MEDS: DULoxetine 30 MG CAP 60 MG PO (21:03)
[2021-12-12] MEDS: Oxybutynin-CR 5 MG TABCR 15 MG PO (21:03)
[2021-12-12] MEDS: Sennosides/Docusate Sodium TAB 1 TAB PO (21:03)
[2021-12-12 22:47] VITALS: BP 111/65; PULSE 67; RESP 19; TEMP 36.2; O2SAT 96
[2021-12-12] MEDS: oxyCODONE 5 MG TAB PO (23:00)
[2021-12-12] MEDS: Acetaminophen 500 MG TAB 1000 MG PO (23:00)
[2021-12-12] MEDS: diphenhydrAMINE 25 MG CAP PO (23:00)
[2021-12-13] MEDS: traMADol 50 MG TAB PO ×2 (06:20→23:53)
[2021-12-13] MEDS: Acetaminophen 500 MG TAB 1000 MG PO ×3 (06:20→21:45)
[2021-12-13] MEDS: Docusate Sodium 100 MG CAP PO (06:22)
[2021-12-13 07:02] LABS: Abs Immature Grans 0.23 10^3/uL (0.0-0.06); Absolute Basophil Count 0.06 10^3/uL (0.0-0.2); Absolute Eosinophil Count 0.89 10^3/uL (0.0-0.7); Absolute Monocyte Count 0.82 10^3/uL (0.1-0.8); Absolute Neutrophil Count 8.81 10^3/uL (1.2-6.7); Basophils % 0.5; Eosinophils % 7.5; HCT 34.4 % (36.0-46.0); HGB 11.1 g/dL (11.2-15.7); Immature Grans % 1.9; Lymphocytes % 9.2; MCH 31.3 pg (27.0-33.0); MCHC 32.3 % (32.0-36.0); MCV 97 fL (80-95); MPV 10.3 fL (8.0-11.0); Monocytes % 6.9; Platelet Count 228 10^3/uL (130-400); RBC 3.55 10^6/uL (3.93-5.22); RDW 13.5 % (11.7-14.6); RDW-SD 48.4 fL; WBC 11.91 10^3/uL (4.4-10.8)
[2021-12-13 07:20] LABS: Anion Gap 8.8 mmol/L (3-11); BUN 40 mg/dL (7-18); CO2 22.2 mmol/L (21.0-32.0); CREATININE 1.8 mg/dL (0.55-1.02); Calcium 8.4 mg/dL (8.5-10.1); Chloride 109 mmol/L (98-107); Estimated GFR 29.75 (mL/min/1.73m2); Glucose 111 mg/dL (74-106); Potassium 4.4 mmol/L (3.5-5.1); Sodium 140 mmol/L (136-145)
[2021-12-13 08:05] VITALS: BP 117/77; PULSE 77; RESP 18; TEMP 36.6; O2SAT 95
[2021-12-13] MEDS: busPIRone 5 MG TAB 10 MG PO ×2 (08:27→20:52)
[2021-12-13] MEDS: Calcium 600mg/Vit D 200U TAB 1 TAB PO (08:28)
[2021-12-13] MEDS: oxyCODONE 5 MG TAB PO ×3 (08:28→21:46)
[2021-12-13] MEDS: Enoxaparin 40 MG/0.4 ML SYR SC ×2 (08:29→20:52)
--- NOTE | 2021-12-13 09:28 | IN_ITS ---
Date of service: 12/13/21 Time of Service: 09:28 PT Notes Visit Reasons: Left Ankle Fracture with Surgical Repair Date: 12/13/21 Referring Doctor: Simone Bhakta MD PT Orders: PT CONSULT: S/P L ankle ORIF, TTWB LLE Precautions: Fall. Standard. TTWB L LE with AD. Patient Profile/Admitting Diagnosis:? Carine is a 71-year-old female who sustained a trimalleolar fracture from a fall at home a week ago.? She is status ORIF 12/11/21. PMHX: All Active Problems?(Updated 12/08/21 @ 12:43 by Simone Bhakta MD) Dislocation of ankle, left, closed (Acute) Bimalleolar ankle fracture (Acute 11/30/21) Cellulitis of right lower leg (Acute) Chronic kidney disease (Chronic ~08/2017) initially attributed to acute dehydration/heat stroke in August 2017 but probably had some CKD secondary to her MRSA infections and chronic? antibiotics; followed by Dr. Sarah Cid, director targeted marketing in [place], [place] ([facility] Hematoma of right lower extremity (Acute ~02/28/20) Acute blood loss anemia (Acute) Depression (Chronic) Adenocarcinoma of endometrium, stage 1 (Acute ~02/2020) endometrial biopsy done and positive per [facility] 03/10/2020 Visit for wound check (Acute) Wound infection (Acute) Hepatic steatosis (Chronic) Acute kidney injury (Acute) Back pain (Acute) Chronic anticoagulation (Acute) Thickened endometrium (Acute) Postmenopausal bleeding (Acute) Medical History?(Updated 12/08/21 @ 12:43 by Simone Bhakta MD) 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 History of total right hip arthroplasty Status post closed fracture of right tibia (~12/2014) total of 9 surgeries from 2013 through 2014; had initial ORIF done at [place], [place] but subsequent? surgeries were done to treat complications of MRSA infections in right leg Status post total bilateral knee replacement Social History/Home Situation: Lives alone in a private home with 3 steep steps to enter with rails on both sides.? She has somebody who lives close by and can help as needed.? 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 Equipment Owned/DME: FWW, SPC, 4-wheeled scooter Subjective: Agreeable to PT consult.? C/o pain diffusely about the left ankle. She has a scooter, loaned to her from a friend, that she intends to use for mobility when able. Objective: General Observation: Splint on L ankle and lower leg. Mental Status: Alert and oriented as to person, place, time, and purpose. Able to pay attention, focus, and respond appropriately. Pain: 10/11 L ankle Vital Signs: WNL as closely monitored by nursing staff ROM: Right Lower Extremity: Hip flexion WFL. Hip abduction WFL. Knee flexion WFL. Ankle dorsiflexion WFL. Ankle plantarflexion WFL. Left Lower Extremity: Hip flexion WFL. Hip abduction WFL. Knee flexion WFL. Ankle splinted. Strength: Right Lower Extremity: Hip flexors 4/5. Hip abductors 4/5. Knee flexors 5/5. Knee extensors 5/5. Ankle dorsiflexors 5/5. Ankle plantarflexors 5/5. Left Lower Extremity: Not assessed today due to L LE pain. Bed Mobility/Transfers: Supine to sit close supervision Sit to supine close supervision Sit to stand contact guard assist using bariatric FWW Stand to sit contact guard assist using bariatric FWW Bed to reclining chair contact guard assist using bariatric FWW, LLE TTWB Independent with use of chair recline Gait: TTWB L LE with bariatric FWW, 4 steps. Balance: Static Sitting: Normal Dynamic Sitting: Normal Static Standing: Fair Dynamic Standing: Fair Special Tests: Mobility Limitations Standardized Measure [facility] AM-PAC 6 clicks Basic Mobility Inpatient Short Form: 46% disability ? ? Informed Consent/Education:? Patient was instructed in purpose of PT consult and plan of care. Agreeable to proceed with established PT POC to achieve personal goals. Assessment: 71 y.o. female S/P L ankle ORIF 12/12/21, after dislocation and tri-malleolar fracture. Good UE strength allows for consistent compliance with weight bearing precautions.? PT plan of care to mainly focus on transfer training and short distance ambulation as well as bed level and seated range of motion exercises to reduce postoperative complications while minimizing mobility decline.? Will progress transfer and ambulation level as tolerated, with training in use of scooter.? Patient presents with clinical signs and symptoms consistent with current/admitting diagnoses that have resulted to mobility limitations, gait instability, and overall ADL decline as demonstrated by the following impairment level findings: 1.? Decreased strength to L LE major muscle groups 2.? Impaired sitting/standing balance - patient must keep legs elevated due to current bleeding in L ankle. 3.? Impaired activity tolerance 4.? TTWB of motion in L ankle Impairments are contributing to the following functional limitations: 1.? Decline in bed mobility skills 2.? Assist in transfer skills 3.? Difficulty with ambulation without assistive device and physical assistance 4.? Increased completion time for mobility ADL performance 5.? Increased risk for falls 6.? Difficulty with managing steps alone safely Patient is assessed as a 38525 moderate complexity based on the following: History: 71-year-old female with past medical history as indicated above Examination: Demonstrable impairment in strength, balance, and mobility level w ith underlying impairments and functional limitations as exhibited above as well as deficit score of 46% utilizing the [facility] Mobility Inpatient Short Form Presentation: Evolving Decision Making: Easy Goals: Goals X1 week 1. Supine-Sit independent 2. Sit-Supine independent 3. Sit-Stand independent 4. Stand-Sit independent with FWW 5. Bed-Chair independent with FWW 6. Chair-Bed independent with FWW 7. Independent gait on level surface with use of FWW for at least 30 feet, for household distance and independent use of scooter. 8. CG stair negotiation while holding onto B rails for at least 3 steps 9. Independent with home exercise program 10. Good static and dynamic standing balance/tolerance with use of FWW Plan of Care/Treatment Plan: 1-2x/day, 7 days/week x 1 week. Plan of care has been reviewed with the CUSTOMER ORDERS CLERK providing the service under Physical Therapy direction. Initiate Physical Therapy intervention for pain management as needed, strengthening, bed mobility, transfers, gait, stairs, balance training, and use of assistive device. DISCHARGE RECOMMENDATIONS: [] ? Home with no services [] [x] ? Home with HHPT services, outpatient PT if she is able to manage transportation. [] ? Home with outpatient PT [] [] ? SNF for continued rehabilitation [] [] ? [facility] [employer] Consultant Care [] [] ? SNF versus LTC based on ability to participate and progress [] TREATMENT CODE/TIME: No charge, see CUSTOMER ORDERS CLERK note, treatment as directed by PT POC.? Thank you for the opportunity to participate in the care of this patient. Corrine Smallwood, MPT
--- NOTE | 2021-12-13 11:25 | PT.INNT ---
PT Notes Visit Reasons: Left Ankle Fracture with Surgical Repair held PT today. Checked in with pt x 2 today. She states she had pain meds earlier and is just wiped out. Very sleepy. Her pain is better now, however still tired and not willing to get OOB for lunch. Will check in with her in the am.
--- NOTE | 2021-12-13 11:45 | CMSCP_ITS ---
- If Service Date Differs Date of service: 12/13/21 Time of Service: 11:45 Swingbed Plan of Care Plan of care: SWING BED PROGRAM ACTIVITIES/DISCHARGE PLAN OF CARE ACTIVITIES PLAN Date:12/12/21 Identified Need: Individualized activity plan Intervention/Plan:JAKY enjoys music very much; she has an undergraduate degree in piano. She would like music therapy if it is offered. She also loves animals and would like pet therapy. JAKY reads, watches TV and especially enjoys conversing with staff and friends and family. She is unable to ambulate very far so is on her room much of the day. CM visits daily and staff make efforts to spend time with her as well. Initials [facility] DISCHARGE PLAN Date:12/12/21 Identified Need:Safe Discharge plan Intervention/Plan:JAKY will be discharged home where she lives alone in a mobile home. As it is all on one floor she anticipates being able to manage. Her friend Karel spends time with her and can help her as needed. JAKY will follow up with her surgeon and PCP and plan of care. It is likely she will have outpatient PT at some point after discharge. CM will continue to support JAKY and asssess for ongoing discharge concerns. Initials [facility]
--- NOTE | 2021-12-13 11:55 | CM.SBPSYCH ---
- If Service Date Differs Date of service: 12/12/21 Time of Service: 15:00 SB Psychosocial/Act.Assessment - Hospital Admission Admission Date: 12/08/21 Admission From:: direct admit from MD office - Swing Bed Admission Swing Bed Admit Date:: 12/12/21 Swing Bed Level of Care: Level 1/SNF - Social Supports PREVIOUS FUNCTIONAL STATUS/SOCIAL/FAMILY SUPPORTS:: Carine resides in [facility]. Her male tufting machine operator single needle, Karel Gupta is listed as her casino floor person. Carine relocated from [place] in December 2019. 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 Carine has no children. She is independent at baseline with ADLs, driving etc but has issues with balance, and has spent the last year trying to recover from her last fall. - Prior to Admission Living Arrangements/Environment Prior to Admission:: JAKY lives alone in a rented mobile home in [place]. 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 [employer] - [place]: No [place]'s Spouse: No - Benefits Financial: Social Security, Other Pension, Medicare, Commerical - Jehovah'S Witness Active Congregation Member:: Yes Congregation Affliation: [facility] ([place] Will Congregation Members or Bracelet And Brooch Maker Visit:: No - Advance Directives for Healthcare Advance Directives for Healthcare: Advance Directives Advance Directive Agent: Karel Gupta - Interests Hobbies:: piano, crossword puzzles, brain teasers, cooking and trying new recipes Crafts:: none Music:: piano and most types of music but not jazz or classical TV/Movies:: describes herself as a news junkie and watches news programs Outdoor Activities:: JAKY's brother owns a 3000 acre farm and she enjoys helping with the harvest and driving the big machines Gardening:: loves to garden and she and Karel have a large one Reading:: legal thrillers like Abiel Other Activities:: traveling - Present Functional Status Physical Abilities:: limited by injuries at this time but enjoys being active Cognitive:: alert, oriented and very intelligent Communication:: excellent communication skills Sensory Systems: wears glasses Behavior:: appropriate, friendly, engages easily - Medical History PAST MEDICAL HISTORY/PAST SURGICAL HISTORY:: Medical History (Updated 03/22/20 @ 22:52 by Murray Sanchez). Acute blood loss anemia. Adenocarcinoma of endometrium, stage 1 (~02/2020). endometrial biopsy done and positive per [facility] 03/10/2020. Alcoholism. in remission for past 10 years. Chronic kidney disease (~08/2017). initially attributed to acute dehydration/heat stroke in August 2017 but probably had some CKD secondary to her MRSA infections and chronic antibiotics; followed by Dr. Sarah Cid, ribbon lap machine tender in [place], [place] ([facility] Depression. Hematoma of right lower extremity (~02/28/20). Left leg DVT (02/24/20). per [facility] repeat US LLE 03/04/2020 failed to demonstrated DVT. MRSA infection (methicillin-resistant Staphylococcus aureus) (~01/2014). Postmenopausal bleeding. Thickened endometrium. Surgical History (Updated 03/22/20 @ 22:26 by Murray Sanchez). History of total right hip arthroplasty. Status post closed fracture of right tibia (~12/2014). total of 9 surgeries from 2013 through 2014; had initial ORIF done at [place], [place] but subsequent surgeries were done to treat complications of MRSA infections in right leg. Status post total bilateral knee replacement General Health:: fair to good Past Psychiatric Treatment:: has seen a therapist for counseling but does not have psychiatric issues - Admission Data Reason for Swing Bed Admission:: short term rehab before returning home Discharge Plan:: JAKY will be discharged home when medically cleared after rehab. She may have PT ordered or may not require any new services. She will follow up with her Orthopedic surgeon and -plan of care and transport with Karel. Assessment: JAKY is a very pleasant, warm friendly woman who had surgery to repair a badly fraactured ankle. She will remain in [facility] for a few days for short term rehab prior to returning home. Numerical Control Drill Press Operator: Steff Chacko Date Assessment was completed:: 12/12/21
--- NOTE | 2021-12-13 13:58 | NT_ITS ---
PT Notes Visit Reasons: Left Ankle Fracture with Surgical Repair Patient denied treatment today - wiped out and tired. Will attempt again t omorrow.
[2021-12-13] MEDS: Polyethylene Glycol 3350 17 GM PACKET PO (18:58)
[2021-12-13] MEDS: Naproxen 500 MG TAB PO (19:01)
[2021-12-13] MEDS: DULoxetine 30 MG CAP 60 MG PO (20:52)
[2021-12-13] MEDS: Sennosides/Docusate Sodium TAB 1 TAB PO (20:52)
[2021-12-13] MEDS: Atorvastatin 20 MG TAB PO (20:52)
[2021-12-13] MEDS: traZODone 50 MG TAB 150 MG PO (20:52)
[2021-12-13] MEDS: Oxybutynin-CR 5 MG TABCR 15 MG PO (20:53)
[2021-12-13] MEDS: diphenhydrAMINE 25 MG CAP PO (21:45)
[2021-12-14] MEDS: traMADol 50 MG TAB PO (06:35)
[2021-12-14] MEDS: Enoxaparin 40 MG/0.4 ML SYR SC ×2 (08:28→21:17)
[2021-12-14] MEDS: Polyethylene Glycol 3350 17 GM PACKET PO (08:28)
[2021-12-14] MEDS: Acetaminophen 500 MG TAB 1000 MG PO (08:29)
[2021-12-14] MEDS: Calcium 600mg/Vit D 200U TAB 1 TAB PO (08:29)
[2021-12-14] MEDS: busPIRone 5 MG TAB 10 MG PO (08:30)
--- NOTE | 2021-12-14 08:45 | IN_ITS ---
Date of service: 12/14/21 Time of Service: 08:45 PT Notes Visit Reasons: Left Ankle Fracture with Surgical Repair Physical Therapy Inpatient Swing Bed Level I Initial Evaluation Date: 12/14/2021 Referring Doctor: Rachel Castillo NP PT Orders: PT CONSULT: S/P L ankle ORIF, TTWB LLE Precautions: Fall. Standard. TTWB L LE with AD. Strict elevation of B LE when in bed or chair. Patient Profile/Admitting Diagnosis:? Carine is a 71-year-old female who sustained a trimalleolar fracture dislocation from a fall at home a week ago.? She is S/P ORIF with open treatment syndesmosis disruption on 12/11/21 and was evaluated by PT Corrine on 12/12/2021. Patient converted to swing bed level I on 12/13/2021 for continued rehabilitation thus needing PT re-evaluation today. PMHX: All Active Problems?(Updated 12/08/21 @ 12:43 by Simone Bhakta MD) Dislocation of ankle, left, closed (Acute) Bimalleolar ankle fracture (Acute 11/30/21) Cellulitis of right lower leg (Acute) Chronic kidney disease (Chronic ~08/2017) initially attributed to acute dehydration/heat stroke in August 2017 but probably had some CKD secondary to her MRSA infections and chronic?antibiotics; followed by Dr. Sarah Cid, corn cooker in [place], [place] ([facility] Hematoma of right lower extremity (Acute ~02/28/20) Acute blood loss anemia (Acute) Depression (Chronic) Adenocarcinoma of endometrium, stage 1 (Acute ~02/2020) endometrial biopsy done and positive per 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 History of total right hip arthroplasty Status post closed fracture of right tibia (~12/2014) total of 9 surgeries from 2013 through 2014; had initial ORIF done at [place], [place] but subsequent? surgeries were done to treat complications of MRSA infections in right leg Status post total bilateral knee replacement Social History/Home Situation: Lives alone in a private home with 3 steep steps to enter with rails on both sides.? She has somebody who lives close by and can help as needed.? 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 Equipment Owned/DME: FWW, SPC, knee scooter Subjective: Hopeful to learn how to use the knee scooter today however fred/support wheel is on the right side and needed to be worked on by maintenance to be transferred onto the left to avoid the right good leg from tripping on it. Maintenance ticket has been placed. Patient reported 7-8/10 pain in the L leg and foot after ambulation activity. States that she is not putting more weight than she should on the L LE. Agreeable with PT coming in for continued training with the scooter in the home environment. Objective: General Observation: Seated on bedisde chair with legs elevated. L leg on short leg AO splint Mental Status: Alert and oriented as to person, place, time, and purpose. Able to pay attention, focus, and respond appropriately. Pain: 7-8/10 through L ankle/leg Vital Signs: WNL as closely monitored by nursing staff ROM: Right Lower Extremity: Hip flexion WFL. Hip abduction WFL. Knee flexion WFL. Ankle dorsiflexion WFL. Ankle plantarflexion WFL. Left Lower Extremity: Hip flexion WFL. Hip abduction WFL. Knee flexion WFL. Ankle splinted. Strength: Right Lower Extremity: Hip flexors 4/5. Hip abductors 4/5. Knee flexors 5/5. Knee extensors 5/5. Ankle dorsiflexors 5/5. Ankle plantarflexors 5/5. Left Lower Extremity: Not assessed today due to L LE pain. Bed Mobility/Transfers: Supine to sit close supervision Sit to supine close supervision Sit to stand stand by assist using bariatric FWW Stand to sit stand by assist using bariatric FWW Bed to reclining chair stand by assist using bariatric FWW, not fully compliant with LLE TTWB Gait: 15 feet with what appears to be 25% PWB using FWW and another 20 feet with shoe on the right side to equalize leg length and minimize WB through the L LE. Pain reported at 7-8/10 in the L LE. Instructions were given to not to take too long a step and ensure FWW is close enough for better weight distribution through UEs and R LE while minimizing WB through the L LE. Balance: Static Sitting: Normal Dynamic Sitting: Normal Static Standing: Fair Dynamic Standing: Fair Special Tests: Mobility Limitations Standardized Measure [facility] AM-PAC 6 clicks Basic Mobility Inpatient Short Form: 42% disability ? ? Informed Consent/Education:? Patient was instructed in purpose of PT consult and plan of care. Agreeable to proceed with established PT POC to achieve personal goals. Assessment: Carine is a 71-year-old female who sustained a trimalleolar fracture dislocation from a fall at home a week ago.? She is S/P ORIF with open treatment syndesmosis disruption on 12/11/21 and was evaluated by PT Corrine on 12/12/2021. Patient converted to swing bed level I on 12/13/2021 for continued rehabilitation thus needing PT re-evaluation today. Will require continued training with WB precautions for safety in anticipation fo return to home. PT plan of care to mainly focus on transfer training and short distance ambulation as well as bed level and seated range of motion exercises to reduce po stoperative complications while minimizing mobility decline.? Will initiate training with scooter as soon as device is adjusted and fred wheel transferred by maintenance staff. Will require OT evaluation for self-care training while in hospital and at home. Patient presents with clinical signs and symptoms consistent with current/admitting diagnoses that have resulted to mobility limitations, gait instability, and overall ADL decline as demonstrated by the following impairment level findings: 1.? Decreased strength to L LE major muscle groups 2.? Impaired sitting/standing balance - patient must keep legs elevated due to current bleeding in L ankle. 3.? Impaired activity tolerance 4.? TTWB of motion in L ankle Impairments are contributing to the following functional limitations: 1.? Decline in bed mobility skills 2.? Assist in transfer skills 3.? Difficulty with ambulation without assistive device and physical assistance 4.? Increased completion time for mobility ADL performance 5.? Increased risk for falls 6.? Difficulty with managing steps alone safely Patient is assessed as a 23604 moderate complexity based on the following: History: 71-year-old female with past medical history as indicated above Examination: Demonstrable impairment in strength, balance, and mobility level with underlying impairments and functional limitations as exhibited above as well as deficit score of 46% utilizing the [facility] Mobility Inpatient Short Form Presentation: Evolving Decision Making: Easy Goals: Goals X1 week 1. Supine-Sit independent 2. Sit-Supine independent 3. Sit-Stand independent 4. Stand-Sit independent with knee scooter 5. Bed-Chair independent with knee scooter 6. Chair-Bed independent with knee scooter 7. Independent gait on level surface with use of knee scooter for 50 feet for household distance and independent use of scooter 8. Minimal asssit of 1 for stair negotiation while holding onto B rails for at least 3 steps 9. Good static and dynamic standing balance/tolerance with use of FWW Plan of Care/Treatment Plan: 1-2x/day, 7 days/week x 1 week. Plan of care has been reviewed with the [employer] providing the service under Physical Therapy direction. Initiate Physical Therapy intervention for pain management as needed, strengthening, bed mobility, transfers, gait, stairs, balance training, and use of assistive device. DISCHARGE RECOMMENDATIONS: [] ? Home with no services [] [X] ? Home with services. Home when medically cleared by orthopedic surgeon/hospitalist. HH PT services for training with knee scooter in home environment, stair negotiation, and self-care performance. HH OT for safe technique for self-care, bathing, and dressing training. [] ? Home with outpatient PT [] [] ? SNF for continued rehabilitation [] [] ? [facility] [] [] ? SNF versus LTC based on ability to participate and progress [] TREATMENT CODE/TIME: 78326 x 25 minutes beginning at 8:45 AM. Thank you for the opportunity to participate in the care of this patient. Cristel Barroso PT, DPT, CLT [facility] [place], [place]
[2021-12-14] MEDS: oxyCODONE 5 MG TAB PO ×3 (10:29→21:17)
[2021-12-14] MEDS: Bisacodyl 10 MG SUPP PR (10:41)
--- NOTE | 2021-12-14 13:00 | OTIE_ITS ---
Occupational Therapy Notes Inpatient Occupational Therapy Evaluation Date: 12/14/21 Referring Doctor: Rachel Castillo NP OT Orders: Non urgent Precautions: Fall, standard, full PATIENT PROFILE/ADMITTING DIAGNOSIS: Pt is a 71 year old female who was admitted to Med Surg with a dx of trimalleolar fracture from a fall at home a week ago.? She is status ORIF 12/11/21. Past Medical History: All Active Problems?(Updated 12/12/21 @ 17:02 by Rachel Castillo NP) Discharge planning issues (Acute) Fracture dislocation of left ankle joint (Acute) Cellulitis of right lower leg (Acute) Chronic kidney disease (Chronic ~08/2017) initially attributed to acute dehydration/heat stroke in August 2017 but probably had some CKD secondary to her MRSA infections and chronic antibiotics; followed by Dr. 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MRSA infection (methicillin-resistant Staphylococcus aureus) (~01/2014) Surgical History? History of total right hip arthroplasty Status post closed fracture of right tibia (~12/2014) total of 9 surgeries from 2013 through 2014; had initial ORIF done at [place], [place] but subsequent surgeries were done to treat complications of MRSA infections in right legStatus post total bilateral knee replacement Social History/Home Situation: Pt states that she lives alone in a trailer. She is (I) at her baseline level of function and has had HH in the past. She reports that she has good social support from her family and friends. Equipment owned/DME: [employer] but pt states this is not as stable as she would like. She notes that her significant other is making her a ramp to get into her home. SUBJECTIVE: Pt states that she is sore. She notes that she has had issues in the past with her LE but she is hoping to return home when medically cleared. OBJECTIVE: General Observation: Cast on (L) LE, IV in (R) UE Mental Status: A&OX4 Pain: c/o pain in (L) LE ROM: RUE AROM WFL L UE AROM WFL STRENGTH: RUE 4/5 LUE 4+/5 Treatment- OT and pt went over pts current functional limitations, decreased performance of ADLs and decreased functional activity tolerance. Discussion on adaptive equipment was had and establishment of needs if pt returns home would consist of- Shower bench to increase safety with bathing routines. OT for assessment of home setting and performance of ADLs in the home setting BALANCE: Static sitting Normal Dynamic Sitting Normal Static Standing NT Dynamic Standing NT INFORMED CONSENT/EDUCATION: Pt instructed in purpose of OT Consult and plan of care. ASSESSMENT: Patient is a 71-year-old female referred to occupational therapy services with diagnosis of trimalleolar fracture from a fall at home a week ago.? She is status ORIF 12/11/21. Patient presents with clinical signs and symptoms consistent with dx, as demonstrated by the following impairment level findings/functional limitations: Impairments in ADL/IADL and leisure activities, decreased functional mobility, decreased functional activity tolerance, decreased strength in LE. Patient is assessed as a Moderate 10756 complexity based on the following: History: see above Examination: see functional limitations as noted above Presentation: evolving Decision Making: Moderate complexity GOALS Goals x1 week 1. Grooming- sitting in chair pt will be (I) with brushing teeth with ideal technique 2. Dressing- pt will be mod (I) with LE dressing, (I) UE 3. Bathing sitting in chair (I) 4. Toileting- on toilet (I) 5. Eating(I) PLAN OF CARE/TREATMENT PLAN: 1x/day, 5 days/ week x 1week Initiate Occupational Therapy Services for bathing, dressing, grooming, toileting, eating, transfer training. DISCHARGE RECOMMENDATIONS OT recommends that pt return home with OT services when medically cleared per MD. TREATMENT TIME/MINUTES/CODES 86476, 20 minutes Scarlett Sullivan OTR/[facility]
--- NOTE | 2021-12-14 15:21 | PTTR_ITS ---
Date of service: 12/14/21 Time of Service: 14:16 PT Notes Visit Reasons: Left Ankle Fracture with Surgical Repair Inpatient Physical Therapy Treatment Note [facility] Date: 12/14/2021 PRECAUTIONS: Fall, TDWB L SUBJECTIVE: BJ is pleasant and agreeable to participating in PT. She reports that she is very tired today, as she has been going all day. She reports that she is nervous about using the scooter, but is agreeable to trying it today. OBJECTIVE: PAIN: No c/o pain BED MOBILITY/TRANSFERS: Supine-sit: S with HOB at 20 degrees Sit-stand: SBA Stand-sit: SBA Bed-chair: SBA GAIT: Assistive device: Bariatric FWW Weight bearing: TDWB L Assist: SBA Distance: 10' + 60' Deviation: Slow pacing, step-to gait pattern, antalgic gait, SOB, cueing throughout due to non-compliance with weight bearing TOILETING: Patient toileted with SBA for transfers and assist with pericare. ASSESSMENT: Patient tolerated session with complaint of increased fatigue with all activity. She requires cueing to maintain appropriate weight bearing status. She demonstrates a slow javier and an antalgic gait pattern, and SOB w ith gait training. PLAN: Continue with gait training for improved gait mechanics. Practice utilizing mobility scooter for safety. TREATMENT CODE/TIME: 23 minutes; 70643 x2 (14:16)
[2021-12-14 15:38] VITALS: BP 104/65; PULSE 79; RESP 17; TEMP 36.3; O2SAT 95
[2021-12-14] MEDS: Oxybutynin-CR 5 MG TABCR 15 MG PO (22:17)
[2021-12-14] MEDS: Atorvastatin 20 MG TAB PO (22:17)
[2021-12-14] MEDS: Sennosides/Docusate Sodium TAB 1 TAB PO (22:17)
[2021-12-14] MEDS: traZODone 50 MG TAB 150 MG PO (22:18)
[2021-12-14] MEDS: DULoxetine 30 MG CAP 60 MG PO (22:18)
--- NOTE | 2021-12-15 | DI.RAD_ITS ---
Exam(s) XR CHEST 2V PA LATERAL EXAM: XR CHEST 2V PA LATERAL CLINICAL HISTORY: productive cough TECHNIQUE: 2D digital imaging was performed. COMPARISON: CR,XR XR PORTABLE CHEST AP from 02/26/[address] CHEST WO from 02/28/2020 FINDINGS: MEDIASTINUM: Normal. HEART: Normal. PULMONARY VASCULATURE: Normal. LUNGS: Linear scarring left lung base, otherwise clear. PLEURAL SPACE: No pleural effusion or pneumothorax. BONE:Unremarkable for age. IMPRESSION: No acute abnormality. DATA REPOSITORY: RADIATION DOSE DELIVERED:
[2021-12-15] MEDS: diphenhydrAMINE 25 MG CAP PO (01:24)
[2021-12-15 06:13] LABS: Platelet Count 246 10^3/uL (130-400)
[2021-12-15 07:24] VITALS: BP 144/77; PULSE 78; RESP 18; TEMP 37.3; O2SAT 92
[2021-12-15] MEDS: Enoxaparin 40 MG/0.4 ML SYR SC ×2 (09:52→19:04)
[2021-12-15] MEDS: Calcium 600mg/Vit D 200U TAB 1 TAB PO (09:53)
[2021-12-15] MEDS: busPIRone 5 MG TAB 10 MG PO ×2 (09:53→19:03)
[2021-12-15] MEDS: Polyethylene Glycol 3350 17 GM PACKET PO (09:53)
[2021-12-15] MEDS: oxyCODONE 5 MG TAB PO ×2 (10:24→21:06)
[2021-12-15] MEDS: traMADol 50 MG TAB PO (13:35)
--- NOTE | 2021-12-15 15:10 | PTTR_ITS ---
Date of service: 12/15/21 Time of Service: 10:32 PT Notes Visit Reasons: Left Ankle Fracture with Surgical Repair Inpatient Physical Therapy Treatment Note [facility] Date: 12/15/2021 PRECAUTIONS: Fall, TDWB L SUBJECTIVE: BJ is pleasant and agreeable to participating in PT. She reports that she is feeling better today compared to yesterday. She reports that she would still like to try using the scooter, but understands that she does not have to use it if it is not safe. OBJECTIVE: PAIN: No c/o pain BED MOBILITY/TRANSFERS: Sit-supine: I with HOB flat Sit-stand: SBA Stand-sit: SBA Bed-chair: SBA GAIT: Assistive device: Bariatric FWW Weight bearing: TDWB L Assist: SBA Distance: 20' in a.m.; 75' in p.m. Deviation: Step-to gait pattern, antalgic gait, SOB, cueing throughout due to non-compliance with weight bearing TOILETING: Patient toileted with SBA for transfers and assist with pericare. THEREX: Patient was instructed in a LE strengthening and stabilization program, completed in a seated position in a.m. and supine position in p.m., to include: LAQ, hip flexion, hip abduction, quad sets, glute sets, SLR, and heel slides. Patient takes frequent rests due to SOB with all activity. ASSESSMENT: Patient tolerated session with complaint of increased fatigue with all activity. She requires cueing to maintain appropriate weight bearing status. She demonstrates an antalgic gait pattern and SOB with gait training. PLAN: Continue with gait training for improved gait mechanics. Practice [facility] mobility scooter for safety. TREATMENT CODE/TIME: Session 1: 18 minutes; 20870 x2 (10:32) Session 2: 26 minutes; [id number], 17111 (13:10)
[2021-12-15] MEDS: Naproxen 500 MG TAB PO (17:31)
[2021-12-15] MEDS: Acetaminophen 500 MG TAB 1000 MG PO (17:31)
[2021-12-15] MEDS: guaiFENesin 600 MG TABCR PO (19:03)
[2021-12-15] MEDS: traZODone 50 MG TAB 150 MG PO (21:04)
[2021-12-15] MEDS: DULoxetine 30 MG CAP 60 MG PO (21:04)
[2021-12-15] MEDS: Atorvastatin 20 MG TAB PO (21:05)
[2021-12-15] MEDS: Oxybutynin-CR 5 MG TABCR 15 MG PO (21:06)
[2021-12-15] MEDS: Docusate Sodium 100 MG CAP PO (21:07)
[2021-12-15] MEDS: Sennosides/Docusate Sodium TAB 1 TAB PO (21:07)
[2021-12-16 08:09] VITALS: BP 137/83; PULSE 74; RESP 19; TEMP 36.3; O2SAT 95
[2021-12-16] MEDS: busPIRone 5 MG TAB 10 MG PO ×2 (08:29→20:31)
[2021-12-16] MEDS: Polyethylene Glycol 3350 17 GM PACKET PO (08:29)
[2021-12-16] MEDS: guaiFENesin 600 MG TABCR PO ×2 (08:29→20:31)
[2021-12-16] MEDS: Enoxaparin 40 MG/0.4 ML SYR SC ×2 (08:29→20:29)
[2021-12-16] MEDS: Naproxen 500 MG TAB PO (11:42)
--- NOTE | 2021-12-16 12:42 | W.PM.PROGNOT ---
Date of Service Date of service: 12/16/21 Time of Service: 12:42 Assessment and Plan Assessment and plan (1) Fracture dislocation of left ankle joint: Status: Acute Assessment and plan: JAKY is doing well postop day 5 for ORIF of her left fracture dislocation ankle. She is going to continue to work with PT to get more confidence with ambulating not only with a walker but the knee scooter. She does express desire to return home by the end of the week. There are no concerning signs around the ankle including wound drainage into the dressing or increased pain. Subjective Subjective Interval history since last seen: JAKY is a 71-year-old female who is postop day #5 for ORIF of a left fracture dislocation of her ankle, and she is doing well. She states that the pain is manageable, and she is only requiring naproxen for pain medication. She is working on ambulation with a walker as well as a knee scooter, but is finding it difficult so far. She is going to continue to work on it as she would like to be more mobile as the knee scooter will allow. She denies chest pain, shortness of breath, fever or chills. Exam Extrem Other: Brief exam of the left lower extremity shows that the dressing is dry without serous drainage of the Jose Maria bandage. Sensation in her toes is intact to light touch, and she is able to demonstrate flexion and extension of her toes in the splint. Objective Last Vital Signs Temp 97.3 F L 12/16/21 08:09 Pulse 74 12/16/21 08:09 Resp 19 12/16/21 08:09 BP 137/83 12/16/21 08:09 Pulse Ox 95 12/16/21 08:09
--- NOTE | 2021-12-16 15:02 | PT.INTREAT ---
PT Notes Visit Reasons: Left Ankle Fracture with Surgical Repair Inpatient Physical Therapy Treatment Note [facility] Date: 12/16/21 SUBJECTIVE: Carine states that she is a little fearful to use her scooter. She would like to keeping trying. She is hoping to leave on Tuesday this week. Indicated that her partner is building her a ramp into her home. OBJECTIVE: [] BED MOBILITY/TRANSFERS Supine-sit: SBA Sit-stand: SBA Stand-sit: SBA GAIT Assistive Device: FWW Weight bearing: TDWB left Assist: SBA Distance: 100' in am and 120' in pm Deviation: needs to have sneaker on right foot THEREX: is independent with ex listed in room. Can SLR without ext lag. Worked on wt shifting and balancing on scooter. ASSESSMENT: tolerated session well. She is unable to safely shift weight with leg on scooter, due to weakness. She also has increased pressure pain from cast with the increased wt bearing. The scooter may not be the best or safest option for her. I did encourage and remind her about 10% wt bearing t/o L LE as it seems like she put more than that at times. No c/o increased pain with wt bearing. PLAN: will continue to progress functional mobility following pT POC> TREATMENT CODE/TIME: 20 min in am and 25 min in pm. [id number]
[2021-12-16] MEDS: Acetaminophen 500 MG TAB 1000 MG PO ×2 (15:12→21:55)
[2021-12-16] MEDS: oxyCODONE 5 MG TAB PO ×2 (15:13→21:56)
[2021-12-16 15:45] VITALS: BP 126/76; PULSE 81; RESP 19; TEMP 36.9; O2SAT 96
[2021-12-16] MEDS: Sennosides/Docusate Sodium TAB 1 TAB PO (20:30)
[2021-12-16] MEDS: Atorvastatin 20 MG TAB PO (20:30)
[2021-12-16] MEDS: Oxybutynin-CR 5 MG TABCR 15 MG PO (20:30)
[2021-12-16] MEDS: traZODone 50 MG TAB 150 MG PO (20:31)
[2021-12-16] MEDS: DULoxetine 30 MG CAP 60 MG PO (20:31)
[2021-12-17 07:50] VITALS: BP 141/76; PULSE 73; RESP 18; TEMP 36.8; O2SAT 95
[2021-12-17] MEDS: busPIRone 5 MG TAB 10 MG PO ×2 (08:43→20:28)
[2021-12-17] MEDS: Polyethylene Glycol 3350 17 GM PACKET PO (08:43)
[2021-12-17] MEDS: Calcium 600mg/Vit D 200U TAB 1 TAB PO (08:43)
[2021-12-17] MEDS: Enoxaparin 40 MG/0.4 ML SYR SC ×2 (08:43→20:28)
[2021-12-17] MEDS: guaiFENesin 600 MG TABCR PO ×2 (08:43→20:28)
[2021-12-17] MEDS: Acetaminophen 500 MG TAB 1000 MG PO ×2 (11:00→21:44)
[2021-12-17] MEDS: oxyCODONE 5 MG TAB PO ×2 (11:00→21:43)
[2021-12-17] MEDS: traMADol 50 MG TAB PO (12:07)
--- NOTE | 2021-12-17 15:22 | PT.INTREAT ---
Date of service: 12/17/21 Time of Service: 11:40 PT Notes Visit Reasons: Left Ankle Fracture with Surgical Repair Inpatient Physical Therapy Treatment Note [facility] Date: 12/17/2021 PRECAUTIONS: Fall, TDWB L SUBJECTIVE: BJ is pleasant and agreeable to participating in PT. She reports that she is having some increased soreness and fatigue in L foot/ankle today. She believes it is due to overuse and neglecting to elevate it this morning. OBJECTIVE: PAIN: Patient c/o L ankle/foot pain BED MOBILITY/TRANSFERS: Sit-supine: I with HOB flat Supine-sit: I Sit-stand: I Stand-sit: I Bed-chair: I GAIT: Assistive device: Bariatric FWW Weight bearing: TDWB L Assist: S (I with short/in-room distances) Distance: 100' x2 in a.m.; 15' in p.m. Deviation: Step-to gait pattern, antalgic gait, SOB, cueing throughout due to non-compliance with weight bearing TOILETING: Patient toileted independently THEREX: Patient was instructed in a LE strengthening and stabilization program, completed in a supine position, to include: ankle pumps, hip abduction, hip IR, hip ER, quad sets, glute sets, SLR, and heel slides. Patient takes frequent rests due to SOB with all activity. She tolerates increased reps with all exercises today. STAIRS: Up 3x4 and down 2x6 using B rails and a step-to pattern with SBA. Instruction for sequence and off-loading techniques for maintenance of weight bearing precautions. ASSESSMENT: Patient tolerated session with complaint of increased fatigue with all activity. She requires cueing to maintain appropriate weight bearing status. She demonstrates an antalgic gait pattern and SOB with gait training, although was able to tolerate a progression in gait distance. PLAN: Continue with general conditioning for improved activity tolerance. TREATMENT CODE/TIME: Session 1: 25 minutes; 78839 x2 (11:40) Session 2: 23 minutes; 70716 x2 (14:42)
[2021-12-17 15:57] VITALS: BP 117/68; PULSE 75; RESP 18; TEMP 36.7; O2SAT 95
[2021-12-17] MEDS: Naproxen 500 MG TAB PO (16:06)
[2021-12-17 21:21] VITALS: BP 118/73; PULSE 71; RESP 26; TEMP 36.6; O2SAT 96
[2021-12-17] MEDS: Oxybutynin-CR 5 MG TABCR 15 MG PO (21:43)
[2021-12-17] MEDS: Sennosides/Docusate Sodium TAB 1 TAB PO (21:43)
[2021-12-17] MEDS: traZODone 50 MG TAB 150 MG PO (21:44)
[2021-12-17] MEDS: Atorvastatin 20 MG TAB PO (21:44)
[2021-12-17] MEDS: DULoxetine 30 MG CAP 60 MG PO (21:44)
[2021-12-18] MEDS: traMADol 50 MG TAB PO (01:07)
[2021-12-18] MEDS: diphenhydrAMINE 25 MG CAP PO (01:08)
[2021-12-18 05:33] LABS: Platelet Count 261 10^3/uL (130-400)
[2021-12-18 07:40] VITALS: BP 138/83; PULSE 71; RESP 18; TEMP 36.1; O2SAT 95
[2021-12-18] MEDS: Polyethylene Glycol 3350 17 GM PACKET PO (08:28)
[2021-12-18] MEDS: oxyCODONE 5 MG TAB PO ×2 (08:28→13:03)
[2021-12-18] MEDS: Calcium 600mg/Vit D 200U TAB 1 TAB PO (08:28)
[2021-12-18] MEDS: Enoxaparin 40 MG/0.4 ML SYR SC (08:28)
[2021-12-18] MEDS: Acetaminophen 500 MG TAB 1000 MG PO ×2 (08:28→13:04)
[2021-12-18] MEDS: guaiFENesin 600 MG TABCR PO (08:28)
--- NOTE | 2021-12-18 08:46 | PGE_ITS ---
Date of Service Date of service: 12/18/21 Time of Service: 08:46 Assessment and Plan Assessment and plan (1) Fracture dislocation of left ankle joint: Status: Acute Assessment and plan: Ms. Love is a 71-year-old female postop day #7 status post left ankle and syndesmosis ORIF on 12/11/2021 Patient comfortable, pleasant and feeling well. Has been doing well working with PT - reviewed their notes. Due to splint unwrapping it was redressed - Jose Maria bandages and previously applied ABDs were removed. Sutures were visualized to be intact without significant signs of erythema or purulent discharge. There was moderate amount of serosanguinous drainage present along lateral sutures. Previous xeroform was removed - new xeroform was applied. Three new ABDs were applied - one over the lateral ankle, one medially and one along heel. A new 4 inch and 6 inch Jose Maria were wrapped along splint with assistance of nursing staff. Patient reports splint felt much better after being redressed. Leg was elevated on two pillows while sitting on chair - recommend she continue with elevation while in bed and in chair Encourage toe motion to prevent stiffness and improve circulation Recommend right leg Brandon hose and/or SCD - however, none were present on right leg at time of visit Toe-touch weightbearing left ankle. May rest splint/foot on ground for stance and balance. As previously discussed by Dr. Bhakta - patient will transition from lovenox to aspirin 325 mg twice daily on discharge home pending on level of mobility. Patient was concerned about history of MRSA and needing additional antibiotics at discharge - educated that she does not require additional antibiotics at this time Patient had opportunity to have questions answered She is agreeable to treatment plan Recommend discharge from swing bed rehabilitation to home as per medical hospitalist team recommendations Will contact office if issues arise - will be scheduled for follow-up in orthopedic office on 12/23/21 Subjective Subjective Interval history since last seen: Ms. Love is a 71-year-old female who is postop day #7 for ORIF of a left fracture dislocation of her ankle, and she is doing well. She states that the pain is manageable, and she taking naproxen, acetaminophen, oxycodone and tramadol for pain medication. She is working on ambulation with a walker as well as a knee scooter; continues to find it difficult but has been improving with PT. Reports overall feels fatigue and has discomfort diffusely along the left ankle that is noted following after PT sessions. She denies chest pain, shortness of breath, numbness or tingling. Exam Const General: cooperative, comfortable and no acute distress Resp Effort & Inspection: normal respiratory effort and able to speak in complete sentences Extrem Other: Left lower extremity examination: Splint is coming unwrapped but dry. No areas of drainage are noted along the dressing. She is able to demonstrate SLR without issue. Able to demonstrate limited toe flexion and extension while in cast. Brisk capillary refill unable to be completed due to nail faroese. Objective Last Vital Signs Temp 97.0 F L 12/18/21 07:40 Pulse 71 12/18/21 07:40 Resp 18 12/18/21 07:40 BP 138/83 12/18/21 07:40 Pulse Ox 95 12/18/21 07:40 Laboratory Results - last 24 hr 12/18/21 05:15 Plt Count 261
[2021-12-18] MEDS: busPIRone 5 MG TAB 10 MG PO (10:24)
[2021-12-18] MEDS: Naproxen 500 MG TAB PO (10:24)
--- NOTE | 2021-12-18 11:53 | PT.INTREAT ---
Date of service: 12/18/21 Time of Service: 07:30 PT Notes Visit Reasons: Left Ankle Fracture with Surgical Repair Inpatient Physical Therapy Treatment Note [facility] Date: 12/18/2021 PRECAUTIONS: Fall, TDWB L SUBJECTIVE: BJ is pleasant and agreeable to participating in PT. She reports that she is feeling better today and is looking forward to discharging to home. She does report that her sleep was choppy last night so she is somewhat fatigued. OBJECTIVE: PAIN: Patient c/o L ankle/foot fatigue and discomfort post PT treatment BED MOBILITY/TRANSFERS: Supine-sit: I Sit-stand: I Stand-sit: I Bed-chair: I Chair-bed: I GAIT: Assistive device: Bariatric FWW Weight bearing: TDWB L Assist: I Distance: 100' x2 in a.m.; 100' in p.m. Deviation: Step-to gait pattern, antalgic gait, SOB THEREX: Patient was instructed in and issued a HEP for LE strengthening and stabilization. STAIRS: Up/down 3x4 and 2x6 (performed x2) using B rails and a step-to pattern with supervision. Patient does not require cueing nor instruction for sequence. ASSESSMENT: Patient tolerated session with minimal complaint of increased fatigue. She demonstrates an antalgic gait pattern and SOB with gait training, although was able to tolerate a progression in gait distance. PLAN: Patient to discharge to home later today, per provider. Recommend follow up with PT for specific functional mobility tasks in home setting. TREATMENT CODE/TIME: Session 1: 30 minutes; 54154 x2 (07:30) Session 2: 20 minutes; 48035 (09:30)
--- NOTE | 2021-12-18 11:56 | DSE_ITS ---
Date of service: 12/18/21 Time of Service: 11:57 DS: Diagnosis Discharge Diagnosis (1) Fracture dislocation of left ankle joint: Status: Acute Discharge Plan Disposition Patient Disposition: HOME W/HOME HEALTH SERVICE Condition: Improving Discharge Details Reason For Visit: Left Ankle Fracture with Surgical Repair Admit Date/Time: 12/12/21 14:13 Admit Provider: Elliot Morton Attending Provider: Elliot Morton Primary Care Provider: Stuart Tena Hospital Course Hospital Course: This is a 71 year old female with past medical history of chronic kidney disease, DVT,? adenocarcimonia of endometrium, and depression who was admitted 12/08/2021 to the medical unit for left ankle fracture dislocation suffered the week prior and dislocated while home in splint.? Close reduction 12/08/2021 Dr. Hernandez.? ORIF 12/11/2021 Dr. Bhakta.? Postoperative course uncomplicated.? Transferred to hospitalist service for swing bed rehabilitation. Fourth rehab day, she is cleared to go home by PT. She had no medical complications during her stay. She will resume home meds and she was given Tramadol and Naproxen for pain - told to take one or the other, not together. She will follow up with orthopedics. I did ask Home Health PT to go see her to evaluate and treat. Patient and orthopedics are in agreement with with plan. JAKY's significant other did not want to take her home because of her history of falling. We discussed manager contracting planning for her to go to assisted living. She does not want to do that, she wants to go home and stay at home. She and PT feel she is ready and capable. Discussed with Dr Sanchez - Home Meds and New Rx's Prescriptions: New tramadol 50 mg Tablet 50 mg PO Q6H PRN PRNQty: 30 0RF naproxen 500 mg Tablet 250 - 500 mg PO BID PRN PRNQty: 30 0RF Continued sennosides-docusate sodium [Senna-S] 8.6-50 mg tablet 1 tab-cap PO QHS calcium carbonate-vitamin D3 [Calcium 600 with Vitamin D3] 600 mg-12.5 mcg (500 unit) capsule 1 cap PO DAILY duloxetine [Cymbalta] 60 mg Capsule,Delayed Release(Dr/Ec) 60 mg PO HS furosemide 40 mg Tablet 40 mg PO DAILY PRN trazodone 150 mg Tablet 150 mg PO HS oxybutynin chloride 10 mg tablet extended release 24hr 15 mg PO HS Label Comments: TAKE 1 TABLET BY MOUTH ONCE DAILY albuterol sulfate [Ventolin HFA] 90 mcg/actuation Hfa Aerosol Inhaler 2 puff inhalation Q4H PRN PRNQty: 1 0RF buspirone 10 mg tablet 10 mg PO BID Label Comments: TAKE 1 TABLET BY MOUTH BID atorvastatin 20 mg tablet 20 mg PO HS Discharge Instructions Instructions: Naproxen (By mouth), Tramadol (By mouth), Ankle Fracture (DC), Fall Prevention (DC) Additional Instructions: Use the walker at all times. Do not use the knee scooter until seen by orthoped ics and they ok it. Take medication as prescribed. Do not take Naprosyn and Tramadol at the same time. Follow up is scheduled Tuesday with orthopedics. Home Health physical therapy will contact you and make an appointment to see you. Stand Alone Forms: Nursing Discharge Form Referrals: Simone Bhakta MD [ [facility] STAFF PHYSICIAN] - 12/23/21 1:30 pm Activity:: Activity as Tolerated Equipment/Supplies:: Walker Diet:: As Tolerated Discharge Orders Discharge Orders: Discharge Order (Routine); Ordered 12/18/21 Ordered By: Jacquelyn Muhammad Discharge Data Discharge Date/Time-TO BE ENTERED AT DEPARTURE: 12/18/21 16:23 DS: Summary Time Spent with Patient providing and/or coordinating discharge services: Greater than 30 minutes Status at Discharge Functional status at discharge: uses cane/walker Overall status at discharge: patient is progressing back to baseline Mental Status: mental status grossly normal Speech and Movement: speech and movement normal Mood: congruent mood Affect: normal affect Exam Const General: cooperative Nutritional Appearance: obese Orientation: alert, awake and oriented x3 HENMT Head: normal to inspection, normocephalic and atraumatic Mouth: oral mucosae normal Resp Effort & Inspection: normal respiratory effort Cardio Rate: regular rate Rhythm: regular rhythm Extrem General: other (splint and dressing intact and dry) Psych Mental Status: mental status grossly normal Speech and Movement: speech and movement normal Mood: congruent mood Affect: normal affect DS: Data Vitals/I&O Vitals and I&O: Vital Signs Temperature 36.1 C L 12/18/21 07:40 Temperature Source Tympanic 12/18/21 07:40 Pulse 71 12/18/21 07:40 Pulse Rhythm Regular 12/18/21 09:18 Respiratory Rate 18 12/18/21 07:40 Respiratory Effort 12/18/21 09:18 Respiratory Depth Normal 12/18/21 09:18 Respiratory Pattern Normal 12/18/21 09:18 Blood Pressure 138/83 12/18/21 07:40 Pulse Oximetry 95 12/18/21 07:40 Oxygen Delivery Method Room Air 12/18/21 07:40 Oxygen Flow Rate 0 12/18/21 07:40 Pain Level 8 12/18/21 08:28 Comment 12/15/21 07:24 Intake & Output 12/17/21 12/17/21 12/18/21 11:59 23:59 11:59 Intake Total 240 / 600 360 / 600 Output Total 775 / 775 1500 / 1500 Balance 240 / -175 -415 / -175 -1500 / -1500 Intake: Oral 240 / 600 360 / 600 Output: Urine 775 / 775 1500 / 1500 Other: Urine Color Yellow Yellow Urine Appearance Clear Clear Clear Comment she took out the hat and voided in the toilet Dumped 1500 from comode, pT stated that was through the night voids. Voiding Methods Bedside Commode Data Completed and Pending Labs on day of discharge: Labs from last 24 hours 12/18/21 05:15 Plt Count 261 PFSH All Active Problems (Updated 12/12/21 @ 17:02 by Rachel Castillo NP) Discharge planning issues (Acute) Fracture dislocation of left ankle joint (Acute) S/P Closed Reduction and Castin12/08/2021 S/P ORIF: 12/11/2021 Cellulitis of right lower leg (Acute) Chronic kidney disease (Chronic ~08/2017) initially attributed to acute dehydration/heat stroke in August 2017 but probably had some CKD secondary to her MRSA infections and chronic antibiotics; followed by Dr. Sarah Cid, biology specimen technician in [place], [place] ([facility] Hematoma of right lower extremity (Acute ~02/28/20) Acute blood loss anemia (Acute) Depression (Chronic) Adenocarcinoma of endometrium, stage 1 (Acute ~02/2020) endometrial biopsy done and [place] 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 MRSA infection (methicillin-resistant Staphylococcus aureus) (~01/2014) Surgical History History of total right hip arthroplasty Status post closed fracture of right tibia (~12/2014) total of 9 surgeries from 2013 through 2014; had initial ORIF done at [place], [place] but subsequent surgeries were done to treat complications of MRSA infections in right leg Status post total bilateral knee replacement Family History Father , age 86 d/t stroke Stroke Mother , age 85 Heart disease congestive heart failure Sister Sepsis in 2014 d/t sepsis from lymphedema legs Social History Smoking/Tobacco Use Status: Current-Occasional Tobacco Type: e-cigarettes Tobacco: How many years used: 15 Smoking risk assessment performed?: Yes Alcohol Intake: former Drug use: Occasionally Substance use type: former substance user and marijuana Current gender identity: female Do you feel safe at home: Yes Do you feel safe in your relationship?: Yes Female Reproductive History Menstrual Menopause type: natural Date of menopause: 04/04/04
--- NOTE | 2021-12-18 12:15 | PDOC.HHF2F ---
Home Health Certification Home Health Certification: 1. Encounter Date and Reason I certify that Carine Love was seen by Jacquelyn Muhammad NP on 12/18/21 and that I had a [id number] encounter with this patient that meets the physician face to face encounter requirements. 2. Clinical Findings Supporting Skilled Need and Homebound Status I certify that home health services are medically necessary, include either intermittent [place] [facility] and/or physical/speech therapy, and that this patient is homebound in that absences from the home require considerable and taxing effort and are infrequent or of short duration, or are attributable to the need to receive medical care. [X] (a) Attached documentation from encounter provides clinical findings supporting skilled need and homebound status (including what assistance patient requires to leave the home). The encounter with the patient was in whole, or in part, for the following medical condition, which is the primary reason for home health care: Left Ankle Fracture with Surgical Repair Physical Therapy: ? Please perform transfer training, walker use and short distance ambulation as well as bed level and seated range of motion exercises to reduce postoperative complications while minimizing mobility decline to include stair negotiation. Hold on training with knee scooter in home environment until evaluated by orthopedics 12/23. OT: Assess and teach ability to perform ADL?s, safety. Homebound: :??Patient is unable to ambulate without the use of a walker or assistance of one other person. She should not ambulate outside, other than to and from a vehicle with assistance, until follow up with orthopedics has been completed. 3. Certification and Authentication I certify that I composed the above information based on my clinical judgement relating to this patient's medical condition and, if applicable, clinical findings communicated to me by the NPP or inpatient physician who performed the Home Health Referral. All further orders will be obtained through Stuart Tena PA-C
--- NOTE | 2021-12-18 13:30 | CHAPLAIN ---
Carine was getting ready to be discharged when I visited. She's been here more than a week, and said she is looking forward to being him. She's waiting for her boyfriend to respond to a text message to arrange for him to pick her up. Carine attends the [employer]. Her boyfriend is involved in the [employer] in [facility], and the salesperson stereo equipment there, Rev. Екатерина Arauz, knows Carine has been here.
--- NOTE | 2021-12-18 14:45 | PDOC.CMDIS ---
- If Service Date Differs Date of service: 12/18/21 Time of Service: 14:45 LACE Index Scoring Tool - Questions: Length of Stay (in days): 4 - 6 Acuity (Admit via E.D.?): Yes Comorbidities: Liver or Renal Disease E.D. Visits: 2 - Answers: Total Score: 14 Risk of Readmission: High Risk Care Management Discharge Reason for Hospitalization: Fracture dislocation of left ankle joint Discharge Plan: JAKY will be discharged home when ready per MD. Her friend Karel spends time with her and can help her as needed. JAKY will have new orders for home health PT/OT, follow up with her surgeon and PCP and plan of care. She will transport via private vehicle with Karel. Patient/Family Education Needs: Review discharge instructions, discuss Ask Me Three. Services Needed at Discharge: Home Health Care Services (PT/OT)
--- NOTE | 2021-12-18 15:15 | DI.RAD_ITS ---
Exam(s) XR ANKLE LT COMPLETE EXAM: XR ANKLE LT COMPLETE CLINICAL HISTORY: question dislocation of ankle. TECHNIQUE: 2D digital imaging was performed. COMPARISON: CR XR ANKLE LT COMPLETE from 12/08/2021 XA XR ANKLE LT 2V from 12/11/2021 FINDINGS: 3 in splint views: Again noted is the recently placed hardware comprised of a lateral fixation plate across the distal f ibula, 2 syndesmotic screws, and a single screw across medial malleolar fracture site. There is a defect in the medial cortex of the distal fibula with adjacent fracture fragment. May or may not be new. The orientation of the medial malleolus fragment is a question. Recommend orthopedic review IMPRESSION: DATA REPOSITORY: RADIATION DOSE DELIVERED:
--- NOTE | 2021-12-18 15:38 | W.PM.PROGNOT ---
Date of Service Date of service: 12/18/21 Time of Service: 15:44 Assessment and Plan Assessment and plan (1) Fracture dislocation of left ankle joint: Status: Acute Assessment and plan: 71-year-old female postop day #7 status post left ankle and syndesmosis ORIF Patient comfortable, pleasant, and feeling well. Unfortunate, splint is unwrapping again already after being reinforced this morning. Splint is also visibly broken and displaced laterally at the ankle. Removed in entirety. Incisions without signs of infection but expected edema and mild erythema. Mild serous drainage no purulence at all. Ankle without gross deformity. New short leg plaster AO splint applied and secured with multiple ABDs and tape. Dressings redone with Xeroform gauze ABD and soft roll. Stressed importance of avoiding weightbearing stress or any stress to the left ankle during this early healing period. Toe-touch weightbearing may be leading to too much weightbearing as evidenced by broken plaster splint. Instead, recommend complete nonweightbearing left ankle until there is sufficient healing to progress to partial weightbearing about 5 more weeks. Unfortunately, I do not think the patient can safelyrest splint/foot on ground for stance or balance given the amount of stress it seems to place on her left ankle. New left ankle x-rays ordered to ensure no harm done to surgical repair Will call to update based on results Objective Last Vital Signs Temp 97.0 F L 12/18/21 07:40 Pulse 71 12/18/21 07:40 Resp 18 12/18/21 07:40 BP 138/83 12/18/21 07:40 Pulse Ox 95 12/18/21 07:40 Laboratory Results - last 24 hr 12/18/21 05:15 Plt Count 261 Procedures Orthopedic Splinting/Casting Left ankle: Side: left Lower extremity injury location: ankle Lower extremity immobilizer: posterior splint (with footplate) Other orthopedic equipment: walker and other (knee scooter) Additional comments: CPT# 32191
--- NOTE | 2021-12-21 09:06 | INDS_ITS ---
Date of service: 12/21/21 PT Notes Visit Reasons: Left Ankle Fracture with Surgical Repair Physical Therapy Inpatient Discharge Summary Date: 12/21/2021 Dates of service: 12/14/2021 through 12/21/2021 This is a clinical summary of care provided for the duration of dates listed above. No charge was made in the completion of this documentation. Referring Doctor: Rachel Castillo NP PT Orders: PT CONSULT: S/P L ankle ORIF, TTWB LLE Precautions: Fall. Standard. TTWB L LE with AD.? Strict elevation of B LE when in bed or chair. Patient Profile/Admitting Diagnosis:? Carine is a 71-year-old female who sustained a trimalleolar fracture dislocation from a fall at home a week ago.? She is S/P ORIF with open treatment syndesmosis disruption on 12/11/21 and was evaluated by PT Corrine on 12/12/2021. ? Patient converted to swing bed level I on 12/13/2021 for continued rehabilitation thus needing PT re-evaluation today. PMHX: All Active Problems?(Updated 12/08/21 @ 12:43 by Simone Bhakta MD) Dislocation of ankle, left, closed (Acute) Bimalleolar ankle fracture (Acute 11/30/21) Cellulitis of right lower leg (Acute) Chronic kidney disease (Chronic ~08/2017) initially attributed to acute dehydration/heat stroke in August 2017 but probably had some CKD secondary to her MRSA infections and? chronic?antibiotics; followed by Dr. Sarah Cid, airline lounge receptionist in [place], [place] ([facility] Hematoma of right lower extremity (Acute ~02/28/20) Acute blood loss anemia (Acute) Depression (Chronic) Adenocarcinoma of endometrium, stage 1 (Acute ~02/2020) endometrial biopsy done and positive per [facility] 03/10/2020 Visit for wound check (Acute) Wound infection (Acute) Hepatic steatosis (Chronic) Acute kidney injury (Acute) Back pain (Acute) Chronic anticoagulation (Acute) Thickened endometrium (Acute) Postmenopausal bleeding (Acute) Medical History?(Updated 12/08/21 @ 12:43 by Simone Bhakta MD) 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 History of total right hip arthroplasty Status post closed fracture of right tibia (~12/2014) total of 9 surgeries from 2013 through 2014; had initial ORIF done at [place], [place] but subsequent? surgeries were done to treat complications of MRSA infections in right leg Status post total bilateral knee replacement Social History/Home Situation: Lives alone in a private home with 3 steep steps to enter with rails on both sides.? She has somebody who lives close by and can help as needed.? 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 Equipment Owned/DME: FWW, SPC, knee scooter Subjective: NT. See most recent FILM PROCESSING SUPERVISOR notes. Objective: General Observation: NT. See most recent FILM PROCESSING SUPERVISOR notes. Mental Status: NT. See most recent FILM PROCESSING SUPERVISOR notes. Pain: NT. See most recent FILM PROCESSING SUPERVISOR notes. Vital Signs: NT. See most recent FILM PROCESSING SUPERVISOR notes. ROM: Right Lower Extremity: Hip flexion WFL. Hip abduction WFL. Knee flexion WFL. Ankle dorsiflexion WFL. Ankle plantarflexion WFL. Left Lower Extremity: Hip flexion WFL. Hip abduction WFL. Knee flexion WFL. Ankle splinted. Strength: Right Lower Extremity: Hip flexors 4/5. Hip abductors 4/5. Knee flexors 5/5. Knee extensors 5/5. Ankle dorsiflexors 5/5. Ankle plantarflexors 5/5. Left Lower Extremity: Not assessed today due to L LE pain. BED MOBILITY/TRANSFERS: Supine-sit: I Sit-stand: I Stand-sit: I Bed-chair: I Chair-bed: I ? GAIT: Assistive device: Bariatric FWW Weight bearing: TDWB L Assist: I Distance: 100' x2 in a.m.; 100' in p.m. Deviation: Step-to gait pattern, antalgic gait, SOB? Balance: Static Sitting: Normal Dynamic Sitting: Normal Static Standing: Fair Dynamic Standing: Fair Assessment: Patient has demonstrated improvement in functional mobility goals during this episode of care. Will continue to require HH PT services to increase indepednece with transfers and ambulation performance. Goals: Goals X1 week 1. Supine-Sit independent MET 2. Sit-Supine independent MET 3. Sit-Stand independent MET 4. Stand-Sit independent with knee scooter MET 5. Bed-Chair independent with knee scooter MET 6. Chair-Bed independent with knee scooter MET 7. Independent gait on level surface with use of knee scooter for 50 feet for household distance and independent use of scooter MET 8. Minimal asssit of 1 for [address] negotiation while holding onto B rails for at least 3 steps MET 9. Good static and dynamic standing balance/tolerance with use of FWW MET DISCHARGE RECOMMENDATIONS: [] ? Home with no services [] [X] ? Home with services.? Home when medically cleared by orthopedic surgeon/hospitalist.? HH PT services for training with knee scooter in home environment,? stair negotiation,? and self-care performance.? HH OT for safe technique for self-care,? bathing, and dressing training. [] ? Home with outpatient PT [] [] ? SNF for continued rehabilitation [] [] ? [facility] Care [] [] ? SNF versus LTC based on ability to participate and progress [] TREATMENT CODE/TIME: [place] Thank you for the opportunity to participate in the care of this patient. Cristel Barroso PT, DPT, CLT [facility] [place], [place]
== END 2021-12-18 16:23 | disposition home health service (06) | DRG 560 ==
PROVIDERS: Nurse Practitioner Acute Care; Admitting Provider Family Medicine; PCP Physician Assistant; Visit Provider Family Medicine
DX: S82.892D Other fracture of left lower leg, subsequent encounter for closed fracture with routine healing (principal); N18.4 Chronic kidney disease, stage 4 (severe); F32.9 Major depressive disorder, single episode, unspecified; F10.21 Alcohol dependence, in remission; K76.0 Fatty (change of) liver, not elsewhere classified; C54.1 Malignant neoplasm of endometrium; F17.290 Nicotine dependence, other tobacco product, uncomplicated; Z96.653 Presence of artificial knee joint, bilateral; Z96.641 Presence of right artificial hip joint; Z86.718 Personal history of other venous thrombosis and embolism; Z79.899 Other long term (current) drug therapy
CPT/HCPCS: 36415; 80048; 97110; 97162; 97166; 97530; 99305; 99316; J1650; 71046; 73610; 85025; 85049; 87070; 87205

== ENCOUNTER 2021-12-23 13:55 | Outpatient (CLI) | payer MEDICARE, OTHER, SELFPAY ==
--- NOTE | 2021-12-23 13:45 | DI.RAD_ITS ---
Exam(s) XR ANKLE LT COMPLETE EXAM: XR ANKLE LT COMPLETE CLINICAL HISTORY: ankle fx f/u. TECHNIQUE: 2D digital imaging was performed. COMPARISON: CR XR ANKLE LT COMPLETE from 12/18/2021 FINDINGS: 3 views There has been deterioration. There is no fracture in the fibula at the superior aspect of the plate . There is also backing out of the screws extending across to the tibia with widening of the mortise and dislocation of the ankle joint. IMPRESSION: Abnormal findings as described above. Unexpected findings DATA REPOSITORY: RADIATION DOSE DELIVERED:
== END 2021-12-23 13:56 | disposition home or self-care (01) ==
LOC: DIORS 13:55
PROVIDERS: PCP Physician Assistant; Referring Provider Physician Assistant; Visit Provider Student in an Organized Health Care Education/Training Program
DX: S82.892A Other fracture of left lower leg, initial encounter for closed fracture (principal); X58.XXXA Exposure to other specified factors, initial encounter; T81.31XA Disruption of external operation (surgical) wound, not elsewhere classified, initial encounter; T84.117A Breakdown (mechanical) of internal fixation device of bone of left lower leg, initial encounter
CPT/HCPCS: 99214; 73610

== ENCOUNTER 2022-04-20 12:38 | Outpatient (REF) | payer MEDICARE, OTHER, SELFPAY ==
[2022-04-20 18:58] LABS: Bilirubin Negative (Negative); Blood Trace-intact (Negative); Clarity Cloudy (Clear); Glucose Negative (Negative); Ketones Negative (Negative); Leukocyte Esterase Small (Negative); Nitrite Negative (Negative); Urobilinogen 0.2 EU/dL (Up TO 0.2)
[2022-04-20 19:11] LABS: Bacteria Moderate HPF (Negative); C & S Indicated? Yes; Crystals Negative HPF (Negative); Epithelial Cells Moderate HPF (Negative); Mucus Negative (Negative); Other Cells Few Renal (Negative); WBC >50 HPF (0-5)
== END 2022-04-20 12:39 | disposition home or self-care (01) ==
LOC: NCHCN 12:38
PROVIDERS: PCP Physician Assistant; Visit Provider Physician Assistant
DX: R35.0 Frequency of micturition (principal); R39.15 Urgency of urination
CPT/HCPCS: 87077; 81003; 81015; 87086; 87186

== ENCOUNTER 2022-05-06 18:02 | Outpatient (REF) | payer MEDICARE, OTHER, SELFPAY ==
[2022-05-06 19:00] LABS: Bilirubin Negative (Negative); Blood Negative (Negative); Clarity Clear (Clear); Glucose Negative (Negative); Ketones Negative (Negative); Leukocyte Esterase Negative (Negative); Nitrite Negative (Negative); Specific Gravity 1.025 (1.005-1.025); Urobilinogen 0.2 EU/dL (Up TO 0.2); pH 6.5 (5-8)
[2022-05-06 19:10] LABS: Bacteria Rare HPF (Negative); C & S Indicated? No; Casts Negative LPF (Negative); Crystals Negative HPF (Negative); Epithelial Cells Rare HPF (Negative); Mucus Negative (Negative); RBC 0-2 HPF (0-2); WBC Negative HPF (0-5)
== END 2022-05-06 18:03 | disposition home or self-care (01) ==
LOC: LBN 18:02
PROVIDERS: PCP Physician Assistant; Visit Provider Physician Assistant
DX: N39.0 Urinary tract infection, site not specified (principal)
CPT/HCPCS: 81003; 81015

== ENCOUNTER 2022-05-17 15:36 | Outpatient (REF) | payer MEDICARE, OTHER, SELFPAY | END 2022-05-17 15:37 | disposition home or self-care (01) | LOC: NCHCN 15:36 | PROVIDERS: PCP Physician Assistant; Visit Provider Physician Assistant | DX: R35.0 Frequency of micturition (principal) | CPT/HCPCS: 87086 ==

== ENCOUNTER 2022-07-27 00:56 | Outpatient (CLI) | payer MEDICARE, OTHER, SELFPAY ==
--- NOTE | 2022-07-27 13:18 | DI.MAMMO_ITS ---
Exam(s) MAMMO SCREENING EXAM: MAMMO SCREENING CLINICAL HISTORY: SCREENING, Z12.31 TECHNIQUE: Bilateral full field digital CC and MLO mammographic images were obtained with 3D tomosyn thesis and utilizing computer aided detection (CAD). COMPARISON: Available for comparison. FINDINGS: Masses/Architectural Distortion: Scattered nodular densities are again seen in both breasts. No susp icious nodules or areas of architectural distortion are identified. Microcalcifications: No suspicious pleomorphic-type are seen. Skin Thickening/Nipple Retraction: None. IMPRESSION: 1. No significant interval change with no specific features of malignancy noted. 2. Unless there is more urgent need, screening mammography is recommended, as per [place] [employer] guidelines. BI-RADS Category 2 - Benign Findings Breast Density - Category B - Scattered areas of fibroglandular density Breast density category C or D implies that the patient has dense breast tissue. Dense breast tissue is very common and is not abnormal but dense breast tissue can make it harder to find cancer on a ma mmogram. Also, dense breast tissue may increase their breast cancer risk. This information about the result of the mammogram report was provided to the patient to raise their awareness. Use this report when you speak with the patient about their risks for breast cancer, which includes their family hist ory. At that time, you may recommend for more screening tests (Ultrasound or MRI) as they might be us eful based on their risk. A negative radiographic report should not delay biopsy if a dominant or clinically suspicious mass is present. Up to ten percent of cancers are not identified on mammography. A negative report may reinforce clinical impression. Adenosis and dense breasts may obscure an underlying neoplasm. False positive reports average 6 to 10%. Patient will receive a letter notifying them of these results.
== END 2022-07-27 01:16 ==
PROVIDERS: PCP Physician Assistant; Visit Provider Physician Assistant
DX: Z12.31 Encounter for screening mammogram for malignant neoplasm of breast (principal)
CPT/HCPCS: 77063; 77067

== ENCOUNTER 2022-11-15 14:20 | Outpatient (REF) | payer MEDICARE, OTHER, SELFPAY ==
[2022-11-15 14:50] LABS: HCT 40.5 % (36.0-46.0); HGB 12.4 g/dL (11.2-15.7); MCH 27.6 pg (27.0-33.0); MCHC 30.6 % (32.0-36.0); MCV 90 fL (80-95); MPV 9.6 fL (8.0-11.0); Platelet Count 297 10^3/uL (130-400); RDW 18.2 % (11.7-14.6); RDW-SD 60.5 fL; WBC 12.31 10^3/uL (4.4-10.8)
[2022-11-15 15:32] LABS: ALT 18 U/L (14-59); AST 20 U/L (15-37); Albumin 3.6 g/dL (3.4-5.0); Alkaline Phosphatase 131 U/L (46-116); Anion Gap 11.4 mmol/L (3-11); BUN 27 mg/dL (7-18); Bilirubin, Total 0.3 mg/dL (0.2-1.0); CO2 19.6 mmol/L (21.0-32.0); CREATININE 1.5 mg/dL (0.55-1.02); Calculated LDL 67 mg/dL (<100); Chloride 105 mmol/L (98-107); Cholesterol 134 mg/dL (<200); Glucose 100 mg/dL (74-106); HDL Cholesterol 45 mg/dL (40-60); Potassium 4.4 mmol/L (3.5-5.1); Sodium 136 mmol/L (136-145); Total Protein 8.1 g/dL (6.4-8.2); Triglyceride 114 mg/dL (<150)
== END 2022-11-15 14:21 | disposition home or self-care (01) ==
LOC: NCHCN 14:20
PROVIDERS: PCP Physician Assistant; Visit Provider Physician Assistant
DX: N18.9 Chronic kidney disease, unspecified (principal); E78.5 Hyperlipidemia, unspecified
CPT/HCPCS: 80053; 80061; 85027

== ENCOUNTER → 2023-01-07 11:34 | Outpatient (BNVA) | payer MEDICARE, OTHER, SELFPAY | PROVIDERS: PCP Physician Assistant; Referring Provider Physician Assistant; Visit Provider Surgery | DX: Z12.11 Encounter for screening for malignant neoplasm of colon (principal); Z86.010 Personal history of colon polyps ==

== ENCOUNTER 2023-02-01 08:32 | Day surgery (SDC) | payer MEDICARE, OTHER, SELFPAY ==
[2023-02-01 09:12] VITALS: BP 152/90; PULSE 89; RESP 20; TEMP 36.4; O2SAT 95
[2023-02-01] MEDS: Lactated Ringers 1,000 ML 80 ML IV (09:45)
[2023-02-01] MEDS: Albuterol/Ipratropium 3 ML UPD VIAL UPD (09:47)
--- NOTE | 2023-02-01 10:01 | W.ANESPRE ---
General Info Date of Service Date Performed: 02/01/23 Height: 5 ft 8 in Weight: 149.1 kg Body Mass Index (BMI): 49.9 Surgical Procedure: Operation Date: 02/01/23 10:20 Proposed Procedure Side Surgeon danna Pope MD Meds Allergies and Home Medications Allergies Allergy/AdvReac Type Severity Reaction Status Date / Time levofloxacin Allergy Intermediate Verified 02/01/23 09:07 Home Medication Medication Instructions Recorded duloxetine 60 mg capsule,delayed 60 mg PO HS 02/23/20 release (Cymbalta) furosemide 40 mg tablet 40 mg PO DAILY PRN 02/23/20 trazodone 150 mg tablet 150 mg PO HS 02/23/20 albuterol sulfate 90 mcg/actuation 2 puff inhalation Q4H PRN PRN #1 g 02/27/20 aerosol inhaler (Ventolin HFA) atorvastatin 20 mg tablet 20 mg PO HS 08/28/21 buspirone 10 mg tablet 10 mg PO BID 12/08/21 calcium carbonate 600 mg-vitamin 1 cap PO DAILY 12/08/21 D3 12.5 mcg (500 unit) capsule (Calcium 600 with Vitamin D3) sennosides 8.6 mg-docusate sodium 1 tab-cap PO QHS 12/08/21 50 mg tablet (Senna-S) aspirin 81 mg tablet,delayed 81 mg PO DAILY 01/07/23 release bisacodyl 5 mg tablet,delayed 5 mg PO ONCE #4 tabs 01/07/23 release (Dulcolax (bisacodyl)) cyanocobalamin (vitamin B-12) 1,000 mcg PO DAILY 01/07/23 1,000 mcg tablet (Vitamin B-12) polyethylene glycol 3350 17 gram 17 g PO DAILY 01/07/23 oral powder packet (Miralax) polyethylene glycol 3350 17 17 g PO ONCE #238 grams 01/07/23 gram/dose oral powder tolterodine 2 mg capsule,extended 2 mg PO DAILY 01/07/23 release 24 hr (Detrol LA) vitamins A,C,K-froz-nofhtt 4,296 1 cap PO BID 01/07/23 mcg-226 mg-90 mg capsule (ICaps AREDS) nitrofurantoin macrocrystal 50 mg 50 mg PO DAILY 02/01/23 capsule Current Visit Medications: Current Medications Generic Name Dose Route Start Last Admin Trade Name Dereck PRN Reason Stop Dose Admin Ringer's Solution 1,000 mls @ 80 mls/hr 02/01/23 06:00 02/01/23 09:45 IV 03/02/23 23:59 80 mls/hr INFUSION BREEZY Administration IV Miscellaneous Supplies 1 each 02/01/23 06:00 Iv Access IV 03/02/23 23:59 DIRECTED BREEZY Sodium Chloride 0 ml 02/01/23 06:00 Normal Saline Flush 10 Ml Syr IV 03/02/23 23:59 PRN PRN Sodium Chloride 0 ml 02/01/23 06:00 Normal Saline 10 Ml Vial IJ 03/02/23 23:59 DIRECTED PRN Sterile Water 0 ml 02/01/23 06:00 Water,Injection,Sterile 10 Ml Vial IJ 03/02/23 23:59 DIRECTED PRN PFSH Active Problems Active Problems: Problem Status Onset Code Discharge planning issues Z02.9 Fracture dislocation of left ankle joint S82.892A Cellulitis of right lower leg L03.115 Chronic kidney disease ~08/2017 N18.9 Hematoma of right lower extremity ~02/28/20 S80.11XA Acute blood loss anemia D62 Depression F32.9 Adenocarcinoma of endometrium, stage 1 ~02/2020 C54.1 Visit for wound check Z51.89 Wound infection T14.8XXA, L08.9 Hepatic steatosis K76.0 Acute kidney injury N17.9 Back pain M54.9 Left leg DVT 02/24/20 I82.402 Chronic anticoagulation Z79.01 Thickened endometrium R93.89 Postmenopausal bleeding N95.0 Medical History Medical History 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 MRSA infection (methicillin-resistant Staphylococcus aureus) (~01/2014) Urinary frequency Medical History Comments:: Leann 2x week Surgical History Surgical History History of total right hip arthroplasty Status post closed fracture of right tibia (~12/2014) total of 9 surgeries from 2013 through 2014; had initial ORIF done at [place], [place] but subsequent surgeries were done to treat complications of MRSA infections in right leg Status post total bilateral knee replacement Tobacco Smoking/Tobacco Use Status: Current-Occasional Tobacco Type: e-cigarettes Alcohol Alcohol Intake: former Substance Use Substance use: Occasionally Substance use type: former substance user and marijuana Vital Signs and Lab Results Vital Signs Most Recent Vital Signs in EMR: Most Recent Vital Signs Temp Pulse Resp BP Pulse Ox 36.4 C L 89 20 152/90 H 95 02/01/23 09:12 02/01/23 09:12 02/01/23 09:12 02/01/23 09:12 02/01/23 09:12 Lab Results Blood Type / Crossmatch: No Data to Display Complete Blood Count: No Data to Display Complete Metabolic Panel: No Data to Display Liver Function Panel: No Data to Display Coagulation Panel: No Data to Display Cardiac Panel: No Data to Display Arterial Blood Gas: No Data to Display Venous Blood Gas: No Data to Display Pancreas Panel: No Data to Display Thyroid Panel: No Data to Display Infectious Disease: No Data to Display Blood Cultures: No Data to Display Toxicology Panel: No Data to Display Imaging and Studies Imaging and Studies Study information below may be from another EMR and interpreted by another provider. Please see original notes in EMR for more complete details. EKG Summary: 03/25/2020 Conclusion Sinus rhythm...normal P axis, V-rate 60- 99 Low voltage, precordial leads...precordial leads <1.0mV Echocardiogram Summary: 02/25/20: Conclusion Normal left ventricular chamber size and systolic function. Estimated ejection fraction is 60%. There are no segmental wall motion abnormalities Normal right ventricular size and systolic function Both atria are normal in size Mildly sclerotic trileaflet aortic valve with no stenosis or regurgitation Mild mitral annular calcification. Trace mitral regurgitation Structurally normal tricuspid valve with trace to mild regurgitation. Normal estimated right ventricular systolic pressure The pulmonic valve is not well visualized Mildly dilated ascending aorta measuring 3.4 cm Anesthesia Assessment and Plan Anesthesia History Personal History: No History of Anesthesia Complications Family History: No Family History of Anesthesia Complications Exercise Tolerance Exercise Tolerance: Metabolic Equivalents>4 Pertinent Negatives Pertinent Negatives: No Symptoms of GERD and No Major Cardiovascular Symptoms or Complaints Cardiac & Pulmonary Exam Cardiac Exam: Normal S1/S2 Heart Sounds Pulmonary Exam: Clear Bilateral Breath Sounds Implantable Cardiac Device Does patient have a Pacemaker or an ICD?: No Airway Exam Known Difficult Airway: No Mallampati Class: 1 Mouth Opening: Normal (> 3cm) Thyromental Distance: Greater than 3 cm Neck Range of Motion: Full ROM Neck Circumference: Thick Teeth Condition: Normal Dentition ASA Classification ASA Score: ASA 3 Emergency Case?: No NPO Status NPO Status: NPO Clears >2 hours, Solids >8 hours Anesthesia Plan Resuscitation Status: Full Code Anesthesia Technique: General Anesthesia Airway Planned: Natural Airway Monitors Used: Standard Monitors
[2023-02-01 10:05] VITALS: BMI 49.9
--- NOTE | 2023-02-01 10:26 | BOWEL_PTH ---
PATIENT: Carine Love LOC: [facility] U#:[id number] AGE/SX: 72/F ROOM: RE02/01/[address]: Arian Pope : 1950 BED: DIS: 02/01/2023 SPEC #: [id number] RECD: 02/01/23 12:54 STATUS: SANDRA REQ #: [id number] JACQUELYN: 02/01/23 10:[address]: Arian Pope DEPT: Surgical Specimen RECD BY: Regla Sommers ENTERED: 02/01/23 12:55 SP TYPE: Bowel OTHR DR: Stuart Tena Tissues: 1 - BIOPSY BOWEL Procedures: GROSS AND MICRO LEVEL 4 Comments: [id number]
[2023-02-01 10:43] VITALS: BP 123/78; PULSE 86; RESP 18; TEMP 36.2; O2SAT 95
--- NOTE | 2023-02-01 10:48 | COLE_ITS ---
Date of service: 02/01/23 Time of Service: 10:48 Colonoscopy Report Procedure Description: Procedures performed: 1. Colonoscopy with snare polypectomy x1 Preoperative diagnosis: Surveillance colonoscopy, sessile serrated polyps Postoperative diagnosis: Colon polyps, mild pandiverticulosis Surgeon: Danyelle Pope Anesthesia: Patient Indication for procedure: Patient is a 72-year-old woman with a personal history of sessile serrated adenomas on prior colonoscopies. She is not having any symptoms. No family history of colon cancer. Findings: The terminal ileum was normal. A 5-7 mm pedunculated polyp was removed from the transverse colon with hot snare technique. Scattered diverticular changes are present throughout the entire colon but no active diverticulitis or stenosis. No significant hemorrhoidal disease. Surveillance/follow-up recommendations: Because of the personal history and finding a right?sided adenomatous polyp today I recommend repeating in 3-5 years depending on histology.? If adenomatous in 5 years, if villous or sessile maren teresa histology then 3 years. Complications: None Blood loss: Minimal Specimens:?? YES Quality of Prep:?? Good Procedure in detail: Written consent was obtained from the patient who was in agreement with the risks, benefits and indications of the procedure.? We went to the endoscopy suite and laid the patient in left lateral decubitus position.? Anesthesia was administered which was tolerated well.? A timeout was performed and when we are all in agreement we began the procedure. Digital rectal exam and visual examination was performed and within normal limits.? A well?lubricated colonoscope was advanced without difficulty all the way to the cecum identified by the ileocecal valve, and triangular folds and appendiceal orifice.? The terminal ileum was intubated and look normal. The scope was then slowly withdrawn.?? Retroflexion was performed in the rectum.? The findings/interventions are noted above. The scope was then removed and the patient tolerated the procedure well and was then taken back to the PACU in hemodynamically stable condition.
--- NOTE | 2023-02-01 10:54 | W.PM.DSUDISC ---
Date of service: 02/01/23 Time of Service: 10:54 Discharge Plan Disposition Patient Disposition: Home Condition: Good Discharge Details Attending Provider: Arian Pope Primary Care Provider: Stuart Tena Home Meds and New Rx's Prescriptions: Continued sennosides-docusate sodium [Senna-S] 8.6-50 mg tablet 1 tab-cap PO QHS calcium carbonate-vitamin D3 [Calcium 600 with Vitamin D3] 600 mg-12.5 mcg (500 unit) capsule 1 cap PO DAILY bisacodyl [Dulcolax (bisacodyl)] 5 mg tablet,delayed release (DR/EC) 5 mg PO ONCE Qty: 4 0RF Rx Instructions: Take per colonoscopy instructions provided by ordering providers office polyethylene glycol 3350 17 gram/dose powder 17 g PO ONCE Qty: 238 0RF Rx Instructions: Take per colonoscopy instructions provided by ordering providers office aspirin 81 mg tablet,delayed release (DR/EC) 81 mg PO DAILY ICaps AREDS 4,296 mcg-226 mg-90 mg capsule 1 cap PO BID cyanocobalamin (vitamin B-12) [Vitamin B-12] 1,000 mcg tablet 1,000 mcg PO DAILY polyethylene glycol 3350 [Miralax] 17 gram powder in packet 17 g PO DAILY tolterodine [Detrol LA] 2 mg capsule,extended release 24hr 2 mg PO DAILY duloxetine [Cymbalta] 60 mg Capsule,Delayed Release(Dr/Ec) 60 mg PO HS furosemide 40 mg Tablet 40 mg PO DAILY PRN trazodone 150 mg Tablet 150 mg PO HS albuterol sulfate [Ventolin HFA] 90 mcg/actuation Hfa Aerosol Inhaler 2 puff inhalation Q4H PRN PRNQty: 1 0RF buspirone 10 mg tablet 10 mg PO BID Patient Comments: TAKE 1 TABLET BY MOUTH BID atorvastatin 20 mg tablet 20 mg PO HS nitrofurantoin macrocrystal 50 mg capsule 50 mg PO DAILY Patient Comments: TAKE 1 CAPSULE BY MOUTH EVERY EVENING WITH FOOD Discharge Instructions Stand Alone Forms: Anesthesia Discharge InstMattie, Nic Wang (DSU) Activity:: Activity as Tolerated Diet:: As Tolerated DS: Diagnosis Discharge Diagnosis (1) Polyp of colon: Status: Acute Asessment and Plan: FINDINGS: A medium?size polyp was again found today and removed. Because of your history of polyps and finding this polyp he should probably do another colonoscopy in 3 to 5 years depending on the path results of this polyp.
[2023-02-01 11:14] VITALS: BP 129/65; PULSE 73; RESP 18; TEMP 36.3; O2SAT 100
--- NOTE | 2023-02-01 11:42 | W.ANESPOSTOP ---
Postoperative Evaluation Date, Time and Location Date Performed: 02/01/23 Time Performed: 11:43 Patient Location: Day Surgery Unit Vital Signs Most Recent Imported Vital Signs: Most Recent Vital Signs Temp Pulse Resp BP Pulse Ox 36.3 C L 73 18 129/65 100 02/01/23 11:14 02/01/23 11:14 02/01/23 11:14 02/01/23 11:14 02/01/23 11:14 Pain Score Most Recent Pain Score: Most Recent Pain Score Pain Level 0 02/01/23 11:14 Assessment Mental Status: Awake (Alert & Oriented to Patient Baseline) Airway and Respiratory Function: Patent airway with normal (patient baseline) respiratory exam Cardiovascular Function: Hemodynamically Stable Hydration Status: Adequately Hydrated Nausea & Vomiting: No Nausea or Vomiting Pain: Pt. Denies Any Pain Peripheral Nerve Block: Patient did not receive a nerve block
== END 2023-02-01 11:40 | disposition home or self-care (01) ==
PROVIDERS: PCP Physician Assistant; Visit Provider Student in an Organized Health Care Education/Training Program
PROC: 0DJD8ZZ Inspection of Lower Intestinal Tract, Via Natural or Artificial Opening Endoscopic (ICD-10-PCS; CPT 45378; principal; 2023-02-01 10:15)
DX: Z12.11 Encounter for screening for malignant neoplasm of colon (principal); Z86.010 Personal history of colon polyps; K62.5 Hemorrhage of anus and rectum; D12.3 Benign neoplasm of transverse colon
CPT/HCPCS: 45385; 00123; 88305; J7620

== ENCOUNTER → 2023-06-22 12:36 | Outpatient (CLI) | payer MEDICARE, OTHER, SELFPAY ==
--- NOTE | 2023-06-22 | DI.RAD_ITS ---
Exam(s) XR CHEST 2V PA LATERAL EXAM: XR CHEST 2V PA LATERAL CLINICAL HISTORY: COUGH, R05.9 TECHNIQUE: 2D digital imaging was performed. Two views. COMPARISON: CR XR CHEST 2V PA LATERAL from 12/15/2021 FINDINGS: HEART: Normal size. Aorta: Not dilated. PULMONARY VASCULATURE: Normal. LUNGS: Scarring left lung base, otherwise clear. PLEURAL SPACE: No pleural effusion or pneumothorax. BONE:Unremarkable for age. Soft tissues: Unremarkable. IMPRESSION: No acute abnormality. DATA REPOSITORY: RADIATION DOSE DELIVERED:
== END ==
PROVIDERS: PCP Physician Assistant; Visit Provider Physician Assistant
DX: R05.8 Other specified cough (principal)
CPT/HCPCS: 71046

== ENCOUNTER 2023-06-22 22:16 | Outpatient (REF) | payer MEDICARE, OTHER, SELFPAY ==
[2023-06-22 15:04] LABS: Abs Immature Grans 0.02 10^3/uL (0.0-0.06); Absolute Basophil Count 0.06 10^3/uL (0.0-0.2); Absolute Eosinophil Count 0.31 10^3/uL (0.0-0.7); Absolute Lymphocyte Count 1.16 10^3/uL (1.2-3.4); Absolute Monocyte Count 0.64 10^3/uL (0.1-0.8); Absolute Neutrophil Count 8.28 10^3/uL (1.2-6.7); Basophils % 0.6; HCT 43.8 % (36.0-46.0); HGB 13.7 g/dL (11.2-15.7); Immature Grans % 0.2; Lymphocytes % 11.1; MCH 29.1 pg (27.0-33.0); MCHC 31.3 % (32.0-36.0); MCV 93 fL (80-95); MPV 9.8 fL (8.0-11.0); Monocytes % 6.1; Platelet Count 287 10^3/uL (130-400); RDW 15.5 % (11.7-14.6); RDW-SD 53.1 fL; WBC 10.47 10^3/uL (4.4-10.8)
[2023-06-22 15:45] LABS: ALT 24 U/L (14-59); AST 15 U/L (15-37); Albumin 3.9 g/dL (3.4-5.0); Alkaline Phosphatase 137 U/L (46-116); Anion Gap 12.9 mmol/L (3-11); BUN 44 mg/dL (7-18); Bilirubin, Total 0.3 mg/dL (0.2-1.0); CO2 22.1 mmol/L (21.0-32.0); CREATININE 1.5 mg/dL (0.55-1.02); Calcium 8.9 mg/dL (8.5-10.1); Chloride 103 mmol/L (98-107); FREE T4 1.03 ng/dL (0.76-1.46); Glucose 106 mg/dL (74-106); Potassium 4.6 mmol/L (3.5-5.1); Sodium 138 mmol/L (136-145); TSH 2.03 uIU/Ml (0.36-3.74)
[2023-06-22 16:10] LABS: Calculated LDL 77 mg/dL (<100); Cholesterol 145 mg/dL (<200); HDL Cholesterol 47 mg/dL (40-60); Triglyceride 105 mg/dL (<150)
== END 2023-06-22 22:17 | disposition home or self-care (01) ==
LOC: NCHCN 22:16
PROVIDERS: PCP Physician Assistant; Visit Provider Physician Assistant
DX: E66.01 Morbid (severe) obesity due to excess calories (principal); E78.5 Hyperlipidemia, unspecified
CPT/HCPCS: 80053; 80061; 84439; 84443; 85025

== ENCOUNTER 2023-11-14 02:08 | Outpatient (CLI) | payer MEDICARE, OTHER, SELFPAY ==
--- NOTE | 2023-11-14 | DI.MAMMO_ITS ---
Exam(s) MAMMO SCREENING EXAM: MAMMO SCREENING CLINICAL HISTORY: SCREENING Z12.31 TECHNIQUE: Bilateral full field digital CC and MLO mammographic images were obtained with 3D tomosyn thesis and utilizing computer aided detection (CAD). COMPARISON: Available for comparison. FINDINGS: Masses/Architectural Distortion: There are several bilateral breast nodules which appears stable. No new nodules are seen. No areas of architectural distortion are present. Microcalcifications: No suspicious pleomorphic-type are seen. Skin Thickening/Nipple Retraction: None. IMPRESSION: 1. No significant interval change with no specific features of malignancy noted. 2. Unless there is more urgent need, screening mammography is recommended, as per [employer] guidelines. BI-RADS Category 2 - Benign Findings Breast Density - Category B - Scattered areas of fibroglandular density Breast density category C or D implies that the patient has dense breast tissue. Dense breast tissue is very common and is not abnormal but dense breast tissue can make it harder to find cancer on a ma mmogram. Also, dense breast tissue may increase their breast cancer risk. This information about the result of the mammogram report was provided to the patient to raise their awareness. Use this report when you speak with the patient about their risks for breast cancer, which includes their family hist ory. At that time, you may recommend for more screening tests (Ultrasound or MRI) as they might be us eful based on their risk. A negative radiographic report should not delay biopsy if a dominant or clinically suspicious mass is present. Up to ten percent of cancers are not identified on mammography. A negative report may reinforce clinical impression. Adenosis and dense breasts may obscure an underlying neoplasm. False positive reports average 6 to 10%. Patient will receive a letter notifying them of these results.
== END 2023-11-14 02:28 ==
LOC: DI 02:08
PROVIDERS: PCP Physician Assistant; Visit Provider Physician Assistant
DX: Z12.31 Encounter for screening mammogram for malignant neoplasm of breast (principal)
CPT/HCPCS: 77063; 77067